=== PATIENT | female | born 1965 | race Caucasian/White ===

== ENCOUNTER 2025-04-18 19:19 | Emergency (ER) | payer MEDICARE, SELFPAY ==
[2025-04-18 19:20] VITALS: BP 136/92; PULSE 88; RESP 20; TEMP 36.1; O2SAT 96
[2025-04-18 19:22] VITALS: BMI 42.5
[2025-04-18] MEDS: Lidocaine 1% (20 ml mdv) 20 ML Vial INFILT (19:48)
[2025-04-18 19:50] VITALS: BP 112/73; PULSE 83; RESP 16; TEMP 36.6; O2SAT 96
--- NOTE | 2025-04-18 19:52 | ED.VIS.LOWEX ---
HPI History of Present Illness Chief Complaint: Laceration Informant: patient and spouse/S.O. Narrative Narrative: 59-year-old female presenting to the emergency room with right leg lacerations. Patient states that a glass object inside the house broke and she sustained lacerations to the front part of her right leg. She wonders if she may have a cut on her left foot as there is some blood there. Her tetanus is up-to-date. She does not take any blood thinners. Tetanus Immunization: <5 years PFSH PFSH Medical History Depression Allergy/AdvReac Type Severity Reaction Status Date / Time Penicillins Allergy Severe Anaphylaxis Verified 04/18/25 19:22 prednisone AdvReac Mild Nausea/Vom/ Verified 04/18/25 19:22 Diarrhea Family History no significant family his Surgical History Hx of tubal ligation Hx of hysterectomy Hx of section Social History Smoking Status: Current every day smoker tobacco type: cigarettes ROS ROS ED Constitutional Constitutional ED: Denies chills, fever(s) or weight loss Eyes Eyes: Denies change in vision or diplopia ENT ENT ED: Denies ear pain, rhinorrhea or sore throat Cardiovascular Cardiovascular: Denies chest pain, orthopnea, palpitations or racing heartbeat Respiratory/Chest Respiratory/Chest: Denies cough, dyspnea or orthopnea Gastrointestinal Gastrointestinal: Denies abdominal pain, diarrhea, nausea or vomiting Genitourinary Genitourinary ED: Denies dysuria, hematuria or urinary frequency Musculoskeletal Musculoskeletal: Denies arthralgias or myalgias Integumentary Reports other Details: See HPI ; Denies abscess or rash Neurologic Neurologic: Denies headache(s) or weakness Psychiatric Psychiatric: Denies anxiety, depression, suicidal ideation or suicidal thoughts Endocrine Endocrinology: Denies polydipsia, polyphagia or polyuria Allergic/Immunologic Allergic/Immunologic ED: Denies mouth swelling, tongue swelling or urticaria EXAM Physical Exam Const Vital Signs: 04/18/25 19:20 04/18/25 19:50 Temperature 97 F L 98 F Temperature Source Temporal Pulse Rate 88 83 Respiratory Rate 20 H 16 Blood Pressure 136/92 H 112/73 Blood Pressure Mean 106 86 Pulse Ox 96 96 Oxygen Delivery Method Room Air Positive well nourished and well developed General Appearance ED: well developed and NAD HEENT Reports normocephalic, head/scalp atraumatic and moist mucous membranes Eyes PERRL and EOMs intact bilaterally Neck no lymphadenopathy, supple and no JVD Resp normal respiratory effort and clear to auscultation bilaterally Cardio regular rate, regular rhythm and no murmurs GI normal to inspection, nondistended, normoactive bowel sounds and non-tender Palpation: soft Back/Spine no CVA tenderness and normal ROM Extremity General Extremety ED: Yes edema General Extremity: edema bilateral lower extremity Details: mild Neuro oriented x3 and CN's II-XII intact bilaterally Sensorium / Orientation: alert Motor Exam: strength 5/5 throughout Psych mental status grossly normal Mood & Affect: Negative for depressed or tearful Skin no rashes or lesions noted Skin Narrative: There are several superficial abrasions to the right leg. There are 2 lacerations that are about 3 cm long each. These have wound edges that are well-approximated. There is a larger laceration that is about 4 cm and is gaping. The proximal most aspect of the laceration has a triangular skin avulsion. There is weeping consistent with lymphedema coming from the wound. MDM MDM MDM Narrative Medical decision making narrative: Differential diagnosis includes but not limited to laceration neurovascular injury retained foreign body lymphedema The 2 superficial lacerations were washed with Shur-Clens and the edges held in place using Dermabond. The larger laceration was locally anesthetized using 1% lidocaine washed with Shur-Clens and explored. No foreign bodies were noted. I used a total of 8 simple erupted 3-0 Ethilon sutures. The skin was noted to be rather thin and so bigger bites were needed to ensure that the stitches would not tear through the skin. Good homeostasis and coverage was obtained. Again the proximalmost aspect of the wound of about 1/2 cm showed that the skin was avulsed and did not need closure and will need to heal by secondary intention. Local wound care discussed with patient. Stitches need to be removed in 10 days return if any concerns or worsening History & Record Review Discussion w/independent historian: Patient and Significant other Discharge Plan Triage Chief Complaint: Laceration ED Provider: Willis Mac Dx/Rx/DC Orders Clinical Impression: Laceration of leg, multiple sites Instructions: ED Laceration Extremity, ED Laceration, Skin Adhesive Primary Care Provider: David Doctor,Out of Referrals: [facility] Doctor,Out of [Primary Care Provider, Medical] Activity Restrictions/Additional Instructions: Local wound care: Soap and water and showers are fine. Avoid soaking or swimming. Antibiotic ointment at least 1 time per day. You may leave the wound open to the air if at home. Stitches do need to be removed in about 10 days. Print Language: Kyrgyz Disposition Disposition: Home, Self Care
--- OUTSIDE RECORDS SUMMARY | 2025-04-18 20:05 | XMS RPT_ITS | CCD ---
Author Organization [facility] Care Team Providers Care Quad Stayer Name Role Phone ERIN WATSON Primary Care Physician Yessenia JAMESON Attending Unavailable ERIN WATSON J Referring Unavailabl e NILL, Yessenia Lucio Attending Unavailable Aichholz, Teresita Prashant Referring Unavailable NILL, Yessenia Lucio Attending Unavailable NILL, Yessenia Lucio Attending Unavailable NILL, Yessenia Lucio Attending Unavailable AICHHOLZ, AREA CLEANER ERIN Primary Care Unavailable LR ., DR BAYRON Romero Attending Unavailable LR ., DR BAYRON Romero Admitting Unavailable LR ., DR BAYRON Romero Consulting Unavailable JOSE FRANCISCO ., NAVIN Admitting Unavailable JOSE FRANCISCO .NAVIN Attending Unavailable KIZZY .CHERYL Consulting Unavailable AICHHOLZ, AREA CLEANER ERIN Primary Care Unavailable DEL VALLE ., MR ARDEN Admitting Unavailable DEL VALLE ., MR ARDEN Attending Unavailable AICHHOLZ, AREA CLEANER ERIN Primary Care Unavailable AICHHOLZ, AREA CLEANER ERIN Admitting Unavailable KHAI, DR LAILA Lau Consulting Unavailable AICHHOLZ, AREA CLEANER ERIN Primary Care Unavailable AICHHOLZ, AREA CLEANER ERIN Attending Unavailable AICHHOLZ, AREA CLEANER ERIN Consulting Unavailable AICHHOLZ, AREA CLEANER ERIN Admitting Unavailable KHAI, DR LAILA Lau Consulting Unavailable AICHHOLZ, AREA CLEANER ERIN Primary Care Unavailable AICHHOLZ, AREA CLEANER ERIN Attending Unavailable AICHHOLZ, AREA CLEANER ERIN Consulting Unavailable AICHHOLZ, AREA CLEANER ERIN Primary Care Unavailable NILL ., DR CASAS Admitting Unavailable NILL ., DR CASAS Attending Unavailable NILL ., DR CASAS Consulting Unavailable NOHEMI ANDESRON Consulting Unavailable JOSE FRANCISCO ., NAVIN Admitting Unavailable JOSE FRANCISCO ., NAVIN Attending Unavailable JOSE FRANCISCO ., NAVIN Consulting Unavailable AICHHOLZ, AREA CLEANER ERIN Primary Care Unavailable LR ., DR BAYRON Romero Attending Unavailable LR ., DR BYARON Romero Consulting Unavailable LR ., DR BAYRON Romero Admitting Unavailable AICHHOLZ, AREA CLEANER ERIN Primary Care Unavailable DI WALLS Consulting Unavailable LR ., DR BAYRON Romero Attending Unavailable LR ., DR BAYRON Romero Consulting Unavailable LR ., DR BAYRON Romero Admitting Unavailable AICHHOLZ, AREA CLEANER ERIN Primary Care Unavailable LR ., DR BAYRON Romero Admitting Unavailable LR ., DR BAYRON Romero Attending Unavailable LR ., DR BAYRON Romero Consulting Unavailable AICHHOLZ, AREA CLEANER ERIN Primary Care Unavailable LR ., DR BAYRON Romero Admitting Unavailable LR ., DR BAYRON Romero Attending Unavailable AICHHOLZ, AREA CLEANER ERIN Primary Care Unavailable LILLY ., ABHILASH Consulting Unavailable LR ., DR BAYRON Romero Admitting Unavailable LR ., DR BAYRON Romero Attending Unavailable LR ., DR BAYRON Romero Consulting Unavailable AICHHOLZ, AREA CLEANER ERIN Primary Care Unavailable LR ., DR BAYRON Romero Admitting Unavailable LR ., DR BAYRON Romero Attending Unavailable LR ., DR BAYRON Romero Consulting Unavailable AICHHOLZ, AREA CLEANER ERIN Primary Care Unavailable LILLY ., ABHILASH Consulting Unavailable LR ., DR BAYRON Romero Admitting Unavailable LR ., DR BAYRON Romero Attending Unavailable AICHHOLZ, AREA CLEANER ERIN Primary Care Unavailable LR ., DR BAYRON Romero Attending Unavailable LR ., DR BAYRON Romero Consulting Unavailable LR ., DR BAYRON Romero Admitting Unavailable AICHHOLZ, AREA CLEANER ERIN Primary Care Unavailable LAKSHMIPATHY ., NARENDRANCARMELITA Consulting Laura vailable NILL ., DR CASAS Consulting Unavailable NILL ., DR CASAS Admitting Unavailable AICHHOLZ, AREA CLEANER ERIN Primary Care Unavailable NILL ., DR CASAS Attending Unavailable AICHHOLZ, AREA CLEANER ERIN Admitting Unavailable AICHHOLZ, AREA CLEANER ERIN Attending Unavailable AICHHOLZ, AREA CLEANER ERIN Consulting Unavailable AICHHOLZ, AREA CLEANER ERIN Primary Care Unavailable JOSIAH, DR CARLENE Lucio Consulting Unavailable AICHHOLZ, AREA CLEANER ERIN Admitting Unavailable AICHHOLZ, AREA CLEANER ERIN Attending Unavailable AICHHOLZ, AREA CLEANER ERIN Consulting Unavailable AICHHOLZ, AREA CLEANER ERIN Primary Care Unavailable RERE BARBOSA Consulting Unavailable LR ., DR BAYRON Romero Attending Unavailable LR ., DR BAYRON Romero Admitting Unavailable AICHHOLZ, AREA CLEANER ERIN Primary Care Unavailable AICHHOLZ, AREA CLEANER ERIN Primary Care Unavailable SAMSA ., EFREN Admitting Unavailable SAMSA ., EFREN Attending Unavailable SAMSA ., EFREN Consulting Unavailable LR ., DR BAYRON Romero Attending Unavailable LR ., DR BAYRON Romero Admitting Unavailable KEVIN ., DR BAYRON Romero Consulting Unavailable AICHHOLZ, AREA CLEANER ERIN Primary Care Unavailable AICHHOLZ, AREA CLEANER ERIN Admitting Unavailable AICHHOLZ, AREA CLEANER ERIN Attending Unavailable AICHHOLZ, AREA CLEANER ERIN Consulting Unavailable AICHHOLZ, AREA CLEANER ERIN Primary Care Unavailable Aichholz MEDIA INTERN, Erin Unavailable Benjamin LEAHY, Primary Care Provider [phone] Aichholz MEDIA INTERN, Erin Unavailable Tara LEAHY, Matty Primary Care Provider Aichholz MEDIA INTERN, Erin Unavailable Jose Roberts Attending Unavailab le Jose Roberts Admitting Unavailab le Aichholz, Erin J Primary Care Unavailable SHALONDA WHITE Attending Unavailable AICHHOLZ, ERIN Referring Unavailable AICHHOLZ, ERIN Attending Unavailable TOSHIA VILLA Attending Unavailable AICHHOLZ, ERIN Attending Unavailable AICHHOLZ, ERIN Attending Unavailable Aichholz MEDIA INTERN-C, Erin J Primary Care Provider Jose Roberts MD Attending Provider Aichholz MEDIA INTERN-C, Erin J Attending Provider Filomena LEAHY, Sd Linder Attending Unavailable Aichholz MEDIA INTERN, Erin Unavailable Benjamin LEAHY, Nova Primary Care Provider Tara LEAHY, Matty Primary Care Provider Tara LEAHY, Matty Primary Care Provider Aichholz MEDIA INTERN, Erin Unavailable Aichholz, Erin J Primary Care Unavailable Aichholz, Erin J Primary Care Unavailable Aichholz, Erin J Primary Care Unavailable Aichholz, Erin J Primary Care Unavailable Aichholz, Erin J Primary Care Unavailable Aichholz, Erin J Primary Care Unavailable Aichholz, Erin J Primary Care Unavailable Erin Watson Primary Care Unavailable Erin Watson Primary Care Unavailable Erin Watson Primary Care Unavailable Erin Watson Primary Care Unavailable Erin Watson Primary Care Unavailable Erin Watson Primary Care Unavailable Erin Watson Primary Care Unavailable Erin Watson Primary Care Unavailable Erin Watson Primary Care Unavailable Allergies Allergy Classification Reported Allergen(s) Allergy Type Date of Onset Reaction(s) Facility (20 sources) Penicillins; Translations: [penicillins] Drug allergy 4 Dyspnea (finding), Weal (disorder), Hives, Shortness of breath, Swelling [facility] [place] (20 sources) predniSONE; Translations: [prednisone] Drug Allergy 4 Dyspnea (finding) [facility] [place] (1 source) prednisoLONE Drug Allergy [facility] (20 sources) Prednisone Propensity to adverse reactions 3 Itching [facility] (9 sources) Penicillin Drug Allergy 5 [facility] Comment on above: shortness of breath (1 source) predniSONE Drug Allergy 5 [facility] Rep[facility] Medications Current Medications Medication Drug Class(es) Dates Sig (Normalized) Sig (Original) acetaminophen 325 mg / HYDROcodone bitartrate 5 mg oral tablet (13 sources) Opioid Agonist Start: 11-24-2024 End: 12-04-2024 take 1 tablet by mouth once HYDROcodone-acetam inophen (Dale) 5-325 MG tablet Indications: Acute back pain with sciatica, unspecified laterality Take 1 tablet by mouth every 12 (twelve) hours if needed for severe pain for up to 10 days 20 tablet 11/24/2024 12/04/2024 Active Start: 09-23-2024 End: 12-10-2024 take 1 tablet by mouth every six hours as needed for pain Hydrocodone-Acetaminophen 5-325 mg table t Discontinued 1 TAB PO Q6H as needed for pain 12 0 September 23, 2024 December 10, 2024 1:40pm Lumbar radiculopathy Radiculopathy, lumbar region albuterol 0.83 mg/ml inhalation solution (20 sources) beta2-Adrenergic Agonist Start: 01-23-2025 take 2.5 mg by inhalation every four to six hours as needed Albuterol Sulfate 2.5 mg /3 mL (0.083 %) solution for nebulization Active 2.5 MG INHALATION EVERY 4-6 HOURS as needed January 23, 2025 12:00am Complies with drug therapy Start: 01-23-2025 take 1 puff(s) by in halation every six hours as needed Albuterol Sulfate 90 mcg/actuation HFA aerosol inhaler Active 2 PUFF INHALATION Every 6 hours as needed January 23, 2025 12:00am Complies with drug therapy Start: 07-15-2024 End: 08-14-2024 take 2 puff(s) by inhalation every six hours for wheezing albuterol HFA 90 mcg/act inhaler Indications: COPD mixed type (HCC) Inhale 2 puffs every 6 (six) hours if needed for shortness of breath or wheezing 18 g 07/15/2024 Active Start: 03-20-2024 End: 03-08-2025 take 1.25 mg by inhalation every six hours as needed for wheezing Albuterol Sulfate 2.5 mg /3 mL (0.083 %) solution for nebulization Discontinued 1.25 MG IH Q6H as needed for shortness of breath or wheezing 90 0 March 20, 2024 12:00am March 08, 2025 7:00am albuterol 0.833 mg/ml / ipratropium bromide 0.167 mg/ml inhalation solution (20 sources) Anticholinergic, beta2-Adrenergic Agonist Start: 01-23-2025 take 1 mL by inhalation every four to six hours as needed Ipratropium-Albuterol 0.5 mg-3 mg(2.5 mg base)/3 mL solution for nebulization Active 3 ML INHALATION EVERY 4-6 HOURS as needed January 23, 2025 12:00am Complies with drug therapy Start: 03-24-2024 End: 09-23-2024 take 1 mL by inhalation every six hours Ipratropium-Albuterol 0.5 mg-3 mg(2.5 mg base)/3 mL Solution For Nebulization Discontinued 3 ML IH Q6H 90 7 0 March 24, 2024 12:00am September 23, 2024 10:28am Albuterol Sulfate 2.5 mg /3 mL (0.083 %) solution for nebulization (5 sources) Start: 03-20-2024 take 1.25 mg by inhalation every six hours as needed for wheezing Albuterol Sulfate 2.5 mg /3 mL (0.083 %) solution for nebulization Active 1.25 MG IH Q6H as needed for shortness of breath or wheezing 90 March 20, 2024 12:00am amitriptyline hydrochloride 100 mg oral tablet (20 sources) Tricyclic Antidepressant Start: 01-23-2025 Amitriptyline 100 mg tablet Active 50 MG PO Daily at bedtime January 23, 2025 12:00am Complies with drug therapy Start: 04-22-2024 End: 01-24-2025 take 0.5 tablet by mouth at bedtime amitriptyline (Elavil) 100 MG tablet Indications: Fibromyalgia Take 0.5 tablets (50 mg) by mouth at bedtime 45 tablet 1 10/26/2024 01/24/2025 Active Start: 03-21-2024 take 1 tablet by tariq th once daily in the evening Amitriptyline 100 mg tablet Active 100 MG PO every evening March 21, 2024 12:00am Complies with drug therapy Start: 07-31-2023 End: 04-20-2024 take 0.5 tablet by mouth at bedtime amitriptyline (Elavil) 100 MG tablet Indications: Fibromyalgia Take 0.5 tablets (50 mg) by mouth at bedtime 45 tablet 1 01/21/2024 Active Start: 04-19-2022 amitriptyline 100 mg oral tablet 50 mg = 0.5 tab(s), Oral, Once a day (at bedtime), Refills(s) 0 Start Date: 04/19/22 Status: Ordered End: 03-30-2024 take 1 tablet by mouth at bedtime amitriptyline (Elavil) 50 MG tablet Take 50 mg by mouth at bedtime 03/30/2024 Discontinued (Therapy completed) 120 actuat budesonide 0.16 mg/actuat / formoterol fumarate 0.0048 mg/actuat / glycopyrrolate 0.009 mg/actuat metered dose inhaler (20 sources) Corticosteroid, beta2-Adrenergic Agonist Start: 01-23-2025 Bkvqzeeoed-Zrmcivbt-Uzeidgnk ol (Breztri Aerosphere) 160-9-4.8 mcg/actuation HFA aerosol inhaler Active 2 INH INHALATION Twice daily January 23, 2025 12:00am Complies with drug therapy Start: 10-26-2024 End: 01-24-2025 take 2 puff(s) by inhalation in the morning, then take 2 puff(s) by inhalation at bedtime, then take 2 puff(s) by inhalation in the morning, then take 2 puff(s) by inhalation at bedtime Lklggvw-Pesrvwcgoiy-Mpibylguib (Breztri Aerosphere) 160-9-4.8 MCG/ACT aerosol Indications: COPD mixed type (HCC) Inhale 2 puffs in the morning and 2 puffs before bedtime. Inhale 2 puffs in the morning and 2 puffs before bedtime. 32 g 1 10/26/2024 01/24/2025 Active Start: 12-25-2022 End: 10-26-2024 take 2 puff(s) by inhalation in the morning Breztri Aerosphere 160-9-4.8 MCG/ACT aerosol Inhale 2 puffs in the morning and 2 puffs before bedtime. 12/25/2022 10/26/2024 Discontinued (Reorder) bumetanide 0.5 mg oral tablet (20 sources) Loop Diuretic Start: 01-23-2025 take 1 tablet by mouth once daily Bumetanide 0.5 mg tablet Active 0.5 MG PO Daily January 23, 2025 12:00am only MWF Complies with drug therapy Start: 09-02-2023 End: 10-26-2024 bumetanide (Bumex) 0.5 MG ta blet Indications: Bilateral lower extremity edema Take M W F only 27 tablet 1 10/26/2024 Active Start: 06-20-2023 End: 07-04-2023 take 1 tablet by mouth in the morning bumetanide (Bumex) 0.5 MG tablet Indications: Bilateral lower extremity edema Take 1 tablet (0.5 mg) by mouth in the morning for 14 days. 14 tablet 0 06/20/2023 07/04/2023 Active cariprazine 4.5 mg oral capsule (9 sources) Atypical Antipsychotic Start: 12-10-2024 take 1 capsule by mouth once daily Cariprazine (Vraylar) 4.5 mg capsule Active 4.5 MG PO Daily December 09, 2024 11:00pm Complies with drug therapy cephalexin 500 mg oral tablet (1 source) Cephalosporin Antibacterial Start: 03-20-2024 take 1 capsule by mouth four times daily Cephalexin 500 mg capsule Active 500 MG PO four times daily 40 March 20, 2024 12:00am cetirizine hydrochloride 10 mg oral tablet (18 sources) Histamine-1 Receptor Antagonist Start: 07-15-2024 End: 01-24-2025 take 1 tablet by mouth once daily Cetirizine 10 mg tablet Active 10 MG PO Daily January 23, 2025 12:00am Complies with drug therapy cholecalciferol 0.125 mg oral tablet (20 sources) Vitamin D Start: 01-23-2025 take 1 tablet by mouth once daily Cholecalciferol (Vitamin D3) 125 mcg (5,000 unit) tablet Active 125 MCG PO Daily January 23, 2025 12:00am Complies with drug therapy cyclobenzaprine hydrochloride 5 mg oral tablet (12 sources) Muscle Relaxant Start: 01-23-2025 take 1 tablet by mouth every eight hours as needed for muscle spasms Cyclobenzaprine 5 mg tablet Active 5 MG PO Every 8 hours as needed for muscle spasm January 23, 2025 12:00am Complies with drug therapy Start: 12-10-2024 take 1 tablet by tariq th three times daily as needed for muscle spasms Cyclobenzaprine 10 mg tablet Active 10 MG PO three times a day as needed for muscle spasm 90 0 December 09, 2024 11:00pm Spinal stenosis of lumbar region with neurogenic claudication Spinal stenosis, lumbar region with neurogenic claudication Complies with drug therapy take 5 mg by mouth t hree times daily as needed for muscle spasms cyclobenzaprine (Flexeril) 10 MG tablet Indications: Fibromyalgia Syndrome , Muscle Spasm Take 5 mg by mouth 3 (three) times a day as needed for muscle spasms Active Ipratropium-Albuterol 0.5 mg-3 mg(2.5 mg base)/3 mL Solution For Nebulization (3 sources) Start: 03-24-2024 take 1 mL by inhalation every six hours Ipratropium-Albuterol 0.5 mg-3 mg(2.5 mg base)/3 mL Solution For Nebulization Active 3 ML IH Q6H 90 7 March 24, 2024 12:00am lamoTRIgine 100 mg oral tablet (20 sources) Mood Stabilize r, Anti-epil eptic Agent Start: 01-23-2025 take 1 tablet by mouth once daily Lamotrigine 100 mg tablet Active 100 MG PO Daily January 23, 2025 12:00am Complies with drug therapy Start: 03-21-2024 take 1 tablet by tariq once daily in the evening Lamotrigine 200 mg tablet Active 200 MG PO every evening March 21, 2024 12:00am Complies with drug therapy Start: 03-21-2024 Lamotrigine 15 0 mg tablet Active 100 MG PO Daily March 21, 2024 12:00am Start: 07-30-2023 End: 03-30-2024 take 1 tablet by mouth once daily Lamotrigine 150 mg tablet Active 150 MG PO Daily March 21, 2024 12:00am Complies with drug therapy Start: 04-19-2022 take 1 tablet by tariq once daily in the morning, then take 2 tablets by mouth once daily in the evening Lamictal 100 mg Tab 1 po QAM and 2 po QPM, Refills(s) 0 Start Date: 04/19/22 Status: Ordered lamoTRIgine (Alexander ICtal) 100 MG tablet Take 150 mg by mouth in the morning. In the morning . 0 Active lidocaine 0.05 mg/mg medicated patch (5 sources) Antiarrhythmic, Amide Local Anesthetic apply 1 dose transdermal route every twelve hours in the morning lidocaine (Lidoderm) 5 % patch Apply 1 patch topically in the morning. Remove & discard patch within 12 hours or as directed by MD.. 0 Active Methylprednisolone (Methylpred Dp) 4 mg tablets,dose pack (3 sources) Start : 03-24 Methylprednisolone (Methylpred Dp) 4 mg tablets,dose pack Active 4 MG PO .as directed 24 10March 24, 2024 12:00am Day 1: 8mg at breakfast, 4mg after lunch, 4mg after supper, 8mg at bedtime Day 2: 4mg at breakfast, 4mg after lunch, 4mg after supper, 8mg at bedtime Day 3: 4mg at breakfast, 4mg after lunch, 4mg after supper, 4mg at bedtime Day 4: 4mg at breakfast, 4mg after lunch, 4mg at bedtime Day 5: 4mg at breakfast, 4mg at bedtime Day 6:4mg at breakfast Nicotine 21 mg/24 hr Patch 24 Hour (3 sources) Start : 03-24 apply 1 dose transdermal route every twenty-four hours Nicotine 21 mg/24 hr Patch 24 Hour Active 21 MG TD Q24H 10 March 24, 2024 12:00am omeprazole 40 mg delayed release oral capsule (20 sources) Proton Pump Inhibitor Start : 07-30 End: 01-24 take 1 capsule by mouth once daily Omeprazole 40 mg capsule,delayed release(DR/EC) Active 40 MG PO Daily March 21, 2024 12:00am Complies with drug therapy Start: 04-19-2022 take 1 capsule by mo [facility] once daily omeprazole 40 mg Cap-DR 40 mg = 1 cap(s), Oral, Daily, Refills(s) 0 Start Date: 04/19/22 Status: Ordered Omeprazole 40 mg capsule,delayed release(DR/EC) (4 sources) Start: 03-21-2024 take 1 capsule by mouth once daily Omeprazole 40 mg capsule,delayed release(DR/EC) Active 40 MG PO Daily March 21, 2024 12:00am prazosin 1 mg oral capsule (20 sources) alpha-Adrener gic Viv Start: 03-21-2024 take 1 capsule by mouth once daily in the evening Prazosin 2 mg capsule Active 2 MG PO every evening March 21, 2024 12:00am Start: 02-11-2024 Start: 04-19-2022 take 1 capsule by mo [facility] once daily in the evening Prazosin 2 mg capsule Active 2 MG PO every evening March 21, 2024 12:00am Complies with drug therapy pregabalin 75 mg oral capsule (20 sources) Start: 02-24-2025 take 1 capsule by mouth twice daily Pregabalin (Lyrica) 75 mg capsule Active 75 MG PO twice a day February 23, 2025 11:00pm Complies with drug therapy Start: 01-23-2025 take 1 capsule by mo [facility] three times daily Pregabalin 100 mg capsule Active 100 MG PO Three times daily January 23, 2025 12:00am Complies with drug therapy Start: 03-21-2024 End: 02-24-2025 take 3 capsules by mouth three times daily Pregabalin 100 mg capsule Discontinued 300 MG PO three times a day March 21, 2024 12:00am February 24, 2025 1:25pm Start: 03-21-2024 Start: 03-21-2024 End: 11-25-2024 take 1 capsule by mouth in the morning pregabalin (Lyrica) 100 MG capsule Indications: Fibromyalgia Take 1 capsule (100 mg) by mouth in the morning and 1 capsule (100 mg) before bedtime. 60 capsule 2 10/26/2024 Active Start: 09-23-2023 take 1 capsule by mo uth in the morning pregabalin (Lyrica) 100 MG capsule Indications: Fibromyalgia Take 1 capsule (100 mg) by mouth in the morning and 1 capsule (100 mg) before bedtime. 60 capsule 5 09/23/2023 Active Start: 04-03-2023 take 1 capsule by mo uth twice daily pregabalin (Lyrica) 100 MG capsule Indications: Fibromyalgia TAKE 1 CAPSULE BY MOUTH TWICE DAILY 60 capsule 5 04/03/2023 Active Start: 04-19-2022 take 1 capsule by mo uth twice daily pregabalin 100 mg Cap 100 mg = 1 cap(s), Oral, BID, Refills(s) 0 Start Date: 04/19/22 Status: Ordered propranolol hydrochloride 40 mg oral tablet (20 sources) beta-Adrenergic Viv Start: 03-21-2024 End: 01-24-2025 take 1 tablet by mouth twice daily Propranolol 40 mg tablet Active 40 MG PO twice a day March 21, 2024 12:00am Complies with drug therapy Start: 09-23-2023 take 1 tablet by tariq th in the morning propranolol (Inderal) 40 MG tablet Indications: Personal history of other diseases of the nervous system and sense organs Take 1 tablet (40 mg) by mouth in the morning and 1 tablet (40 mg) before bedtime. 60 tablet 5 09/23/2023 Active Start: 04-03-2023 take 1 tablet by tariq th twice daily propranolol (Inderal) 40 MG tablet Indications: Personal history of other diseases of the nervous system and sense organs TAKE 1 TABLET BY MOUTH TWICE DAILY 60 tablet 5 04/03/2023 Active Start: 04-19-2022 take 1 tablet by tariq th twice daily propranolol 40 mg Tab 40 mg = 1 tab(s), Oral, BID, Refills(s) 0 Start Date: 04/19/22 Status: Ordered QUEtiapine 300 mg oral tablet (20 sources) Atypical Antipsychotic Start: 01-23-2025 take 1 tablet by mouth once daily at bedtime Quetiapine 300 mg tablet Active 300 MG PO Daily at bedtime January 23, 2025 12:00am Complies with drug therapy Start: 08-06-2024 take 1 tablet by tariq th at bedtime QUEtiapine (SEROquel) 300 MG tablet Take 300 mg by mouth at bedtime 08/06/2024 Active Start: 03-21-2024 take 3 tablets by mo [facility] once daily Quetiapine 100 mg tablet Active 300 MG PO Daily March 21, 2024 12:00am Complies with drug therapy Start: 03-21-2024 End: 10-26-2024 take 1 tablet by mouth once daily in the evening Quetiapine 400 mg tablet Discontinued 400 MG PO every evening March 21, 2024 12:00am September 23, 2024 10:30am Start: 04-19-2022 End: 10-26-2024 take 1 tablet by mouth once daily Quetiapine 100 mg tablet Active 100 MG PO Daily March 21, 2024 12:00am simvastatin 40 mg oral tablet (10 sources) HMG-CoA Reductase Inhibitor Start: 12-10-2024 take 1 tablet by mouth once daily Simvastatin 40 mg tablet Active 40 MG PO Daily December 09, 2024 11:00pm Complies with drug therapy Start: 04-19-2022 take 1 tablet by tariq once daily at bedtime simvastatin 40 mg Tab 40 mg = 1 tab(s), Oral, Once a day (at bedtime), Refills(s) 0 Start Date: 04/19/22 Status: Ordered spironolactone 50 mg oral tablet (20 sources) Aldosterone Antagonist Start: 12-20-2023 End: 01-24-2025 take 1 tablet by mouth once daily in the morning Spironolactone 50 mg tablet Active 50 MG PO every morning March 21, 2024 12:00am Complies with drug therapy Start: 06-10-2023 End: 07-10-2023 take 1 tablet by mouth in the morning spironolactone (Aldactone) 50 MG tablet Indications: Localized edema Take 1 tablet (50 mg) by mouth in the morning. 30 tablet 5 06/10/2023 07/10/2023 Active Start: 04-19-2022 take 1 tablet by tariq th once daily Aldactone 50 mg Tab 50 mg = 1 tab(s), Oral, Daily, Refills(s) 0 Start Date: 04/19/22 Status: Ordered tiZANidine 4 mg oral tablet (20 sources) Central alpha-2 Adrenergic Agonist Start: 01-23-2025 take 1 tablet by mouth every twelve hours as needed Tizanidine 4 mg tablet Active 4 MG PO Every 12 hours as needed for muscle spasticity January 23, 2025 12:00am Complies with drug therapy Start: 03-30-2024 End: 01-24-2025 take 1 tablet by mouth once tiZANidine (Zanaflex) 4 MG tablet Indications: Fibromyalgia Take 1 tablet (4 mg) by mouth every 12 (twelve) hours if needed for muscle spasms 60 tablet 2 12/25/2024 01/24/2025 Active Start: 07-31-2023 End: 12-10-2024 take 1 tablet by mouth every eight hours as needed Tizanidine 4 mg tablet Discontinued 4 MG PO Q8H as needed for muscle spasticity March 21, 2024 12:00am December 10, 2024 1:41pm Start: 04-19-2022 take 1 tablet by tariq every eight hours as needed for muscle spasms tiZANidine 4 mg Tab 4 mg = 1 tab(s), Oral, q8hr, PRN Spasm, Refills(s) 0 Start Date: 04/19/22 Status: Ordered take 1 tablet by tariq th once daily tiZANidine (Zanaflex) 4 MG tablet Take 4 mg by mouth 1 (one) time each day 0 Active varenicline 1 mg oral tablet (20 sources) Partial Cholinergic Nicotinic Agonist Start: 01-23-2025 take 1 tablet by mouth twice daily Varenicline Tartrate 1 mg tablet Active 1 MG PO Twice daily January 23, 2025 12:00am Complies with drug therapy Start: 10-26-2024 End: 12-01-2024 take 1 tablet by mouth twice daily Varenicline Tartrate, Starter, 0.5 MG X 11 & 1 MG X 42 tablet therapy pack Indications: Tobacco dependence Take 1 tablet by mouth Daily 0.5mg once a day for 3 days, then 0.5mg twice a day for 4 days, then 1mg twice a day 53 each 11/01/2024 Active Start: 09-21-2024 End: 11-25-2024 take 1 tablet by mouth once daily Varenicline Tartrate, Starter, (Chantix Starting Month ) 0.5 MG X 11 & 1 MG X 42 tablet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 prone position where a timeout was completed verifying the correct patient, procedure site, position, and planned special equipment using sterile aseptic technique. Under direct fluoroscopic visualization a 25-gauge Quincke tipped spinal needle was advanced to the designated neural foramen where contrast dye was injected to show adequate spread. The needle was inserted at level left L4-5. There was no evidence of vascular or adverse uptake. Epidural spread was appreciated. The above-mentioned injectate was then placed in a 1.5 mL aliquot preceded by negative aspiration. The needle was removed. The needle was inserted and the procedure repeated at level left L5-S1. The surgery site was covered. Patient was taken to the postprocedural recovery area and monitored for an appropriate length of time before found suitable for discharge in the accompaniment of a responsible adult. Anesthesia: Local Surgeon: Sd Butt Pathology: none sent Condition: stable Disposition: no change Documented By: Sd Butt M.D. 02/15/25 1042 Signed By: 02/15/25 1042 Normal [facility] PJULIO Con 01-27-[address] [address] Consult Note Signed Patient: DAWNA VELÁSQUEZ I MR#: [id number] : 1965 Acct:[id number] Age/Sex: 59 / F ADM Date: 01/27/25 Loc: PM Date of Service: 01/27/[address]: Concepcion Lynn NP cc: Erin Watson NP; Concepcion Lynn NP Consult Note: HPI Data of Consult Patient: known to practice within the last 3 years Consult date: 12/30/24 Requesting Physician: Concepcion Lynn NP Primary Care Provider: Erin Watson NP Consult Narrative Reason for consult: low back pain and LLE pain Narrative: Dawna Velásquez a pleasant 59 year old female presents for evaluation of worsening low back and left leg pain, previous pt of Dr Lr. pain increasing over the last 5 months, noting pain today 8/10 aching. pain increased with standing, walking, sitting, lying, stairs, bending, and sleep. pt utilizing pregabalin 100mg bid, flexeril 15mg TID PRN without side effects. since last visit has had severe LLE pain and tingling. recently underwent lumbar MRI with results below cc:: CC: Concepcion Lynn NP Review of Systems ROS Musculoskeletal Reports: back pain, extremity pain and joint pain PFSH [facility] Medical History Tobacco abuse Z72.0 - Tobacco use (ICD-10) COPD (chronic obstructive pulmonary disease) J44.9 - Chronic obstructive pulmonary disease, unspecified (ICD-10) Anxiety F41.9 - Anxiety disorder, unspecified (ICD-10) Depression F32.A - Depression, unspecified (ICD-10) High cholesterol E78.00 - Pure hypercholesterolemia , unspecified (ICD-10) HTN (hypertension) I10 - Essential (primary) hypertension (ICD-10) Family History Other Family history not known due to adoption Social History Within the past year, how often did you have a drink containing alcohol: monthly or less Within the past year, how many standard drinks containing alcohol did you have on a typical day: 1 or 2 Total score: 0 Score interpretation: A score less than 3 is consistent with normal alcohol consumption. Smoking status: Current every day smoker Non-prescribed substance use: denies use Previous occupational history: retired Are you now , , , , never or living with a partner: In a typical week, how many times do you talk on the telephone with family, friends, or neighbors: 3 or more times per week How often do you get together with friends or relatives: 3 or more times per week Little interest or pleasure in doing things: not at all Feeling down, depressed, or hopeless: not at all Feel stressed/tense/nervo us/anxious/difficult y sleeping: not at all Do you think of yourself as: straight/heterosexua l Gender Identity: female Meds Home Medications and Allergies Home Medications Medication Instructions Recorded Confirmed Type albuterol sulfate 2.5 mg/3 mL 1.25 mg (1.5 mL) inhalation Q6H 09/23/24 Rx (0.083 %) solution for nebulization PRN shortness of breath or wheezing #90 mL amitriptyline 100 mg tablet 100 mg PO QPM 03/21/24 09/23/24 Hi story lamotrigine 150 mg tablet 150 mg PO DAILY 03/21/24 09/23/24 History lamotrigine 200 mg tablet 200 mg PO QPM 03/21/24 09/23/24 Hi story meloxicam 15 mg tablet 15 mg PO QAM 03/21/24 09/23/24 His tory Held on 03/24/24. Instructions: Resume on 03/31/24. hold while taking medrol dose pack omeprazole 40 mg capsule,delayed 40 mg PO DAILY 03/21/24 09/23/24 H istory release prazosin 2 mg capsule 2 mg PO QPM 03/21/24 09/23/24 Hist ory pregabalin 100 mg capsule 75 mg PO BID 03/21/24 12/10/24 His tory propranolol 40 mg tablet 40 mg PO BID 03/21/24 09/23/24 His tory quetiapine 100 mg tablet 300 mg PO DAILY 03/21/24 09/23/24 History spironolactone 50 mg tablet 50 mg PO QAM 03/21/24 09/23/24 His tory prazosin 1 mg capsule mg 09/23/24 History cariprazine 4.5 mg capsule 4.5 mg PO DAILY 12/10/24 12/10/24 History (Christine) cyclobenzaprine 10 mg tablet 10 mg PO TID PRN muscle spasm #90 12/10/24 Rx tabs simvastatin 40 mg tablet 40 mg PO DAILY 12/10/24 12/10/24 H istory Allergies Allergy/AdvReac Type Severity Reaction Status Date / Time prednisone Allergy Severe Anaphylaxis Verified 09/23/24 11:28 Penicillins AdvReac Severe Anaphylaxis Verified 09/23/24 11:28 Exam Constitutional Documenting provider has reviewed patient's vital signs: yes Common normals: no apparent distress, oriented x3, healthy appearing, alert and well nourished General appearance: cooperative HENMT Common normals: normocephalic, hearing grossly normal bilaterally and moist oral mucous membranes Head and scalp: normocephalic Eye Common normals: PERRL Pupil: (more content not included)... Normal [facility] MR lumbar spine wo conon MR lumbar [place] [address] Magnetic Resonance Report Signed Patient: DAWNA VELÁSQUEZ I MR#: [id number] : 1965 Acct:[id number] Age/Sex: 59 / F ADM Date: 01/19/25 Loc: MRI Attending Dr: Concepcion Lynn NP Ordering Physician: Concepcion Lynn NP Date of Service: 01/19/25 Procedure(s): MR lumbar spine wo con Accession Number(s): [id number] cc: Erin Watson NP; Concepcion Lynn NP [place] [id number] Patient Name: DAWNA VELÁSQUEZ MRN: [id number]:[id number] date: 1965 Sex: F Assigned Patient Location: MRI Current Patient Location: MRI Accession/Order Number: [id number] Exam Date: 01/19/2025 09:52 Report Date: 01/19/2025 15:49 At the request of: CONCEPCION LYNN NP Procedure: MR lumbar spine wo con MRI lumbar spine performed without contrast INDICATION: Spinal stenosis, lumbar region with neurogenic claudication FINDINGS: Lumbar vertebral heights, alignment unremarkable. Bone marrow signal is unremarkable with minimal endplate marrow changes L2-L3 appearing predominantly T2 hyperintense and T1 hypointense. Intermargin plate spurring notably L1-L4. Minimal anterolisthesis ascending L5-S1 and from L1 through L4. Conus medullaris service normally mid L2. Paraspinal soft tissues are unremarkable. T12-L1: Unremarkable. L1-2: Disc desiccation. No significant disc disease central canal or neural foramen narrowing identified. L2-3: Broad-based disc bulge with moderate facet arthropathy. Trace facet joint effusion. Mild left greater than right neural foramina narrowing. Canal is patent. L3-L4: Broad-based disc bulge with molk-ks-rxdgixbi facet arthropathy. Moderate left neural from narrowing [id number] right neural from narrowing. L4-5: Disc desiccation with moderate facet arthropathy. Minimal endplate spurring extending both foramina regions causing mild right moderate left neural foraminal narrowing. L5-S1: Circumferential disc bulge with superimposed subarticular extrusion measuring 9 x 6 mm. This contacts the traversing left S1 nerve root. Otherwise mild left moderate moderate right-sided neural foraminal narrowing. Moderate facet arthropathy. MR/MR lumbar spine wo con IMPRESSION: L5-S1 subarticular zone disc extrusion contacting and slightly displacing the traversing left S1 nerve root, correlate with possible left lower S1 radiculopathy. Otherwise mild multilevel degenerative changes with moderate posterior element degeneration notably L4-S1. Impression dictated by: Kieran Veloz M.D. 01/19/2025 3:49 PM Dictation Location: [place] [address] Electronically authenticated by: [id number] Y Date: 01/19/2025 15:49 Dictated By: Kieran Veloz M.D. Signed By: 01/19/25 1552 DD/ 1549 TD/TT: Assistant Attorney General: Normal [facility] Anion gap measurementOrdered By: Erin Watson on 01-05-2025 Anion gap [Moles/Vol] 12.6 mmol/L [facility] BUN/creatinine ratioOrdered By: Erin Watson on 01-05-2025 Urea nitrogen/Creatinine [Mass ratio] 18.4 mg/mg [facility] Basic Metabolic Panelon Anion gap [Moles/Vol] 12.6 mmol/L Normal [facility] Comment on above: Performed By: #### C VDTBHG #### [facility] , Calcium [Mass/Vol] 8.9 mg/dL Normal 8.5-10.1 [facility] [place] Comment on above: Performed By: #### C VDTBHG #### [facility] , Chloride [Moles/Vol] 101 mmol/L Normal 98-107 [facility] [place] Comment on above: Performed By: #### C VDTBHG #### [facility] , CO2 [Moles/Vol] 29.5 mmol/L Normal 21.0-32.0 [facility] [place] Comment on above: Performed By: #### C VDTBHG #### [facility] , Creatinine [Mass/Vol] 1.03 mg/dL High 0.55-1.02 [facility] [place] Comment on above: Performed By: #### C VDTBHG #### [facility] , Estimated GFR ( Marlee >60 Normal >=60 mL/min/1.73m 2 [facility] [place] Comment on above: Performed By: #### C VDTBHG #### [facility] , Estimated GFR (Non- Maritza 54 Low >=60 mL/min/1.73m 2 [facility] [place] Comment on above: Performed By: #### C VDTBHG #### [facility] , Glucose [Mass/Vol] 111 mg/dL High 74-106 [facility] [place] Comment on above: Performed By: #### C VDTBHG #### [facility] , Potassium [Moles/Vol] 4.1 mmol/L Normal 3.5-5.1 [facility] [place] Comment on above: Performed By: #### C VDTBHG #### [facility] , Sodium [Moles/Vol] 139 mmol/L Normal 136-145 [facility] [place] Comment on above: Performed By: #### C VDTBHG #### [facility] , Urea nitrogen [Mass/Vol] 19.0 mg/dL High 7.0-18.0 [facility] [place] Comment on above: Performed By: #### C VDTBHG #### [facility] , Urea nitrogen/Creatinine [Mass ratio] 18.4 mg/mg Normal [facility] [place] Comment on above: Performed By: #### C VDTB #### [facility] , Blood urea nitrogen (BUN) me asurementOrdered By: Erin Watson on 01-05-2025 Urea nitrogen [Mass/Vol] 19.0 mg/dL 7.0-18.0 [facility] Calcium measurementOrdered B y: Erin Watson on 01-05-2025 Calcium [Mass/Vol] 8.9 mg/dL 8.5-10.1 [facility] Carbon dioxide, total [Moles /volume] in BloodOrdered By: Erin Watson on 01-05-2025 CO2 [Moles/Vol] 29.5 mmol/L 21.0-32.0 [facility] Chloride measurementOrdered By: Erin Watson on 01-05-2025 Chloride [Moles/Vol] 101 mmol/L 98-107 [facility] Estimated glomerular filtrat ion rate (GFR) AmericanOrdered By: Erin Watson on 01-05-2025 GFR/1.73 sq M.predicted MDRD (S/P/Bld) [Vol rate/Area] mL/min/{1.73_m2} >60 [facility] Glomerular filtration rate ( GFR) estimation in non- AmericanOrdered By: Erin Watson on 01-05-2025 GFR/1.73 sq M.predicted among non-blacks MDRD (S/P/Bld) [Vol rate/Area] 54 mL/min/{1.73_m2} Low >=60 mL/min/1.73m 2 [facility] Laboratory - Chemistry and C hemistry - challengeOrdered By: Erin Watson on 01-05-2025 Creatinine [Mass/Vol] 1.03 mg/dL High 0.55-1.02 [facility] Potassium [Moles/Vol] 4.1 mmol/L 3.5-5.1 [facility] Potassium [Moles/volume] in Serum, Plasma or Bloodon 01-05-2025 Potassium (S/P/Bld) [Moles/Vol] 4.1 mmol/L 3.5-5.1 [facility] Work Phone: Serum or plasma creatinine m easurement (moles/volume)on 01-05-2025 Creatinine [Moles/Vol] 1.03 mg/dL 0.55-1.02 [facility] Work Phone: Serum, plasma, or whole bloo d glucose measurement (mass/volume)Ordered By: Erin Watson on 01-05-2025 Glucose [Mass/Vol] 111 mg/dL 74-106 [facility] Sodium [Moles/volume] in Blo odOrdered By: Erin Watson on 01-05-2025 Sodium [Moles/Vol] 139 mmol/L 136-145 [facility] 12-30-2024 [place] [address] Consult Note Signed Patient: DAWNA VELÁSQUEZ I MR#: [id number] : 1965 Acct:[id number] Age/Sex: 59 / F ADM Date: 12/30/24 Loc: PM Date of Service: 12/30/[address]: Concepcion Lynn NP cc: Erin Watson NP; Concepcion Lynn NP Consult Note: HPI Data of Consult Patient: known to practice within the last 3 years Consult date: 12/30/24 Requesting Physician: Concepcion Lynn NP Primary Care Provider: Erin Watson NP Consult Narrative Reason for consult: low back pain and LLE pain Narrative: Dawna Velásquez a pleasant 59 year old female presents for evaluation of worsening low back and left leg pain, previous pt of Dr Lr. denies recent falls or injury. pain increasing over the last 4 months, noting pain today 8/10 aching. pain increased with standing, walking, sitting, lying, stairs, bending, and sleep. pt utilizing pregabalin 100mg bid, flexeril 10mg TID PRN without side effects. since last visit has had severe LLE pain and tingling. cc:: CC: Concepcion Lynn NP Review of Systems ROS Musculoskeletal Reports: back pain, extremity pain and joint pain PFSH PFSH Medical History Tobacco abuse Z72.0 - Tobacco use (ICD-10) COPD (chronic obstructive pulmonary disease) J44.9 - Chronic obstructive pulmonary disease, unspecified (ICD-10) Anxiety F41.9 - Anxiety disorder, unspecified (ICD-10) Depression F32.A - Depression, unspecified (ICD-10) High cholesterol E78.00 - Pure hypercholesterolemia , unspecified (ICD-10) HTN (hypertension) I10 - Essential (primary) hypertension (ICD-10) Family History Other Family history not known due to adoption Social History Within the past year, how often did you have a drink containing alcohol: monthly or less Within the past year, how many standard drinks containing alcohol did you have on a typical day: 1 or 2 Total score: 0 Score interpretation: A score less than 3 is consistent with normal alcohol consumption. Smoking status: Current every day smoker Non-prescribed substance use: denies use Previous occupational history: retired Are you now , , , , never or living with a partner: In a typical week, how many times do you talk on the telephone with family, friends, or neighbors: 3 or more times per week How often do you get together with friends or relatives: 3 or more times per week Little interest or pleasure in doing things: not at all Feeling down, depressed, or hopeless: not at all Feel stressed/tense/nervo us/anxious/difficult y sleeping: not at all Do you think of yourself as: straight/heterosexua l Gender Identity: female Meds Home Medications and Allergies Home Medications Medication Instructions Recorded Confirmed Type albuterol sulfate 2.5 mg/3 mL 1.25 mg (1.5 mL) inhalation Q6H 09/23/24 Rx (0.083 %) solution for nebulization PRN shortness of breath or wheezing #90 mL amitriptyline 100 mg tablet 100 mg PO QPM 03/21/24 09/23/24 Hi story lamotrigine 150 mg tablet 150 mg PO DAILY 03/21/24 09/23/24 History lamotrigine 200 mg tablet 200 mg PO QPM 03/21/24 09/23/24 Hi story meloxicam 15 mg tablet 15 mg PO QAM 03/21/24 09/23/24 His tory Held on 03/24/24. Instructions: Resume on 03/31/24. hold while taking medrol dose pack omeprazole 40 mg capsule,delayed 40 mg PO DAILY 03/21/24 09/23/24 H istory release prazosin 2 mg capsule 2 mg PO QPM 03/21/24 09/23/24 Hist ory pregabalin 100 mg capsule 75 mg PO BID 03/21/24 12/10/24 His tory propranolol 40 mg tablet 40 mg PO BID 03/21/24 09/23/24 His tory quetiapine 100 mg tablet 300 mg PO DAILY 03/21/24 09/23/24 History spironolactone 50 mg tablet 50 mg PO QAM 03/21/24 09/23/24 His tory prazosin 1 mg capsule mg 09/23/24 History cariprazine 4.5 mg capsule 4.5 mg PO DAILY 12/10/24 12/10/24 History (Christine) cyclobenzaprine 10 mg tablet 10 mg PO TID PRN muscle spasm #90 12/10/24 Rx tabs simvastatin 40 mg tablet 40 mg PO DAILY 12/10/24 12/10/24 H istory Allergies Allergy/AdvReac Type Severity Reaction Status Date / Time prednisone Allergy Severe Anaphylaxis Verified 09/23/24 11:28 Penicillins AdvReac Severe Anaphylaxis Verified 09/23/24 11:28 Exam Constitutional Documenting provider has reviewed patient's vital signs: yes Common normals: no apparent distress, oriented x3, healthy appearing, alert and well nourished General appearance: cooperative HENMT Common normals: normocephalic, hearing grossly normal bilaterally and moist oral mucous membranes Head and scalp: normocephalic Eye Common normals: PERRL Pupil: PERRL Neck C-Sp (more content not included)... Normal [facility] [place] XR LUMBAR SPINE 6V W BENDING on 12-15-2024 The [place] [id number] XRay Report Signed Patient: DAWNA VELÁSQUEZ I MR#: [id number] : 1965 Acct:[id number] Age/Sex: 59 / F ADM Date: 12/15/24 Loc: [facility] Attending Dr: Concepcion Lynn NP Ordering Physician: Concepcion Lynn NP Date of Service: 12/15/24 Procedure(s): XR lumbar spine 6V w bending Accession Number(s): [id number] cc: Erin Watson MEDIA INTERN; Concepcion Lynn NP The [place] [address] Patient Name: DAWNA VELÁSQUEZ MRN: [facility]:[id number] date: 1965 Sex: F Assigned Patient Location: [facility] Current Patient Location: [facility] Accession/Order Number: [id number] Exam Date: 12/15/2024 14:32 Report Date: 12/15/2024 14:33 At the request of: CONCEPCION LYNN NP Procedure: XR lumbar spine 6V w bending LUMBAR SPINE - 6 views CLINICAL HISTORY: Lumbar stenosis COMPARISON: None FINDINGS: Vertebral heights appear maintained. Mild diffuse degenerative disc disease with relative sparing of L4-L5 disc level.. No pathological motion on flexion or extension views. SI joints demonstrate degenerative change. XR/XR lumbar spine 6V w bending IMPRESSION: MILD DIFFUSE DEGENERATIVE DISC DISEASE WITH RELATIVE SPARING OF THE L4-L5 DISC LEVEL. Impression dictated by: Saúl Harden Jr., D.O. 12/15/2024 2:33 PM Dictation Location: [place] [address] Electronically authenticated by: [id number] Y Date: 12/15/2024 14:33 Dictated By: Saúl Harden M.D. Signed By: 12/15/24 1436 DD/ 32 TD/TT: Assistant Attorney General: [facility] Radiology, Radiologist, MD - 12/15/2024 The [place] [id number] XRay Report Signed Patient: DAWNA VELÁSQUEZ I MR#: [id number] : 1965 Acct:[id number] Age/Sex: 59 / F ADM Date: 12/15/24 Loc: RAD Attending Dr: Concepcion Lynn NP Ordering Physician: Concepcion Lynn NP Date of Service: 12/15/24 Procedure(s): XR lumbar spine 6V w bending Accession Number(s): [id number] cc: Erin Watson MEDIA INTERN; Concepcion Lynn NP [place] [address] Patient Name: DAWNA VELÁSQUEZ MRN: [id number] date: 1965 Sex: F Assigned Patient Location: [facility] Current Patient Location: [facility] Accession/Order Number: [id number] Exam Date: 12/15/2024 14:32 Report Date: 12/15/2024 14:33 At the request of: CONCEPCION LYNN NP Procedure: XR lumbar spine 6V w bending LUMBAR SPINE - 6 views CLINICAL HISTORY: Lumbar stenosis COMPARISON: None FINDINGS: Vertebral heights appear maintained. Mild diffuse degenerative disc disease with relative sparing of L4-L5 disc level.. No pathological motion on flexion or extension views. SI joints demonstrate degenerative change. XR/XR lumbar spine 6V w bending IMPRESSION: MILD DIFFUSE DEGENERATIVE DISC DISEASE WITH RELATIVE SPARING OF THE L4-L5 DISC LEVEL. Impression dictated by: Saúl Harden Jr., D.O. 12/15/2024 2:33 PM Dictation Location: [place] [address] Electronically authenticated by: [id number] Y Date: 12/15/2024 14:33 Dictated By: Saúl Harden M.D. Signed By: 12/15/24 1436 DD/ 1433 TD/TT: Assistant Attorney General: [facility] Radiology Study observation (narrative) [facility] XR LUMBAR SPINE 6V W BENDING Ordered By: Radiologist Radiology on 12-15-2024 [facility] [employer] Work Phone: XR lumbar spine 6V w bending on 12-15-2024 XR lumbar spine 6V [place] [address] XRay Report Signed Patient: DAWNA VELÁSQUEZ I MR#: [id number] : 1965 Acct:[id number] Age/Sex: 59 / F ADM Date: 12/15/24 Loc: RAD Attending Dr: Concepcion Lynn NP Ordering Physician: Concepcion Lynn NP Date of Service: 12/15/24 Procedure(s): XR lumbar spine 6V w bending Accession Number(s): [id number] cc: Erin Watson MEDIA INTERN; Concepcion Lynn NP [place] [id number] Patient Name: DAWNA VELÁSQUEZ MRN: [id number] date: 1965 Sex: F Assigned Patient Location: [facility] Current Patient Location: [facility] Accession/Order Number: [id number] Exam Date: 12/15/2024 14:32 Report Date: 12/15/2024 14:33 At the request of: CONCEPCION LYNN NP Procedure: XR lumbar spine 6V w bending LUMBAR SPINE - 6 views CLINICAL HISTORY: Lumbar stenosis COMPARISON: None FINDINGS: Vertebral heights appear maintained. Mild diffuse degenerative disc disease with relative sparing of L4-L5 disc level.. No pathological motion on flexion or extension views. SI joints demonstrate degenerative change. XR/XR lumbar spine 6V w bending IMPRESSION: MILD DIFFUSE DEGENERATIVE DISC DISEASE WITH RELATIVE SPARING OF THE L4-L5 DISC LEVEL. Impression dictated by: Saúl Harden Jr., D.O. 12/15/2024 2:33 PM Dictation Location: [place] [address] Electronically authenticated by: [id number] Y Date: 12/15/2024 14:33 Dictated By: Saúl Harden M.D. Signed By: 12/15/24 1436 DD/ 143 TD/TT: Assistant Attorney General: [facility] KETAN Gee 12-10-2024 [place] [address] Consult Note Signed Patient: DAWNA VELÁSQUEZ I MR#: [id number] : 1965 Acct:[id number] Age/Sex: 59 / F ADM Date: 12/10/24 Loc: PM Date of Service: 12/10/[address]: Concepcion Lynn NP cc: Erin Watson NP; Concepcion Lynn NP Consult Note: HPI Data of Consult Patient: known to practice within the last 3 years Consult date: 12/10/24 Requesting Physician: Concepcion Lynn NP Primary Care Provider: Erin Watson NP Consult Narrative Reason for consult: low back pain Narrative: Dawna Velásquez a pleasant 59 year old female presents for evaluation of worsening low back and left leg pain, previous pt of Dr Lr. no recent PT, no recent xrays or MRI imaging of lumbar spine. denies recent falls or injury. pain increasing over the last 3 months and especially the last 3 weeks, noting pain today 8/10 aching. pain increased with standing, walking, sitting, lying, stairs, bending, and sleep. pt utilizing pregabalin 100mg bid and zanaflex for fibromyalgia. cc:: CC: Concepcion Lynn NP Review of Systems ROS Musculoskeletal Reports: back pain, extremity pain and joint pain [facility] Medical History Tobacco abuse Z72.0 - Tobacco use (ICD-10) COPD (chronic obstructive pulmonary disease) J44.9 - Chronic obstructive pulmonary disease, unspecified (ICD-10) Anxiety F41.9 - Anxiety disorder, unspecified (ICD-10) Depression F32.A - Depression, unspecified (ICD-10) High cholesterol E78.00 - Pure hypercholesterolemia , unspecified (ICD-10) HTN (hypertension) I10 - Essential (primary) hypertension (ICD-10) Family History Other Family history not known due to adoption Social History Within the past year, how often did you have a drink containing alcohol: monthly or less Within the past year, how many standard drinks containing alcohol did you have on a typical day: 1 or 2 Total score: 0 Score interpretation: A score less than 3 is consistent with normal alcohol consumption. Smoking status: Current every day smoker Non-prescribed substance use: denies use Previous occupational history: retired Are you now , , , , never or living with a partner: In a typical week, how many times do you talk on the telephone with family, friends, or neighbors: 3 or more times per week How often do you get together with friends or relatives: 3 or more times per week Little interest or pleasure in doing things: not at all Feeling down, depressed, or hopeless: not at all Feel stressed/tense/nervo us/anxious/difficult y sleeping: not at all Do you think of yourself as: straight/heterosexua l Gender Identity: female Meds Home Medications and Allergies Home Medications Medication Instructions Recorded Confirmed Type albuterol sulfate 2.5 mg/3 mL 1.25 mg (1.5 mL) inhalation Q6H 09/23/24 Rx (0.083 %) solution for nebulization PRN shortness of breath or wheezing #90 mL amitriptyline 100 mg tablet 100 mg PO QPM 03/21/24 09/23/24 Hi story atorvastatin 20 mg tablet 20 mg PO QPM 03/21/24 09/23/24 His tory lamotrigine 150 mg tablet 150 mg PO DAILY 03/21/24 09/23/24 History lamotrigine 200 mg tablet 200 mg PO QPM 03/21/24 09/23/24 Hi story meloxicam 15 mg tablet 15 mg PO QAM 03/21/24 09/23/24 His tory Held on 03/24/24. Instructions: Resume on 03/31/24. hold while taking medrol dose pack montelukast 10 mg tablet 10 mg PO QPM 03/21/24 09/23/24 His tory omeprazole 40 mg capsule,delayed 40 mg PO DAILY 03/21/24 09/23/24 H istory release prazosin 2 mg capsule 2 mg PO QPM 03/21/24 09/23/24 Hist ory pregabalin 100 mg capsule 100 mg PO BID 03/21/24 09/23/24 Hi story propranolol 40 mg tablet 40 mg PO BID 03/21/24 09/23/24 His tory quetiapine 100 mg tablet 300 mg PO DAILY 03/21/24 09/23/24 History spironolactone 50 mg tablet 50 mg PO QAM 03/21/24 09/23/24 His tory tizanidine 4 mg tablet 4 mg PO Q8H PRN muscle spasticity 03/21/24 09/23/24 History hydrocodone 5 mg-acetaminophen 325 1 tab PO Q6H PRN pain #12 tabs 0 09/23/24 Rx mg tablet prazosin 1 mg capsule mg 09/23/24 History Allergies Allergy/AdvReac Type Severity Reaction Status Date / Time prednisone Allergy Severe Anaphylaxis Verified 09/23/24 11:28 Penicillins AdvReac Severe Anaphylaxis Verified 09/23/24 11:28 Exam Constitutional Documenting provider has reviewed patient's vital signs: yes Common normals: no apparent distress, oriented x3, healthy appearing, alert and well nourished General appearance: cooperative HENMT Common normals: normocephalic, hearing grossly normal bilaterally and moist oral mucous membra (more content not included)... Normal The [facility]Don 09-23-2024 [place] [address] Emergency Department Note Signed Patient: DAWNA VELÁSQUEZ I MR#: [id number] : 1965 Acct:[id number] Age/Sex: 58 / F ADM Date: 09/23/24 Loc: ER Date of Service: 09/23/[address]: cc: Erin Watson NP; Dixon Cloud M.D. HPI HPI - General Adult General Chief complaint: Extremity Problem, Nontraumatic Stated complaint: BACK/LEG PAIN Time Seen by Provider: 09/23/24 11:22 Source: patient Mode of arrival: walk-in Limitations: no limitations History of Present Illness HPI narrative: This 58-year-old female states she was working in her yard 4 to 5 days ago and was on her hands and knees pulling weeds. Following that she has developed severe low back pain on the left side that goes down the back of the left leg up to the level of the knee. She is able to ambulate without assistance. She does not report weakness of the leg or loss of bladder control. Patient has a history of COPD. She has a history of back problems and has had radioablation in the past. She also has unspecified psychiatric issues for which she is on mood stabilizers. Related Data Home Medications Medication Instructions Recorded Confirmed amitriptyline 100 mg tablet 100 mg PO QPM 03/21/24 09/23/24 atorvastatin 20 mg tablet 20 mg PO QPM 03/21/24 09/23/24 lamotrigine 150 mg tablet 150 mg PO DAILY 03/21/24 09/23/24 lamotrigine 200 mg tablet 200 mg PO QPM 03/21/24 09/23/24 meloxicam 15 mg tablet 15 mg PO QAM 03/21/24 09/23/24 Held on 03/24/24. Instructions: Resume on 03/31/24. hold while taking medrol dose pack montelukast 10 mg tablet 10 mg PO QPM 03/21/24 09/23/24 omeprazole 40 mg capsule,delayed 40 mg PO DAILY 03/21/24 09/23/24 release prazosin 2 mg capsule 2 mg PO QPM 03/21/24 09/23/24 pregabalin 100 mg capsule 100 mg PO BID 03/21/24 09/23/24 propranolol 40 mg tablet 40 mg PO BID 03/21/24 09/23/24 quetiapine 100 mg tablet 300 mg PO DAILY 03/21/24 09/23/24 spironolactone 50 mg tablet 50 mg PO QAM 03/21/24 09/23/24 tizanidine 4 mg tablet 4 mg PO Q8H PRN muscle spasticity 03/21/24 09/23/24 prazosin 1 mg capsule mg 09/23/24 Previous Rx's Medication Instructions Recorded albuterol sulfate 2.5 mg/3 mL 1.25 mg (1.5 mL) inhalation Q6H (0.083 %) solution for nebulization PRN shortness of breath or wheezing #90 mL hydrocodone 5 mg-acetaminophen 325 1 tab PO Q6H PRN pain #12 tabs 0 09/23/24 mg tablet Allergies Allergy/AdvReac Type Severity Reaction Status Date / Time prednisone Allergy Severe Anaphylaxis Verified 09/23/24 11:28 Penicillins AdvReac Severe Anaphylaxis Verified 09/23/24 11:28 Opioid HPI Opioid Management Most Recent Opioid Data: Last Pain Scale 4 03/22/24, 22:00 Last ORT Total Score 1 03/21/24, 23:46 Last ORT Risk Category Low Risk 03/21/24, 23:46 Review of Systems ROS Status of ROS 10 or more systems reviewed and unremarkable excep t as noted in history and below PFSH PFS Medical History Tobacco abuse Z72.0 - Tobacco use (ICD-10) COPD (chronic obstructive pulmonary disease) J44.9 - Chronic obstructive pulmonary disease, unspecified (ICD-10) Anxiety F41.9 - Anxiety disorder, unspecified (ICD-10) Depression F32.A - Depression, unspecified (ICD-10) High cholesterol E78.00 - Pure hypercholesterolemia , unspecified (ICD-10) HTN (hypertension) I10 - Essential (primary) hypertension (ICD-10) Family History Other Family history not known due to adoption Social History Within the past year, how often did you have a drink containing alcohol: monthly or less Within the past year, how many standard drinks containing alcohol did you have on a typical day: 1 or 2 Total score: 0 Score interpretation: A score less than 3 is consistent with normal alcohol consumption. Smoking status: Current every day smoker Non-prescribed substance use: denies use Previous occupational history: retired Are you now , , , , never or living with a partner: In a typical week, how many times do you talk on the telephone with family, friends, or neighbors: 3 or more times per week How often do you get together with friends or relatives: 3 or more times per week Little interest or pleasure in doing things: not at all Feeling down, depressed, or hopeless: not at all Feel stressed/tense/nervo us/anxious/difficult y sleeping: not at all Do you think of yourself as: straight/heterosexua l Gender Identity: female Exam Narrative Exam Narrative: Patient is morbidly obese, afebrile and in no acute distress. Vital signs are stable and are as docume (more content not included)... Normal The [facility] [place] Laboratory - Chemistry and C hemistry - challengeon 04-23-2024 Bilirubin Ql (U) Negative NEGATIVE [facility] Work Phone: Specific gravity (U) [Rel density] >=1.030 1.005-1.025 [facility] Work Phone: [phone] Laboratory - Urinalysison Mucus Ql (Urine sed) None seen NONE SEEN [facility] Work Phone: Nitrite Ql (U) Negative NEGATIVE [facility] Work Phone: Microalbumin Creatinine Rati oon 04-23-2024 MICROALBUMIN URINE RANDOM <1.3 Normal <=30.0 [facility] Comment on above: Performed By: #### I NFLUAB #### [facility] , Creatinine Urine Random 235.95 mg/dL Normal 20.00-300. 00 [facility] [place] Comment on above: Performed By: #### I NFLUAB #### [facility] , Microscopic analysis of urin e for red blood cells (RBC)on 04-23-2024 Urine RBC None seen #/HPF 0-2 [facility] Work Phone: No Panel Informationon 04-23 Urine Bacteria Large #/HPF NONE SEEN [facility] Work Phone: [phone] Urine Random Creatinine 235.95 mg/dL 20.00-300. 00 [facility] Work Phone: Urine Random Microalbumin <1.3 mg/dL <30.0 [facility] Work Phone: Urine WBC 5-10 #/HPF NONE SEEN [facility] Work Phone: [phone] Occult blood ur QLon 04-23- 024 Hemoglobin Ql (U) Occult blood ur QL NEGATIVE [facility] Work Phone: [facility] MICROALB CREAT RATIO RAN DOMon 04-23-2024 CREATININE URINE RANDOM 235.95 mg/dL 20.0 0 - 300.00 mg/dL [facility] Urinalysis Micro if Indicate don 04-23-2024 Urine Microscopic Indicated YES Normal [facility] [place] Comment on above: Performed By: #### I NFLUAB #### [facility] , Bilirubin Urine Negative Normal NEGATIVE The [facility] [place] Comment on above: Performed By: #### I NFLUAB #### [facility] , Blood Urine Negative Normal NEGATIVE [facility] [place] Comment on above: Performed By: #### I NFLUAB #### [facility] , Clarity (U) CLEAR Normal CLEAR [facility] [place] Comment on above: Performed By: #### I NFLUAB #### [facility] , Color (U) YELLOW Normal YELLOW [facility] [place] Comment on above: Performed By: #### I NFLUAB #### [facility] , Glucose Urine UA Negative Normal NEGATIVE The [facility] [place] Comment on above: Performed By: #### I NFLUAB #### [facility] , Nitrite Urine Negative Normal NEGATIVE The [facility] [place] Comment on above: Performed By: #### I NFLUAB #### [facility] , pH (U) 6.0 [pH] Normal 5.0-9.0 [facility] [place] Comment on above: Performed By: #### I NFLUAB #### [facility] , Protein Urine TRACE Normal NEG/TRACE The [facility] [place] Comment on above: Performed By: #### I NFLUAB #### [facility] , Specific [place] Urine >=1.030 Abnormal 1.005-1.025 T [facility] [place] Comment on above: Performed By: #### I NFLUAB #### [facility] , Urobilinogen Urine 1.0 EU/dL Normal 0.2-1.0 The [facility] [place] Comment on above: Performed By: #### I NFLUAB #### [facility] , Urine Microscopicon 04-23-20 24 Bacteria Urine LARGE Abnormal NONE SEEN The [facility] [place] Comment on above: Performed By: #### I NFLUAB #### [facility] , Mucus Urine NONE SEEN Normal NONE SEEN [facility] [place] Comment on above: Performed By: #### I NFLUAB #### [facility] , RBC Urine NONE SEEN Normal 0-2 [facility] [place] Comment on above: Performed By: #### I NFLUAB #### [facility] , Squamous Epithelial Cell Urine MODERATE Abnormal NONE/RARE [facility] [place] Comment on above: Performed By: #### I NFLUAB #### [facility] , WBC Urine 5-10 Abnormal NONE SEEN [facility] [place] Comment on above: Performed By: #### I NFLUAB #### [facility] , Urine clarity determinationo n 04-23-2024 Clarity (U) Urine clarity CLEAR [facility] Work Phone: Urine color determinationon 04-23-2024 Color (U) Urine color YELLOW [facility] Work Phone: Urine glucose measurementon 04-23-2024 Basophil percentage Basophil percentage NEGATIV E [facility] Work Phone: Urine ketones measurementon 04-23-2024 Ketones Ql (U) Negative Normal NEGATIVE [facility] Work Phone: Comment on above: Performed By: #### I NFLUAB #### [facility] , Urine leukocyte esterase det ectionon 04-23-2024 Leukocyte esterase Test strip Ql (U) Trace Abnormal NEGATIVE [facility] Work Phone: Comment on above: Performed By: #### I NFLUAB #### [facility] , Urine pH measurementon 04-23 pH (U) Urine pH 5.0-9.0 [facility] Work Phone: Urine protein measurementon 04-23-2024 Protein Ql (U) Trace mg/dL NEG/TRACE [facility] Work Phone: Urine squamous epithelial ce ll detectionon 04-23-2024 Urine Squamous Epithelial Cells Moderate #/LPF NONE/RARE [facility] Work Phone: Urine urobilinogen measureme nton 04-23-2024 Urobilinogen Ql (U) Urine urobilinogen measurement 0.2-1.0 [facility] Work Phone: Vitamin B12on 04-21-2024 Cobalamin (Vitamin B12) [Mass/Vol] 349 pg/mL Normal 232-1245 [facility] [place] Comment on above: Result Comment: Perf ormed at: - [facility] [address] [id number] [place] Pumper: Yanick Thayer PhD, Phone: [phone] Performed By: #### I NFLUAB #### [facility] , ALL BASIC METABOLIC PANELon 04-20-2024 Anion gap [Moles/Vol] 11.6 mmol/L [facility] Calcium [Mass/Vol] 8.9 mg/dL 8.5 - 10. 1 mg/dL [facility] Chloride [Moles/Vol] 103 mmol/L 98 - 10 7 mmol/L [facility] CO2 [Moles/Vol] 31.6 mmol/L 21.0 - 32.0 mmol/L [facility] Creatinine [Mass/Vol] 1.17 mg/dL High 0.55 - 1.02 mg/dL [facility] GFR/1.73 sq M.predicted CKD-EPI (S/P/Bld) [Vol rate/Area] 57 Low >=60 mL/min/1.73m 2 [facility] Glucose [Mass/Vol] 118 mg/dL High 74 - 106 mg/dL [facility] Potassium [Moles/Vol] 4.2 mmol/L 3.5 - 5.1 mmol/L [facility] Sodium [Moles/Vol] 142 mmol/L 136 - 145 mmol/L [facility] EGFR-NON AF PRYDEINIG 47 Low >=6 0 mL/min/1.73m 2 [facility] Urea nitrogen [Mass/Vol] 12 mg/dL 7.0 - 18.0 mg/dL [facility] Urea nitrogen/Creatinine [Mass ratio] 10.3 mg/mg [facility] ALL LIPID PROFILE (FASTING)o n 04-20-2024 CHOL HDL RATIO 2.9 [facility] Comment on above: 3.3 - 4.4 LOW RISK 4.4 - 7.1 AVERAGE RISK 7.1 - 11.0 MODERATE RISK >11.0 HIGH RISK Cholesterol [Mass/Vol] 152 mg/dL NINF - 200 mg/dL [facility] Cholesterol in HDL [Mass/Vol] 52 mg/dL 40 - 60 mg/dL [facility] Comment on above: > or =60 mg/dl - LOW CARDIOVASCULAR RISK <40 mg/dl - HIGH CARDIOVASCULAR RISK Magnesium [Mass/Vol] 70 mg/dL [facility] Comment on above: <100 mg/dl OPTIMAL 100-129 mg/dl NEAR OR ABOVE OPTIMAL 130-159 mg/dl BORDERLINE HIGH 160-189 mg/dl HIGH >190 mg/dl VERY HIGH Magnesium [Mass/Vol] 30.8 mg/dL [facility] Triglyceride [Mass/Vol] 154 mg/dL High NINF - 150 mg/dL [facility] Anion gap measurementon 04-05 Anion gap [Moles/Vol] 11.6 mmol/L [facility] Work Phone: BUN/creatinine ratioon 04-20 Urea nitrogen/Creatinine [Mass ratio] 10.3 mg/mg [facility] Work Phone: Basic Metabolic Panelon 04-05 Anion gap [Moles/Vol] 11.6 mmol/L Normal [facility] [place] Comment on above: Performed By: #### I NFLUAB #### [facility] , Calcium [Mass/Vol] 8.9 mg/dL Normal 8.5-10.1 The [facility] [place] Comment on above: Performed By: #### I NFLUAB #### [facility] , Chloride [Moles/Vol] 103 mmol/L Normal 98-107 [facility] [place] Comment on above: Performed By: #### I NFLUAB #### [facility] , CO2 [Moles/Vol] 31.6 mmol/L Normal 21.0-32.0 The [facility] [place] Comment on above: Performed By: #### I NFLUAB #### [facility] , Creatinine [Mass/Vol] 1.17 mg/dL High 0.55-1.02 [facility] [place] Comment on above: Performed By: #### I NFLUAB #### [facility] , Estimated GFR ( Marlee 57 Low >=60 mL/min/1.73m 2 [facility] [place] Comment on above: Performed By: #### I NFLUAB #### [facility] , Estimated GFR (Non- [place] 47 Low >=60 mL/min/1.73m 2 [facility] [place] Comment on above: Performed By: #### I NFLUAB #### [facility] , Glucose [Mass/Vol] 118 mg/dL High 74-106 The [facility] [place] Comment on above: Performed By: #### I NFLUAB #### [facility] , Potassium [Moles/Vol] 4.2 mmol/L Normal 3.5-5.1 [facility] [place] Comment on above: Performed By: #### I NFLUAB #### [facility] , Sodium [Moles/Vol] 142 mmol/L Normal 136-145 The [facility] [place] Comment on above: Performed By: #### I NFLUAB #### [facility] , Urea nitrogen [Mass/Vol] 12.0 mg/dL Normal 7.0-18.0 [facility] [place] Comment on above: Performed By: #### I NFLUAB #### [facility] , Urea nitrogen/Creatinine [Mass ratio] 10.3 mg/mg Normal [facility] [place] Comment on above: Performed By: #### I NFLUAB #### [facility] , Blood urea nitrogen (BUN) me asurementon 04-20-2024 Urea nitrogen [Mass/Vol] 12.0 mg/dL 7.0-18.0 [facility] Work Phone: CO2 (Bld) [Moles/Vol]on 04-05 CO2 [Moles/Vol] Carbon dioxide, total [Moles/volume] in Blood 21.0-32.0 [facility] Work Phone: Calcium measurementon 2023 Calcium [Mass/Vol] 8.9 mg/dL 8.5-10.1 [facility] Work Phone: Calculated low density lipop rotein (LDL) cholesterol measurementon 04-20-2024 LDL Cholesterol, Calculated 70.0 mg/dL [facility] Work Phone: Comment on above: <100 mg/dl [id number] 0-129 mg/dl NEAR OR ABOVE [id number] mg/dl BORDERLINE [id number] mg/dl HIGH>190 mg/dl VERY HIGH Chloride measurementon 04-20 Basophil percentage Basophil percentage <200 [facility] Work Phone: Cholesterol/HDL ratioon 04-05 Cholesterol.total/Choles terol in HDL [Mass ratio] 2.9 {ratio} [facility] Work Phone: Comment on above: 3.3 - 4.4 LOW RISK4. 4 - 7.1 AVERAGE RISK7.1 - 11.0 MODERATE RISK>11.0 HIGH RISK Estimated glomerular filtrat ion rate (GFR) Americanon 04-20-2024 Estimated GFR (Non- 47 >60 [facility] Work Phone: GFR/1.73 sq M.predicted MDRD (S/P/Bld) [Vol rate/Area] 57 mL/min/{1.73_m2} >60 [facility] Work Phone: Glucose (Bld) [Mass/Vol]on 1 06-21-2023 Glucose [Mass/Vol] Glucose [Mass/volume] in Blood 74-106 [facility] Work Phone: Laboratory - Chemistry and C hemistry - challengeon 04-20-2024 Cholesterol in HDL [Mass/Vol] 52 mg/dL 40-60 [facility] Work Phone: Comment on above: > or =60 mg/dl - LOW CARDIOVASCULAR RISK<40 mg/dl - HIGH CARDIOVASCULAR RISK Lipid Panelon 04-20-2024 LDL Cholesterol Calculated 70.0 mg/dL Normal [facility] [place] Comment on above: Result Comment: <100 mg/dl OPTIMAL 100-129 mg/dl NEAR OR ABOVE OPTIMAL 130-159 mg/dl BORDERLINE HIGH 160-189 mg/dl HIGH >190 mg/dl VERY HIGH Performed By: #### I NFLUAB #### [facility] , Chol HDL Ratio 2.9 Normal The [facility] [place] Comment on above: Result Comment: 3.3 - 4.4 LOW RISK 4.4 - 7.1 AVERAGE RISK 7.1 - 11.0 MODERATE RISK >11.0 HIGH RISK Performed By: #### I NFLUAB #### [facility] , Cholesterol [Mass/Vol] 152 mg/dL Normal <=200 Th e [facility] [place] Comment on above: Performed By: #### I NFLUAB #### [facility] , Cholesterol in HDL [Mass/Vol] 52 mg/dL Normal 40-60 [facility] [place] Comment on above: Result Comment: > or =60 mg/dl - LOW CARDIOVASCULAR RISK <40 mg/dl - HIGH CARDIOVASCULAR RISK Performed By: #### I NFLUAB #### [facility] , Triglyceride [Mass/Vol] 154 mg/dL High <=150 T he [facility] [place] Comment on above: Performed By: #### I NFLUAB #### [facility] , VLDL CHOLESTEROL 30.8 mg/dL Normal The [facility] [place] Comment on above: Performed By: #### I NFLUAB #### [facility] , No Panel Informationon 04-20 Interpretation and review of laboratory results Abnormal [facility] Vitamin D Level 45.3 ng/mL [facility] Work Phone: Comment on above: <20 ng/mL Vit D defi cient20-<30 ng/mL Vit D [id number] ng/mL Vit D sufficient>100 ng/mL Potential Toxicity Potassium [Moles/volume] in Serum, Plasma or Bloodon 04-20-2024 Potassium (S/P/Bld) [Moles/Vol] Potassium [Moles/volume] in Serum, Plasma or Blood 3.5-5.1 [facility] Work Phone: Serum or plasma creatinine m easurement (moles/volume)on 04-20-2024 Creatinine [Moles/Vol] Serum or plasma creatinine measurement (moles/volume) 0.55-1.02 [facility] Work Phone: Sodium (Bld) [Moles/Vol]on 1 06-21-2023 Sodium [Moles/Vol] Sodium [Moles/volume] in Blood 136-145 [facility] Work Phone: Very low density lipoprotein (VLDL) cholesterol measurementon 04-20-2024 VLDL Cholesterol 30.8 mg/dL [facility] Work Phone: Vitamin B12 ser/plason 04-20 Cobalamin (Vitamin B12) [Mass/Vol] Vitamin B12 ser/plas [id number] [facility] Work Phone: Comment on above: Performed at: [address] [id number] Director: Yanick Thayer PhD, Phone: [phone] Vitamin Don 04-20-2024 Vitamin D 45.3 ng/mL Normal [facility] [place] Comment on above: Result Comment: <20 ng/mL Vit D deficient 20-<30 ng/mL Vit D insufficient 30-100 ng/mL Vit D sufficient >100 ng/mL Potential Toxicity Performed By: #### I NFLUAB #### [facility] , Blood Culture 1on 03-27-2024 Blood Culture 1 Blood Culture 1 NG5D NO GROWTH AT 5 DAYS.NO GROWTH AT 5 DAYS. Normal [facility] [place] Comment on above: Performed By: #### B LDCU1, BLDCU2 ####[facility], Blood Culture 2on 03-27-2024 Blood Culture 2 Blood Culture 2 NG5D NO GROWTH AT 5 DAYS.NO GROWTH AT 5 DAYS. Normal [facility] [place] Comment on above: Performed By: #### I NFLUAB #### [facility] , Blood Culture 1on 03-26-2024 Blood Culture 1 Blood Culture 1 NG5D NO GROWTH AT 5 DAYS.NO GROWTH AT 5 DAYS. Normal [facility] [place] Comment on above: Performed By: #### B LDCU1, BLDCU2 ####[facility], Blood Culture 2on 03-26-2024 Blood Culture 2 Blood Culture 2 NG5D NO GROWTH AT 5 DAYS.NO GROWTH AT 5 DAYS. Normal [facility] [place] Comment on above: Performed By: #### B LDCU1, BLDCU2 ####[facility], Alanine aminotransferase (AL T) measurementon 03-24-2024 ALT [Catalytic activity/Vol] 35 U/L 14-59 [facility] Work Phone: AST [Catalytic activity/Vol] 20 U/L 15-37 [facility] Work Phone: Albumin to globulin ratioon 03-24-2024 Albumin/Globulin [Mass ratio] 0.9 {ratio} [facility] Work Phone: Anion gap measurementon 03-06 Anion gap [Moles/Vol] 12.1 mmol/L [facility] Work Phone: Automated absolute lymphocyt e counton 03-24-2024 Lymphocytes (Bld) [#/Vol] 0.9 10*3/uL 1.2-3.8 [facility] Work Phone: Automated absolute neutrophi l counton 03-24-2024 Neutrophils (Bld) [#/Vol] 5.7 10*3/uL 1.4-6.5 [facility] Work Phone: BUN/creatinine ratioon 03-24 Urea nitrogen/Creatinine [Mass ratio] 14.2 mg/mg [facility] Work Phone: Basophils Auto (Bld) [#/Vol] on 03-24-2024 Basophils (Bld) [#/Vol] Automated basoph il count 0.0-0.1 [facility] Work Phone: Basophils/100 WBC Auto (Bld) on 03-24-2024 Basophils/100 WBC (Bld) Automated basophil % 0. 2-2.0 [facility] Work Phone: Blood urea nitrogen (BUN) me asurementon 03-24-2024 Urea nitrogen [Mass/Vol] 15.0 mg/dL 7.0-18.0 [facility] Work Phone: CO2 (Bld) [Moles/Vol]on 03-06 CO2 [Moles/Vol] Carbon dioxide, total [Moles/volume] in Blood 21.0-32.0 [facility] Work Phone: Calcium measurementon 2023 Calcium [Mass/Vol] 9.1 mg/dL 8.5-10.1 [facility] Work Phone: Complete Blood Count Auto Di ffon 03-24-2024 Basophils Absolute Auto 0.0 10 3/uL Normal 0.0-0.1 [facility] [place] Comment on above: Performed By: #### I NFLUAB #### [facility] , Basophils/100 WBC (Bld) 0.1 % Low 0.2-2.0 [facility] [place] Comment on above: Performed By: #### I NFLUAB #### [facility] , Eosinophils Absolute Auto 0.0 10 3/uL Normal 0.0-0.7 [facility] [place] Comment on above: Performed By: #### I NFLUAB #### [facility] , Eosinophils/100 WBC (Bld) 0.1 % Low 0.9-7.0 [facility] [place] Comment on above: Performed By: #### I NFLUAB #### [facility] , Hematocrit (Bld) [Volume fraction] 46.2 % Normal 36.0-48.0 [facility] [place] Comment on above: Performed By: #### I NFLUAB #### [facility] , Hemoglobin (Bld) [Mass/Vol] 15.4 g/dL Normal 12.0-16.0 [facility] [place] Comment on above: Performed By: #### I NFLUAB #### [facility] , Immature Granulocytes Abs Auto 0.05 10 3/uL High 0.00-0.03 [facility] [place] Comment on above: Performed By: #### I NFLUAB #### [facility] , Lymphocytes Absolute Auto 0.9 10 3/uL Low 1.2-3.8 [facility] [place] Comment on above: Performed By: #### I NFLUAB #### [facility] , MCV (RBC) [Entitic vol] 109.0 fL High 81.0-99.0 [facility] [place] Comment on above: Performed By: #### I NFLUAB #### [facility] , Mean Corpuscular HGB Conc 33.3 g/dL Normal 29.9-35.2 [facility] [place] Comment on above: Performed By: #### I NFLUAB #### [facility] , Monocytes Absolute Auto 0.3 10 3/uL Normal 0.3-0.8 [facility] [place] Comment on above: Performed By: #### I NFLUAB #### [facility] , Monocytes/100 WBC (Bld) 4.1 % Normal 1.7-12.0 [facility] [place] Comment on above: Performed By: #### I NFLUAB #### [facility] , Neutrophils Absolute Auto 5.7 10 3/uL Normal 1.4-6.5 [facility] [place] Comment on above: Performed By: #### I NFLUAB #### [facility] , Neutrophils/100 WBC (Bld) 81.6 % High 43.0-75.0 [facility] [place] Comment on above: Performed By: #### I NFLUAB #### [facility] , Platelet Count 187 10 3/uL Normal 150-450 [facility] [place] Comment on above: Performed By: #### I NFLUAB #### [facility] , Red Blood Count 4.24 10 6/uL Normal 4.20-5.40 [facility] [place] Comment on above: Performed By: #### I NFLUAB #### [facility] , White Blood Count 7.0 10 3/uL Normal 4.0-11.0 [facility] [place] Comment on above: Performed By: #### I NFLUAB #### [facility] , Immature granulocytes/100 WBC (Bld) 0.7 % High 0.0-0.5 [facility] Work Phone: Comment on above: Performed By: #### I NFLUAB #### [facility] , Comprehensive Metabolic Pane ethel 03-24-2024 Albumin [Mass/Vol] 3.4 g/dL Normal 3.4-5.0 [facility] [place] Comment on above: Performed By: #### I NFLUAB #### [facility] , Albumin Globulin Ratio 0.9 Normal [facility] [place] Comment on above: Performed By: #### I NFLUAB #### [facility] , ALP [Catalytic activity/Vol] 90 U/L Normal 46-116 [facility] [place] Comment on above: Performed By: #### I NFLUAB #### [facility] , ALT [Catalytic activity/Vol] 35 U/L Normal 14-59 [facility] [place] Comment on above: Performed By: #### I NFLUAB #### [facility] , Anion gap [Moles/Vol] 12.1 mmol/L Normal [facility] [place] Comment on above: Performed By: #### I NFLUAB #### [facility] , AST [Catalytic activity/Vol] 20 U/L Normal 15-37 [facility] [place] Comment on above: Performed By: #### I NFLUAB #### [facility] , Bilirubin [Mass/Vol] 0.8 mg/dL Normal 0.2-1.0 [facility] [place] Comment on above: Performed By: #### I NFLUAB #### [facility] , Calcium [Mass/Vol] 9.1 mg/dL Normal 8.5-10.1 [facility] [place] Comment on above: Performed By: #### I NFLUAB #### [facility] , Chloride [Moles/Vol] 101 mmol/L Normal 98-107 [facility] [place] Comment on above: Performed By: #### I NFLUAB #### [facility] , CO2 [Moles/Vol] 32.8 mmol/L High 21.0-32.0 [facility] [place] Comment on above: Performed By: #### I NFLUAB #### [facility] , Creatinine [Mass/Vol] 1.06 mg/dL High 0.55-1.02 [facility] [place] Comment on above: Performed By: #### I NFLUAB #### [facility] , Estimated GFR ( Marlee >60 Normal >=60 mL/min/1.73m 2 [facility] [place] Comment on above: Performed By: #### I NFLUAB #### [facility] , Estimated GFR (Non- Maritza 53 Low >=60 mL/min/1.73m 2 [facility] [place] Comment on above: Performed By: #### I NFLUAB #### [facility] , Globulin (S) [Mass/Vol] 3.7 g/dL Normal T [facility] [place] Comment on above: Performed By: #### I NFLUAB #### [facility] , Glucose [Mass/Vol] 126 mg/dL High 74-106 [facility] [place] Comment on above: Performed By: #### I NFLUAB #### [facility] , Potassium [Moles/Vol] 3.9 mmol/L Normal 3.5-5.1 [facility] [place] Comment on above: Performed By: #### I NFLUAB #### [facility] , Protein [Mass/Vol] 7.1 g/dL Normal 6.4-8.2 [facility] [place] Comment on above: Performed By: #### I NFLUAB #### [facility] , Sodium [Moles/Vol] 142 mmol/L Normal 136-145 [facility] [place] Comment on above: Performed By: #### I NFLUAB #### [facility] , Urea nitrogen [Mass/Vol] 15.0 mg/dL Normal 7.0-18.0 [facility] [place] Comment on above: Performed By: #### I NFLUAB #### [facility] , Urea nitrogen/Creatinine [Mass ratio] 14.2 mg/mg Normal [facility] [place] Comment on above: Performed By: #### I NFLUAB #### [facility] , Eosinophils Auto (Bld) [#/Vo l]on 03-24-2024 Eosinophils (Bld) [#/Vol] Automated eosinophil count 0.0-0.7 [facility] Work Phone: Eosinophils/100 WBC Auto (Bl d)on 03-24-2024 Eosinophils/100 WBC (Bld) Automated eosinophil % 0.9-7.0 [facility] Work Phone: Estimated glomerular filtrat ion rate (GFR) Americanon 03-24-2024 Estimated GFR (Non- 53 >60 [facility] Work Phone: GFR/1.73 sq M.predicted MDRD (S/P/Bld) [Vol rate/Area] mL/min/{1.73_m2} >60 [facility] Work Phone: Glucose (Bld) [Mass/Vol]on 05-24-2023 Glucose [Mass/Vol] Glucose [Mass/volume] in Blood 74-106 [facility] Work Phone: Hematocrit [Volume Fraction] of Bloodon 03-24-2024 Hematocrit (Bld) [Volume fraction] Hematocrit [Volume Fraction] of Blood 36.0-48.0 [facility] Work Phone: Hemoglobin measurementon Basophil percentage Basophil percentage 6.4-8.2 [facility] Work Phone: Laboratory - Chemistry and C hemistry - challengeon 03-24-2024 Albumin [Mass/Vol] 3.4 g/dL 3.4-5.0 [facility] Work Phone: ALP [Catalytic activity/Vol] 90 U/L 46-116 [facility] Work Phone: Laboratory - Hematology and Cell countson 03-24-2024 Immature granulocytes (Bld) [#/Vol] 0.05 10*3/uL 0.00-0.03 [facility] Work Phone: Leukocytes [#/volume] in Blo odon 03-24-2024 WBC (Bld) [#/Vol] Leukocytes [#/volume] in Blood 4.0-11.0 [facility] Work Phone: Lymphocyte percentage, autom atedon 03-24-2024 Lymphocytes/100 WBC (Bld) 13.4 % Low 20.5-60.0 [facility] Work Phone: Comment on above: Performed By: #### I NFLUAB #### [facility] , MCV (mean corpuscular volume ) determinationon 03-24-2024 MCV (RBC) [Entitic vol] MCV (mean corpuscular volume) determination 81.0-99.0 [facility] Work Phone: Mean corpuscular hemoglobin (MCH) determinationon 03-24-2024 MCH (RBC) [Entitic mass] 36.3 pg High 26.7-34.0 [facility] Work Phone: Comment on above: Performed By: #### I NFLUAB #### [facility] , Mean corpuscular hemoglobin concentration (MCHC) determinationon 03-24-2024 MCHC (RBC) [Mass/Vol] 33.3 g/dL 29.9-35.2 [facility] Work Phone: Monocytes Auto (Bld) [#/Vol] on 03-24-2024 Monocytes (Bld) [#/Vol] Automated blood monocyte count 0.3-0.8 [facility] Work Phone: Monocytes/100 WBC Auto (Bld) on 03-24-2024 Monocytes/100 WBC (Bld) Automated monocyte % 1. 7-12.0 [facility] Work Phone: Mpvon 03-24-2024 Platelet mean volume (Bld) [Entitic vol] 10.7 fL Normal 9.5-13.5 [facility] Work Phone: Comment on above: Performed By: #### I NFLUAB #### [facility] , Neutrophils/100 WBC Auto (Bl d)on 03-24-2024 Neutrophils/100 WBC (Bld) Automated neutrophil % 43.0-75.0 [facility] Work Phone: P.DSon 03-24-2024 P.DS [facility] [address] [address] Discharge Summary Signed Patient: DAWNA VELÁSQUEZ MR#: [id number] : 1965 Acct:[id number] Age/Sex: 58 / F ADM Date: 03/21/24 Loc: 218-1 Date of Service: 03/24/[address]: Winter Alfonso D.O. cc: Erin Watson NP; Winter Alfonso D.O. DS: Providers Provider Date of admission: 03/21/24 23:38 Primary care physician: Erin Watson NP Admitting clinician: Winter Alfonso Discharging clinician: Winter Alfonso DS: Diagnosis Discharge Diagnosis (1) Acute infective exacerbation of chronic obstructive airway disease: (2) Acute respiratory failure with hypoxia: (3) Community acquired pneumonia: Qualifiers: Laterality: unspecified laterality Qualified Code(s): J18.9 - Pneumonia, unspecified organism (4) Tobacco abuse: (5) Anxiety: (6) Depression: Qualifiers: Depression Type: unspecified Qualified Code(s): F32.A - Depression, unspecified (7) High cholesterol: (8) HTN (hypertension): Qualifiers: Hypertension type: primary hypertension Qualified Code(s): I10 - Essential (primary) hypertension DS: Summary Hospital Course Hospital Course: Patient is a 58 y.o white female with past medical history of smoking, seasonal allergies, COPD, GERD, Depression, anxiety, HTN, HLD, who presented to the ER on 03/20 and again 03/21 with increased cough and shortness of breath. Patient was treated for Community Acquired Pneumonia with rocephin and z-higinio and returned yesterday with worsening symptoms and new finding of hypoxia with oxygen saturations 85% on room air. Patient is currently 92% on 3 L NC. She does not use oxygen at home. Covid and influenza testing were negative. Patient was given IV solu-medrol and Zithromax and Rocephin and was admitted for further plan of care. ER findings: Chest X-ray did not show any infiltrates initially but repeat showed bilateral infiltrates with R>L, WBC's 5.0, Mag 1.8, Trop 5.3, hb 14.4. Patient follows with Dr. Hicks for pulmonary. She had recent normal stress test and diagnosis of COPD. She uses Breztri daily and albuterol inhaler as needed which also was not helping. Patient was continued respiratory toilet. OPEP, nebs and added Pulmicort as she did not have her Breztri. Continue zithromax and rocephin along with solumedrol 40mg q6 hours IV. Patient has been asking daily to go home. She gets very tearful when suggest she stay another day. Patient is willing to do her DuoNeb treatments every 6 hours while awake. This was sent to the pharmacy. She will also complete the last 4 days of her Z-higinio starting 03/25/24. I have placed her on a Medrol Dosepak for 6 days. She still has wheezing but improved air movement today and she is not short of air with conversing. Patient oxygen saturations drop 86% on room air with exertion and therefore will require 3L of NC continuous while at home as her sats improve to 92%. Will work on getting home oxygen company set up prior to discharge. She is aware she cannot smoke while using her oxygen. I have also provided Nicoderm patches for her. She can use the mucinex as needed for cough. She is to follow up closely with her PCP and with her stock room manager to assess the need for further oxygen therapy after her hospital follow up appointment. She may return to the ER with any worsening signs or symptoms. Status at Discharge Functional status at discharge: independent ambulation Overall status at discharge: patient is progressing back to baseline Time Spent with Patient Time attestation: Total time spent providing and/or coordinating discharge services: Time spent: greater than 30 minutes Exam Narrative Exam Narrative: General: Patient is alert, and oriented to person, place and time Skin: no visible rashes, or ulcers Head: atraumatic, acephalic Eyes: PERRLA, no nystagmus present, conjunctiva clear, no scleral icterus Ears: normal gross auditory acuity Nose: symmetric, no discharge, no maxillary or frontal sinus tenderness Heart: Normal rate and rhythm, no murmurs/rubs/gallops Lungs: audible wheezes, no crackles and diminished breath sounds all lung ramos but improved air flow today Abdomen: Normal audible bowel sounds, no distension, No palpable masses, no organomegaly, no rebound/guarding/ or rigidity Musculoskeletal: no swelling bilateral lower extremities Neuro: CN II-X grossly intact Constitutional Vital Signs, click to edit/add: Last Vital Signs Temp 97.7 F 03/24/24 08:26 Pulse 73 03/24/24 08:26 Resp 18 03/24/24 08:26 BP 158/96 H 03/24/24 08:26 Pulse Ox 93 L 03/24/24 08:26 O2 Del Method Nasal Cannula 03/24/24 08:26 O2 Flow Rate 3 03/24/24 08:26 DS: Data Data Completed and Pending Labs on day of discharge: Labs from last 24 hours 03/24/24 05:23 WBC 7.0 RBC 4.24 Hgb 15.4 Hct 46.2 MCV 109.0 H MCH 36.3 H MCHC 33.3 (more content not included)... Normal [facility] [place] Platelets [#/volume] in Bloo don 03-24-2024 Platelets (Bld) [#/Vol] Platelets [#/vol ume] in Blood 150-450 [facility] Work Phone: Potassium [Moles/volume] in Serum, Plasma or Bloodon 03-24-2024 Potassium (S/P/Bld) [Moles/Vol] Potassium [Moles/volume] in Serum, Plasma or Blood 3.5-5.1 [facility] Work Phone: RBC counton 03-24-2024 RBC (Bld) [#/Vol] 4.24 10*6/uL 4.20-5.40 [facility] Work Phone: RDWon 03-24-2024 Erythrocyte distribution width (RBC) [Ratio] 13.7 % Normal 11.0-15.0 [facility] Work Phone: Comment on above: Performed By: #### I NFLUAB #### [facility] , Serum globulin measurementon 03-24-2024 Globulin (S) [Mass/Vol] 3.7 g/dL B [facility] Work Phone: Serum or plasma creatinine m easurement (moles/volume)on 03-24-2024 Creatinine [Moles/Vol] Serum or plasma creatinine measurement (moles/volume) 0.55-1.02 [facility] Work Phone: Sodium (Bld) [Moles/Vol]on 05-24-2023 Sodium [Moles/Vol] Sodium [Moles/volume] in Blood 136-145 [facility] Work Phone: Complete Blood Count Auto Di ffon 03-23-2024 Basophils Absolute Auto 0.0 10 3/uL Normal 0.0-0.1 [facility] [place] Comment on above: Performed By: #### C BC ####[facility], Basophils/100 WBC (Bld) 0.1 % Low 0.2-2.0 T [facility] [place] Comment on above: Performed By: #### C BC ####[facility], Eosinophils Absolute Auto 0.0 10 3/uL Normal 0.0-0.7 [facility] [place] Comment on above: Performed By: #### C BC ####[facility], Eosinophils/100 WBC (Bld) 0.0 % Low 0.9-7.0 [facility] [place] Comment on above: Performed By: #### C BC ####[facility], Erythrocyte distribution width (RBC) [Ratio] 13.8 % Normal 11.0-15.0 [facility] [place] Comment on above: Performed By: #### C BC ####[facility], Hematocrit (Bld) [Volume fraction] 44.9 % Normal 36.0-48.0 [facility] [place] Comment on above: Performed By: #### C BC ####[facility], Hemoglobin (Bld) [Mass/Vol] 14.9 g/dL Normal 12.0-16.0 [facility] [place] Comment on above: Performed By: #### C BC ####[facility], Immature Granulocytes Abs Auto 0.05 10 3/uL High 0.00-0.03 [facility] [place] Comment on above: Performed By: #### C BC ####[facility], Immature granulocytes/100 WBC (Bld) 0.7 % High 0.0-0.5 [facility] [place] Comment on above: Performed By: #### C BC ####[facility], Lymphocytes Absolute Auto 1.1 10 3/uL Low 1.2-3.8 [facility] [place] Comment on above: Performed By: #### C BC ####[facility], Lymphocytes/100 WBC (Bld) 14.2 % Low 20.5-60.0 [facility] [place] Comment on above: Performed By: #### C BC ####[facility], MCH (RBC) [Entitic mass] 36.2 pg High 26.7-34.0 [facility] [place] Comment on above: Performed By: #### C BC ####[facility], MCV (RBC) [Entitic vol] 109.0 fL High 81.0-99.0 [facility] [place] Comment on above: Performed By: #### C BC ####[facility], Mean Corpuscular HGB Conc 33.2 g/dL Normal 29.9-35.2 [facility] [place] Comment on above: Performed By: #### C BC ####[facility], Monocytes Absolute Auto 0.3 10 3/uL Normal 0.3-0.8 [facility] [place] Comment on above: Performed By: #### C BC ####[facility], Monocytes/100 WBC (Bld) 3.9 % Normal 1.7-12.0 [facility] [place] Comment on above: Performed By: #### C BC ####[facility], Neutrophils Absolute Auto 6.0 10 3/uL Normal 1.4-6.5 [facility] [place] Comment on above: Performed By: #### C BC ####[facility], Neutrophils/100 WBC (Bld) 81.1 % High 43.0-75.0 [facility] [place] Comment on above: Performed By: #### C BC ####[facility], Platelet Count 167 10 3/uL Normal 150-450 [facility] [place] Comment on above: Performed By: #### C BC ####[facility], Platelet mean volume (Bld) [Entitic vol] 10.5 fL Normal 9.5-13.5 [facility] [place] Comment on above: Performed By: #### C BC ####[facility], Red Blood Count 4.12 10 6/uL Low 4.20-5.40 [facility] [place] Comment on above: Performed By: #### C BC ####[facility], White Blood Count 7.4 10 3/uL Normal 4.0-11.0 [facility] [place] Comment on above: Performed By: #### C BC ####[facility], Comprehensive Metabolic Pane ethel 03-23-2024 Albumin [Mass/Vol] 3.6 g/dL Normal 3.4-5.0 [facility] [place] Comment on above: Performed By: #### C MP ####[facility], Albumin Globulin Ratio 1.0 Normal [facility] [place] Comment on above: Performed By: #### C MP ####[facility], ALP [Catalytic activity/Vol] 99 U/L Normal 46-116 [facility] [place] Comment on above: Performed By: #### C MP ####[facility], ALT [Catalytic activity/Vol] 37 U/L Normal 14-59 [facility] [place] Comment on above: Performed By: #### C MP ####[facility], Anion gap [Moles/Vol] 10.8 mmol/L Normal [facility] [place] Comment on above: Performed By: #### C MP ####[facility], AST [Catalytic activity/Vol] 22 U/L Normal 15-37 [facility] [place] Comment on above: Performed By: #### C MP ####[facility], Bilirubin [Mass/Vol] 0.9 mg/dL Normal 0.2-1.0 [facility] [place] Comment on above: Performed By: #### C MP ####[facility], Calcium [Mass/Vol] 9.5 mg/dL Normal 8.5-10.1 [facility] [place] Comment on above: Performed By: #### C MP ####[facility], Chloride [Moles/Vol] 101 mmol/L Normal 98-107 [facility] [place] Comment on above: Performed By: #### C MP ####[facility], CO2 [Moles/Vol] 32.6 mmol/L High 21.0-32.0 [facility] [place] Comment on above: Performed By: #### C MP ####[facility], Creatinine [Mass/Vol] 1.06 mg/dL High 0.55-1.02 [facility] [place] Comment on above: Performed By: #### C MP ####[facility], Estimated GFR ( Marlee >60 Normal >=60 mL/min/1.73m 2 [facility] [place] Comment on above: Performed By: #### C MP ####[facility], Estimated GFR (Non- Maritza 53 Low >=60 mL/min/1.73m 2 [facility] [place] Comment on above: Performed By: #### C MP ####[facility], Globulin (S) [Mass/Vol] 3.7 g/dL Normal T [facility] [place] Comment on above: Performed By: #### C MP ####[facility], Glucose [Mass/Vol] 134 mg/dL High 74-106 [facility] [place] Comment on above: Performed By: #### C MP ####[facility], Potassium [Moles/Vol] 4.4 mmol/L Normal 3.5-5.1 [facility] [place] Comment on above: Performed By: #### C MP ####[facility], Protein [Mass/Vol] 7.3 g/dL Normal 6.4-8.2 [facility] [place] Comment on above: Performed By: #### C MP ####[facility], Sodium [Moles/Vol] 140 mmol/L Normal 136-145 [facility] [place] Comment on above: Performed By: #### C MP ####[facility], Urea nitrogen [Mass/Vol] 13.0 mg/dL Normal 7.0-18.0 [facility] [place] Comment on above: Performed By: #### C MP ####[facility], Urea nitrogen/Creatinine [Mass ratio] 12.3 mg/mg Normal [facility] [place] Comment on above: Performed By: #### C MP ####[facility], P.PNon 03-23-2024 P.PN [facility] [address] [place] [address] Progress Note Signed Patient: DAWNA VELÁSQUEZ MR#: [id number] : 1965 Acct:[id number] Age/Sex: 58 / F ADM Date: 03/21/24 Loc: [place] 218-1 Date of Service: 03/23/[address]: Winter Alfonso D.O. cc: Erin Watson NP; Winter Alfonso D.O. Progress Note: Subjective Subjective Interval history: Patient sitting up in bed, Still requiring 3L NC oxygen to maintain sats above 90%. Patient reports cough, no fevers or chills. Still with shortness of breath but feels improved since yesterday. She daily asks to go home with oxygen. Repeat chest X-ray today does note R >L base infiltrates. Exam Narrative Exam Narrative: General: Patient is alert, and oriented to person, place and time very short of breath with conversing, obese Skin: no visible rashes, or ulcers Head: atraumatic, acephalic Eyes: PERRLA, no nystagmus present, conjunctiva clear, no scleral icterus Ears: normal gross auditory acuity Nose: symmetric, no discharge, no maxillary or frontal sinus tenderness Heart: Normal rate and rhythm, no murmurs/rubs/gallops Lungs: audible wheezes, no crackles and diminished breath sounds all lung ramos Abdomen: Normal audible bowel sounds, no distension, No palpable masses, no organomegaly, no rebound/guarding/ or rigidity Musculoskeletal: no swelling bilateral lower extremities Neuro: CN II-X grossly intact Constitutional Vital Signs, click to edit/add: Last Vital Signs Temp 97.7 F 03/23/24 07:27 Pulse 90 03/23/24 07:27 Resp 16 03/23/24 07:27 BP 146/85 H 03/23/24 07:27 Pulse Ox 90 L 03/23/24 07:27 O2 Del Method Nasal Cannula 03/23/24 07:27 O2 Flow Rate 3 03/23/24 07:27 Progress Note: Objective Labs Labs: Short CBC 03/23/24 Range/Units 05:24 WBC 7.4 (4.0-11.0) 10 3/uL Hgb 14.9 (12.0-16.0) g/dL Hct 44.9 (36.0-48.0) % Plt Count 167 (150-450) 10 3/uL BMP 03/23/24 05:24 Sodium 140 Potassium 4.4 Chloride 101 Carbon Dioxide 32.6 H BUN 13.0 Creatinine 1.06 H Glucose 134 H Calcium 9.5 Liver Function 03/23/24 Range/Units 05:24 Total Bilirubin 0.9 (0.2-1.0) mg/dL AST 22 (15-37) U/L ALT 37 (14-59) U/L Alkaline Phosphatase 99 (46-116) U/L Albumin 3.6 (3.4-5.0) g/dL Progress Note: A P Assessment and Plan (1) Acute infective exacerbation of chronic obstructive airway disease: Assessment and Plan: continue respiratory toilet. OPEP, nebs and added pulmicort today. Continue zithromax and rocephin along with solumedrol 40mg q6 hours IV. continue to monitor respiratory status. PRN nebs as well. (2) Acute respiratory failure with hypoxia: Assessment and Plan: patient down to 85% on room air, requiring 3 L NC oxygen to maintain oxygen sats >90% (3) Community acquired pneumonia: Assessment and Plan: on chest X-ray R>L infiltrates, continue IV antibiotics. Viral testing negative. Qualifiers: Laterality: unspecified laterality Qualified Code(s): J18.9 - Pneumonia, unspecified organism (4) Tobacco abuse: Assessment and Plan: Nicoderm patch, would benefit from cessation (5) Anxiety: Assessment and Plan: continue home meds (6) Depression: Assessment and Plan: continue home meds Qualifiers: Depression Type: unspecified Qualified Code(s): F32.A - Depression, unspecified (7) High cholesterol: Assessment and Plan: continue atorvastatin (8) HTN (hypertension): Assessment and Plan: continue prazosin, propranolol, spironolactone Qualifiers: Hypertension type: primary hypertension Qualified Code(s): I10 - Essential (primary) hypertension Plan Patient is a full code continue lovenox for DVT prophylaxis patient expected to require 1-2 more days of hospital necessary care. Documented By: Winter Alfonso D.O. 03/23/24 0812 Signed By: 03/23/24 0950 Normal [facility] XR chest 1Von 03-23-2024 XR chest 1V [address] [address] XRay Report Signed Patient: DAWNA VELÁSQUEZ MR#: [id number] : 1965 Acct:[id number] Age/Sex: 58 / F ADM Date: 03/21/24 Loc: [place] 218-[address]: Winter Alfonso D.O. Ordering Physician: Winter Alfonso D.O. Date of Service: 03/23/24 Procedure(s): XR chest 1V Accession Number(s): [id number] cc: Erin Watson MEDIA INTERN; Winter Alfonso D.O. [address] [address] Patient Name: DAWNA VELÁSQUEZ MRN: [id number] date: 1965 Sex: F Assigned Patient Location: ID Current Patient Location: ID Accession/Order Number: [id number] Exam Date: 03/23/2024 08:15 Report Date: 03/23/2024 09:18 At the request of: WINTER ALFONSO Procedure: XR chest 1V EXAMINATION: XR chest 1V HISTORY: shortness of breath, cough COMPARISON: XR chest 03/21/2024 FINDINGS: LUNGS: Underexpanded lungs with mild opacities within lung bases partially obscuring the bronchovascular markings, right greater than left. VASCULATURE: No increased pulmonary vasculature. PLEURA: Small pleural effusions cannot be excluded. CARDIAC: No cardiomegaly or cardiac silhouette abnormality. MEDIASTINUM: No visible mass or adenopathy. BONES: No fracture or visible bone lesion. OTHER: Negative. XR/XR chest 1V IMPRESSION: 1. Moderate right, mild left basilar infiltrates versus atelectasis; increased on right, decreased on left compared to prior study. 2. Possible small bilateral pleural effusions. Electronically authenticated by: CARLENE RAHMAN Date: 03/23/2024 09:18 Dictated By: Carlene Rahman M.D. Signed By: 03/23/24920 DD/ 7 TD/TT: Assistant Attorney General: Normal [facility] [place] Basic Metabolic Panelon 03-06 Anion gap [Moles/Vol] 14.4 mmol/L Normal [facility] [place] Comment on above: Performed By: #### B MP ####[facility], Calcium [Mass/Vol] 8.7 mg/dL Normal 8.5-10.1 [facility] [place] Comment on above: Performed By: #### B MP ####[facility], Chloride [Moles/Vol] 104 mmol/L Normal 98-107 [facility] [place] Comment on above: Performed By: #### B MP ####[facility], CO2 [Moles/Vol] 30.4 mmol/L Normal 21.0-32.0 [facility] [place] Comment on above: Performed By: #### B MP ####[facility], Creatinine [Mass/Vol] 1.15 mg/dL High 0.55-1.02 [facility] [place] Comment on above: Performed By: #### B MP ####[facility], Estimated GFR ( Marlee 58 Low >=60 mL/min/1.73m 2 [facility] [place] Comment on above: Performed By: #### B MP ####[facility], Estimated GFR (Non- Maritza 48 Low >=60 mL/min/1.73m 2 [facility] [place] Comment on above: Performed By: #### B MP ####[facility], Glucose [Mass/Vol] 131 mg/dL High 74-106 [facility] [place] Comment on above: Performed By: #### B MP ####[facility], Potassium [Moles/Vol] 4.8 mmol/L Normal 3.5-5.1 [facility] [place] Comment on above: Performed By: #### B MP ####[facility], Sodium [Moles/Vol] 144 mmol/L Normal 136-145 [facility] [place] Comment on above: Performed By: #### B MP ####[facility], Urea nitrogen [Mass/Vol] 14.0 mg/dL Normal 7.0-18.0 [facility] [place] Comment on above: Performed By: #### B MP ####[facility], Urea nitrogen/Creatinine [Mass ratio] 12.2 mg/mg Normal [facility] [place] Comment on above: Performed By: #### B MP ####[facility], CBC no Diff (Hemogram)on Erythrocyte distribution width (RBC) [Ratio] 13.9 % Normal 11.0-15.0 [facility] [place] Comment on above: Performed By: #### C BCND ####[facility], Hematocrit (Bld) [Volume fraction] 42.8 % Normal 36.0-48.0 [facility] [place] Comment on above: Performed By: #### C BCND ####[facility], Hemoglobin (Bld) [Mass/Vol] 14.4 g/dL Normal 12.0-16.0 [facility] [place] Comment on above: Performed By: #### C BCND ####[facility], MCH (RBC) [Entitic mass] 36.8 pg High 26.7-34.0 [facility] [place] Comment on above: Performed By: #### C BCND ####[facility], MCV (RBC) [Entitic vol] 109.5 fL High 81.0-99.0 T [facility] [place] Comment on above: Performed By: #### C BCND ####[facility], Mean Corpuscular HGB Conc 33.6 g/dL Normal 29.9-35.2 [facility] [place] Comment on above: Performed By: #### C BCND ####[facility], Platelet Count 157 10 3/uL Normal 150-450 [facility] [place] Comment on above: Performed By: #### C BCND ####[facility], Platelet mean volume (Bld) [Entitic vol] 10.7 fL Normal 9.5-13.5 [facility] [place] Comment on above: Performed By: #### C BCND ####[facility], Red Blood Count 3.91 10 6/uL Low 4.20-5.40 [facility] [place] Comment on above: Performed By: #### C BCND ####[facility], White Blood Count 5.0 10 3/uL Normal 4.0-11.0 [facility] [place] Comment on above: Performed By: #### C BCND ####[facility], Magnesiumon 03-22-2024 Magnesium [Mass/Vol] 1.8 mg/dL Normal 1.8-2.4 [facility] [place] Comment on above: Performed By: #### M G ####[facility], Magnesium measurementon 03-06 Magnesium [Mass/Vol] 1.8 mg/dL 1.8-2.4 [facility] Work Phone: P.HPon 03-22-[address] [address] History Physical Report Signed Patient: DAWNA VELÁSQUEZ MR#: [id number] : 1965 Acct:[id number] Age/Sex: 58 / F ADM Date: 03/21/24 Loc: MS 218-1 Date of Service: 03/22/[address]: Winter Alfonso D.O. cc: Erin Watson MEDIA INTERN; Winter Alfonso D.O. HPI H P: HPI History of Present Illness Chief complaint: pneumonia Narrative: Patient is a 58 y.o white female with past medical history of smoking, seasonal allergies (asthma?), GERD, Depression, anxiety, HTN, HLD, who presented to the ER on 03/20 and again 03/21 with increased cough and shortness of breath. Patient was treated for Community Acquired Pneumonia with rocephin and z-higinio and returned yesterday with worsening symptoms and new finding of hypoxia with oxygen saturations 85% on room air. Patient is currently 92% on 3 L NC. She does not use oxygen at home. Covid and influenza testing were negative. Patient was given IV solu-medrol and Zithromax and Rocephin and was admitted for further plan of care. ER findings: Chest X-ray did not show any infiltrates, WBC's 5.0, Mag 1.8, Trop 5.3, hb 14.4 Patient says she just could not catch her breath. She follows with Dr. Hicks for pulmonary. She had recent normal stress test and diagnosis of COPD. She uses Breztri daily and albuterol inhaler as needed which also was not helping. She does not use oxygen at home. She denies sick contacts, fever or chills but nasal drainage, dry cough, headache and shortness of breath. No chest pain. Opioid HPI Opioid Management Most Recent Pain and Opioid Data: Last Pain Scale 10 04/05/23 17:35 04/05/23 Last Pain Assessment 03/22/24 12:22 Last ORT Total Score 1 03/21/24 23:46 03/21/24 Last ORT Risk Category Low Risk 03/21/24 23:46 03/21/24 Review of Systems ROS Narrative ROS: a complete review of systems were reviewed with patient and are positive as below or listed in History of Chief Complaint. General: no fever, chills, night sweats Head: no headache, trauma, visual changes, nausea or vomiting Skin: no reported rashes, itching or sores Eyes: no blurriness of vision Ears: no reported hearing loss, vertigo, earache, or tinnitus Throat: slight sore throat, but no hoarseness, swelling of neck, or tongue pain Heart: no chest pain Lungs: shortness of breath and cough GI: no diarrhea or vomiting/nausea Urinary: no urinary urgency, frequency or pain Neuro: no numbness or tingling HEM: no bleeding issues or bruising ENDO: no thyroid problems Psych: no anxiety or depression PFSH PFSH Medical History (Updated 03/22/24 @ 09:32 by Winter Alfonso DO) COPD (chronic obstructive pulmonary disease) ?J44.9 - Chronic obstructive pulmonary disease, unspecified (ICD-10) Anxiety ?F41.9 - Anxiety disorder, unspecified (ICD-10) Depression ?F32.A - Depression, unspecified (ICD-10) High cholesterol ?E78.00 - Pure hypercholesterolemia , unspecified (ICD-10) HTN (hypertension) ?I10 - Essential (primary) hypertension (ICD-10) Family History Other Family history not known due to adoption Social History Within the past year, how often did you have a drink containing alcohol: monthly or less Within the past year, how many standard drinks containing alcohol did you have on a typical day: 1 or 2 Total score: 0 Score interpretation: A score less than 3 is consistent with normal alcohol consumption. Smoking status: Current every day smoker Non-prescribed substance use: denies use Previous occupational history: retired Are you now , , , , never or living with a partner: In a typical week, how many times do you talk on the telephone with family, friends, or neighbors: 3 or more times per week How often do you get together with friends or relatives: 3 or more times per week Little interest or pleasure in doing things: not at all Feeling down, depressed, or hopeless: not at all Feel stressed/tense/nervo us/anxious/difficult y sleeping: not at all Do you think of yourself as: straight/heterosexua l Gender Identity: female Meds Home Medications and Allergies Home Medications ?Medication ?Instructions ?Recorded ?Confirmed ?Type albuterol sulfate 2.5 mg/3 mL 1.25 mg (1.5 mL) inhalation Q6H 03/20/24 03/21/24 Rx (0.083 %) solution for nebulization PRN shortness of breath or wheezing #90 mL azithromycin 250 mg tablet See Rx Instructions PO .COMPLEX #6 03/20/24 03/21/24 Rx (Zithromax Z-Higinio) tabs amitriptyline 100 mg tablet 100 mg PO QPM 03/21/24 03/21/24 History atorvastatin 20 mg tablet 20 mg PO QPM 03/21/24 03/21/24 History lamotrigine 150 mg tablet 150 mg PO DAILY 03/21/24 03/22/24 History lamotrigine 200 mg tablet 200 mg PO QPM 03/21/24 03/21/24 (more content not included)... Normal [facility] [place] Venous Blood Gason PCO2 VBG 53.8 mmHg High 40.0-52.0 [facility] [place] Comment on above: Performed By: #### V BG ####[facility], pH VBG 7.388 Normal 7.330-7.430 [facility] [place] Comment on above: Performed By: #### V BG ####[facility], Venous blood pH measuremento n 03-22-2024 pH (BldV) Venous blood pH measurement 7.330-7.430 [facility] Work Phone: Venous blood partial pressur e of carbon dioxide measurementon 03-22-2024 CO2 (BldV) [Partial pressure] Venous blood partial pressure of carbon dioxide measurement 40.0-52.0 [facility] Work Phone: Anion gap measurementon 03-06 Anion gap [Moles/Vol] 12.1 mmol/L [facility] Work Phone: Automated absolute lymphocyt e counton 03-21-2024 Lymphocytes (Bld) [#/Vol] 2.0 10*3/uL 1.2-3.8 [facility] Work Phone: Automated absolute neutrophi l counton 03-21-2024 Neutrophils (Bld) [#/Vol] 3.0 10*3/uL 1.4-6.5 [facility] Work Phone: BUN/creatinine ratioon 03-21 Urea nitrogen/Creatinine [Mass ratio] 11.4 mg/mg [facility] Work Phone: Basic Metabolic Panelon 03-06 Anion gap [Moles/Vol] 12.1 mmol/L Normal [facility] [place] Comment on above: Performed By: #### B MP ####[facility], Calcium [Mass/Vol] 9.3 mg/dL Normal 8.5-10.1 [facility] [place] Comment on above: Performed By: #### B MP ####[facility], Chloride [Moles/Vol] 103 mmol/L Normal 98-107 [facility] [place] Comment on above: Performed By: #### B MP ####[facility], CO2 [Moles/Vol] 31.2 mmol/L Normal 21.0-32.0 [facility] [place] Comment on above: Performed By: #### B MP ####[facility], Creatinine [Mass/Vol] 1.14 mg/dL High 0.55-1.02 [facility] [place] Comment on above: Performed By: #### B MP ####[facility], Estimated GFR ( Marlee 59 Low >=60 mL/min/1.73m 2 [facility] [place] Comment on above: Performed By: #### B MP ####[facility], Estimated GFR (Non- Maritza 49 Low >=60 mL/min/1.73m 2 [facility] [place] Comment on above: Performed By: #### B MP ####[facility], Glucose [Mass/Vol] 109 mg/dL High 74-106 [facility] [place] Comment on above: Performed By: #### B MP ####[facility], Potassium [Moles/Vol] 3.3 mmol/L Low 3.5-5.1 [facility] [place] Comment on above: Performed By: #### B MP ####[facility], Sodium [Moles/Vol] 143 mmol/L Normal 136-145 [facility] [place] Comment on above: Performed By: #### B MP ####[facility], Urea nitrogen [Mass/Vol] 13.0 mg/dL Normal 7.0-18.0 [facility] [place] Comment on above: Performed By: #### B MP ####[facility], Urea nitrogen/Creatinine [Mass ratio] 11.4 mg/mg Normal [facility] [place] Comment on above: Performed By: #### B MP ####[facility], Basophils Auto (Bld) [#/Vol] on 03-21-2024 Basophils (Bld) [#/Vol] Automated basoph il count 0.0-0.1 [facility] Work Phone: Basophils/100 WBC Auto (Bld) on 03-21-2024 Basophils/100 WBC (Bld) Automated basophil % 0. 2-2.0 [facility] Work Phone: Blood urea nitrogen (BUN) me asurementon 03-21-2024 Urea nitrogen [Mass/Vol] 13.0 mg/dL 7.0-18.0 [facility] Work Phone: CO2 (Bld) [Moles/Vol]on 03-06 CO2 [Moles/Vol] Carbon dioxide, total [Moles/volume] in Blood 21.0-32.0 [facility] Work Phone: Calcium measurementon 2023 Calcium [Mass/Vol] 9.3 mg/dL 8.5-10.1 [facility] Work Phone: Complete Blood Count Auto Di ffon 03-21-2024 Red Blood Count 3.88 10 6/uL Low 4.20-5.40 [facility] [place] Comment on above: Result Comment: MACR OCYTOSIS 3+ Performed By: #### C BC ####[facility], Basophils Absolute Auto 0.0 10 3/uL Normal 0.0-0.1 [facility] [place] Comment on above: Performed By: #### C BC ####[facility], Basophils/100 WBC (Bld) 0.4 % Normal 0.2-2.0 T [facility] [place] Comment on above: Performed By: #### C BC ####[facility], Eosinophils Absolute Auto 0.0 10 3/uL Normal 0.0-0.7 [facility] [place] Comment on above: Performed By: #### C BC ####[facility], Eosinophils/100 WBC (Bld) 0.2 % Low 0.9-7.0 [facility] [place] Comment on above: Performed By: #### C BC ####[facility], Erythrocyte distribution width (RBC) [Ratio] 14.2 % Normal 11.0-15.0 [facility] [place] Comment on above: Performed By: #### C BC ####[facility], Hematocrit (Bld) [Volume fraction] 42.7 % Normal 36.0-48.0 [facility] [place] Comment on above: Performed By: #### C BC ####[facility], Hemoglobin (Bld) [Mass/Vol] 14.5 g/dL Normal 12.0-16.0 [facility] [place] Comment on above: Performed By: #### C BC ####[facility], Immature Granulocytes Abs Auto 0.04 10 3/uL High 0.00-0.03 [facility] [place] Comment on above: Performed By: #### C BC ####[facility], Immature granulocytes/100 WBC (Bld) 0.7 % High 0.0-0.5 [facility] [place] Comment on above: Performed By: #### C BC ####[facility], Lymphocytes Absolute Auto 2.0 10 3/uL Normal 1.2-3.8 [facility] [place] Comment on above: Performed By: #### C BC ####[facility], Lymphocytes/100 WBC (Bld) 37.3 % Normal 20.5-60.0 [facility] [place] Comment on above: Performed By: #### C BC ####[facility], MCH (RBC) [Entitic mass] 37.4 pg High 26.7-34.0 [facility] [place] Comment on above: Performed By: #### C BC ####[facility], MCV (RBC) [Entitic vol] 110.1 fL High 81.0-99.0 [facility] [place] Comment on above: Performed By: #### C BC ####[facility], Mean Corpuscular HGB Conc 34.0 g/dL Normal 29.9-35.2 [facility] [place] Comment on above: Performed By: #### C BC ####[facility], Monocytes Absolute Auto 0.3 10 3/uL Normal 0.3-0.8 [facility] [place] Comment on above: Performed By: #### C BC ####[facility], Monocytes/100 WBC (Bld) 6.3 % Normal 1.7-12.0 [facility] [place] Comment on above: Performed By: #### C BC ####[facility], Neutrophils Absolute Auto 3.0 10 3/uL Normal 1.4-6.5 [facility] [place] Comment on above: Performed By: #### C BC ####[facility], Neutrophils/100 WBC (Bld) 55.1 % Normal 43.0-75.0 [facility] [place] Comment on above: Performed By: #### C BC ####[facility], Platelet Count 158 10 3/uL Normal 150-450 [facility] [place] Comment on above: Performed By: #### C BC ####[facility], Platelet mean volume (Bld) [Entitic vol] 10.5 fL Normal 9.5-13.5 [facility] [place] Comment on above: Performed By: #### C BC ####[facility], White Blood Count 5.4 10 3/uL Normal 4.0-11.0 [facility] [place] Comment on above: Performed By: #### C BC ####[facility], ECG 12 lead 03-21-2024 ECG [address] [address] Electrocardiograph Report Signed Patient: DAWNA VELÁSQUEZ MR#: [id number] : 1965 Acct:[id number] Age/Sex: 58 / F ADM Date: 03/21/24 Loc: MS 218-[address]: Winter Alfonso D.O. Ordering Physician: Ashly Enciso M.D. 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 Signed By: 03/22/24 0747 DD/ 58 TD/TT: Assistant Attorney General: Real [facility] 03-21-2024 [place] [address] Emergency Department Note Signed Patient: DAWNA VELÁSQUEZ MR#: [id number] : 1965 Acct:[id number] Age/Sex: 58 / F ADM Date: 03/21/24 Loc: ER Date of Service: 03/21/[address]: cc: Ashly Enciso M.D. HPI - SOB/Dyspnea General Chief Complaint: Shortness of Breath/Dyspnea Stated Complaint: SOB Time Seen by Provider: 03/21/24 20:48 Source: patient Mode of arrival: Wheelchair History of Present Illness HPI Narrative: 58-year-old female presents for shortness of breath. She was seen here yesterday and diagnosed with pneumonia. At that time she did not want to be admitted to the hospital and she received IV Rocephin and was discharged home on Zithromax. She feels a little bit worse now. She still continues to cough. No history of hemoptysis and no fever. She has been sick for several days Related Data Home Medications ?Medication ?Instructions ?Recorded ?Confirmed amitriptyline 100 mg tablet 100 mg PO QPM 03/21/24 03/21/24 atorvastatin 20 mg tablet 20 mg PO QPM 03/21/24 03/21/24 lamotrigine 150 mg tablet 100 mg PO DAILY 03/21/24 03/21/24 lamotrigine 200 mg tablet 200 mg PO QPM 03/21/24 03/21/24 meloxicam 15 mg tablet 15 mg PO QAM 03/21/24 03/21/24 montelukast 10 mg tablet 10 mg PO QPM 03/21/24 03/21/24 omeprazole 40 mg capsule,delayed 40 mg PO DAILY 03/21/24 03/21/24 release prazosin 2 mg capsule 2 mg PO QPM 03/21/24 03/21/24 pregabalin 100 mg capsule 100 mg PO BID 03/21/24 03/21/24 propranolol 40 mg tablet 40 mg PO BID 03/21/24 03/21/24 quetiapine 100 mg tablet 100 mg PO DAILY 03/21/24 03/21/24 quetiapine 400 mg tablet 400 mg PO QPM 03/21/24 03/21/24 spironolactone 50 mg tablet 50 mg PO QAM 03/21/24 03/21/24 tizanidine 4 mg tablet 4 mg PO Q8H PRN muscle spasticity 03/21/24 03/21/24 Previous Rx's ?Medication ?Instructions ?Recorded albuterol sulfate 2.5 mg/3 mL 1.25 mg (1.5 mL) inhalation Q6H 03/20/24 (0.083 %) solution for nebulization PRN shortness of breath or wheezing #90 mL azithromycin 250 mg tablet See Rx Instructions PO .COMPLEX #6 03/20/24 (Zithromax Z-Higinio) tabs Allergies Allergy/AdvReac Type Severity Reaction Status Date / Time prednisone Allergy Severe Anaphylaxis Verified 03/20/24 11:41 Penicillins AdvReac Severe Anaphylaxis Verified 03/20/24 11:41 Review of Systems ROS Narrative A ten point review of systems is negative except as noted above. [facility] Medical History (Updated 03/21/24 @ 22:32 by Ashly Enciso MD) COPD (chronic obstructive pulmonary disease) ?J44.9 - Chronic obstructive pulmonary disease, unspecified (ICD-10) Anxiety ?F41.9 - Anxiety disorder, unspecified (ICD-10) Depression ?F32.A - Depression, unspecified (ICD-10) High cholesterol ?E78.00 - Pure hypercholesterolemia , unspecified (ICD-10) HTN (hypertension) ?I10 - Essential (primary) hypertension (ICD-10) Social History Smoking status: Current every day smoker Little interest or pleasure in doing things: not at all Feeling down, depressed, or hopeless: not at all Exam Narrative Exam Narrative: Nurses note and vital signs reviewed and patient is not hypoxic. General: The patient appears in no apparent distress. She appears mildly dyspneic. Skin: Warm, dry, no pallor noted. There is no rash noted. Head: Normocephalic, atraumatic Eye: Normal conjunctiva, no drainage Ears, Nose, Mouth, and Throat: oral mucosa is moist. Nares patent. Cardiovascular: Regular Rate and Rhythm Respiratory: Bilateral rhonchi throughout Back: non-tender GI: Soft and nontender Musculoskeletal: The patient has no evidence of calf tenderness, no pitting edema, symmetrical pulses noted bilaterally Neurological: A O, normal speech Psychiatric: Cooperative Constitutional Vital Signs, click to edit/add: Last Vital Signs Temp 98.1 F 03/21/24 20:52 Pulse 74 03/21/24 21:47 Resp 19 03/21/24 21:47 BP 156/92 H 03/21/24 21:47 Pulse Ox 92 L 03/21/24 21:47 O2 Del Method Nasal Cannula 03/21/24 21:29 O2 Flow Rate 3 03/21/24 21:29 Course Vital Signs Vital signs: Vital Signs Temperature 98.1 F 03/21/24 20:52 Pulse Rate 79 03/21/24 20:52 Respiratory Rate 26 H 03/21/24 20:52 Blood Pressure 178/91 H 03/21/24 20:52 Pulse Oximetry 86 L 03/21/24 20:52 Oxygen Delivery Method Room Air 03/21/24 20:52 Temperature 98.1 F 03/21/24 20:52 Pulse Rate 74 03/21/24 21:47 Respiratory Rate 19 03/21/24 21:47 Blood Pressure 156/92 H 03/21/24 21:47 Pulse Oximetry 92 L 03/21/24 21:47 Oxygen Delivery Method Nasal Cannula 03/21/24 21:29 Oxygen Delivery Flow Rate 3 03/21/24 21:29 MDM - SOB/Dyspnea MDM Narrative Medical decision making narrative: The patient had questionable pneumonia on her chest (more content not included)... Normal [facility] [place] Eosinophils Auto (Bld) [#/Vo l]on 03-21-2024 Eosinophils (Bld) [#/Vol] Automated eosinophil count 0.0-0.7 [facility] Work Phone: Eosinophils/100 WBC Auto (Bl d)on 03-21-2024 Eosinophils/100 WBC (Bld) Automated eosinophil % 0.9-7.0 [facility] Work Phone: Estimated glomerular filtrat ion rate (GFR) Americanon 03-21-2024 Estimated GFR (Non- 49 >60 [facility] Work Phone: GFR/1.73 sq M.predicted MDRD (S/P/Bld) [Vol rate/Area] 59 mL/min/{1.73_m2} >60 [facility] Work Phone: Glucose (Bld) [Mass/Vol]on 05-21-2023 Glucose [Mass/Vol] Glucose [Mass/volume] in Blood 74-106 [facility] Work Phone: Hematocrit [Volume Fraction] of Bloodon 03-21-2024 Hematocrit (Bld) [Volume fraction] Hematocrit [Volume Fraction] of Blood 36.0-48.0 [facility] Work Phone: Laboratory - Hematology and Cell countson 03-21-2024 Immature granulocytes (Bld) [#/Vol] 0.04 10*3/uL 0.00-0.03 [facility] Work Phone: Immature granulocytes/100 WBC (Bld) 0.7 % 0.0-0.5 [facility] Work Phone: Lactate (lactic acid) levelo n 03-21-2024 Basophil percentage Basophil percentage 0.4-2.0 [facility] Work Phone: Lactate/Lactic Acidon 2023 Lactate/Lactic Acid 1.2 mmol/L Normal 0.4-2.0 [facility] Comment on above: Performed By: #### L ACT ####[facility], Leukocytes [#/volume] in Blo odon 03-21-2024 WBC (Bld) [#/Vol] Leukocytes [#/volume] in Blood 4.0-11.0 [facility] Work Phone: Lymphocyte percentage, autom atedon 03-21-2024 Lymphocytes/100 WBC (Bld) 37.3 % 20.5-60.0 [facility] Work Phone: MCV (mean corpuscular volume ) determinationon 03-21-2024 MCV (RBC) [Entitic vol] MCV (mean corpuscular volume) determination 81.0-99.0 [facility] Work Phone: Mean corpuscular hemoglobin (MCH) determinationon 03-21-2024 MCH (RBC) [Entitic mass] 37.4 pg 26.7-34.0 [facility] Work Phone: Mean corpuscular hemoglobin concentration (MCHC) determinationon 03-21-2024 MCHC (RBC) [Mass/Vol] 34.0 g/dL 29.9-35.2 [facility] Work Phone: Monocytes Auto (Bld) [#/Vol] on 03-21-2024 Monocytes (Bld) [#/Vol] Automated blood monocyte count 0.3-0.8 [facility] Work Phone: Monocytes/100 WBC Auto (Bld) on 03-21-2024 Monocytes/100 WBC (Bld) Automated monocyte % 1. 7-12.0 [facility] Work Phone: Mpvon 03-21-2024 Platelet mean volume (Bld) [Entitic vol] 10.5 fL 9.5-13.5 [facility] Work Phone: Neutrophils/100 WBC Auto (Bl d)on 03-21-2024 Neutrophils/100 WBC (Bld) Automated neutrophil % 43.0-75.0 [facility] Work Phone: No Panel Informationon 03-21 Blood Culture Result 2 NO GROWTH AT 5 DAYS. [facility] Work Phone: Blood Culture Result 1 NO GROWTH AT 5 DAYS. [facility] Work Phone: Platelets [#/volume] in Bloo don 03-21-2024 Platelets (Bld) [#/Vol] Platelets [#/vol ume] in Blood 150-450 [facility] Work Phone: Potassium [Moles/volume] in Serum, Plasma or Bloodon 03-21-2024 Potassium (S/P/Bld) [Moles/Vol] Potassium [Moles/volume] in Serum, Plasma or Blood 3.5-5.1 [facility] Work Phone: RBC counton 03-21-2024 RBC (Bld) [#/Vol] 3.88 10*6/uL 4.20-5.40 [facility] Work Phone: Comment on above: MACROCYTOSIS 3+ RDWon 03-21-2024 Erythrocyte distribution width (RBC) [Ratio] 14.2 % 11.0-15.0 [facility] Work Phone: Serum or plasma creatinine m easurement (moles/volume)on 03-21-2024 Creatinine [Moles/Vol] Serum or plasma creatinine measurement (moles/volume) 0.55-1.02 [facility] Work Phone: Sodium (Bld) [Moles/Vol]on 1 05-21-2023 Sodium [Moles/Vol] Sodium [Moles/volume] in Blood 136-145 [facility] Work Phone: XR chest 1Von 03-21-2024 XR chest 1V [facility] [address] [place] [address] XRay Report Signed Patient: DAWNA VELÁSQUEZ MR#: [id number] : 1965 Acct:[id number] Age/Sex: 58 / F ADM Date: 03/21/24 Loc: ER Attending Dr: Ordering Physician: Ashly Enciso M.D. Date of Service: 03/21/24 Procedure(s): XR chest 1V Accession Number(s): [id number] cc: Erin Watson NP; Ashly Enciso M.D. [facility] [place] [id number] Patient Name: DAWNA VELÁSQUEZ MRN: [id number] date: 1965 Sex: F Assigned Patient Location: ER Current Patient Location: ED.MAIN Accession/Order Number: [id number] Exam Date: 03/21/2024 21:10 Report Date: 03/21/2024 23:35 At the request of: ASHLY ENCISO Procedure: XR chest 1V CHEST X-RAY, 1 VIEW HISTORY: Shortness of breath. COMPARISON: 03/20/2024. FINDINGS: The heart, milton, and mediastinum are unremarkable. There are stable parenchymal disease in the lower lobes. There are no pleural effusions. There is no pneumothorax. XR/XR chest 1V IMPRESSION: Stable chest x-ray. Electronically authenticated by: MINGO MCMAHON Date: 03/21/2024 23:35 Dictated By: Mingo Mcmahon M.D. Signed By: 03/21/242337 DD/ 34 TD/TT: Assistant Attorney General: Normal [facility] [place] Alanine aminotransferase (AL T) measurementon 03-20-2024 ALT [Catalytic activity/Vol] 35 U/L 14-59 [facility] Work Phone: AST [Catalytic activity/Vol] 27 U/L 15-37 [facility] Work Phone: Albumin to globulin ratioon 03-20-2024 Albumin/Globulin [Mass ratio] 1.0 {ratio} [facility] Work Phone: Anion gap measurementon 03-06 Anion gap [Moles/Vol] 10.9 mmol/L [facility] Work Phone: Automated absolute lymphocyt e counton 03-20-2024 Lymphocytes (Bld) [#/Vol] 1.3 10*3/uL 1.2-3.8 [facility] Work Phone: Automated absolute neutrophi l counton 03-20-2024 Neutrophils (Bld) [#/Vol] 2.1 10*3/uL 1.4-6.5 [facility] Work Phone: BUN/creatinine ratioon 03-20 Urea nitrogen/Creatinine [Mass ratio] 8.3 mg/mg [facility] Work Phone: Basophils Auto (Bld) [#/Vol] on 03-20-2024 Basophils (Bld) [#/Vol] Automated basoph il count 0.0-0.1 [facility] Work Phone: Basophils/100 WBC Auto (Bld) on 03-20-2024 Basophils/100 WBC (Bld) Automated basophil % 0. 2-2.0 [facility] Work Phone: Blood urea nitrogen (BUN) me asurementon 03-20-2024 Urea nitrogen [Mass/Vol] 10.0 mg/dL 7.0-18.0 [facility] Work Phone: CO2 (Bld) [Moles/Vol]on 03-06 CO2 [Moles/Vol] Carbon dioxide, total [Moles/volume] in Blood 21.0-32.0 [facility] Work Phone: Calcium measurementon 2023 Calcium [Mass/Vol] 8.5 mg/dL 8.5-10.1 [facility] Work Phone: Complete Blood Count Auto Di ffon 03-20-2024 Red Blood Count 3.86 10 6/uL Low 4.20-5.40 [facility] [place] Comment on above: Result Comment: MACR OCYTOSIS 2+ Performed By: #### C BC #### [facility] , Basophils Absolute Auto 0.0 10 3/uL Normal 0.0-0.1 [facility] [place] Comment on above: Performed By: #### C BC #### [facility] , Basophils/100 WBC (Bld) 0.5 % Normal 0.2-2.0 T [facility] [place] Comment on above: Performed By: #### C BC #### [facility] , Eosinophils Absolute Auto 0.0 10 3/uL Normal 0.0-0.7 [facility] [place] Comment on above: Performed By: #### C BC #### [facility] , Eosinophils/100 WBC (Bld) 1.0 % Normal 0.9-7.0 [facility] [place] Comment on above: Performed By: #### C BC #### [facility] , Erythrocyte distribution width (RBC) [Ratio] 14.3 % Normal 11.0-15.0 [facility] [place] Comment on above: Performed By: #### C BC #### [facility] , Hematocrit (Bld) [Volume fraction] 42.7 % Normal 36.0-48.0 [facility] [place] Comment on above: Performed By: #### C BC #### [facility] , Hemoglobin (Bld) [Mass/Vol] 14.2 g/dL Normal 12.0-16.0 [facility] [place] Comment on above: Performed By: #### C BC #### [facility] , Immature Granulocytes Abs Auto 0.03 10 3/uL Normal 0.00-0.03 [facility] [place] Comment on above: Performed By: #### C BC #### [facility] , Immature granulocytes/100 WBC (Bld) 0.8 % High 0.0-0.5 [facility] [place] Comment on above: Performed By: #### C BC #### [facility] , Lymphocytes Absolute Auto 1.3 10 3/uL Normal 1.2-3.8 [facility] [place] Comment on above: Performed By: #### C BC #### [facility] , Lymphocytes/100 WBC (Bld) 33.2 % Normal 20.5-60.0 [facility] [place] Comment on above: Performed By: #### C BC #### [facility] , MCH (RBC) [Entitic mass] 36.8 pg High 26.7-34.0 [facility] [place] Comment on above: Performed By: #### C BC #### [facility] , MCV (RBC) [Entitic vol] 110.6 fL High 81.0-99.0 [facility] [place] Comment on above: Performed By: #### C BC #### [facility] , Mean Corpuscular HGB Conc 33.3 g/dL Normal 29.9-35.2 [facility] [place] Comment on above: Performed By: #### C BC #### [facility] , Monocytes Absolute Auto 0.4 10 3/uL Normal 0.3-0.8 [facility] [place] Comment on above: Performed By: #### C BC #### [facility] , Monocytes/100 WBC (Bld) 9.4 % Normal 1.7-12.0 [facility] [place] Comment on above: Performed By: #### C BC #### [facility] , Neutrophils Absolute Auto 2.1 10 3/uL Normal 1.4-6.5 [facility] [place] Comment on above: Performed By: #### C BC #### [facility] , Neutrophils/100 WBC (Bld) 55.1 % Normal 43.0-75.0 [facility] [place] Comment on above: Performed By: #### C BC #### [facility] , Platelet Count 141 10 3/uL Low 150-450 [facility] [place] Comment on above: Performed By: #### C BC #### [facility] , Platelet mean volume (Bld) [Entitic vol] 10.7 fL Normal 9.5-13.5 [facility] [place] Comment on above: Performed By: #### C BC #### [facility] , White Blood Count 3.8 10 3/uL Low 4.0-11.0 [facility] [place] Comment on above: Performed By: #### C BC #### [facility] , Comprehensive Metabolic Pane ethel 03-20-2024 Albumin [Mass/Vol] 3.3 g/dL Low 3.4-5.0 [facility] [place] Comment on above: Performed By: #### C MP, HSTROP, BNP #### [facility] , Albumin Globulin Ratio 1.0 Normal [facility] [place] Comment on above: Performed By: #### C MP, HSTROP, BNP #### [facility] , ALP [Catalytic activity/Vol] 114 U/L Normal 46-116 [facility] [place] Comment on above: Performed By: #### C MP, HSTROP, BNP #### [facility] , ALT [Catalytic activity/Vol] 35 U/L Normal 14-59 [facility] [place] Comment on above: Performed By: #### C MP, HSTROP, BNP #### [facility] , Anion gap [Moles/Vol] 10.9 mmol/L Normal [facility] [place] Comment on above: Performed By: #### C MP, HSTROP, BNP #### [facility] , AST [Catalytic activity/Vol] 27 U/L Normal 15-37 [facility] [place] Comment on above: Performed By: #### C MP, HSTROP, BNP #### [facility] , Bilirubin [Mass/Vol] 0.8 mg/dL Normal 0.2-1.0 [facility] [place] Comment on above: Performed By: #### C MP, HSTROP, BNP #### [facility] , Calcium [Mass/Vol] 8.5 mg/dL Normal 8.5-10.1 [facility] [place] Comment on above: Performed By: #### C MP, HSTROP, BNP #### [facility] , Chloride [Moles/Vol] 106 mmol/L Normal 98-107 [facility] [place] Comment on above: Performed By: #### C MP, HSTROP, BNP #### [facility] , CO2 [Moles/Vol] 32.1 mmol/L High 21.0-32.0 [facility] [place] Comment on above: Performed By: #### C MP, HSTROP, BNP #### [facility] , Creatinine [Mass/Vol] 1.21 mg/dL High 0.55-1.02 [facility] [place] Comment on above: Performed By: #### C MP, HSTROP, BNP #### [facility] , Estimated GFR ( Marlee 55 Low >=60 mL/min/1.73m 2 [facility] [place] Comment on above: Performed By: #### C MP, HSTROP, BNP #### [facility] , Estimated GFR (Non- [place] 45 Low >=60 mL/min/1.73m 2 [facility] [place] Comment on above: Performed By: #### C MP, HSTROP, BNP #### [facility] , Globulin (S) [Mass/Vol] 3.3 g/dL Normal T [facility] [place] Comment on above: Performed By: #### C MP, HSTROP, BNP #### [facility] , Glucose [Mass/Vol] 102 mg/dL Normal 74-106 [facility] [place] Comment on above: Performed By: #### C MP, HSTROP, BNP #### [facility] , Potassium [Moles/Vol] 4.0 mmol/L Normal 3.5-5.1 [facility] [place] Comment on above: Performed By: #### C MP, HSTROP, BNP #### [facility] , Protein [Mass/Vol] 6.6 g/dL Normal 6.4-8.2 [facility] [place] Comment on above: Performed By: #### C MP, HSTROP, BNP #### [facility] , Sodium [Moles/Vol] 145 mmol/L Normal 136-145 [facility] [place] Comment on above: Performed By: #### C MP, HSTROP, BNP #### [facility] , Urea nitrogen [Mass/Vol] 10.0 mg/dL Normal 7.0-18.0 [facility] [place] Comment on above: Performed By: #### C MP, HSTROP, BNP #### [facility] , Urea nitrogen/Creatinine [Mass ratio] 8.3 mg/mg Normal [facility] [place] Comment on above: Performed By: #### C MP, HSTROP, BNP #### [facility] , ECG 12 leadon 03-20-2024 ECG 12 [place] [address] Electrocardiograph Report Signed Patient: DAWNA VELÁSQUEZ MR#: [id number] : 1965 Acct:[id number] Age/Sex: 58 / F ADM Date: 03/20/24 Loc: ER Attending Dr: Ordering Physician: Aguilar Robertson Date of Service: 03/20/24 Procedure(s): ECG 12 lead Accession Number(s): [id number] cc: [facility] Test Date: 2024-03-20 Pat Name: DAWNA VELÁSQUEZ Department: Room: - 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 Signed By: 03/23/24 0726 DD/ 1152 TD/TT: Assistant Attorney General: Real [facility] [place] EDon 03-20-2024 [place] [address] Emergency Department Note Signed Patient: DAWNA VELÁSQUEZ MR#: [id number] : 1965 Acct:[id number] Age/Sex: 58 / F ADM Date: 03/20/24 Loc: ER Date of Service: 03/20/[address]: cc: Erin Watson NP; Cheryl Camarena; Aguilar Robertson Documented by User: Cherly Camarena 03/20/24 14:39 HPI HPI - General Adult General Chief complaint: Shortness of Breath/Dyspnea Stated complaint: SHORTNESS OF BREATH Time Seen by Provider: 03/20/24 12:13 Source: patient Mode of arrival: walk-in Limitations: no limitations History of Present Illness HPI narrative: 58-year-old female with a history of here with chief complaint of shortness of breath. She states she has had increased shortness of breath over the last 2 to 3 days with left lower rib pain. She is a smoker. She used a inhaler this morning with little relief. Upon arrival she had audible in- store expiratory wheezing. She was able to speak sentences but did have to stop. Denies chest pain. Denies a history of recent hospitalization. On any antibiotics or steroids. She has not hypoxic Related Data Previous Rx's ?Medication ?Instructions ?Recorded ibuprofen 800 mg tablet 800 mg PO Q8H PRN pain #20 tabs 04/05/23 methocarbamol 500 mg tablet 500 mg PO Q8H PRN muscle spasm #10 04/05/23 tabs doxycycline hyclate 100 mg capsule 100 mg PO BID 7 days #14 caps 11/24/23 albuterol sulfate 2.5 mg/3 mL 1.25 mg (1.5 mL) inhalation Q6H 03/20/24 (0.083 %) solution for nebulization PRN shortness of breath or wheezing #90 mL azithromycin 250 mg tablet See Rx Instructions PO .COMPLEX #6 03/20/24 (Zithromax Z-Higinio) tabs Allergies Allergy/AdvReac Type Severity Reaction Status Date / Time prednisone Allergy Severe Anaphylaxis Verified 03/20/24 11:41 Penicillins AdvReac Severe Anaphylaxis Verified 03/20/24 11:41 Opioid HPI Opioid Management Most Recent Opioid Data: Last Pain Scale 10 04/05/23 17:35 04/05/23 Review of Systems ROS Narrative All Systems are negative except as noted/marked.All systems reviewed and otherwise negative PFSH PFSH Social History Smoking status: Current every day smoker Little interest or pleasure in doing things: not at all Feeling down, depressed, or hopeless: not at all Exam Narrative Exam Narrative: All Systems are negative except as noted/marked.All systems reviewed and otherwise negative Nurses note and vital signs reviewed and patient is not hypoxic. General: The patient appears well and in no apparent distress. Patient is resting comfortably on cart. Skin: Warm, dry, no pallor noted. There is no rash noted. Head: Normocephalic, atraumatic Eye: Normal conjunctiva, no drainage, EOMI. PERRL Ears, Nose, Mouth, and Throat: oral mucosa is moist. Nares patent. Mouth without vesicles. Ear canals patent. Tm's without Erythema Cardiovascular: Regular Rate and Rhythm Respiratory: Expiratory wheezing, no rales or rhonchi, dry nonproductive cough, no accessory muscle usage Back: non-tender, no CVA tenderness bilaterally to percussion. GI: Normal bowel sounds, no tenderness to palpation, no masses appreciated. No rebound, guarding, or rigidity noted. Musculoskeletal: The patient has no evidence of calf tenderness, no pitting edema, symmetrical pulses noted bilaterally Neurological: A O x4, normal speech Psychiatric: Cooperative Constitutional Vital Signs, click to edit/add: Last Vital Signs Temp 98 F 03/20/24 11:41 Pulse 72 03/20/24 14:29 Resp 20 03/20/24 14:29 BP 156/96 H 03/20/24 14:29 Pulse Ox 92 L 03/20/24 14:29 O2 Del Method Room Air 03/20/24 14:29 O2 Flow Rate 2 03/20/24 13:19 Course Vital Signs Vital signs: Vital Signs Temperature 98 F 03/20/24 11:41 Pulse Rate 77 03/20/24 11:41 Respiratory Rate 24 H 03/20/24 11:41 Blood Pressure 156/97 H 03/20/24 11:41 Pulse Oximetry 85 L 03/20/24 11:41 Oxygen Delivery Method Room Air 03/20/24 11:41 Temperature 98 F 03/20/24 11:41 Pulse Rate 72 03/20/24 14:29 Respiratory Rate 20 03/20/24 14:29 Blood Pressure 156/96 H 03/20/24 14:29 Pulse Oximetry 92 L 03/20/24 14:29 Oxygen Delivery Method Room Air 03/20/24 14:29 Oxygen Delivery Flow Rate 2 03/20/24 13:19 Medical Decision Making MDM Narrative Medical decision making narrative: 58-year-old female with a history of here with chief complaint of shortness of breath. She states she has had increased shortness of breath over the last 2 to 3 days with left lower rib pain. She is a smoker. She used a inhaler this morning with little relief. Upon arrival she had audible in- store expiratory wheezing. She was able to speak sentences but did have to stop. Denies chest pain. Denies a history of recent hospitalization. On any antibiotics or arlin (more content not included)... Normal [facility] ED The [address] [address] Emergency Department Note Cancelled Patient: DAWNA VELÁSQUEZ MR#: [id number] : 1965 Acct:[id number] Age/Sex: 58 / F ADM Date: 03/20/24 Loc: ER Date of Service: 03/20/[address]: cc: HPI HPI - General Adult General Chief complaint: Shortness of Breath/Dyspnea Stated complaint: SHORTNESS OF BREATH Time Seen by Provider: 03/20/24 12:13 Source: patient Mode of arrival: walk-in Limitations: no limitations Related Data Previous Rx's ?Medication ?Instructions ?Recorded ibuprofen 800 mg tablet 800 mg PO Q8H PRN pain #20 tabs 04/05/23 methocarbamol 500 mg tablet 500 mg PO Q8H PRN muscle spasm #10 04/05/23 tabs doxycycline hyclate 100 mg capsule 100 mg PO BID 7 days #14 caps 11/24/23 Allergies Allergy/AdvReac Type Severity Reaction Status Date / Time prednisone Allergy Severe Anaphylaxis Verified 03/20/24 11:41 Penicillins AdvReac Severe Anaphylaxis Verified 03/20/24 11:41 Opioid HPI Opioid Management Most Recent Opioid Data: Last Pain Scale 10 04/05/23 17:35 04/05/23 PFSH PFSH Social History Smoking status: Current every day smoker Little interest or pleasure in doing things: not at all Feeling down, depressed, or hopeless: not at all Exam Constitutional Vital Signs, click to edit/add: Last Vital Signs Temp 98 F 03/20/24 11:41 Pulse 76 03/20/24 12:01 Resp 24 H 03/20/24 12:01 BP 156/97 H 03/20/24 11:49 Pulse Ox 94 L 03/20/24 12:14 O2 Del Method Nasal Cannula 03/20/24 12:14 O2 Flow Rate 2 03/20/24 12:14 Course Vital Signs Vital signs: Vital Signs Temperature 98 F 03/20/24 11:41 Pulse Rate 77 03/20/24 11:41 Respiratory Rate 24 H 03/20/24 11:41 Blood Pressure 156/97 H 03/20/24 11:41 Pulse Oximetry 85 L 03/20/24 11:41 Oxygen Delivery Method Room Air 03/20/24 11:41 Temperature 98 F 03/20/24 11:41 Pulse Rate 76 03/20/24 12:01 Respiratory Rate 24 H 03/20/24 12:01 Blood Pressure 156/97 H 03/20/24 11:49 Pulse Oximetry 94 L 03/20/24 12:14 Oxygen Delivery Method Nasal Cannula 03/20/24 12:14 Oxygen Delivery Flow Rate 2 03/20/24 12:14 Medical Decision Making ECG Data Attestation: I personally reviewed and interpreted this ECG as follows: (EKG interpretation. Normal sinus rhythm at 78 beats minute. Normal axis deviation. No acute ST elevation, no acute ectopy. QTc of 423. Artifact noted.) Discharge Plan Discharge Chief Complaint: Shortness of Breath/Dyspnea Prescriptions / Home Meds: No Action doxycycline hyclate 100 mg capsule 100 mg PO BID 7 Days Qty: 14 0RF ibuprofen 800 mg tablet 800 mg PO Q8H PRN (Reason: pain) Qty: 20 0RF methocarbamol 500 mg tablet 500 mg PO Q8H PRN (Reason: muscle spasm) Qty: 10 0RF Print Language: Spanish Referrals: Erin Watson MEDIA INTERN [Primary Care Provider] - 1 week Documented By: Aguilar Robertson 03/20/24 1211 Signed By: Real [facility] [place] Eosinophils Auto (Bld) [#/Vo l]on 03-20-2024 Eosinophils (Bld) [#/Vol] Automated eosinophil count 0.0-0.7 [facility] Work Phone: Eosinophils/100 WBC Auto (Bl d)on 03-20-2024 Eosinophils/100 WBC (Bld) Automated eosinophil % 0.9-7.0 [facility] Work Phone: Estimated glomerular filtrat ion rate (GFR) Americanon 03-20-2024 Estimated GFR (Non- 45 >60 [facility] Work Phone: GFR/1.73 sq M.predicted MDRD (S/P/Bld) [Vol rate/Area] 55 mL/min/{1.73_m2} >60 [facility] Work Phone: Glucose (Bld) [Mass/Vol]on 1 05-20-2023 Glucose [Mass/Vol] Glucose [Mass/volume] in Blood 74-106 [facility] Work Phone: Hematocrit [Volume Fraction] of Bloodon 03-20-2024 Hematocrit (Bld) [Volume fraction] Hematocrit [Volume Fraction] of Blood 36.0-48.0 [facility] Work Phone: Hemoglobin measurementon Basophil percentage Basophil percentage 6.4-8.2 [facility] Work Phone: Influenza A and B Antigenon 03-20-2024 Influenza Virus A Antigen Negative Normal [facility] [place] Comment on above: Result Comment: Nega tive for Flu A protein antigen. Infection due to Flu A cannot be ruled out. Flu A antigen in the sample may be below the detection limit of the test. Performed By: #### I NFLUAB #### [facility] , Influenza Virus B Antigen Negative Normal [facility] [place] Comment on above: Result Comment: Nega tive for Flu B protein antigen. Infection due to Flu B cannot be ruled out. Flu B antigen in the sample may be below the detection limit of the test. Performed By: #### I NFLUAB #### [facility] , Laboratory - Chemistry and C hemistry - challengeon 03-20-2024 Albumin [Mass/Vol] 3.3 g/dL 3.4-5.0 [facility] Work Phone: ALP [Catalytic activity/Vol] 114 U/L 46-116 [facility] Work Phone: Laboratory - Hematology and Cell countson 03-20-2024 Immature granulocytes (Bld) [#/Vol] 0.03 10*3/uL 0.00-0.03 [facility] Work Phone: Immature granulocytes/100 WBC (Bld) 0.8 % 0.0-0.5 [facility] Work Phone: Laboratory - Microbiology an d Antimicrobial susceptibilityon 03-20-2024 SARS-CoV-2 (COVID-19) RNA KHUSHBU+probe Ql (Unsp spec) Negative NEGATIVE [facility] Work Phone: Comment on above: This test has not be en FDA cleared or approved, but has been authorized by the FDA under an Emergency Use Authorization (EUA) for use by authorized laboratories certified under CLIA that meet the requirements to perform moderate or high complexity testing. This test has been authorized only for the detection of proteins from SARS-CoV-2, not for any other viruses or pathogens. The emergency use of this test is authorized for the duration of the declaration that circumstances exist justifying the authorization of emergency use of in vitro diagnostic tests for detection and/or diagnosis of Covid-19 under section 564(b)(1) of the Act, 21 U.S.C. 360bbb-3(b)(1), unless the declaration is terminated or authorization is revoked sooner. Leukocytes [#/volume] in Blo odon 03-20-2024 WBC (Bld) [#/Vol] Leukocytes [#/volume] in Blood 4.0-11.0 [facility] Work Phone: Lymphocyte percentage, autom atedon 03-20-2024 Lymphocytes/100 WBC (Bld) 33.2 % 20.5-60.0 [facility] Work Phone: MCV (mean corpuscular volume ) determinationon 03-20-2024 MCV (RBC) [Entitic vol] MCV (mean corpuscular volume) determination 81.0-99.0 [facility] Work Phone: Magnesiumon 03-20-2024 Magnesium [Mass/Vol] 1.8 mg/dL Normal 1.8-2.4 [facility] Comment on above: Performed By: #### M G ####[facility], Magnesium measurementon 03-06 Magnesium [Mass/Vol] 1.8 mg/dL 1.8-2.4 [facility] Work Phone: Mean corpuscular hemoglobin (MCH) determinationon 03-20-2024 MCH (RBC) [Entitic mass] 36.8 pg 26.7-34.0 [facility] Work Phone: Mean corpuscular hemoglobin concentration (MCHC) determinationon 03-20-2024 MCHC (RBC) [Mass/Vol] 33.3 g/dL 29.9-35.2 [facility] Work Phone: Monocytes Auto (Bld) [#/Vol] on 03-20-2024 Monocytes (Bld) [#/Vol] Automated blood monocyte count 0.3-0.8 [facility] Work Phone: Monocytes/100 WBC Auto (Bld) on 03-20-2024 Monocytes/100 WBC (Bld) Automated monocyte % 1. 7-12.0 [facility] Work Phone: Mpvon 03-20-2024 Platelet mean volume (Bld) [Entitic vol] 10.7 fL 9.5-13.5 [facility] Work Phone: NT Pro B Type Natriuretic Pe pton 03-20-2024 NT Pro B Type Natriuretic Pept 570.0 pg/mL Normal <=900.0 [facility] Comment on above: Performed By: #### C MP, HSTROP, BNP #### [facility] , NT-proBNPon 03-20-2024 Natriuretic peptide B (Bld) [Mass/Vol] 570.0 pg/mL <900.0 [facility] Work Phone: Neutrophils/100 WBC Auto (Bl d)on 03-20-2024 Neutrophils/100 WBC (Bld) Automated neutrophil % 43.0-75.0 [facility] Work Phone: No Panel Informationon 03-20 Influenza Type A Antigen Negative [facility] Work Phone: Comment on above: Negative for Flu A p rotein antigen. Infection due to Flu A cannot be ruled out. Flu A antigen in the sample may be below the detection limit of the test. Influenza Type B Antigen Negative [facility] Work Phone: Comment on above: Negative for Flu B p rotein antigen. Infection due to Flu B cannot be ruled out. Flu B antigen in the sample may be below the detection limit of the test. Troponin I High Sensitivity 5.3 pg/mL 4.0-51.3 [facility] Work Phone: Comment on above: CUT-OFF POINTS HAVE BEEN ESTABLISHED BASED ON THE FOURTH UNIVERSAL DEFINITION OF MYOCARDIAL INFARCTION. THE UPPER REFERENCE LIMIT (URL) OF TROPONIN, DEFINED THE 99TH PERCENTILE OF cTnI DISTRIBUTION IN A REFERENCE POPULATION, HAS BEEN CONFIRMED THE DECISION THRESHOLD FOR ND DIAGNOSIS.99TH PERCENTILE = 51.4 PG/MLNOTE: HIGH-SENSITIVITY TROPONIN ASSAY IS NOT INTENDED TO BE USED IN ISOLATION BUT SHOULD BE INTERPRETED IN CONJUNCTION WITH OTHER DIAGNOSTIC AND CLINICAL INFORMATION. Platelets [#/volume] in Bloo don 03-20-2024 Platelets (Bld) [#/Vol] Platelets [#/vol ume] in Blood 150-450 [facility] Work Phone: Potassium [Moles/volume] in Serum, Plasma or Bloodon 03-20-2024 Potassium (S/P/Bld) [Moles/Vol] Potassium [Moles/volume] in Serum, Plasma or Blood 3.5-5.1 [facility] Work Phone: RBC counton 03-20-2024 RBC (Bld) [#/Vol] 3.86 10*6/uL 4.20-5.40 [facility] Work Phone: Comment on above: MACROCYTOSIS 2+ RDWon 03-20-2024 Erythrocyte distribution width (RBC) [Ratio] 14.3 % 11.0-15.0 [facility] Work Phone: SARS-CoV-2 Ag*on 03-20-2024 SARS-CoV-2 (COVID-19) RNA KHUSHBU+probe Ql (Unsp spec) Negative Normal NEGATIVE [facility] [place] Comment on above: Result Comment: This test has not been FDA cleared or approved, but has been authorized by the FDA under an Emergency Use Authorization (EUA) for use by authorized laboratories certified under CLIA that meet the requirements to perform moderate or high complexity testing. This test has been authorized only for the detection of proteins from SARS-CoV-2, not for any other viruses or pathogens. The emergency use of this test is authorized for the duration of the declaration that circumstances exist justifying the authorization of emergency use of in vitro diagnostic tests for detection and/or diagnosis of Covid-19 under section 564(b)(1) of the Act, 21 U.S.C. 360bbb-3(b)(1), unless the declaration is terminated or authorization is revoked sooner. Performed By: #### C VDTBHG #### [facility] , Serum globulin measurementon 03-20-2024 Globulin (S) [Mass/Vol] 3.3 g/dL [facility] Work Phone: Serum or plasma creatinine m easurement (moles/volume)on 03-20-2024 Creatinine [Moles/Vol] Serum or plasma creatinine measurement (moles/volume) 0.55-1.02 [facility] Work Phone: Sodium (Bld) [Moles/Vol]on 1 05-20-2023 Sodium [Moles/Vol] Sodium [Moles/volume] in Blood 136-145 [facility] Work Phone: Troponin I High Sensitivityo n 03-20-2024 Troponin I High Sensitivity 5.3 pg/mL Normal 4.0-51.3 [facility] [place] Comment on above: Result Comment: CUT- OFF POINTS HAVE BEEN ESTABLISHED BASED ON THE FOURTH UNIVERSAL DEFINITION OF MYOCARDIAL INFARCTION. THE UPPER REFERENCE LIMIT (URL) OF TROPONIN, DEFINED THE 99TH PERCENTILE OF cTnI DISTRIBUTION IN A REFERENCE POPULATION, HAS BEEN CONFIRMED THE DECISION THRESHOLD FOR ND DIAGNOSIS. 99TH PERCENTILE = 51.4 PG/ML NOTE: HIGH-SENSITIVITY TROPONIN ASSAY IS NOT INTENDED TO BE USED IN ISOLATION BUT SHOULD BE INTERPRETED IN CONJUNCTION WITH OTHER DIAGNOSTIC AND CLINICAL INFORMATION. Performed By: #### C MP, HSTROP, BNP #### [facility] , XR chest 1Von 03-20-2024 XR chest 1V The [address] [address] XRay Report Signed Patient: DAWNA VELÁSQUEZ MR#: [id number] : 1965 Acct:[id number] Age/Sex: 58 / F ADM Date: 03/20/24 Loc: ER Attending Dr: Ordering Physician: Aguilar Robertson Date of Service: 03/20/24 Procedure(s): XR chest 1V Accession Number(s): [id number] cc: Erin Watson MEDIA INTERN; Aguilar Robertson [address] [address] Patient Name: DAWNA VELÁSQUEZ MRN: [id number] date: 1965 Sex: F Assigned Patient Location: ER Current Patient Location: ER Accession/Order Number: [id number] Exam Date: 03/20/2024 12:45 Report Date: 03/20/2024 13:05 At the request of: AGUILAR ROBERTSON Procedure: XR chest 1V EXAMINATION: XR chest 1V HISTORY: sob COMPARISON: XR chest 06/20/2023 FINDINGS: LUNGS: Underexpanded lungs with moderate opacity within right lung base; mild within left lung base. VASCULATURE: No increased pulmonary vasculature. PLEURA: No pneumothorax, effusion, or pleural thickening. CARDIAC: No cardiomegaly or cardiac silhouette abnormality. MEDIASTINUM: No visible mass or adenopathy. BONES: No fracture or visible bone lesion. OTHER: Negative. XR/XR chest 1V IMPRESSION: 1. Low lung volume examination. 2. Moderate right, mild left basilar infiltrates versus atelectasis. Electronically authenticated by: CARLENE RAHMAN Date: 03/20/2024 13:05 Dictated By: Carlene Rahman M.D. Signed By: 03/20/24 130 DD/ 1305 TD/TT: Assistant Attorney General: Real [facility] ALL BASIC METABOLIC PANELon 08-26-2023 Anion gap [Moles/Vol] 12.5 mmol/L [facility] Calcium [Mass/Vol] 10.1 mg/dL 8.5 - 10. 1 mg/dL [facility] Chloride [Moles/Vol] 99 mmol/L 98 - 10 7 mmol/L [facility] CO2 [Moles/Vol] 32.9 mmol/L High 21.0 - 32.0 mmol/L [facility] Creatinine [Mass/Vol] 1.38 mg/dL High 0.55 - 1.02 mg/dL [facility] GFR/1.73 sq M.predicted CKD-EPI (S/P/Bld) [Vol rate/Area] 47 Low 60 - PINF [facility] Glucose [Mass/Vol] 102 mg/dL 74 - 106 mg/dL [facility] Interpretation and review of laboratory results Abnormal [facility] Potassium [Moles/Vol] 4.4 mmol/L 3.5 - 5.1 mmol/L [facility] Sodium [Moles/Vol] 140 mmol/L 136 - 145 mmol/L [facility] EGFR-NON AF PRYDEINIG 39 Low 60 - PINF [facility] Urea nitrogen [Mass/Vol] 13.0 mg/dL 7.0 - 18.0 mg/dL [facility] Urea nitrogen/Creatinine [Mass ratio] 9.4 mg/mg [facility] CT LUNG SCREENING LOW DOSEon 08-26-[address] [address] [address] Scan Report Signed Patient: DAWNA VELÁSQUEZ MR#: [id number] : 1965 Acct:[id number] Age/Sex: 57 / F ADM Date: 08/26/23 Loc: CT Attending Dr: Erin Watson NP Ordering Physician: Erin Watson NP Date of Service: 08/26/23 Procedure(s): CT lung screening low-dose Accession Number(s): [id number] cc: Erin Watson NP [address] [address] Patient Name: DAWNA VELÁSQUEZ MRN: [id number] date: 1965 Sex: F Assigned Patient Location: CT Current Patient Location: CT Accession/Order Number: [id number] Exam Date: 08/26/2023 13:47 Report Date: 08/26/2023 14:46 At the request of: ERIN WATSON Procedure: CT lung screening low-dose EXAM TYPE: CT lung screening low-dose INDICATION: Current tobacco use, smoking. COMPARISON: LD CT scan of the chest 08/24/2022 TECHNIQUE: Noncontrast, Low dose, helical axial images of the chest were obtained, and thin section, axial MIP, and coronal and sagittal reformats were also submitted from the acquisition scanner under radiologist supervision. Each series was submitted in a lung algorithm. Dose reduction techniques were achieved by using automated exposure control and/or adjustment of mA and/or kV according to patient size and/or use of iterative reconstruction technique. FINDINGS: Please note that this examination was tailored for evaluation of pulmonary nodules, and therefore soft tissue detail is suboptimal. *Images degraded by motion artifact. Heart size within normal limits. Mild coronary artery calcification. No pericardial effusion. No aortic aneurysm. No mediastinal, hilar or axillary lymphadenopathy. Layering debris within the distal trachea and proximal bronchi bilaterally (series 6, image 79) No central endobronchial nodule. Mild diffuse emphysematous change with chronic bronchial wall thickening. Scattered areas of subsegmental atelectasis bilaterally. No pleural effusion or pneumothorax. No gross findings of suspicious pulmonary nodule. Small sliding hiatal hernia with 2 small nonenlarged paraesophageal lymph nodes. Evaluation of the upper abdomen Limited secondary to low dose technique and lack of IV contrast. No acute fracture. IMPRESSION : Lung RADS category 1: Negative. RECOMMENDATIONS: Continued annual LD screening CT scan of the chest. Electronically authenticated by: YO VILLAGOMEZ Date: 08/26/2023 14:46 Dictated By: Yo Villagomez M.D. Signed By: 08/26/23 1448 DD/ 1446 TD/TT: Assistant Attorney General: [facility] Radiology, Radiologist, MD - 08/26/2023 [place] [address] CT Scan Report Signed Patient: DAWNA VELÁSQUEZ MR#: [id number] : 1965 Acct:[id number] Age/Sex: 57 / F ADM Date: 08/26/23 Loc: CT Attending Dr: Erin Watson NP Ordering Physician: Erin Watson NP Date of Service: 08/26/23 Procedure(s): CT lung screening low-dose Accession Number(s): [id number] cc: Erin Watson NP [address] [address] Patient Name: DAWNA VELÁSQUEZ MRN: [id number] date: 1965 Sex: F Assigned Patient Location: CT Current Patient Location: CT Accession/Order Number: [id number] Exam Date: 08/26/2023 13:47 Report Date: 08/26/2023 14:46 At the request of: ERIN WATSON Procedure: CT lung screening low-dose EXAM TYPE: CT lung screening low-dose INDICATION: Current tobacco use, smoking. COMPARISON: LD CT scan of the chest 08/24/2022 TECHNIQUE: Noncontrast, Low dose, helical axial images of the chest were obtained, and thin section, axial MIP, and coronal and sagittal reformats were also submitted from the acquisition scanner under radiologist supervision. Each series was submitted in a lung algorithm. Dose reduction techniques were achieved by using automated exposure control and/or adjustment of mA and/or kV according to patient size and/or use of iterative reconstruction technique. FINDINGS: Please note that this examination was tailored for evaluation of pulmonary nodules, and therefore soft tissue detail is suboptimal. *Images degraded by motion artifact. Heart size within normal limits. Mild coronary artery calcification. No pericardial effusion. No aortic aneurysm. No mediastinal, hilar or axillary lymphadenopathy. Layering debris within the distal trachea and proximal bronchi bilaterally (series 6, image 79) No central endobronchial nodule. Mild diffuse emphysematous change with chronic bronchial wall thickening. Scattered areas of subsegmental atelectasis bilaterally. No pleural effusion or pneumothorax. No gross findings of suspicious pulmonary nodule. Small sliding hiatal hernia with 2 small nonenlarged paraesophageal lymph nodes. Evaluation of the upper abdomen Limited secondary to low dose technique and lack of IV contrast. No acute fracture. IMPRESSION : Lung RADS category 1: Negative. RECOMMENDATIONS: Continued annual LD screening CT scan of the chest. Electronically authenticated by: YO VILLAGOMEZ Date: 08/26/2023 14:46 Dictated By: Yo Villagomez M.D. Signed By: 08/26/23 1448 DD/ 1446 TD/TT: Assistant Attorney General: [facility] Radiology Study observation (narrative) [employer] CT LUNG SCREENING LOW DOSEOr dered By: Radiologist Radiology on 08-26-2023 [employer] Work Phone: CA ECHO DOPPLER COMPLETEon 0 07-31-2023 [place] [address] Cardiology Report Signed Patient: DAWNA VELÁSQUEZ MR#: [id number] : 1965 Acct:[id number] Age/Sex: 57 / F ADM Date: 07/31/23 Loc: CARD Attending Dr: Erin Watson NP Ordering Physician: Erin Watson NP Date of Service: 07/31/23 Procedure(s): CA echo doppler complete Accession Number(s): [id number] cc: Erni Watson NP Patient Name: DAWNA VELÁSQUEZ MR#: [id number] : 1965 Exam Date: 07/31/2023 Ordering Doctor: ANSHU Watson CNP ECHOCARDIOGRAM REPORT PROCEDURE: CA ECHO DOPPLER COMPLETE INDICATIONS: Bilateral lower extremity edema, COPD, primary hypertension COMPARISON: None. DESCRIPTION: COMPLETE ECHOCARDIOGRAM Real-time transthoracic echocardiography with 2D, M-mode, spectral and color flow Doppler performed. QUALITY: Technical quality was adequate. LEFT VENTRICLE: Normal chamber size. Mild concentric left ventricular hypertrophy. Global left ventricular systolic function is normal. LV EF: Estimated left ventricular ejection fraction is 65%. DIASTOLIC: Diastolic function is indeterminate. ATRIAL SEPTUM: LEFT ATRIUM: Normal chamber size. RIGHT ATRIUM: Mild dilatation. RIGHT VENTRICLE: Normal chamber size. Normal right ventricular systolic function. TRICUSPID VALVE: Normal mobility and thickness. No stenosis with trivial regurgitation. Mild pulmonary hypertension. RVSP 36 mmHg. MITRAL VALVE: Normal mobility and thickness. No evidence of mitral valve stenosis. There is no mitral annular calcification. Trivial mitral regurgitation. AORTIC VALVE: Normal trileaflet appearance. No visible sclerosis. Normal leaflet mobility. No evidence of aortic valve stenosis. No aortic regurgitation. AORTIC ROOT: Normal diameter and appearance. PULMONIC VALVE: Normal thickness and mobility. No stenosis. Trivial regurgitation. PERICARDIUM: Trivial pericardial effusion. IVC: Collapses with inspirations. Normal size. PLEURA: CONCLUSION: 1. Mild concentric left ventricular hypertrophy with normal systolic function. Estimated LVEF is 65%. 2. Normal right ventricular size and systolic function. 3. No significant valvular dysfunction. 4. Mildly elevated right-sided pressures. Adult Echocardiography Procedure Report Left Ventricle LVEDD (3.7 - 5.6 cm): 4.62 cm LVESD (2.2 - 4.0 cm): 3.22 cm LVIVS thickness (0.6 - 1.2 cm): 1.18 cm LVPW thickness (0.5 - 1.0 cm): 1.08 cm e': 0.08 m/s E - e': 11.45 LVOT Max Gradient: 3.58 mm[Hg] LVOT Area (cm2): 0.95 m/s Peak Velocity (LVOT): 0.95 m/s Mean Velocity (LVOT): 0.63 m/s LVOT Diameter 2.24 cm Left Ventricular Ejection Fraction: 65 % Left Atrium LA Volume Index (2D A2C): 28.01 ml/m2 Left Atrium Systolic Dimension: 3.58 cm Mitral Valve MV E to A Ratio: 1.05 Mitral Valve A-Wave Peak Velocity: 0.93 m/s Mitral Valve E-Wave Peak Velocity: 0.97 m/s Right Ventricle RV Internal Diastolic Dimension: 3.48 cm Aorta AO Root Diam: 3.25 cm Ascending Ao Diam: 2.65 cm Aortic Valve AoV Area (Peak Ramiro): 3.95 cm2, 3.95 cm2 AoV Area (VTI): 3.55 cm2, 3.55 cm2 Peak Velocity(Antegrade Flow): 0.95 m/s Peak Gradient(Antegrade Flow): 3.58 mm[Hg] Mean Velocity(Antegrade Flow): 0.65 m/s Mean Gradient(Antegrade Flow): 1.91 mm[Hg] Velocity Time Integral: 21.75 cm Tricuspid Valve Peak Velocity (Regurgitant Flow): 2.29 m/s, 2.89 m/s Pulmonic Valve Mean Gradient: 2.69 mm[Hg] Mean Velocity: 0.78 m/s Peak Velocity: 1.06 m/s, 0.92 m/s Peak Gradient: 3.36 mm[Hg], 4.50 mm[Hg] Right Atrium Right Atrium Systolic Pressure: 35.70 ml, 35.70 ml Dictated by: Zhou Fregoso M.D. on 07/31/2023 at 16:40 Approved by: Zhou Fregoso M.D. on 07/31/2023 at 16:42 Dictated By: ZHOU FREGOSO (more content not included)... [facility] Radiology, Radiologist, MD - 07/31/2023 [place] [address] Cardiology Report Signed Patient: DAWNA VELÁSQUEZ MR#: [id number] : 1965 Acct:[id number] Age/Sex: 57 / F ADM Date: 07/31/23 Loc: CARD Attending Dr: Erin Watson NP Ordering Physician: Erin Watson NP Date of Service: 07/31/23 Procedure(s): CA echo doppler complete Accession Number(s): [id number] cc: Erin aWtson NP Patient Name: DAWNA VELÁSQUEZ MR#: [id number] : 1965 Exam Date: 07/31/2023 Ordering Doctor: ANSHU Watson CNP ECHOCARDIOGRAM REPORT PROCEDURE: CA ECHO DOPPLER COMPLETE INDICATIONS: Bilateral lower extremity edema, COPD, primary hypertension COMPARISON: None. DESCRIPTION: COMPLETE ECHOCARDIOGRAM Real-time transthoracic echocardiography with 2D, M-mode, spectral and color flow Doppler performed. QUALITY: Technical quality was adequate. LEFT VENTRICLE: Normal chamber size. Mild concentric left ventricular hypertrophy. Global left ventricular systolic function is normal. LV EF: Estimated left ventricular ejection fraction is 65%. DIASTOLIC: Diastolic function is indeterminate. ATRIAL SEPTUM: LEFT ATRIUM: Normal chamber size. RIGHT ATRIUM: Mild dilatation. RIGHT VENTRICLE: Normal chamber size. Normal right ventricular systolic function. TRICUSPID VALVE: Normal mobility and thickness. No stenosis with trivial regurgitation. Mild pulmonary hypertension. RVSP 36 mmHg. MITRAL VALVE: Normal mobility and thickness. No evidence of mitral valve stenosis. There is no mitral annular calcification. Trivial mitral regurgitation. AORTIC VALVE: Normal trileaflet appearance. No visible sclerosis. Normal leaflet mobility. No evidence of aortic valve stenosis. No aortic regurgitation. AORTIC ROOT: Normal diameter and appearance. PULMONIC VALVE: Normal thickness and mobility. No stenosis. Trivial regurgitation. PERICARDIUM: Trivial pericardial effusion. IVC: Collapses with inspirations. Normal size. PLEURA: CONCLUSION: 1. Mild concentric left ventricular hypertrophy with normal systolic function. Estimated LVEF is 65%. 2. Normal right ventricular size and systolic function. 3. No significant valvular dysfunction. 4. Mildly elevated right-sided pressures. Adult Echocardiography Procedure Report Left Ventricle LVEDD (3.7 - 5.6 cm): 4.62 cm LVESD (2.2 - 4.0 cm): 3.22 cm LVIVS thickness (0.6 - 1.2 cm): 1.18 cm LVPW thickness (0.5 - 1.0 cm): 1.08 cm e': 0.08 m/s E - e': 11.45 LVOT Max Gradient: 3.58 mm[Hg] LVOT Area (cm2): 0.95 m/s Peak Velocity (LVOT): 0.95 m/s Mean Velocity (LVOT): 0.63 m/s LVOT Diameter 2.24 cm Left Ventricular Ejection Fraction: 65 % Left Atrium LA Volume Index (2D A2C): 28.01 ml/m2 Left Atrium Systolic Dimension: 3.58 cm Mitral Valve MV E to A Ratio: 1.05 Mitral Valve A-Wave Peak Velocity: 0.93 m/s Mitral Valve E-Wave Peak Velocity: 0.97 m/s Right Ventricle RV Internal Diastolic Dimension: 3.48 cm Aorta AO Root Diam: 3.25 cm Ascending Ao Diam: 2.65 cm Aortic Valve AoV Area (Peak Ramiro): 3.95 cm2, 3.95 cm2 AoV Area (VTI): 3.55 cm2, 3.55 cm2 Peak Velocity(Antegrade Flow): 0.95 m/s Peak Gradient(Antegrade Flow): 3.58 mm[Hg] Mean Velocity(Antegrade Flow): 0.65 m/s Mean Gradient(Antegrade Flow): 1.91 mm[Hg] Velocity Time Integral: 21.75 cm Tricuspid Valve Peak Velocity (Regurgitant Flow): 2.29 m/s, 2.89 m/s Pulmonic Valve Mean Gradient: 2.69 mm[Hg] Mean Velocity: 0.78 m/s Peak Velocity: 1.06 m/s, 0.92 m/s Peak Gradient: 3.36 mm[Hg], 4.50 mm[Hg] Right Atrium Right Atrium Systolic Pressure: 35.70 ml, 35.70 ml Dictated by: Zhou Fregoso M.D. on 07/31/2023 at 16:40 Approved by: Zhou Fregoso M.D. on 07/31/2023 at 16:42 Dictated By: ZHOU FREGOSO Signed By: 07/31/231642 DD/ 41 TD/TT: Assistant Attorney General: [facility] Radiology Study observation (narrative) [facility] CA ECHO DOPPLER COMPLETEOrde red By: Radiologist Radiology on 07-31-2023 [facility] Work Phone: CT [place] [address] CT Scan Report Signed Patient: DAWNA VELÁSQUEZ MR#: [id number] : 1965 Acct:[id number] Age/Sex: 57 / F ADM Date: 07/26/23 Loc: CT Attending Dr: Erin Watson MEDIA INTERN Ordering Physician: Erin Watson NP Date of Service: 07/26/23 Procedure(s): CT abdomen pelvis w con Accession Number(s): [id number] cc: Erin Watson NP [place] [address] Patient Name: DAWNA VELÁSQUEZ MRN: [id number] date: 1965 Sex: F Assigned Patient Location: CT Current Patient Location: Accession/Order Number: [id number] Exam Date: 07/26/2023 12:55 Report Date: 07/29/2023 08:56 At the request of: ERIN WATSON Procedure: CT abdomen pelvis w con EXAMINATION: CT abdomen pelvis w con HISTORY: Bilateral Lower Extremity Edema R60.0 COMPARISON: 06/21/2023 CT chest, 10/20/2019 CT abdomen pelvis TECHNIQUE: CT images were created with IV contrast. Axial, Coronal, and Sagittal images. Dose reduction techniques were achieved by using automated exposure control and/or adjustment of mA and/or kV according to patient size and/or use of iterative reconstruction technique. FINDINGS: LUNG BASES: No visible pulmonary or pleural disease. LIVER: No enlargement, atrophy, abnormal density, or significant focal lesion. BILIARY: No visible dilatation or calcification. PANCREAS: No lesion, fluid collection, ductal dilatation, or atrophy. SPLEEN: No enlargement or focal lesion. ADRENALS: No mass or enlargement. KIDNEYS: No mass, obstruction, or calcification. BOWEL/MESENTERY: No visible mass, obstruction, or bowel wall thickening. AORTA/VASCULAR: No aneurysm or dissection. RETROPERITONEUM: No mass or adenopathy. LYMPH NODES: Increased number of normal-sized lymph nodes URINARY BLADDER: No visible focal wall thickening, lesion, or calculus. PELVIC ORGANS: Hysterectomy ABDOMINAL WALL: No mass or hernia. BONES: No bony lesion or fracture. OTHER: Negative. CT/CT abdomen pelvis w con IMPRESSION: No acute intraperitoneal abnormality No central venous obstruction observed Electronically authenticated by: LAILA GARZA Date: 07/29/2023 08:56 Dictated By: Laila Garza M.D. Signed By: 07/29/23 0858 DD/ TD/TT: Assistant Attorney General: [facility] Radiology, Radiologist, MD - 07/29/2023 [place] [address] CT Scan Report Signed Patient: DAWNA VELÁSQUEZ MR#: [id number] : 1965 Acct:[id number] Age/Sex: 57 / F ADM Date: 07/26/23 Loc: CT Attending Dr: Erin Watson NP Ordering Physician: Erin Watson NP Date of Service: 07/26/23 Procedure(s): CT abdomen pelvis w con Accession Number(s): [id number] cc: Erin Watson NP The [address] [address] Patient Name: DAWNA VELÁSQUEZ MRN: [facility]:[id number] date: 1965 Sex: F Assigned Patient Location: CT Current Patient Location: Accession/Order Number: [id number] Exam Date: 07/26/2023 12:55 Report Date: 07/29/2023 08:56 At the request of: ERIN WATSON Procedure: CT abdomen pelvis w con EXAMINATION: CT abdomen pelvis w con HISTORY: Bilateral Lower Extremity Edema R60.0 COMPARISON: 06/21/2023 CT chest, 10/20/2019 CT abdomen pelvis TECHNIQUE: CT images were created with IV contrast. Axial, Coronal, and Sagittal images. Dose reduction techniques were achieved by using automated exposure control and/or adjustment of mA and/or kV according to patient size and/or use of iterative reconstruction technique. FINDINGS: LUNG BASES: No visible pulmonary or pleural disease. LIVER: No enlargement, atrophy, abnormal density, or significant focal lesion. BILIARY: No visible dilatation or calcification. PANCREAS: No lesion, fluid collection, ductal dilatation, or atrophy. SPLEEN: No enlargement or focal lesion. ADRENALS: No mass or enlargement. KIDNEYS: No mass, obstruction, or calcification. BOWEL/MESENTERY: No visible mass, obstruction, or bowel wall thickening. AORTA/VASCULAR: No aneurysm or dissection. RETROPERITONEUM: No mass or adenopathy. LYMPH NODES: Increased number of normal-sized lymph nodes URINARY BLADDER: No visible focal wall thickening, lesion, or calculus. PELVIC ORGANS: Hysterectomy ABDOMINAL WALL: No mass or hernia. BONES: No bony lesion or fracture. OTHER: Negative. CT/CT abdomen pelvis w con IMPRESSION: No acute intraperitoneal abnormality No central venous obstruction observed Electronically authenticated by: LAILA GARZA Date: 07/29/2023 08:56 Dictated By: Laila Garza M.D. Signed By: 07/29/23 0858 DD/ 0856 TD/TT: Assistant Attorney General: [facility] Radiology Study observation (narrative) [facility] CT ABDOMEN PELVIS W CONOrder ed By: Radiologist Radiology on 07-29-2023 [facility] Work Phone: VC EXT VENOUS REFLUX CORDELL LMT Don 07-18-2023 [place] [address] Vein Report Signed Patient: DAWNA VELÁSQUEZ MR#: [id number] : 1965 Acct:[id number] Age/Sex: 57 / F ADM Date: 07/18/23 Loc: VC Attending Dr: Laila Garza M.D. Ordering Physician: Laila Garza M.D. Date of Service: 07/18/23 Procedure(s): VC EXT Venous Reflux CORDELL LMTD Accession Number(s): [id number] cc: Erin Watson NP; Laila Garza M.D. Patient Name: DAWNA VELÁSQUEZ MR#: [id number] : 1965 Exam Date: 07/18/2023 Ordering Doctor: DR LAILA GARZA M.D. RADIOLOGY REPORT PROCEDURE: VC EXT VENOUS REFLUX CORDELL LMTD COMPARISON: None. INDICATIONS: R60.0 Bilateral Lower Edema TECHNIQUE: Duplex imaging of the lower extremity to assess the deep and superficial venous system for the presence of deep or superficial venous incompetence and to document the location and severity of disease. The study includes evaluation of the great saphenous vein (GSV), anterior accessory saphenous vein (AASV) and small saphenous vein (SSV). Patient scanned in reverse Trendelenburg and standing. FINDINGS: RIGHT LOWER EXTREMITY: Saphenofemoral Junction Reflux: Yes 8.8mm 0.9 sec GSV: Diam (mm) Reflux/ Time (sec) Proximal Thigh 3.3 Yes 0.7 Mid Thigh 3.7 No Distal Thigh 3.7 No Prox Calf 3.2 No Mid Calf 4.0 No Saphenopopliteal Junction Reflux: 3.0mm No SSV: Proximal Calf 2.6 No Mid Calf 1.7 No AASV: Proximal Thigh 6.2 Yes 1.7 Mid Thigh 4.5 Yes 0.8 Distal Thigh Thrombi: No acute or chronic thrombus visualized Compressibility: Normal Flow: Normal Preforator: Dist/med calf 3.1mm with 0s reflux. Tech Note: Incompetent AASV. Patent varicose vein mid/med calf 4.7mm with 0.9s reflux. Patent varicose vein prox/med calf 3.7mm with 0.8s reflux. Patent varicose vein mid/med thigh 5.0mm with 1.5s reflux. LEFT LOWER EXTREMITY: Saphenofemoral Junction Reflux: Yes 7.5 mm 1.2 sec GSV: Diam (mm) Reflux/Time (sec) Proximal Thigh 2.9 Yes 0.5 Mid Thigh 2.6 Yes 0.9 Distal Thigh 4.6 Yes 0.9 Prox Calf 3.2 No Mid Calf 3.5 No Saphenopopliteal Junction Relux: 3.0 mm No SSV: Proximal Calf 2.3 Yes 0.7 Mid Calf 2.8 No AASV: Proximal Thigh 6.0 Yes 1.0 Mid Thigh 5.2 Yes 1.1 Distal Thigh Thrombi: No acute or chronis thrombus visualized Compressibility: Normal Flow: Normal Printer Assistant: Dist/med calf 3.9mm with 1.0s reflux. Tech Note: Incompetent AASV. Patent varicose vein mid/med calf 3.6mm with 1.5s reflux. Patent varicose vein dist/med thigh 4.1mm with 0.8s reflux. CONCLUSION: 1. Incompetent abnormally dilated anterior accessory saphenous veins bilaterally giving rise to dilated branch saphenous varicosities. Dictated by: Carlene Rahman M.D. on 07/18/2023 at 14:21 Approved by: Carlene Rahman M.D. on 07/18/2023 at 14:40 Dictated By: Carlene Rahman M.D. Signed By: 07/18/23 1441 DD/ 1440 TD/TT: Assistant Attorney General: [facility] Radiology, Radiologist, MD - 07/18/2023 [place] [address] Vein Report Signed Patient: DAWNA VELÁSQUEZ MR#: [id number] : 1965 Acct:[id number] Age/Sex: 57 / F ADM Date: 07/18/23 Loc: VC Attending Dr: Laila Garza M.D. Ordering Physician: Laila Garza M.D. Date of Service: 07/18/23 Procedure(s): VC EXT Venous Reflux CORDELL LMTD Accession Number(s): [id number] cc: Erin Watson MEDIA INTERN; Laila Garza M.D. Patient Name: DAWNA VELÁSQUEZ MR#: [id number] : 1965 Exam Date: 07/18/2023 Ordering Doctor: DR LAILA GARZA M.D. RADIOLOGY REPORT PROCEDURE: VC EXT VENOUS REFLUX CORDELL LMTD COMPARISON: None. INDICATIONS: R60.0 Bilateral Lower Edema TECHNIQUE: Duplex imaging of the lower extremity to assess the deep and superficial venous system for the presence of deep or superficial venous incompetence and to document the location and severity of disease. The study includes evaluation of the great saphenous vein (GSV), anterior accessory saphenous vein (AASV) and small saphenous vein (SSV). Patient scanned in reverse Trendelenburg and standing. FINDINGS: RIGHT LOWER EXTREMITY: Saphenofemoral Junction Reflux: Yes 8.8mm 0.9 sec GSV: Diam (mm) Reflux/ Time (sec) Proximal Thigh 3.3 Yes 0.7 Mid Thigh 3.7 No Distal Thigh 3.7 No Prox Calf 3.2 No Mid Calf 4.0 No Saphenopopliteal Junction Reflux: 3.0mm No SSV: Proximal Calf 2.6 No Mid Calf 1.7 No AASV: Proximal Thigh 6.2 Yes 1.7 Mid Thigh 4.5 Yes 0.8 Distal Thigh Thrombi: No acute or chronic thrombus visualized Compressibility: Normal Flow: Normal Preforator: Dist/med calf 3.1mm with 0s reflux. Tech Note: Incompetent AASV. Patent varicose vein mid/med calf 4.7mm with 0.9s reflux. Patent varicose vein prox/med calf 3.7mm with 0.8s reflux. Patent varicose vein mid/med thigh 5.0mm with 1.5s reflux. LEFT LOWER EXTREMITY: Saphenofemoral Junction Reflux: Yes 7.5 mm 1.2 sec GSV: Diam (mm) Reflux/Time (sec) Proximal Thigh 2.9 Yes 0.5 Mid Thigh 2.6 Yes 0.9 Distal Thigh 4.6 Yes 0.9 Prox Calf 3.2 No Mid Calf 3.5 No Saphenopopliteal Junction Relux: 3.0 mm No SSV: Proximal Calf 2.3 Yes 0.7 Mid Calf 2.8 No AASV: Proximal Thigh 6.0 Yes 1.0 Mid Thigh 5.2 Yes 1.1 Distal Thigh Thrombi: No acute or chronis thrombus visualized Compressibility: Normal Flow: Normal Printer Assistant: Dist/med calf 3.9mm with 1.0s reflux. Tech Note: Incompetent AASV. Patent varicose vein mid/med calf 3.6mm with 1.5s reflux. Patent varicose vein dist/med thigh 4.1mm with 0.8s reflux. CONCLUSION: 1. Incompetent abnormally dilated anterior accessory saphenous veins bilaterally giving rise to dilated branch saphenous varicosities. Dictated by: Carlene Rahman M.D. on 07/18/2023 at 14:21 Approved by: Carlene Rahman M.D. on 07/18/2023 at 14:40 Dictated By: Carlene Rahman M.D. Signed By: 07/18/23 1441 DD/ 1440 TD/TT: Assistant Attorney General: [facility] Radiology Study observation (narrative) [facility] EXT VENOUS REFLUX CORDELL LMT DOrdered By: Radiologist Radiology on 07-18-2023 [facility] Work Phone: [facility] EST COMPREHENSIV Paul 07-18-2023 [place] [address] Vein Report Signed Patient: DAWNA VELÁSQUEZ MR#: [id number] : 1965 Acct:[id number] Age/Sex: 57 / F ADM Date: 07/18/23 Loc: Attending Dr: Laila Garza M.D. Ordering Physician: Laila Garza M.D. Date of Service: 07/18/23 Procedure(s): [facility] EST Comprehensive Accession Number(s): [id number] cc: Erin Watson MEDIA INTERN; Laila Garza M.D. Patient Name: DAWNA VELÁSQUEZ MR#: [id number] : 1965 Exam Date: 07/18/2023 Ordering Doctor: DR LAILA GARZA M.D. RADIOLOGY REPORT PROCEDURE: [facility] COMPREHENSIVE VEIN [facility] - OFFICE VISIT INITIAL COMPARISON: None. PROGRESS NOTES: [age] year old female who presents with a 4 month history of moderate-marked bilateral lower extremity edema, dilated discolored veins, lower extremity pain and throbbing. The patient's leg symptoms are symmetric bilaterally. There has been a progression of symptoms over time. This increases with prolonged leg dependency. The patient describes an improvement with rest, elevation, compression stockings. The patient denies any signs and symptoms to suggest arterial ischemia. The patient describes a family history : Unknown (patient is adopted). The patient has drinking and smoking history of : Occasional alcohol consumption. One pack per day cigarette smoker. Patient has a past medical history significant for multiple various noncontributory findings. The patient denies a history of deep venous thrombus or pulmonary embolus. See separate history and physical for medication list. No prior treatment for varicose or spider veins. Current use of compression stockings. After review of nurse notes, history and physical exam I discussed at length the pathophysiology of venous hypertension and possible treatments, therapies and strategies available. We discussed at length the importance of elevating the lower extremities above the level of the heart, increased physical activity and compression stocking use. Ultrasound venous reflux study performed today was discussed at length with the patient. The report demonstrates abnormally dilated and incompetent anterior accessory saphenous veins bilaterally with associated dilated branch saphenous varicosities. PHYSICAL EXAM: The right leg demonstrates a few varicosities, a few scattered spider veins, no ulceration, moderate-marked edema, mild skin discoloration. The left leg demonstrates a few varicosities, a few scattered spider veins, no ulceration, moderate-marked edema, mild skin discoloration. Both thighs, legs and feet were symmetrically warm to the touch. Good posterior tibial and dorsalis pedis pulses were present bilaterally. VEIN/VC Facility EST Comprehensive IMPRESSION: 1. Bilateral lower extremity venous insufficiency 2. Bilateral lower extremity varicose veins 3. Moderate-marked bilateral lower extremity subcutaneous edema 4. No flow significant arterial disease 5. CEAP: C3, AP, , [place] PLAN: 1. Continued use of compression stockings 2. Elevated legs and increased physical activity symptomatic relief 3. Endovenous laser ablation of bilateral anterior accessory saphenous veins. 4. Microfoam chemical ablation of incompetent branch saphenous varicosities. 5. Referral to lymphedema clinic for evaluation. Nurse notes, history and physical were reviewed and confirmed, see attached forms. The nurse was present throughout the physical exam and consultation Dictated by: Carlene Rahman M.D. on 07/18/2023 at 14:40 Approved by: Carlene Rahman M.D. on 07/18/2023 at 14:48 Dictated By: Carlene Rahman M.D. Signed By: 07/18/23 1449 DD/ 1448 (more content not included)... [facility] Radiology, Radiologist, - 07/18/[address] [address] Vein Report Signed Patient: DAWNA VELÁSQUEZ MR#: [id number] : 1965 Acct:[id number] Age/Sex: 57 / F ADM Date: 07/18/23 Loc: Attending Dr: Laila Garza M.D. Ordering Physician: Laila Garza M.D. Date of Service: 07/18/23 Procedure(s): [facility] EST Comprehensive Accession Number(s): [id number] cc: Erin Watson MEDIA INTERN; Laila Garza M.D. Patient Name: DAWNA VELÁSQUEZ MR#: [id number] : 1965 Exam Date: 07/18/2023 Ordering Doctor: DR LAILA GARZA M.D. RADIOLOGY REPORT PROCEDURE: [facility] COMPREHENSIVE VEIN CENTER - OFFICE VISIT INITIAL COMPARISON: None. PROGRESS NOTES: [age] year old female who presents with a 4 month history of moderate-marked bilateral lower extremity edema, dilated discolored veins, lower extremity pain and throbbing. The patient's leg symptoms are symmetric bilaterally. There has been a progression of symptoms over time. This increases with prolonged leg dependency. The patient describes an improvement with rest, elevation, compression stockings. The patient denies any signs and symptoms to suggest arterial ischemia. The patient describes a family history : Unknown (patient is adopted). The patient has drinking and smoking history of : Occasional alcohol consumption. One pack per day cigarette smoker. Patient has a past medical history significant for multiple various noncontributory findings. The patient denies a history of deep venous thrombus or pulmonary embolus. See separate history and physical for medication list. No prior treatment for varicose or spider veins. Current use of compression stockings. After review of nurse notes, history and physical exam I discussed at length the pathophysiology of venous hypertension and possible treatments, therapies and strategies available. We discussed at length the importance of elevating the lower extremities above the level of the heart, increased physical activity and compression stocking use. Ultrasound venous reflux study performed today was discussed at length with the patient. The report demonstrates abnormally dilated and incompetent anterior accessory saphenous veins bilaterally with associated dilated branch saphenous varicosities. PHYSICAL EXAM: The right leg demonstrates a few varicosities, a few scattered spider veins, no ulceration, moderate-marked edema, mild skin discoloration. The left leg demonstrates a few varicosities, a few scattered spider veins, no ulceration, moderate-marked edema, mild skin discoloration. Both thighs, legs and feet were symmetrically warm to the touch. Good posterior tibial and dorsalis pedis pulses were present bilaterally. VEIN/VC Facility EST Comprehensive IMPRESSION: 1. Bilateral lower extremity venous insufficiency 2. Bilateral lower extremity varicose veins 3. Moderate-marked bilateral lower extremity subcutaneous edema 4. No flow significant arterial disease 5. CEAP: C3, AP, , [place] PLAN: 1. Continued use of compression stockings 2. Elevated legs and increased physical activity symptomatic relief 3. Endovenous laser ablation of bilateral anterior accessory saphenous veins. 4. Microfoam chemical ablation of incompetent branch saphenous varicosities. 5. Referral to lymphedema clinic for evaluation. Nurse notes, history and physical were reviewed and confirmed, see attached forms. The nurse was present throughout the physical exam and consultation Dictated by: Carlene Rahman M.D. on 07/18/2023 at 14:40 Approved by: Carlene Rahman M.D. on 07/18/2023 at 14:48 Dictated By: Carlene Rahman M.D. Signed By: 07/18/23 1449 DD/ 1448 TD/TT: Assistant Attorney General: [facility] Radiology Study observation (narrative) [facility] EST COMPREHENSIV EOrdered By: Radiologist Radiology on 07-18-2023 [facility] Work Phone: Basophil percentageon 2023 Chloride [Moles/Vol] 105 mmol/L 98-107 [facility] Work Phone: Creatinine [Mass/Vol] 1.15 mg/dL 0.55-1.02 [facility] Work Phone: Potassium [Moles/Vol] 3.8 mmol/L 3.5-5.1 [facility] Work Phone: Sodium [Moles/Vol] 144 mmol/L 136-145 [facility] Work Phone: Laboratory - Chemistry and C hemistry - challengeon 07-15-2023 Anion gap [Moles/Vol] 12.1 mmol/L [facility] Work Phone: Calcium [Mass/Vol] 8.5 mg/dL 8.5-10.1 [facility] Work Phone: CO2 [Moles/Vol] 30.7 mmol/L 21.0-32.0 [facility] Work Phone: GFR/1.73 sq M.predicted MDRD (S/P/Bld) [Vol rate/Area] 58 mL/min/{1.73_m2} >60 [facility] Work Phone: Glucose [Mass/Vol] 108 mg/dL 74-106 [facility] Work Phone: Urea nitrogen [Mass/Vol] 9.0 mg/dL 7.0-18.0 [facility] Work Phone: Urea nitrogen/Creatinine [Mass ratio] 7.8 mg/mg [facility] Work Phone: No Panel Informationon 07-14 Estimated GFR (Non- 48 >60 [facility] Work Phone: Basophil percentageon 2023 Chloride [Moles/Vol] 105 mmol/L 98-107 [facility] Work Phone: Creatinine [Mass/Vol] 1.23 mg/dL 0.55-1.02 [facility] Work Phone: Hemoglobin (Bld) [Mass/Vol] 13.5 g/dL 12.0-16.0 [facility] Work Phone: Potassium [Moles/Vol] 4.0 mmol/L 3.5-5.1 [facility] Work Phone: Sodium [Moles/Vol] 144 mmol/L 136-145 [facility] Work Phone: WBC (Bld) [#/Vol] 5.1 10*3/uL 4.0-11.0 [facility] Work Phone: Basophils Auto (Bld) [#/Vol] on 06-21-2023 Basophils (Bld) [#/Vol] 0.0 10*3/uL 0.0-0.1 [facility] Work Phone: Basophils/100 WBC Auto (Bld) on 06-21-2023 Basophils/100 WBC (Bld) 0.6 % 0.2-2.[address] [facility] Work Phone: CT biopsyon 06-21-2023 Hematocrit (Bld) [Volume fraction] 42.5 % 36.0-48.0 [facility] Work Phone: Eosinophils Auto (Bld) [#/Vo l]on 06-21-2023 Eosinophils (Bld) [#/Vol] 0.1 10*3/uL 0.0-0.7 [facility] Work Phone: Eosinophils/100 WBC Auto (Bl d)on 06-21-2023 Eosinophils/100 WBC (Bld) 1.8 % 0.9-7.0 [facility] Work Phone: Laboratory - Chemistry and C hemistry - challengeon 06-21-2023 Anion gap [Moles/Vol] 11.4 mmol/L [facility] Work Phone: Calcium [Mass/Vol] 8.9 mg/dL 8.5-10.1 [facility] Work Phone: CO2 [Moles/Vol] 31.6 mmol/L 21.0-32.0 [facility] Work Phone: GFR/1.73 sq M.predicted MDRD (S/P/Bld) [Vol rate/Area] 54 mL/min/{1.73_m2} >60 [facility] Work Phone: Glucose [Mass/Vol] 106 mg/dL 74-106 [facility] Work Phone: Natriuretic peptide B (Bld) [Mass/Vol] 178.0 pg/mL <900.0 [facility] Work Phone: Urea nitrogen [Mass/Vol] 13.0 mg/dL 7.0-18.0 [facility] Work Phone: Urea nitrogen/Creatinine [Mass ratio] 10.6 mg/mg [facility] Work Phone: Laboratory - Hematology and Cell countson 06-21-2023 Erythrocyte distribution width (RBC) [Ratio] 14.0 % 11.0-15.0 [facility] Work Phone: Immature granulocytes (Bld) [#/Vol] 0.02 10*3/uL 0.00-0.03 [facility] Work Phone: [phone] Immature granulocytes/100 WBC (Bld) 0.4 % 0.0-0.5 [facility] Work Phone: [phone] Lymphocytes (Bld) [#/Vol] 1.6 10*3/uL 1.2-3.8 [facility] Work Phone: Lymphocytes/100 WBC (Bld) 31.1 % 20.5-60.0 [facility] Work Phone: MCH (RBC) [Entitic mass] 33.4 pg 26.7-34.0 [facility] Work Phone: MCHC (RBC) [Mass/Vol] 31.8 g/dL 29.9-35.2 [facility] Work Phone: [phone] Neutrophils (Bld) [#/Vol] 2.9 10*3/uL 1.4-6.5 [facility] Work Phone: [phone] Platelet mean volume (Bld) [Entitic vol] 11.3 fL 9.5-13.5 [facility] Work Phone: Platelets (Bld) [#/Vol] 150 10*3/uL 150-450 [facility] Work Phone: RBC (Bld) [#/Vol] 4.04 10*6/uL 4.20-5.40 [facility] Work Phone: MCV (mean corpuscular volume ) determinationon 06-21-2023 MCV (RBC) [Entitic vol] 105.2 fL 81.0-99.[address] [facility] Work Phone: Monocytes Auto (Bld) [#/Vol] on 06-21-2023 Monocytes (Bld) [#/Vol] 0.4 10*3/uL 0.3-0.8 [facility] Work Phone: Monocytes/100 WBC Auto (Bld) on 06-21-2023 Monocytes/100 WBC (Bld) 7.9 % 1.7-12.[address] [facility] Work Phone: Neutrophils/100 WBC Auto (Bl d)on 06-21-2023 Neutrophils/100 WBC (Bld) 58.2 % 43.0-75.0 [facility] Work Phone: No Panel Informationon 06-21 Estimated GFR (Non- 45 >60 [facility] Work Phone: Troponin I High Sensitivity 6.7 pg/mL 4.0-51.3 [facility] Work Phone: Comment on above: CUT-OFF POINTS HAVE BEEN ESTABLISHED BASED ON THE FOURTH UNIVERSAL DEFINITION OF MYOCARDIAL INFARCTION. THE UPPER REFERENCE LIMIT (URL) OF TROPONIN, DEFINED THE 99TH PERCENTILE OF cTnI DISTRIBUTION IN A REFERENCE POPULATION, HAS BEEN CONFIRMED THE DECISION THRESHOLD FOR ND DIAGNOSIS.99TH PERCENTILE = 51.4 PG/MLNOTE: HIGH-SENSITIVITY TROPONIN ASSAY IS NOT INTENDED TO BE USED IN ISOLATION BUT SHOULD BE INTERPRETED IN CONJUNCTION WITH OTHER DIAGNOSTIC AND CLINICAL INFORMATION. Venous blood pH measuremento n 06-21-2023 pH (BldV) 7.380 [pH] 7.330-7.430 [facility] Work Phone: Venous blood partial pressur e of carbon dioxide measurementon 06-21-2023 CO2 (BldV) [Partial pressure] 55.3 mm[Hg] 40.0-52.0 [facility] Work Phone: ALL CBC WITH AUTO DIFFon BASOPHILS ABSOLUTE AUTO 0.0 N [facility] Basophils/100 WBC (Bld) 0.5 % 0.2 - 2.0 % [facility] Eosinophils/100 WBC (Bld) 1.5 % 0.9 - 7.0 % [facility] Erythrocyte distribution width (RBC) [Ratio] 14.0 % 11.0 - 15.0 % [facility] Hematocrit (Bld) [Volume fraction] 42.3 % 36.0 - 48.0 % [facility] Hemoglobin (Bld) [Mass/Vol] 13.4 g/dL 12.0 - 16.0 g/dL [facility] IMMATURE GRANULOCYTES ABS AUTO 0.02 [facility] Immature granulocytes/100 WBC (Bld) 0.3 % 0.0 - 0.5 % [facility] Interpretation and review of laboratory results Abnormal [facility] LYMPHOCYTES ABSOLUTE AUTO 1.9 [facility] Lymphocytes/100 WBC (Bld) 30.2 % 20.5 - 60.0 % [facility] MCH (RBC) [Entitic mass] 33.6 pg 26. 7 - 34.0 pg [facility] MCHC (RBC) [Mass/Vol] 31.7 g/dL 29.9 - 35.2 g/dL [facility] MCV (RBC) [Entitic vol] 106.0 fL High 81.0 - 99.0 fL [facility] MONOCYTES ABSOLUTE AUTO 0.6 N [facility] Monocytes/100 WBC (Bld) 9.3 % 1.7 - 12.0 % [facility] NEUTROPHILS ABSOLUTE AUTO 3.6 [facility] Neutrophils/100 WBC (Bld) 58.2 % 43.0 - 75.0 % [facility] Platelet mean volume (Bld) [Entitic vol] 10.7 fL 9.5 - 13.5 fL [facility] EO # 0.1 [facility] TB PLT 154 [facility] RBC 3.99 Low [facility] TB WBC 6.2 [facility] Basophil percentageon 2023 Bilirubin [Mass/Vol] 0.7 mg/dL 0.2-1.0 [facility] Work Phone: Chloride [Moles/Vol] 103 mmol/L 98-107 [facility] Work Phone: Creatinine [Mass/Vol] 1.37 mg/dL 0.55-1.02 [facility] Work Phone: Hemoglobin (Bld) [Mass/Vol] 13.4 g/dL 12.0-16.0 [facility] Work Phone: Potassium [Moles/Vol] 3.9 mmol/L 3.5-5.1 [facility] Work Phone: Protein [Mass/Vol] 6.4 g/dL 6.4-8.2 [facility] Work Phone: Sodium [Moles/Vol] 142 mmol/L 136-145 [facility] Work Phone: WBC (Bld) [#/Vol] 6.2 10*3/uL 4.0-11.0 [facility] Work Phone: Basophils Auto (Bld) [#/Vol] on 06-20-2023 Basophils (Bld) [#/Vol] 0.0 10*3/uL 0.0-0.1 [facility] Work Phone: Basophils/100 WBC Auto (Bld) on 06-20-2023 Basophils/100 WBC (Bld) 0.5 % 0.2-2.[address] [facility] Work Phone: CCF CMP (CMP) (FOR REMOTE FH C USE)on 06-20-2023 Albumin [Mass/Vol] 3.2 g/dL Low 3.4 - 5.0 g/dL [facility] ALBUMIN GLOBULIN RATIO 1.0 NO [facility] ALP [Catalytic activity/Vol] 92 U/L 46 - 116 U/L [facility] Healthcare ALT [Catalytic activity/Vol] 36 U/L 14 - 59 U/L [facility] Healthcare Anion gap [Moles/Vol] 13.2 mmol/L NO [facility] AST [Catalytic activity/Vol] 23 U/L 15 - 37 U/L [facility] Bilirubin [Mass/Vol] 0.7 mg/dL 0.2 - 1 .0 mg/dL [facility] Calcium [Mass/Vol] 8.5 mg/dL 8.5 - 10. 1 mg/dL [facility] Healthcare Chloride [Moles/Vol] 103 mmol/L 98 - 10 7 mmol/L [facility] CO2 [Moles/Vol] 29.7 mmol/L 21.0 - 32.0 mmol/L [facility] Creatinine [Mass/Vol] 1.37 mg/dL High 0.55 - 1.02 mg/dL [facility] GFR/1.73 sq M.predicted CKD-EPI (S/P/Bld) [Vol rate/Area] 48 Low 60 - PINF [facility] Globulin (S) [Mass/Vol] 3.2 g/dL [facility] Glucose [Mass/Vol] 77 mg/dL 74 - 106 mg/dL [facility] Interpretation and review of laboratory results Abnormal [facility] Potassium [Moles/Vol] 3.9 mmol/L 3.5 - 5.1 mmol/L [facility] Protein [Mass/Vol] 6.4 g/dL 6.4 - 8.2 g/dL [facility] Sodium [Moles/Vol] 142 mmol/L 136 - 145 mmol/L [facility] TBH EGFR-NON AF PRYDEINIG 39 Low 60 - PINF [facility] Urea nitrogen [Mass/Vol] 9.0 mg/dL 7.0 - 18.0 mg/dL [facility] Urea nitrogen/Creatinine [Mass ratio] 6.6 mg/mg [facility] CT biopsyon 06-20-2023 Albumin [Mass/Vol] 3.2 g/dL 3.4-5.0 [facility] Work Phone: Hematocrit (Bld) [Volume fraction] 42.3 % 36.0-48.0 [facility] Work Phone: Eosinophils Auto (Bld) [#/Vo l]on 06-20-2023 Eosinophils (Bld) [#/Vol] 0.1 10*3/uL 0.0-0.7 [facility] Work Phone: Eosinophils/100 WBC Auto (Bl d)on 06-20-2023 Eosinophils/100 WBC (Bld) 1.5 % 0.9-7.0 [facility] Work Phone: Laboratory - Chemistry and C hemistry - challengeon 06-20-2023 Albumin/Globulin [Mass ratio] 1.0 {ratio} [facility] Work Phone: ALP [Catalytic activity/Vol] 92 U/L 46-116 [facility] Work Phone: ALT [Catalytic activity/Vol] 36 U/L 14-59 [facility] Work Phone: Anion gap [Moles/Vol] 13.2 mmol/L [facility] Work Phone: AST [Catalytic activity/Vol] 23 U/L 15-37 [facility] Work Phone: Calcium [Mass/Vol] 8.5 mg/dL 8.5-10.1 [facility] Work Phone: CO2 [Moles/Vol] 29.7 mmol/L 21.0-32.0 [facility] Work Phone: GFR/1.73 sq M.predicted MDRD (S/P/Bld) [Vol rate/Area] 48 mL/min/{1.73_m2} >60 [facility] Work Phone: Globulin (S) [Mass/Vol] 3.2 g/dL B [facility] Work Phone: Glucose [Mass/Vol] 77 mg/dL 74-106 [facility] Work Phone: Urea nitrogen [Mass/Vol] 9.0 mg/dL 7.0-18.0 [facility] Work Phone: Urea nitrogen/Creatinine [Mass ratio] 6.6 mg/mg [facility] Work Phone: Laboratory - Hematology and Cell countson 06-20-2023 Erythrocyte distribution width (RBC) [Ratio] 14.0 % 11.0-15.0 [facility] Work Phone: Immature granulocytes (Bld) [#/Vol] 0.02 10*3/uL 0.00-0.03 [facility] Work Phone: Immature granulocytes/100 WBC (Bld) 0.3 % 0.0-0.5 [facility] Work Phone: Lymphocytes (Bld) [#/Vol] 1.9 10*3/uL 1.2-3.8 [facility] Work Phone: [phone] Lymphocytes/100 WBC (Bld) 30.2 % 20.5-60.0 [facility] Work Phone: MCH (RBC) [Entitic mass] 33.6 pg 26.7-34.0 [facility] Work Phone: [phone] MCHC (RBC) [Mass/Vol] 31.7 g/dL 29.9-35.2 [facility] Work Phone: Neutrophils (Bld) [#/Vol] 3.6 10*3/uL 1.4-6.5 [facility] Work Phone: Platelet mean volume (Bld) [Entitic vol] 10.7 fL 9.5-13.5 [facility] Work Phone: [phone] Platelets (Bld) [#/Vol] 154 10*3/uL 150-450 [facility] Work Phone: [phone] RBC (Bld) [#/Vol] 3.99 10*6/uL 4.20-5.40 [facility] Work Phone: MCV (mean corpuscular volume ) determinationon 06-20-2023 MCV (RBC) [Entitic vol] 106.0 fL 81.0-99.0 [facility] Work Phone: Monocytes Auto (Bld) [#/Vol] on 06-20-2023 Monocytes (Bld) [#/Vol] 0.6 10*3/uL 0.3-0.8 [facility] Work Phone: [phone] Monocytes/100 WBC Auto (Bld) on 06-20-2023 Monocytes/100 WBC (Bld) 9.3 % 1.7-12.0 [facility] Work Phone: [phone] Neutrophils/100 WBC Auto (Bl d)on 06-20-2023 Neutrophils/100 WBC (Bld) 58.2 % 43.0-75.0 [facility] Work Phone: No Panel Informationon 06-20 D-Dimer 0.82 mg/L FEU <0.59 [facility] Work Phone: Comment on above: RESULTS CALLED TO ARIAS WATSON CNPIncreases in D-Dimer concentration observed with thromboembolic events can be variable due to localization, size, and age of the thrombus. Therefore, a thromboembolic event cannot be diagnosed with certainty on the basis of the reference range. D-Dimers may also be elevated for a variety of disorders including advanced age, , coronary disease, cancer, liver disease, infection, inflammation, hematoma, DIC, trauma, post-surgery, diabetes, thrombolytic or anticoagulant therapy, stress, and generalized hospitalization. Estimated GFR (Non- 39 >60 [facility] Work Phone: TBH D-DIMERon 06-20-2023 D DIMER 0.82 Critically high [facility] Comment on above: RESULTS CALLED TO ARIAS WATSON CNP Increases in D-Dimer concentration observed with thromboembolic events can be variable due to localization, size, and age of the thrombus. Therefore, a thromboembolic event cannot be diagnosed with certainty on the basis of the reference range. D-Dimers may also be elevated for a variety of disorders including advanced age, , coronary disease, cancer, liver disease, infection, inflammation, hematoma, DIC, trauma, post-surgery, diabetes, thrombolytic or anticoagulant therapy, stress, and generalized hospitalization. Interpretation and review of laboratory results Abnormal [facility] US.doppler Lower extremity v ein - righton 06-20-[address] [address] Ultrasound Report Signed Patient: DAWNA VELÁSQUEZ I MR#: [id number] : 1965 Acct:[id number] Age/Sex: 57 / F ADM Date: 06/20/23 Loc: LAB Attending Dr: Erin Watson NP Ordering Physician: Erin Watson NP Date of Service: 06/20/23 Procedure(s): US venous doppler LE RT Accession Number(s): [id number] cc: Erin Watson NP [address] [place] [id number] Patient Name: DAWNA VELÁSQUEZ MRN: [facility]:[id number] date: 1965 Sex: F Assigned Patient Location: LAB Current Patient Location: LAB Accession/Order Number: [id number] Exam Date: 06/20/2023 14:30 Report Date: 06/20/2023 15:24 At the request of: ERIN WATSON Procedure: US venous doppler LE RT EXAMINATION: US venous doppler LE RT HISTORY: Right Lower Extremity Edema R60.0 COMPARISON: No relevant comparison available. FINDINGS: REGION: Right lower extremity THROMBI: None. COMPRESSIBILITY: Normal compressibility. FLOW: Normal waveform and antegrade flow between 5 and 20 cm/s. OTHER: Subcutaneous edema. US/US venous doppler LE RT IMPRESSION: 1. No deep vein thrombus within the right lower extremity. Electronically authenticated by: CARLENE RAHMAN Date: 06/20/2023 15:24 Dictated By: Carlene Rahman M.D. Signed By: 06/20/23 1527 DD/ 1524 TD/TT: Assistant Attorney General: [facility] Radiology, Radiologist, MD - 06/20/2023 [place] [address] Ultrasound Report Signed Patient: DAWNA VELÁSQUEZ I MR#: [id number] : 1965 Acct:[id number] Age/Sex: 57 / F ADM Date: 06/20/23 Loc: LAB Attending Dr: Erin Watson NP Ordering Physician: Erin Watson NP Date of Service: 06/20/23 Procedure(s): US venous doppler LE RT Accession Number(s): [id number] cc: Erin Watson NP [facility] [place] [address] Patient Name: DAWNA VELÁSQUEZ MRN: [id number] date: 1965 Sex: F Assigned Patient Location: LAB Current Patient Location: LAB Accession/Order Number: [id number] Exam Date: 06/20/2023 14:30 Report Date: 06/20/2023 15:24 At the request of: ERIN WATSON Procedure: US venous doppler LE RT EXAMINATION: US venous doppler LE RT HISTORY: Right Lower Extremity Edema R60.0 COMPARISON: No relevant comparison available. FINDINGS: REGION: Right lower extremity THROMBI: None. COMPRESSIBILITY: Normal compressibility. FLOW: Normal waveform and antegrade flow between 5 and 20 cm/s. OTHER: Subcutaneous edema. US/US venous doppler LE RT IMPRESSION: 1. No deep vein thrombus within the right lower extremity. Electronically authenticated by: CARLENE RAHMAN Date: 06/20/2023 15:24 Dictated By: Carlene Rahman M.D. Signed By: 06/20/231526 DD/ 23 TD/TT: Assistant Attorney General: [facility] Radiology Study observation (narrative) [facility] US.doppler Lower extremity v ein - rightOrdered By: Radiologist Radiology on 06-20-2023 [facility] Work Phone: XR CHEST 2Von 06-20-2023 [place] [address] XRay Report Signed Patient: DAWNA VELÁSQUEZ I MR#: [id number] : 1965 Acct:[id number] Age/Sex: 57 / F ADM Date: 06/20/23 Loc: LAB Attending Dr: Erin Watson MEDIA INTERN Ordering Physician: Erin Watson NP Date of Service: 06/20/23 Procedure(s): XR chest 2V Accession Number(s): [id number] cc: Erin Watson NP [address] [address] Patient Name: DAWNA VELÁSQUEZ MRN: [id number] date: 1965 Sex: F Assigned Patient Location: LAB Current Patient Location: LAB Accession/Order Number: [id number] Exam Date: 06/20/2023 14:25 Report Date: 06/20/2023 14:38 At the request of: ERIN WATSON Procedure: XR chest 2V EXAMINATION: XR chest 2V HISTORY: Edema Of Right Lower Extremity R60.0 wheezing, shortness of breath COMPARISON: XR chest 04/05/2023 FINDINGS: LUNGS: Mild haziness within the lung bases partially obscuring the bronchovascular markings. Lungs are well expanded. VASCULATURE: No increased pulmonary vasculature. PLEURA: No pneumothorax, effusion, or pleural thickening. CARDIAC: Stable cardiomegaly. MEDIASTINUM: No visible mass or adenopathy. BONES: No fracture or visible bone lesion. OTHER: Negative. XR/XR chest 2V IMPRESSION: 1. Trace amount of bibasilar atelectasis versus infiltrates; new since prior study. Electronically authenticated by: CARLENE RAHMAN Date: 06/20/2023 14:38 Dictated By: Carlene Rahman M.D. Signed By: 06/20/23 1440 DD/ 1438 TD/TT: Assistant Attorney General: [facility] Radiology, Radiologist, MD - 06/20/2023 [place] [address] XRay Report Signed Patient: DAWNA VELÁSQUEZ I MR#: [id number] : 1965 Acct:[id number] Age/Sex: 57 / F ADM Date: 06/20/23 Loc: LAB Attending Dr: Erin Watson NP Ordering Physician: Erin Watson NP Date of Service: 06/20/23 Procedure(s): XR chest 2V Accession Number(s): [id number] cc: Erin Watson NP [facility] [place] [address] Patient Name: DAWNA VELÁSQUEZ MRN: [facility]:[id number] date: 1965 Sex: F Assigned Patient Location: LAB Current Patient Location: LAB Accession/Order Number: [id number] Exam Date: 06/20/2023 14:25 Report Date: 06/20/2023 14:38 At the request of: ERIN WATSON Procedure: XR chest 2V EXAMINATION: XR chest 2V HISTORY: Edema Of Right Lower Extremity R60.0 wheezing, shortness of breath COMPARISON: XR chest 04/05/2023 FINDINGS: LUNGS: Mild haziness within the lung bases partially obscuring the bronchovascular markings. Lungs are well expanded. VASCULATURE: No increased pulmonary vasculature. PLEURA: No pneumothorax, effusion, or pleural thickening. CARDIAC: Stable cardiomegaly. MEDIASTINUM: No visible mass or adenopathy. BONES: No fracture or visible bone lesion. OTHER: Negative. XR/XR chest 2V IMPRESSION: 1. Trace amount of bibasilar atelectasis versus infiltrates; new since prior study. Electronically authenticated by: CARLENE RAHMAN Date: 06/20/2023 14:38 Dictated By: Carlene Rahman M.D. Signed By: 06/20/23 1440 DD/ 1438 TD/TT: Assistant Attorney General: [facility] [employer] Radiology Study observation (narrative) [facility] [employer] XR CHEST 2VOrdered By: Radio logist Radiology on 06-20-2023 [facility] Work Phone: SEGMENTAL BLOOD PRESSUREon 0 06-19-2023 [place] [address] Cardiology Report Signed Patient: DAWNA VELÁSQUEZ I MR#: [id number] : 1965 Acct:[id number] Age/Sex: 57 / F ADM Date: 06/19/23 Loc: CARD Attending Dr: Urmila Orellana Ordering Physician: Urmila Orlelana Date of Service: 06/19/23 Procedure(s): CA segmental UE or LE CORDELL Accession Number(s): [id number] cc: Erin Watson MEDIA INTERN; Urmila Orellana [facility] Test Date: 2023-06-19 Pat Name: DAWNA VELÁSQUEZ Department: Room: - 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 - normal arterial evaluation of the lower extremities without hemodynamic impairment of the B/L lower extremities at rest (right JUAN 1.11, left JUAN 1.12) Electronically Signed On 06-19-2023 22:33:33 EST by GARY RODRIGUES Dictated By: Gary Rodrigues D.O. Signed By: 06/19/23223206/19/232232 DD/ 1306 TD/TT: Assistant Attorney General: [facility] Radiology, Radiologist, MD - 06/19/2023 [place] [address] Cardiology Report Signed Patient: DAWNA VELÁSQUEZ I MR#: [id number] : 1965 Acct:[id number] Age/Sex: 57 / F ADM Date: 06/19/23 Loc: CARD Attending Dr: Urmila Orellana Ordering Physician: Urmila Orellana Date of Service: 06/19/23 Procedure(s): CA segmental UE or LE CORDELL Accession Number(s): [id number] cc: Erin Watson NP; Urmila Orellana [facility] Test Date: 2023-06-19 Pat Name: DAWNA VELÁSQUEZ Department: Room: - 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 - normal arterial evaluation of the lower extremities without hemodynamic impairment of the B/L lower extremities at rest (right JUAN 1.11, left JUAN 1.12) Electronically Signed On 06-19-2023 22:33:33 EST by GARY RODRIGUES Dictated By: Gary Rodrigues D.O. Signed By: 06/19/23223206/19/232232 DD/ 1306 TD/TT: Assistant Attorney General: [facility] Radiology Study observation (narrative) [facility] SEGMENTAL BLOOD PRESSUREOrde red By: Radiologist Radiology on 06-19-2023 [facility] Work Phone: Basophil percentageon 2023 Bilirubin [Mass/Vol] 0.8 mg/dL 0.2-1.0 [facility] Work Phone: Chloride [Moles/Vol] 101 mmol/L 98-107 [facility] Work Phone: Cholesterol [Mass/Vol] 170 mg/dL <200 [facility] Work Phone: Creatinine [Mass/Vol] 1.09 mg/dL 0.55-1.02 [facility] Work Phone: Hemoglobin (Bld) [Mass/Vol] 15.0 g/dL 12.0-16.0 [facility] Work Phone: Potassium [Moles/Vol] 4.2 mmol/L 3.5-5.1 [facility] Work Phone: Protein [Mass/Vol] 6.9 g/dL 6.4-8.2 [facility] Work Phone: Sodium [Moles/Vol] 140 mmol/L 136-145 [facility] Work Phone: Triglyceride [Mass/Vol] 249 mg/dL <[address] [facility] Work Phone: WBC (Bld) [#/Vol] 7.4 10*3/uL 4.0-11.0 [facility] Work Phone: Basophils Auto (Bld) [#/Vol] on 05-23-2023 Basophils (Bld) [#/Vol] 0.0 10*3/uL 0.0-0.1 [facility] Work Phone: Basophils/100 WBC Auto (Bld) on 05-23-2023 Basophils/100 WBC (Bld) 0.5 % 0.2-2.[address] [facility] Work Phone: CT biopsyon 05-23-2023 Albumin [Mass/Vol] 3.4 g/dL 3.4-5.0 [facility] Work Phone: Hematocrit (Bld) [Volume fraction] 44.3 % 36.0-48.0 [facility] Work Phone: Eosinophils Auto (Bld) [#/Vo l]on 05-23-2023 Eosinophils (Bld) [#/Vol] 0.1 10*3/uL 0.0-0.7 [facility] Work Phone: Eosinophils/100 WBC Auto (Bl d)on 05-23-2023 Eosinophils/100 WBC (Bld) 1.3 % 0.9-7.0 [facility] Work Phone: Laboratory - Chemistry and C hemistry - challengeon 05-23-2023 Albumin/Globulin [Mass ratio] 1.0 {ratio} [facility] Work Phone: ALP [Catalytic activity/Vol] 87 U/L 46-116 [facility] Work Phone: ALT [Catalytic activity/Vol] 34 U/L 14-59 [facility] Work Phone: Anion gap [Moles/Vol] 12.6 mmol/L [facility] Work Phone: AST [Catalytic activity/Vol] 18 U/L 15-37 [facility] Work Phone: Calcium [Mass/Vol] 9.0 mg/dL 8.5-10.1 [facility] Work Phone: Cholesterol in HDL [Mass/Vol] 53 mg/dL 40-60 [facility] Work Phone: Comment on above: > or =60 mg/dl - LOW CARDIOVASCULAR RISK<40 mg/dl - HIGH CARDIOVASCULAR RISK Cholesterol.total/Choles terol in HDL [Mass ratio] 3.2 {ratio} [facility] Work Phone: Comment on above: 3.3 - 4.4 LOW RISK4. 4 - 7.1 AVERAGE RISK7.1 - 11.0 MODERATE RISK>11.0 HIGH RISK CO2 [Moles/Vol] 30.6 mmol/L 21.0-32.0 [facility] Work Phone: GFR/1.73 sq M.predicted MDRD (S/P/Bld) [Vol rate/Area] mL/min/{1.73_m2} >60 [facility] Work Phone: Globulin (S) [Mass/Vol] 3.5 g/dL B [facility] Work Phone: Glucose [Mass/Vol] 94 mg/dL 74-106 [facility] Work Phone: Urea nitrogen [Mass/Vol] 9.0 mg/dL 7.0-18.0 [facility] Work Phone: Urea nitrogen/Creatinine [Mass ratio] 8.3 mg/mg [facility] Work Phone: Laboratory - Hematology and Cell countson 05-23-2023 Erythrocyte distribution width (RBC) [Ratio] 13.1 % 11.0-15.0 [facility] Work Phone: Immature granulocytes (Bld) [#/Vol] 0.04 10*3/uL 0.00-0.03 [facility] Work Phone: Immature granulocytes/100 WBC (Bld) 0.5 % 0.0-0.5 [facility] Work Phone: Lymphocytes (Bld) [#/Vol] 1.8 10*3/uL 1.2-3.8 [facility] Work Phone: Lymphocytes/100 WBC (Bld) 24.0 % 20.5-60.0 [facility] Work Phone: MCH (RBC) [Entitic mass] 34.1 pg 26.7-34.0 [facility] Work Phone: MCHC (RBC) [Mass/Vol] 33.9 g/dL 29.9-35.2 [facility] Work Phone: Neutrophils (Bld) [#/Vol] 4.9 10*3/uL 1.4-6.5 [facility] Work Phone: Platelet mean volume (Bld) [Entitic vol] 11.1 fL 9.5-13.5 [facility] Work Phone: [phone] Platelets (Bld) [#/Vol] 170 10*3/uL 150-450 [facility] Work Phone: [phone] RBC (Bld) [#/Vol] 4.40 10*6/uL 4.20-5.40 [facility] Work Phone: MCV (mean corpuscular volume ) determinationon 05-23-2023 MCV (RBC) [Entitic vol] 100.7 fL 81.0-99.0 [facility] Work Phone: Monocytes Auto (Bld) [#/Vol] on 05-23-2023 Monocytes (Bld) [#/Vol] 0.6 10*3/uL 0.3-0.8 [facility] Work Phone: Monocytes/100 WBC Auto (Bld) on 05-23-2023 Monocytes/100 WBC (Bld) 7.8 % 1.7-12.[address] [facility] Work Phone: Neutrophils/100 WBC Auto (Bl d)on 05-23-2023 Neutrophils/100 WBC (Bld) 65.9 % 43.0-75.0 [facility] Work Phone: No Panel Informationon 05-23 Estimated GFR (Non- 51 >60 [facility] Work Phone: LDL Cholesterol, Calculated 68.0 mg/dL [facility] Work Phone: Comment on above: <100 mg/dl [id number] 0-129 mg/dl NEAR OR ABOVE [id number] mg/dl BORDERLINE EOWY567-107 mg/dl HIGH>190 mg/dl VERY HIGH VLDL Cholesterol 49.8 mg/dL [facility] Work Phone: BLOOD GASES BTYon 10-03-2022 02 MODE ROOM AIR Normal [facility] Comment on above: Performed By: #### A BG ####[facility] [address] [place] [address]Dr. Tevin Still ALLENS TEST Positive Normal [facility] Comment on above: Performed By: #### A BG ####[facility] [address] [place] [address]Dr. Tevin Still Base excess Calc (Bld) [Moles/Vol] 1.4 mmol/L Normal -2.0-2.0 [facility] Comment on above: Performed By: #### A BG ####[facility] [address] [place] [address]Dr. Tevin Still BIPAP PRESSURE Normal The [facility] Comment on above: Performed By: #### A BG ####[facility] [address] [place] [address]Dr. Tevin Still CPAP Normal [facility] Comment on above: Performed By: #### A BG ####[facility] [address] [place] [address]Dr. Tevin Still FIO2 Normal [facility] Comment on above: Performed By: #### A BG ####[facility] [address] [place] [address]Dr. Tevin Still HCO3 (Bld) [Moles/Vol] 26.2 mmol/L Critically high 22.0-26 .0 [facility] Comment on above: Performed By: #### A BG ####[facility] [address] [place] [address]Dr. Tevin Still LPM Normal [facility] Comment on above: Performed By: #### A BG ####[facility] [address] [place] [address]Dr. Tevin Still MINUTE VOLUME Normal The [facility] Comment on above: Performed By: #### A BG ####[facility] [address] [place] [address]Dr. Tevin Still Oxygen (Bld) [Partial pressure] 56.1 mm[Hg] Critically low 80.0-100.0 [facility] Comment on above: Performed By: #### A BG ####[facility] [address] [place], [place] [address]Dr. Tevin Still Oxygen saturation in Blood 92.0 % Critically low 95.0-100.0 [facility] Comment on above: Performed By: #### A BG ####[facility] [address] [place], [place] [address]Dr. Tevin Still PCO2 42.6 mmHg Normal 35.0-45.0 [facility] Comment on above: Performed By: #### A BG ####[facility] [address] [place], [place] [address]Dr. Tevin Still PEEP [facility] Comment on above: Performed By: #### A BG ####[facility] Ml[address] [place], [place] [address]Dr. Tevin Still pH (Bld) 7.398 [pH] Normal 7.350-7.450 [facility] Comment on above: Performed By: #### A BG ####[facility] [address] [place], [place] [address]Dr. Tevin Still PIP [facility] Comment on above: Performed By: #### A BG ####[facility] [address] [place], [place] [address]Dr. Tevin Still PS [facility] Comment on above: Performed By: #### A BG ####[facility] R[address] [place], [place] [address]Dr. Tevin Still PUNCTURE SITE RR Normal [facility] Comment on above: Performed By: #### A BG ####[facility] [address] [place], [place] [address]Dr. Tevin Still RATE [facility] Comment on above: Performed By: #### A BG ####[facility] [address] [place], [place] [address]Dr. Tevin Still VENT MODE [facility] Comment on above: Performed By: #### A BG ####[facility] [address] [place], [place] [address]Oc. Tevin Still [place] Normal [facility] Comment on above: Performed By: #### A BG ####[facility] [address] [place], [place] [address]Qw. Tevin Still ECHOCARDIO M/2D COMPLETEon 0 10-03-2022 ECHOCARDIO M/2D COMPLETE Patient: DAWNA CASAS I. Exam Date: 10/03/2022 : 1965 Gender:F Ordering : DR. EFREN HICKS . Admission #: [id number] Family : ANSHU WATSON [employer] CLE[employer]ER Order #: [id number] CLICK HERE TO VIEW EXAM ECHOCARDIOGRAM REPORT PROCEDURE: CARDIO PULMONARY ECHOCARDIO M/2D COMP INDICATIONS: Chest pain, abnormal diffusion capacity COMPARISON: None. DESCRIPTION: COMPLETE ECHOCARDIOGRAM Real-time transthoracic echocardiography with 2D, M-mode, spectral and color flow Doppler performed. QUALITY: Technical quality was good. LEFT VENTRICLE: Normal chamber size. Borderline left ventricular hypertrophy. Global left ventricular systolic function is normal. LV EF: Visual estimation of left ventricular ejection fraction is 65-70%. DIASTOLIC: Normal diastolic function. ATRIAL SEPTUM: LEFT ATRIUM: Normal chamber size. RIGHT ATRIUM: Mild dilatation. RIGHT VENTRICLE: Normal chamber size. Normal right ventricular systolic function. TRICUSPID VALVE: Normal mobility and thickness. No stenosis with trivial regurgitation. No evidence of pulmonary hypertension. RVSP 24 mmHg MITRAL VALVE: Normal mobility and thickness. No evidence of mitral valve stenosis. There is no mitral annular calcification. Trivial mitral regurgitation. AORTIC VALVE: Normal trileaflet appearance. No visible sclerosis. Normal leaflet mobility. No evidence of aortic valve stenosis. No aortic regurgitation. AORTIC ROOT: Normal diameter and appearance. PULMONIC VALVE: Normal thickness and mobility. No stenosis. No regurgitation. PERICARDIUM: Small circumferential pericardial effusion. The pericardium appears echogenic. IVC: Collapses with inspirations. Normal size. PLEURA: CONCLUSION: 1. Normal ventricular systolic function. LVEF is 65 to 70%. 2. No significant valvular dysfunction. 3. Normal right-sided pressures. 4. Small circumferential pericardial effusion. Adult Echocardiography Procedure Report Left Ventricle Left Atrium LA Volume Index (2D A2C): 40.20 ml, 40.20 ml Mitral Valve Right Ventricle Aorta Aortic Valve AoV Area (Peak Ramiro): 4.92 cm2, 4.92 cm2 AoV Area (VTI): 4.33 cm2, 4.33 cm2 Tricuspid Valve Pulmonic Valve Peak Velocity: 1.09 m/s, 1.02 m/s Peak Gradient: 4.43 mm[Hg] Right Atrium Dictated by: Zhou Fregoso M.D. on 10/03/2022 at 18:06 Approved by: Zhou Fregoso M.D. on 10/03/2022 at 18:14 Normal [facility] CT LUNG CANCER SCREENINGon 0 08-24-2022 CT LUNG CANCER SCREENING EXAMINATION: CT LUNG CANCER SCREENING HISTORY: Tobacco user , chronic shortness of breath COMPARISON: No relevant comparison available. TECHNIQUE: Axial, Coronal, and Sagittal images were created without the administration of IV contrast material. Dose reduction techniques were achieved by using automated exposure control and/or adjustment of mA and/or kV according to patient size and/or use of iterative reconstruction technique. FINDINGS: LUNGS: Scattered areas of curvilinear stranding favoring discoid atelectasis or scarring. No suspicious nodules or infiltrates. PLEURA: No mass, effusion, or pneumothorax. VASCULATURE: No abnormality. MILTON: No mass or pathologic adenopathy. MEDIASTINUM: No mass or pathologic adenopathy. CARDIAC: No enlargement, pericardial thickening, or significant calcification. AORTA: No aneurysm or dissection. CHEST WALL: No mass or axillary adenopathy BONES: No bone lesion or fracture. LIMITED ABDOMEN: No suspicious findings. Limited images of the upper abdomen. OTHER: Negative. IMPRESSION: 1. Lung-RADS 2- Benign Appearance or Behavior. Nodules with a very low likelihood of becoming a clinically active cancer due to size or lack of growth. Follow-up CT Chest in 1 year. Electronically authenticated by: CARLENE RAHMAN Date: 2022-08-24 09:36 Normal [facility] CBC AUTO DIFFon 07-31-2022 BASO # 0.1 103/ul Normal 0.0-0.1 [facility] Comment on above: Performed By: #### C BC #### [facility] [address] [address] [address] Tevin Still Basophils/100 WBC (Bld) 0.8 % Normal 0.2-2.0 [facility] Comment on above: Performed By: #### C BC #### [facility] [address] [place] [address] Dr. Tevin Still EO # 0.1 103/ul Normal 0.0-0.7 [facility] Comment on above: Performed By: #### C BC #### [facility] [address] [place] [address] Dr. Tevin Still Eosinophils/100 WBC (Bld) 2.0 % Normal 0.9-7.0 [facility] Comment on above: Performed By: #### C BC #### [facility] [address] [place] [address] Dr. Tevin Still Erythrocyte distribution width (RBC) [Ratio] 14.0 % Normal 11.0-15.0 [facility] Comment on above: Performed By: #### C BC #### [facility] [address] [place] [address] Dr. Tevin Still Hematocrit (Bld) [Volume fraction] 48.7 % Critically high 36.0-48.0 [facility] Comment on above: Performed By: #### C BC #### [facility] [address] [place] [address] Dr. Tevin Still Hemoglobin (Bld) [Mass/Vol] 15.9 g/dL Normal 12.0-16.0 [facility] Comment on above: Performed By: #### C BC #### [facility] [address] [place] [address] Dr. Tevin Still IG # 0.05 10e3/ul Critically high 0.00-0.03 [facility] Comment on above: Performed By: #### C BC #### [facility] [address] [place] [address] Dr. Tevin Still IG % 0.8 % Critically high 0.0-0.5 [facility] Comment on above: Performed By: #### C BC #### [facility] [address] [place] [address] Dr. Tevin Still LYMPH # 1.9 103/ul Normal 1.2-3.8 [facility] Comment on above: Performed By: #### C BC #### [facility] [address] [place] [address] Dr. Tevin Still Lymphocytes/100 WBC (Bld) 30.1 % Normal 20.5-60.0 [facility] Comment on above: Performed By: #### C BC #### [facility] [address] [place] [address] Dr. Tevin Still MANUAL DIFF REQ NO Normal [facility] Comment on above: Performed By: #### C BC #### [facility] [address] [place] [address] Dr. Tevin Still MCH (RBC) [Entitic mass] 32.9 pg Normal 26.7-34.0 [facility] Comment on above: Performed By: #### C BC #### [facility] [address] [place] [address] Dr. Tevin Still MCHC (RBC) [Mass/Vol] 32.6 g/dL Normal 29.9-35.2 [facility] Comment on above: Performed By: #### C BC #### [facility] [address] [place] [address] Dr. Tevin Still MCV (RBC) [Entitic vol] 100.8 fL Critically high 81.0-99 .0 [facility] Comment on above: Performed By: #### C BC #### [facility] [address] [place] [address] Dr. Tevin Still MONO # 0.5 103/ul Normal 0.3-0.8 [facility] Comment on above: Performed By: #### C BC #### [facility] [address] [place] [address] Dr. Tevin Still Monocytes/100 WBC (Bld) 7.2 % Normal 1.7-12.0 [facility] Comment on above: Performed By: #### C BC #### [facility] [address] [place] [address] Dr. Tevin Still NEUT # 3.8 103/ul Normal 1.4-6.5 [facility] Comment on above: Performed By: #### C BC #### [facility] [address] [address] [address] Tevin Still Neutrophils/100 WBC (Bld) 59.1 % Normal 43.0-75.0 [facility] Comment on above: Performed By: #### C BC #### [facility] [address] [address] [address] Tevin Still Platelet mean volume (Bld) [Entitic vol] 11.0 fL Normal 9.5-13.5 [facility] Comment on above: Performed By: #### C BC #### [facility] [address] [address] [address] Tevin Still PLT 167 103/ul Normal 150-450 [facility] Comment on above: Performed By: #### C BC #### [facility] [address] [address] [address] Tevin Still RBC 4.83 106/ul Normal 4.20-5.40 [facility] Comment on above: Performed By: #### C BC #### [facility] [address] [address] [address] Tevin Still WBC 6.4 103/ul Normal 4.0-11.0 [facility] Comment on above: Performed By: #### C BC #### [facility] [address] [address] [address] Tevin Still GLYCOHEMOGLOBIN A1Con 2022 ADA RECOMMENDATION SEE BELOW Normal [facility] Comment on above: Result Comment: ADA RECOMMENDED LIMIT 4.0 - 6.0 ADA THERAPEUTIC TARGET < 7.0 ACTION SUGGESTED > 7.0 Performed By: #### A 1C ####[facility] [address] [address]Dr. Tevin Still Glucose [Mass/Vol] 114 mg/dL Normal [facility] Comment on above: Performed By: #### A 1C ####[facility] [address] [place] [id number]. Tevin Still HbA1c (Bld) [Mass fraction] 5.6 % Normal 4.5-6.2 [facility] Comment on above: Performed By: #### A 1C ####[facility] [address] [place], [place] [address]QvDr. Tevin Still LIPID PROFILEon 07-31-2022 CHOL-HDL RATIO NORM SEE BELOW Normal [facility] Comment on above: Result Comment: 3.3 - 4.4 LOW RISK 4.4 - 7.1 AVERAGE RISK 7.1 - 11.0 MODERATE RISK >11.0 HIGH RISK Performed By: #### C MP, LIPID #### [facility] [address] [place], [place] [address] Dr. Tevin Still Cholesterol [Mass/Vol] 178 mg/dL Normal <=200 [facility] Comment on above: Performed By: #### C MP, LIPID #### [facility] [address] [address] [address] Tevin Still Cholesterol in HDL [Mass/Vol] 54 mg/dL Normal 40-60 [facility] Comment on above: Performed By: #### C MP, LIPID #### [facility] [address] [address] [address] Tevin Still Cholesterol in LDL [Mass/Vol] 86.6 mg/dL Normal [facility] Comment on above: Performed By: #### C MP, LIPID #### [facility] [address] [place], [place] [address] Dr. Tevin Still Cholesterol.total/Choles terol in HDL [Mass ratio] 3.3 {ratio} Normal [facility] Comment on above: Performed By: #### C MP, LIPID #### [facility] [id number] Tevin Still HDL NORMAL > or = 60 mg/dl - LOW CARDIOVASCULAR RISK <40 mg/dl - HIGH CARDIOVASCULAR RISK Normal [facility] Comment on above: Performed By: #### C MP, LIPID #### [facility] [id number] Tevin Still LDL CALC NORMAL SEE BELOW Normal [facility] Comment on above: Result Comment: <100 mg/dl OPTIMAL 100 - 129 mg/dl NEAR OR ABOVE OPTIMAL 130 - 159 mg/dl BORDERLINE HIGH 160 - 189 mg/dl HIGH >190 mg/dl VERY HIGH Performed By: #### C MP, LIPID #### [facility] [address] [address] [address] Tevin Still Triglyceride [Mass/Vol] 187 mg/dL Critically high <=150 [facility] Comment on above: Performed By: #### C MP, LIPID #### [facility] [address] [address] [address] Tevin Still VLDL CALC 37.4 mg/dL Normal [facility] Comment on above: Performed By: #### C MP, LIPID #### [facility] [address] [address] [address] Tevin Still PROF 14(COMP METB)on 023 Albumin [Mass/Vol] 3.6 g/dL Normal 3.4-5.0 [facility] Comment on above: Performed By: #### C MP, LIPID ####[facility] [address] [id number] Still Albumin/Globulin [Mass ratio] 1.1 {ratio} Normal [facility] Comment on above: Performed By: #### C MP, LIPID ####[facility] [address] [place] [id number]. Tevin Still ALP [Catalytic activity/Vol] 91 U/L Normal 46-116 [facility] Comment on above: Performed By: #### C MP, LIPID ####[facility] [address] [place] [id number]. Tevin Still ALT [Catalytic activity/Vol] 34 U/L Normal 14-59 [facility] Comment on above: Performed By: #### C MP, LIPID ####[facility] [address] [id number]. Tevin Still Anion gap [Moles/Vol] 11.6 mmol/L Normal [facility] Comment on above: Performed By: #### C MP, LIPID ####[facility] [address] [id number]. Tevin Still AST [Catalytic activity/Vol] 18 U/L Normal 15-37 [facility] Comment on above: Performed By: #### C MP, LIPID ####[facility] [address] [address]Dr. Tevin Still Bilirubin [Mass/Vol] 0.6 mg/dL Normal 0.2-1.0 [facility] Comment on above: Performed By: #### C MP, LIPID ####[facility] [address] [address]Dr. Tevin Still Calcium [Mass/Vol] 9.2 mg/dL Normal 8.5-10.1 [facility] Comment on above: Performed By: #### C MP, LIPID ####[facility] [address] [address]Dr. Tevin Still Chloride [Moles/Vol] 106 mmol/L Normal 98-107 [facility] Comment on above: Performed By: #### C MP, LIPID ####[facility] [address] [place], [place] [address]Dr. Tevin Still CO2 [Moles/Vol] 32.3 mmol/L Critically high 21.0-32.0 [facility] Comment on above: Performed By: #### C MP, LIPID ####[facility] [address] [place], [place] [address]Dr. Tevin Still Creatinine [Mass/Vol] 1.04 mg/dL Critically high 0.55-1.02 [facility] Comment on above: Performed By: #### C MP, LIPID ####[facility] [address] [address]Dr. Tevin Still EGFR-AF PRYDEINIG >60 Normal >=60 [facility] Comment on above: Performed By: #### C MP, LIPID ####[facility] [address] [address]Dr. Tevin Still EGFR-NON AF PRYDEINIG 54 mL/min/1.73m2 Critically low >=60 [facility] Comment on above: Performed By: #### C MP, LIPID ####[facility] [address] [place], [place] [address]Dr. Tevin Still Globulin (S) [Mass/Vol] 3.4 g/dL Normal [facility] Comment on above: Performed By: #### C MP, LIPID ####[facility] [address] [place], [place] [address]Dr. Tevin Still Glucose [Mass/Vol] 124 mg/dL Critically high 74-106 [facility] Comment on above: Performed By: #### C MP, LIPID ####[facility] [address] [place], [place] [address]Dr. Tevin Still Potassium [Moles/Vol] 3.9 mmol/L Normal 3.5-5.1 [facility] Comment on above: Performed By: #### C MP, LIPID ####[facility] [address] [place], [place] [address]Dr. Tevin Still Protein [Mass/Vol] 7.0 g/dL Normal 6.4-8.2 [facility] Comment on above: Performed By: #### C MP, LIPID ####[facility] [address] [place], [place] [address]Dr. Tevin Still Sodium [Moles/Vol] 146 mmol/L Critically high 136-145 [facility] Comment on above: Performed By: #### C MP, LIPID ####[facility] [address] [place], [place] [address]Dr. Tevin Still Urea nitrogen [Mass/Vol] 14.0 mg/dL Normal 7.0-18.0 [facility] Comment on above: Performed By: #### C MP, LIPID ####[facility] [address] [place], [place] [address]Dr. Tevin Still Urea nitrogen/Creatinine [Mass ratio] 13.5 mg/mg Normal [facility] Comment on above: Performed By: #### C MP, LIPID ####[facility] [address] [place], [place] [address]Dr. Tevin Still VITAMIN B12on 07-31-2022 Cobalamin (Vitamin B12) [Mass/Vol] 321.0 pg/mL Normal 193.0-986.0 [facility] Comment on above: Performed By: #### V ITAD, VITB12 #### [facility] [address] [address] [address] Tevin Still VITAMIN D 25 OHon 07-31-2022 VIT D 25-OH 58.7 ng/mL Normal [facility] Comment on above: Performed By: #### V ITAD, VITB12 #### [facility] [id number] Tevin Still VIT D RANGES SEE BELOW Normal [facility] Comment on above: Result Comment: <20 ng/mL Vit D deficient 20 - <30 ng/mL Vit D insufficient 30 - 100 ng/mL Vit D sufficient >100 ng/mL Potential Toxicity Performed By: #### V ITAD, VITB12 #### [facility] [address] [address] [address] Tevin Still XR CHEST 2 Von 07-31-2022 XR CHEST 2 V EXAM: XR CHEST 2 V HISTORY: Bronchitis COMPARISON: None. TECHNIQUE: PA and lateral views of the chest. FINDINGS: The cardiomediastinal silhouette is normal. No focal consolidation. There is no pneumothorax. No pleural effusion is noted. The osseous structures are intact. IMPRESSION: No focal consolidation. Electronically authenticated by: RERE BARBOSA Date: 2022-07-31 10:05 Normal [facility] Ambulatory Visit Summaryon 0 06-19-2022 Ambulatory Visit Summary DAWNA VELÁSQUEZ I :1965 Visit Date:06/19/2022 Ambulatory Visit Instructions Your Diagnosis Hyperplastic polyp of sigmoid colon Your Care Team Attending Physician - TRINO LEAHY, Yessenia Lucio Primary Care Physician - ERIN WATSON CNP This Is Your Medications List Contact prescribing physician if questions or concerns amitriptyline (amitriptyline 100 mg oral tablet) cholecalciferol (Vitamin D3 5000 intl units (125 mcg) oral tab) lamotrigine (Lamictal 100 mg Tab) meloxicam (meloxicam 15 mg Tab) omeprazole (omeprazole 40 mg Cap-DR) prazosin (prazosin 2 mg oral capsule) pregabalin (pregabalin 100 mg Cap) propranolol (propranolol 40 mg Tab) quetiapine (SEROquel 100 mg Tab) simvastatin (simvastatin 40 mg Tab) spironolactone (Aldactone 50 mg Tab) tizanidine (tiZANidine 4 mg Tab) Procedures Performed Colonoscopy (05/23/2022), section, section, Meniscal repair, CELINA BSO - Total abdominal hysterectomy and bilateral salpingo-oophorectom y, Tubal ligation. Medications What How Much When Instructions Unchanged amitriptyline (amitriptyline 100 mg oral tablet) 0.5 Tablets By Mouth Once a day (at bedtime) Contact prescribing physician if questions or concerns Unchanged cholecalciferol (Vitamin D3 5000 intl units (125 mcg) oral tab) 1 Tablets By Mouth Every day Contact prescribing physician if questions or concerns Unchanged lamotrigine (Lamictal 100 mg Tab) 1 po QAM and 2 po QPM Contact prescribing physician if questions or concerns Unchanged meloxicam (meloxicam 15 mg Tab) 1 Tablets By Mouth Every day Contact prescribing physician if questions or concerns Unchanged omeprazole (omeprazole 40 mg Cap-DR) 1 Capsules By Mouth Every day Contact prescribing physician if questions or concerns Unchanged prazosin (prazosin 2 mg oral capsule) 1 Capsules By Mouth At bedtime Contact prescribing physician if questions or concerns Unchanged pregabalin (pregabalin 100 mg Cap) 1 Capsules By Mouth 2 times a day Contact prescribing physician if questions or concerns Unchanged propranolol (propranolol 40 mg Tab) 1 Tablets By Mouth 2 times a day Contact prescribing physician if questions or concerns Unchanged quetiapine (SEROquel 100 mg Tab) 1 tabs QAM and 4 tabs qpm Contact prescribing physician if questions or concerns Unchanged simvastatin (simvastatin 40 mg Tab) 1 Tablets By Mouth Once a day (at bedtime) Contact prescribing physician if questions or concerns Unchanged spironolactone (Aldactone 50 mg Tab) 1 Tablets By Mouth Every day Contact prescribing physician if questions or concerns Unchanged tizanidine (tiZANidine 4 mg Tab) 1 Tablets By Mouth Every 8 hours as needed for Spasm Contact prescribing physician if questions or concerns Allergies penicillins (SOB - Shortness of breath, Hives) predniSONE (SOB - Shortness of breath) Problems Ongoing - Any problem that you are currently receiving treatment for. Acute megaloblastic anemia Anxiety and depression BMI 40.0-44.9, adult Chronic lumbar pain Essential hypertension Fibromyalgia Gastroesophageal reflux disease Hearing loss Hyperlipidemia Hyperplastic polyp of sigmoid colon Lower extremity edema Migraines Obesity Osteopenia Positive colorectal cancer screening using Cologuard test Tobacco user Vitamin B12 deficiency Vitamin D deficiency Normal [facility] General Surgery Office/Clini c Noteon 06-19-2022 General Surgery Office/Clinic Note Chief Complaint colonoscopy follow up HPI Staff 27 day post operative follow up post colonoscopy with sigmoid polypectomy. History of Present Illness s/p colonoscopy due to positive Cologuard; found 4 small sigmoid polyps; pathology consistent with hyperplastic polyps; Review of Systems ROS - Provider Constitutional: no fever, no sweats, no weight loss. Eyes: no glasses, no blurred vision, no visual loss. ENMT: no dentures, no hoarseness, no swallowing difficulties, no hearing loss, no ear infection(s), no nose bleeds. Cardiovascular: normal blood pressure, no chest pain, regular heartbeat, no heart murmur. Respiratory: no shortness of breath, no cough, no asthma, no wheezing. Gastrointestinal: no nausea, no vomiting, no diarrhea, no constipation, no blood in stool, no change in bowel habits, no abdominal pain, no hepatitis. Genitourinary: no kidney stones, no urine infection, no dysuria. Musculoskeletal: no pain, no weakness. Skin: no changing moles, no rash, no skin lumps. Neurologic: no seizures, no epilepsy, no headache. Psychiatric: no emotional or psychiatric problem. Heme/Lymph: no bleeding problems, no anemia, no blood clots, no transfusions. Allergy/Immunologic: no swollen lymph nodes/glands, no IV drug abuse. Other: Additional ROS info: Except as noted in the above Review of Systems and in the History of Present Illness, all other systems have been reviewed and are negative or noncontributory. Assessment/Plan 1. Hyperplastic polyp of sigmoid colon (K63.5: Polyp of colon) plan screening colonoscopy in 10 years, call sooner if problems/questions. Follow-up No qualifying data available Problem List/Past Medical History Ongoing Acute megaloblastic anemia Anxiety and depression BMI 40.0-44.9, adult Chronic lumbar pain Essential hypertension Fibromyalgia Gastroesophageal reflux disease Hearing loss Hyperlipidemia Hyperplastic polyp of sigmoid colon Lower extremity edema Migraines Obesity Osteopenia Positive colorectal cancer screening using Cologuard test Tobacco user Vitamin B12 deficiency Vitamin D deficiency Historical No qualifying data Procedure/Surgical History Colonoscopy (05/23/2022), section, section, Meniscal repair, CELINA BSO - Total abdominal hysterectomy and bilateral salpingo-oophorectom y, Tubal ligation. Medications Aldactone 50 mg Tab, 50 mg= 1 tab(s), Oral, Daily amitriptyline 100 mg oral tablet, 50 mg= 0.5 tab(s), Oral, Once a day (at bedtime) Lamictal 100 mg Tab meloxicam 15 mg Tab, 15 mg= 1 tab(s), Oral, Daily omeprazole 40 mg Cap-DR, 40 mg= 1 cap(s), Oral, Daily prazosin 2 mg oral capsule, 2 mg= 1 cap(s), Oral, Bedtime pregabalin 100 mg Cap, 100 mg= 1 cap(s), Oral, BID propranolol 40 mg Tab, 40 mg= 1 tab(s), Oral, BID SEROquel 100 mg Tab simvastatin 40 mg Tab, 40 mg= 1 tab(s), Oral, Once a day (at bedtime) tiZANidine 4 mg Tab, 4 mg= 1 tab(s), Oral, q8hr, PRN Vitamin D3 5000 intl units (125 mcg) oral tab, 125 mcg= 1 tab(s), Oral, Daily Allergies penicillins (SOB - Shortness of breath, Hives) predniSONE (SOB - Shortness of breath) Social History Alcohol - Denies Alcohol Use, 05/01/2022 Substance Abuse - Denies Substance Abuse, 05/01/2022 Tobacco 10 or more cigarettes (1/2 pack or more)/day in last 30 days Tobacco Use:. Never Smokeless Tobacco Use:. Cigarettes, Started age 16.0 Years. Yes, 05/01/2022 Family History Patient was adopted Immunizations Vaccine Date Status Comments influenza virus vaccine, inactivated - Not Given Patient Refuses Normal [facility] Comment on above: Result Comment: Elec tronically Signed By: TRINO LEAHY, Yessenia [place]\Date and Time Signed: 06/19/22 13:12 EST Reminderson 06-19-2022 Reminders - From: Cat Galeano LPN To: N - Clinical; Sent: 06/19/2022 13:05:34 EST Show up: 04/22/2032 07:00:00 EST Subject: colonoscopy recall Due Date/Time: 05/23/2032 07:00:00 EST Reminder/Recall Patient is due for screening colonoscopy 05/23/2032. Normal [facility] Covid-19 PCR (CVDTB)on 05-08 SARS-CoV-2 (COVID-19) RNA KHUSHBU+probe Ql (Unsp spec) Detected Abnormal NOT DETECTED [facility] Comment on above: Result Comment: This test is not yet approved or cleared by the [place] FDA. When there are no FDA-approved or cleared tests available, and other criteria are met, FDA can make tests available under an emergency access mechanism called an Emergency Use Authorization (EUA). The EUA for this test is supported by the Brand Executive of Health and Human Service's (HHS's) declaration that circumstances exist to justify the emergency use of in vitro diagnostics for the detection and/or diagnosis of the virus that causes COVID-19. This EUA will remain in effect (meaning this test can be used) for the duration of the COVID-19 declaration justifying emergency of IVDs, unless it is terminated or revoked by FDA (after which the test may no longer be used). Performed By: #### C VDTBH #### [facility] [address] [address] [address] Tevin Still INFLUENZA A AND B AGon 06-05 INFLUANE SEE BELOW Normal [facility] Comment on above: Result Comment: Nega tive for Flu A protein angiten. Infection due to Flu A cannot be ruled out. Flu A angiten in the sample may be below the detection limit of the test. Performed By: #### I NFLUAB ####[facility] [address] [place], [place] [address]BnEssie Still INFLUBNEGH SEE BELOW Normal [facility] Comment on above: Result Comment: Nega tive for Flu B protein antigen. Infection due to Flu B cannot be ruled out. Flu B antigen in the sample may be below the detection limit of the test. Performed By: #### I NFLUAB ####[facility] [address] [id number]. Tevin Still INFLUENZA A AG Negative Normal NEGATIVE SEE COMMENT [facility] Comment on above: Performed By: #### I NFLUAB ####[facility] [address] [place], [place] [address]Nb. Tevin Still INFLUENZA B AG Negative Normal NEGATIVE SEE COMMENT [facility] Comment on above: Performed By: #### I NFLUAB ####[facility] [address] [place], [place] [address]El. Tevin Still Covid-19 PCR (CVDTB)on 05-07 SARS-CoV-2 (COVID-19) RNA KHUSHBU+probe Ql (Unsp spec) Detected Abnormal NOT DETECTED [facility] Comment on above: Result Comment: This test is not yet approved or cleared by the [place] FDA. When there are no FDA-approved or cleared tests available, and other criteria are met, FDA can make tests available under an emergency access mechanism called an Emergency Use Authorization (EUA). The EUA for this test is supported by the [place] of Health and Human Service's declaration that circumstances exist to justify the emergency use of in vitro diagnostics for the detection and/or diagnosis of the virus that causes COVID-19. This EUA will remain in effect for the duration of the COVID-19 declaration justifying emergency of IVDs, unless it is terminated or revoked by the FDA (after which the test may no longer be used). Performed By: #### C VDTBH #### [facility] [address] [place], [place] [address] Dr. Tevin Still Pathology Noteon 05-25-2022 Pathology Note [id number] #1.00CD:127 Normal [facility] Outside Colonoscopyon 2022 Outside Colonoscopy [id number] #1.00CD:127 Normal [facility] Reminderson 05-24-2022 Reminders - From: Cat Galeano LPN To: Cat Galeano LPN; Sent: 05/24/2022 11:14:25 EST Show up: 08/13/2022 07:00:00 EDT Subject: Ambulatory Reminder Due Date/Time: 08/22/2022 07:00:00 EDT Reminder/Recall log in to extra [facility] [employer] in [place] to keep account active Normal [facility] Lab Reportson 05-21-2022 Lab Reports [id number] #1.00CD:127 Normal [facility]on 05-06 SARS-CoV-2 (COVID-19) RNA KHUSHBU+probe Ql (Unsp spec) Not detected Normal NOT DETECTED [facility] Comment on above: Result Comment: This test is not yet approved or cleared by the [place] FDA. When there are no FDA-approved or cleared tests available, and other criteria are met, FDA can make tests available under an emergency access mechanism called an Emergency Use Authorization (EUA). The EUA for this test is supported by the Brand Executive of Health and Human Service's (HHS's) declaration that circumstances exist to justify the emergency use of in vitro diagnostics for the detection and/or diagnosis of the virus that causes COVID-19. This EUA will remain in effect (meaning this test can be used) for the duration of the COVID-19 declaration justifying emergency of IVDs, unless it is terminated or revoked by FDA (after which the test may no longer be used). When diagnostic testing is negative, the possibility of a false negative should be considered in the context of a patient's recent exposures and the presence of clinical signs and symptoms consistent with SARS-CoV-2. Performed By: #### [facility] ####[facility] [address] [place], [place] [address]Ox. Tevin Cheko Pre-Certification Formon Pre-Certification Form [id number] [facility] [id number]#1.00CD:127 Normal [facility] Consent for Procedure/Surger yon 05-03-2022 Consent for Procedure/Surgery [id number] #1.00CD:127 Normal [facility] Formson 05-03-2022 Forms [id number] #1.00CD:127 Normal [facility] Physician Referralon 022 Physician Referral [id number] #1.00CD:127 Normal [facility] MRI Knee w/o Lefton 03-22-20 MRI Knee w/o Left HISTORY: Continued left-sided knee pain. History of prior arthroscopy. No recent injury. TECHNIQUE: Routine non-contrast MRI of the knee LEFT COMPARISON: Radiographs 02/26/2022. RESULT: MENISCI: Medial Meniscus: Intact Lateral Meniscus: Intact LIGAMENTS: ACL, PCL, MCL, LCL complex: Intact. CARTILAGE: Small areas of full-thickness chondral loss involving the patella. Small to moderate area of full-thickness chondral loss involving the lateral tibial plateau. Small to moderate area of high-grade partial thickness to full-thickness chondral loss within the medial compartment. TENDONS: Distal quadriceps, patellar tendon, and popliteus tendon intact. BONES AND MARROW: No evidence of fracture or bone marrow replacing process. MUSCLES: Muscle bulk and signal intensity are normal. JOINT FLUID AND SYNOVIUM: No joint effusion. No synovitis. Small Pierre's cyst containing debris and/or joint bodies. OTHER: Subcutaneous edema, especially anteriorly. IMPRESSION: Intact menisci and ligaments. Osteoarthritis as discussed. Report reported and signed by Willis Newell on 03/22/2022 1505 Normal [facility] MRI [facility] WO CONon 03-01-20 [facility] EXAMINATION: [facility] HISTORY: Low back pain COMPARISON: No relevant comparison available. TECHNIQUE: A variety of imaging planes and parameters were utilized for visualization of suspected pathology. FINDINGS: For the purposes of numbering, sagittal T2 image # 9 extends from the level vertebral body superiorly to the S3 level inferiorly. PARASPINAL AREA: Normal with no visible mass. BONES: Normal alignment of the lumbar vertebral bodies with no acute fracture or spondylolisthesis. Mild to moderate diffuse degenerative spondylosis CORD/CAUDA EQUINA: Normal caliber, contour, and signal intensity. DISC LEVELS: 12-L1: No significant disc/facet abnormality, spinal stenosis, or foraminal stenosis. L1-L2: No significant disc/facet abnormality, spinal stenosis, or foraminal stenosis. L2-L3: Early degenerative disc disease is present without focal protrusion or neural impingement. L3-L4: Early degenerative disc disease is present without focal protrusion or neural impingement. L4-L5: No significant disc/facet abnormality, spinal stenosis, or foraminal stenosis. L5-S1: Early degenerative disc disease is present without focal protrusion or neural impingement. IMPRESSION: Mild discogenic changes. No significant central or foraminal stenosis Electronically authenticated by: LAILA GARZA Date: 2022-03-01 17:54 Normal [facility] XR LSPINE 2_3 VIEWSon 2021 XR LSPINE 2_3 VIEWS EXAMINATION: XR LSPINE 2_3 VIEWS HISTORY: Low back pain COMPARISON: 08/21/2016 FINDINGS: BONES: Normal alignment with no acute fracture or spondylolisthesis. Mild degenerative spondylosis and facet osteoarthropathy DISC SPACES: Mild multilevel disc space narrowing most significant at L5-S1 PARASPINOUS: Negative. No paraspinous abnormality is seen. OTHER: Negative. IMPRESSION: Mild degenerative changes Electronically authenticated by: LAILA GARZA Date: 2021-12-26 07:20 Normal [facility] MRI Knee w/o Lefton 10-25-19 22 MRI Knee w/o Left HISTORY: Knee pain and instability. COMPARISON: Radius the knee 09/18/2021 TECHNIQUE: Multiplanar multisequence MRI of the left knee was performed without contrast. FINDINGS: Quadriceps and patellar tendons are intact. Small knee joint effusion. The anterior ligament and posterior cruciate ligament are intact. The medial collateral ligament, lateral collateral ligament, and popliteus myotendinous unit are intact. The medial meniscus and lateral meniscus are intact. Fully describe this fissure of the median patellar ridge with tiny focus of subcortical bone marrow edema. 3 mm fully his cartilage defect of the lateral tibial plateau without subcortical bone marrow edema. Partial-thickness cartilage loss of the weightbearing medial femoral condyle without well-defined cartilage defect. Popliteal fossa structures are intact. Thin Pierre's cyst measuring approximately 5.5 cm in craniocaudal length contains a loose body measuring approximately 12 mm. IMPRESSION: Mild osteoarthritis. Ligaments and menisci are intact. Report reported and signed by Juan Littlejohn on 10/25/2021 1316 Normal [facility] Section Hand Vital Signs Date Time Vital Sign Value Performing Clinician Faci lity 03-08-2025 08:03-0500 Diastolic blood pressure 65 mm[Hg] [facility] Work Phone: 03-08-2025 08:03-0500 Heart rate 70 /min [facility] Work Phone: 03-08-2025 08:03-0500 Respiratory rate 18 /min [facility] Work Phone: 03-08-2025 08:03-0500 SaO2% (BldA) [Mass fraction] 90 % [facility] Work Phone: 03-08-2025 08:03-0500 Systolic blood pressure 130 mm[Hg] [facility] Work Phone: 03-08-2025 06:59-0500 Body temperature 97.5 [degF] [facility] Work Phone: 02-15-2025 10:37-0400 Diastolic blood pressure 65 mm[Hg] [facility] Work Phone: 02-15-2025 10:37-0400 Heart rate 50 /min [facility] Work Phone: 02-15-2025 10:37-0400 SaO2% (BldA) [Mass fraction] 94 % [facility] Work Phone: 02-15-2025 10:37-0400 Systolic blood pressure 135 mm[Hg] [facility] Work Phone: 02-15-2025 10:36-0400 Respiratory rate 18 /min [facility] Work Phone: 02-15-2025 10:02-0400 Body temperature 97.3 [degF] [facility] Work Phone: 01-26-2025 11:25-0400 Body height 165.1 cm Erin Watson MEDIA INTERN-C Work Phone: [facility] 01-26-2025 11:25-0400 Body mass index (BMI) [Ratio] 41.8 kg/m2 Erin Aichholz MEDIA INTERN-C Work Phone: [facility] 01-26-2025 11:25-0400 Body temperature 97.5 [degF] Erin Lebronholz MEDIA INTERN-C Work Phone: [facility] 01-26-2025 11:25-0400 Body weight 114.07 kg Erin Jakihholz MEDIA INTERN-C Work Phone: [facility] 01-26-2025 11:25-0400 Diastolic blood pressure 78 mm[Hg] Erin Jakihholz MEDIA INTERN-C Work Phone: [facility] 01-26-2025 11:25-0400 Heart rate 87 /min Erin Jakihholz MEDIA INTERN-C Work Phone: [facility] 01-26-2025 11:25-0400 Respiratory rate 22 /min Erin Jakihholz MEDIA INTERN-C Work Phone: [facility] 01-26-2025 11:25-0400 SaO2% (BldA) [Mass fraction] 92 % Erin Jakihholz MEDIA INTERN-C Work Phone: [facility] 01-26-2025 11:25-0400 Systolic blood pressure 110 mm[Hg] Erin Lebronholz MEDIA INTERN-C Work Phone: [facility] 11-26-2024 13:00-0400 Body mass index (BMI) [Ratio] 40.77 kg/m2 Toshia Daisy DO Work Phone: [facility] 11-26-2024 13:00-0400 Body weight 111.13 kg Toshia Daisy DO Work Phone: [facility] 11-26-2024 13:00-0400 Diastolic blood pressure 64 mm[Hg] Toshia Daisy DO Work Phone: [facility] 11-26-2024 13:00-0400 Heart rate 86 /min Toshia Daisy DO Work Phone: [facility] 11-26-2024 13:00-0400 SaO2% (BldA) [Mass fraction] 94 % Toshia Daisy DO Work Phone: [facility] 11-26-2024 13:00-0400 Systolic blood pressure 110 mm[Hg] Toshia Daisy DO Work Phone: [facility] 10-26-2024 10:09-0400 Body mass index (BMI) [Ratio] 40.9 kg/m2 Erin Robertoz MEDIA INTERN Work Phone: [facility] 10-26-2024 10:09-0400 Body temperature 98.1 [degF] Erin Robertoz MEDIA INTERN Work Phone: [facility] 10-26-2024 10:09-0400 Body weight 111.49 kg Erin Robertoz MEDIA INTERN Work Phone: [facility] 10-26-2024 10:09-0400 Diastolic blood pressure 70 mm[Hg] Erin Robertoz MEDIA INTERN Work Phone: [facility] 10-26-2024 10:09-0400 Heart rate 80 /min Erin Jakiqueenieholz MEDIA INTERN Work Phone: [facility] 10-26-2024 10:09-0400 Respiratory rate 24 /min Erin Lebronholz MEDIA INTERN Work Phone: [facility] 10-26-2024 10:09-0400 SaO2% (BldA) [Mass fraction] 92 % Erin Robertoz MEDIA INTERN Work Phone: [facility] 10-26-2024 10:09-0400 Systolic blood pressure 104 mm[Hg] Erin Lebronholz MEDIA INTERN Work Phone: [facility] 09-23-2024 11:31-0400 Body height 165.1 cm [facility] Work Phone: 09-23-2024 11:31-0400 Body mass index (BMI) [Ratio] 34.9 kg/m2 [facility] Work Phone: 09-23-2024 11:31-0400 Body temperature 98.3 [degF] [facility] Work Phone: 09-23-2024 11:31-0400 [facility]: 09-23-2024 11:31-0400 Diastolic blood pressure 73 mm[Hg] [facility] Work Phone: 09-23-2024 11:31-0400 Heart rate 75 /min [facility] Work Phone: 09-23-2024 11:31-0400 Respiratory rate 16 /min [facility] Work Phone: 09-23-2024 11:31-0400 SaO2% (BldA) [Mass fraction] 98 % [facility] Work Phone: 09-23-2024 11:31-0400 Systolic blood pressure 127 mm[Hg] [facility] Work Phone: 06-09-2024 14:53-0500 Body mass index (BMI) [Ratio] 40.7 kg/m2 Christopher Cindy DO Work Phone: [facility] 06-09-2024 14:53-0500 Body weight 110.95 kg Christopher Cindy DO Work Phone: [facility] 06-09-2024 14:53-0500 Diastolic blood pressure 82 mm[Hg] Christopher Cindy DO Work Phone: [facility] 06-09-2024 14:53-0500 Heart rate 76 /min Christopher Cindy DO Work Phone: [facility] 06-09-2024 14:53-0500 SaO2% (BldA) [Mass fraction] 94 % Christopher Cindy DO Work Phone: [facility] 06-09-2024 14:53-0500 Systolic blood pressure 128 mm[Hg] Christopher Cindy DO Work Phone: [facility] 05-07-2024 13:31-0500 Body height 165.1 cm Erni Jakihholz MEDIA INTERN Work Phone: [facility] 05-07-2024 13:31-0500 Body mass index (BMI) [Ratio] 40.94 kg/m2 Erin Aichholz MEDIA INTERN Work Phone: [facility] 05-07-2024 13:31-0500 Body temperature 98.1 [degF] Erin Aichholz MEDIA INTERN Work Phone: [facility] 05-07-2024 13:31-0500 Body weight 111.58 kg Erin Aichholz MEDIA INTERN Work Phone: [facility] 05-07-2024 13:31-0500 Diastolic blood pressure 80 mm[Hg] Erin Aichholz MEDIA INTERN Work Phone: [facility] 05-07-2024 13:31-0500 Heart rate 87 /min Erin Aichholz MEDIA INTERN Work Phone: [facility] 05-07-2024 13:31-0500 Respiratory rate 18 /min Erin Aichholz MEDIA INTERN Work Phone: [facility] 05-07-2024 13:31-0500 SaO2% (BldA) [Mass fraction] 94 % Erin Aichholz MEDIA INTERN Work Phone: [facility] 05-07-2024 13:31-0500 Systolic blood pressure 110 mm[Hg] Erin Aichholz MEDIA INTERN Work Phone: [facility] 03-30-2024 10:30-0500 Body height 165.1 cm Erin Aichholz MEDIA INTERN Work Phone: [facility] 03-30-2024 10:30-0500 Body mass index (BMI) [Ratio] 40.6 kg/m2 Erin Aichholz MEDIA INTERN Work Phone: [facility] 03-30-2024 10:30-0500 Body temperature 98.1 [degF] Erin Aichholz MEDIA INTERN Work Phone: [facility] 03-30-2024 10:30-0500 Body weight 110.68 kg Erin Watson MEDIA INTERN Work Phone: [facility] 03-30-2024 10:30-0500 Diastolic blood pressure 86 mm[Hg] Erin Watson MEDIA INTERN Work Phone: [facility] 03-30-2024 10:30-0500 Heart rate 89 /min Erin Watson MEDIA INTERN Work Phone: [facility] 03-30-2024 10:30-0500 Respiratory rate 19 /min Erin Watson MEDIA INTERN Work Phone: [facility] 03-30-2024 10:30-0500 SaO2% (BldA) [Mass fraction] 91 % Erin Watson MEDIA INTERN Work Phone: [facility] 03-30-2024 10:30-0500 Systolic blood pressure 106 mm[Hg] Erin Watson MEDIA INTERN Work Phone: [facility] 03-24-2024 11:07-0500 Heart rate 74 /min [facility] Work Phone: 03-24-2024 11:07-0500 Inhaled oxygen flow rate 3 L/min [facility] Work Phone: 03-24-2024 11:07-0500 SaO2% (BldA) [Mass fraction] 95 % [facility] Work Phone: 03-24-2024 08:26-0500 Body temperature 97.7 [degF] [facility] Work Phone: 03-24-2024 08:26-0500 Diastolic blood pressure 96 mm[Hg] [facility] Work Phone: 03-24-2024 08:26-0500 Respiratory rate 18 /min [facility] Work Phone: 03-24-2024 08:26-0500 Systolic blood pressure 158 mm[Hg] [facility] Work Phone: 03-21-2024 23:46-0500 Body height 167.64 cm [facility] Work Phone: 03-21-2024 23:46-0500 Body mass index (BMI) [Ratio] 40.1 kg/m2 [facility] Work Phone: 03-21-2024 23:46-0500 Body temperature 98 [degF] [facility] Work Phone: 03-21-2024 23:46-0500 Body weight 112.8 kg [facility] Work Phone: 03-21-2024 23:46-0500 Diastolic blood pressure 108 mm[Hg] [facility] Work Phone: 03-21-2024 23:46-0500 Heart rate 76 /min [facility] Work Phone: 03-21-2024 23:46-0500 Inhaled oxygen flow rate 3 L/min [facility] Work Phone: 03-21-2024 23:46-0500 Respiratory rate 20 /min [facility] Work Phone: 03-21-2024 23:46-0500 SaO2% (BldA) [Mass fraction] 92 % [facility] Work Phone: 03-21-2024 23:46-0500 Systolic blood pressure 164 mm[Hg] [facility] Work Phone: 03-20-2024 14:29-0500 Diastolic blood pressure 96 mm[Hg] [facility] Work Phone: 03-20-2024 14:29-0500 Heart rate 72 /min [facility] Work Phone: 03-20-2024 14:29-0500 Respiratory rate 20 /min [facility] Work Phone: 03-20-2024 14:29-0500 SaO2% (BldA) [Mass fraction] 92 % [facility] Work Phone: 03-20-2024 14:29-0500 Systolic blood pressure 156 mm[Hg] [facility] Work Phone: 03-20-2024 13:19-0500 Inhaled oxygen flow rate 2 L/min [facility] Work Phone: 03-20-2024 11:41-0500 Body height 167.64 cm [facility] Work Phone: 03-20-2024 11:41-0500 Body mass index (BMI) [Ratio] 32.3 kg/m2 [facility] Work Phone: 03-20-2024 11:41-0500 Body temperature 98 [degF] [facility] Work Phone: 03-20-2024 11:41-0500 Body weight 90.71 kg [facility] Work Phone: 06-21-2023 10:08-0500 Heart rate 72 /min [facility] Work Phone: 06-21-2023 10:08-0500 Inhaled oxygen flow rate 2 L/min [facility] Work Phone: 06-21-2023 10:08-0500 SaO2% (BldA) [Mass fraction] 94 % [facility] Work Phone: 06-21-2023 09:48-0500 Body height 165.1 cm [facility] Work Phone: 06-21-2023 09:48-0500 Body mass index (BMI) [Ratio] 33.3 kg/m2 [facility] Work Phone: 06-21-2023 09:48-0500 Body temperature 98.5 [degF] [facility] Work Phone: 06-21-2023 09:48-0500 Body weight 90.71 kg [facility] Work Phone: 06-21-2023 09:48-0500 Diastolic blood pressure 74 mm[Hg] [facility] Work Phone: 06-21-2023 09:48-0500 Respiratory rate 18 /min [facility] Work Phone: 06-21-2023 09:48-0500 Systolic blood pressure 130 mm[Hg] [facility] Work Phone: 06-20-2023 13:13-0500 Body height 165.1 cm Erin Robertoz MEDIA INTERN Work Phone: [facility] 06-20-2023 13:13-0500 Body mass index (BMI) [Ratio] 42.9 kg/m2 Erin Robertoz MEDIA INTERN Work Phone: [facility] 06-20-2023 13:13-0500 Body temperature 97.5 [degF] Erin Robertoz MEDIA INTERN Work Phone: [facility] 06-20-2023 13:13-0500 Body weight 116.94 kg Erin Lebronholz MEDIA INTERN Work Phone: [facility] 06-20-2023 13:13-0500 Diastolic blood pressure 68 mm[Hg] Erin Lebronholz MEDIA INTERN Work Phone: [facility] 06-20-2023 13:13-0500 Heart rate 71 /min Erin Lebronholz MEDIA INTERN Work Phone: [facility] 06-20-2023 13:13-0500 Respiratory rate 20 /min Erin Lebronholz MEDIA INTERN Work Phone: [facility] 06-20-2023 13:13-0500 SaO2% (BldA) [Mass fraction] 95 % Erin Lebronholz MEDIA INTERN Work Phone: [facility] 06-20-2023 13:13-0500 Systolic blood pressure 108 mm[Hg] Erin Lebronholz MEDIA INTERN Work Phone: [facility] 06-11-2023 13:35-0500 Body height 165.1 cm Erin Lebronholz MEDIA INTERN Work Phone: [facility] 06-11-2023 13:35-0500 Body mass index (BMI) [Ratio] 41.6 kg/m2 Erin Watson MEDIA INTERN Work Phone: [facility] 06-11-2023 13:35-0500 Body temperature 98.4 [degF] Erin Watson MEDIA INTERN Work Phone: [facility] 06-11-2023 13:35-0500 Body weight 113.4 kg Erin Watson MEDIA INTERN Work Phone: [facility] 06-11-2023 13:35-0500 Diastolic blood pressure 72 mm[Hg] Erin Watson MEDIA INTERN Work Phone: [facility] 06-11-2023 13:35-0500 Heart rate 77 /min Erin Watson MEDIA INTERN Work Phone: [facility] 06-11-2023 13:35-0500 Respiratory rate 18 /min Erin Watson MEDIA INTERN Work Phone: [facility] 06-11-2023 13:35-0500 SaO2% (BldA) [Mass fraction] 95 % Erin Watson MEDIA INTERN Work Phone: [facility] 06-11-2023 13:35-0500 Systolic blood pressure 112 mm[Hg] Erin Watson MEDIA INTERN Work Phone: [facility] 04-05-2023 16:13-0500 Body height [facility] Work Phone: 04-05-2023 16:13-0500 Body mass index (BMI) [Ratio] 33.3 kg/m2 [facility] Work Phone: 04-05-2023 16:13-0500 Body temperature 98 [degF] [facility] Work Phone: 04-05-2023 16:13-0500 Body weight 90.71 kg [facility] Work Phone: 04-05-2023 16:13-0500 Diastolic blood pressure 84 mm[Hg] [facility] Work Phone: 04-05-2023 16:13-0500 Heart rate 87 /min [facility] Work Phone: 04-05-2023 16:13-0500 Respiratory rate 20 /min [facility] Work Phone: 04-05-2023 16:13-0500 SaO2% (BldA) [Mass fraction] 94 % [facility] Work Phone: 04-05-2023 16:13-0500 Systolic blood pressure 144 mm[Hg] [facility] Work Phone: 10-08-2022 08:46-0400 Body height 167.64 cm [facility] Work Phone: 10-08-2022 08:46-0400 Body weight 90.71 kg [facility] Work Phone: 05-01-2022 13:27-0500 Blood Pressure Location Yessenia TRINO [facility] [place] 05-01-2022 13:27-0500 Diastolic blood pressure 80 mm[Hg] Yessenia AUGUSTL [facility] [place] 05-01-2022 13:27-0500 Heart rate 72 /min Yessenia AUGUSTL [facility] [place] 05-01-2022 13:27-0500 Respiratory rate 16 /min Yessenia NILL [facility] [place] 05-01-2022 13:27-0500 Systolic blood pressure 126 mm[Hg] Yessenia JAMESON [facility] [place] Encounters Encounter Date Encounter Type Care Provider Facility Start: 03-08-2025 End: 03-08-2025 Admission to same day surgery [place] Sd Butt -Surgical Outpatient Work Phone: Start: 03-08-2025 End: 03-08-2025 ambulatory Erin [facility] Work Phone: Start: 02-24-2025 End: 02-24-2025 Patient encounter procedure Concepcion Lynn MEDIA INTERN -Pain Management Work Phone: Start: 02-24-2025 End: 02-24-2025 ambulatory [facility] Work Phone: Start: 02-15-2025 End: 02-15-2025 Admission to same day surgery center Sd Butt -Surgical Outpatient Work Phone: Start: 02-15-2025 End: 02-15-2025 ambulatory Erin [facility] Work Phone: Start: 02-15-2025 End: 02-15-2025 ambulatory Sd Butt MD Facility:[facility] Start: 01-27-2025 End: 01-27-2025 Patient encounter procedure Concepcion Lynn MEDIA INTERN -Pain Management Work Phone: Start: 01-27-2025 End: 01-27-2025 ambulatory Erin [facility] Work Phone: Start: 01-26-2025 End: 01-26-2025 ambulatory Erin Watson MEDIA INTERN-C Work Phone: [facility] Work Phone: Start: 01-26-2025 End: 01-26-2025 Patient encounter procedure Erin Mauro Watson MEDIA INTERN-C -[facility] Work Phone: Start: 01-23-2025 Patient encounter procedure Erin Watson MEDIA INTERN-C Work Phone: [facility] Start: 01-19-2025 End: 01-19-2025 Patient encounter procedure Concepcion Lynn MEDIA INTERN -MRI/MRA Start: 01-19-2025 End: 01-19-2025 ambulatory Erin [facility] Work Phone: Start: 01-05-2025 Non-patient / Non-visit Erin Malagon lupillo MEDIA INTERN-C -[facility] Work Phone: Start: 01-05-2025 End: 01-05-2025 Patient encounter procedure Erin Jakiqueeniemar MEDIA INTERN -Laboratory Start: 01-05-2025 End: 01-05-2025 ambulatory Erin [facility] Work Phone: Start: 12-30-2024 End: 12-30-2024 Patient encounter procedure Concepcion Lynn MEDIA INTERN -Pain Management Work Phone: Start: 12-30-2024 End: 12-30-2024 ambulatory Erin [facility] Work Phone: Start: 12-25-2024 End: 12-25-2024 Refill Erin Watson MEDIA INTERN Work Phone: [facility] Comment on above: Gastro-esophageal re flux disease without esophagitis; Mixed hyperlipidemia ; Fibromyalgia; Localized edema Start: 12-22-2024 Evaluation and management of inpatient Erin Watson Facility:[facility] Start: 12-15-2024 End: 12-15-2024 Patient encounter procedure Concepcion Lynn MEDIA INTERN -Radiology Start: 12-15-2024 End: 12-15-2024 ambulatory Erin [facility] Work Phone: Start: 12-15-2024 End: 12-15-2024 Clinisync Result Encounter Generic External Data Provider [facility] External Department Unsolicited Start: 12-15-2024 End: 12-15-2024 Clinisync Result Encounter Generic External Data Provider [facility] External Department Unsolicited Start: 12-10-2024 End: 12-10-2024 Patient encounter procedure Concepcion Lnyn MEDIA INTERN -Pain Management Work Phone: Start: 12-10-2024 End: 12-10-2024 ambulatory Erin [facility] Work Phone: Start: 11-26-2024 End: 11-26-2024 Bamboo flowsheet Toshia Villa DO Work Phone: [facility] Start: 11-26-2024 End: 11-26-2024 Bamboo flowsheet Toshia Villa DO Work Phone: [facility] Start: 11-26-2024 End: 11-26-2024 ambulatory TOSHIA VILLA Not Available Start: 11-26-2024 End: 11-26-2024 Office outpatient new 45 minutes Toshia Villa DO Work Phone: [facility] Comment on above: SHIMA (obstructive sle ep apnea) (Primary Dx); Cigarette smoker Start: 11-24-2024 Registered Recurring Ashtyn AmezcuaBH Credible Start: 11-24-2024 End: 11-24-2024 ambulatory Jose Roberts Facility:[facility] Comment on above: Acute back pain with sciatica, unspecified laterality (Primary Dx) Start: 11-23-2024 End: 11-23-2024 Orders Only Erin Watson NP Work Phone: [facility] Comment on above: Acute back pain with sciatica, unspecified laterality (Primary Dx) Start: 10-31-2024 End: 11-01-2024 Refill Erin Watson NP Work Phone: [facility] Comment on above: Tobacco dependence Start: 10-26-2024 End: 10-26-2024 Patient encounter procedure Erin Watson NP Work Phone: [facility] Comment on above: Encounter for subseq uent annual wellness visit (AWV) in Medicare patient (Primary Dx); Chronic kidney disease, stage 3a (CMS-HCC); SHIMA (obstructive sleep apnea); COPD mixed type ([facility]); Gastroesophageal reflux disease, unspecified whether esophagitis present; Bilateral lower extremity edema; Anxiety and depression ; Tobacco dependence; Mixed hyperlipidemia ; Fibromyalgia; Environmental and seasonal allergies; Gastro-esophageal reflux disease without esophagitis; Personal history of other diseases of the nervous system and sense organs; Screening for lung cancer Start: 10-26-2024 End: 10-26-2024 ambulatory ERIN AICHHOLZ Not Available Start: 09-30-2024 End: 09-30-2024 Refill Erin Aichholz MEDIA INTERN Work Phone: [facility] Comment on above: Fibromyalgia Start: 09-23-2024 End: 09-23-2024 Emergency department patient visit -Emergency Department Work Phone: Start: 09-21-2024 End: 09-21-2024 Refill Erin Aichholz MEDIA INTERN Work Phone: [facility] Comment on above: Tobacco dependence ( Primary Dx) Start: 09-09-2024 End: 09-09-2024 Refill Erin Aichholz MEDIA INTERN Work Phone: [facility] Comment on above: Mixed hyperlipidemia (CMS/HCC) Start: 08-04-2024 End: 08-04-2024 Refill Erin Aichholz MEDIA INTERN Work Phone: [facility] Comment on above: Fibromyalgia Start: 07-15-2024 End: 07-15-2024 Refill Erin Aichholz MEDIA INTERN Work Phone: [facility] Comment on above: Environmental and se asonal allergies (Primary Dx); COPD mixed type (CMS/HCC) Start: 07-04-2024 End: 07-06-2024 Refill Erin Aichholz MEDIA INTERN Work Phone: [facility] Comment on above: Fibromyalgia; Localized edema; Mixed hyperlipidemia (CMS/HCC) Start: 06-09-2024 End: 06-09-2024 Office outpatient new 30 minutes Shalonda White DO Work Phone: [facility] Comment on above: 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); Tremor Start: 06-09-2024 End: 06-09-2024 ambulatory SHALONDA WHITE Not Available Start: 06-09-2024 End: 06-09-2024 Bamboo flowsheet Shalonda White DO Work Phone: [facility] Start: 06-09-2024 End: 06-09-2024 Bamboo flowsheet Shalonda White DO Work Phone: [facility] Start: 05-07-2024 End: 05-07-2024 Bamboo flowsheet Erin Watson MEDIA INTERN Work Phone: [facility] Start: 05-07-2024 End: 05-07-2024 Bamboo flowsheet Erin Watson MEDIA INTERN Work Phone: [facility] Start: 05-07-2024 End: 05-07-2024 ambulatory ERIN WATSON Not Available Start: 05-07-2024 End: 05-07-2024 Office outpatient visit 25 minutes Erin Watson MEDIA INTERN Work Phone: [facility] Comment on above: COPD with acute exac erbation (CMS/HCC) (Primary Dx); Morbid (severe) obesity due to excess calories (CMS/[facility]); Body mass index (BMI) 40.0-44.9, adult (CMS/[facility]); SHIMA (obstructive sleep apnea); COPD mixed type (CMS/HCC); Gastroesophageal reflux disease, unspecified whether esophagitis present; Tobacco dependence; Gastro-esophageal reflux disease without esophagitis; Tremor Start: 04-30-2024 End: 05-03-2024 Refill Erin Watson MEDIA INTERN Work Phone: [facility] Comment on above: Fibromyalgia Start: 04-23-2024 End: 04-23-2024 Clinisync Result Encounter Erin Watson MEDIA INTERN Work Phone: [facility] Unsolicited Start: 04-23-2024 End: 04-23-2024 Clinisync Result Encounter Erin Watson MEDIA INTERN Work Phone: [facility] Unsolicited Start: 04-23-2024 End: 04-23-2024 Departed Referred [facility] Start: 04-23-2024 End: 04-23-2024 ambulatory [facility] Work Phone: Start: 04-20-2024 End: 04-20-2024 Clinisync Result Encounter Erin Watson MEDIA INTERN Work Phone: [facility] Unsolicited Start: 04-20-2024 End: 04-20-2024 Clinisync Result Encounter Erin Walter MEDIA INTERN Work Phone: [facility] Department Unsolicited Start: 04-20-2024 End: 04-20-2024 Patient encounter procedure [facility] Start: 04-20-2024 End: 04-20-2024 ambulatory [facility] Work Phone: Start: 03-30-2024 End: 03-30-2024 Bamboo flowsheet Erin Watson MEDIA INTERN Work Phone: [facility] Start: 03-30-2024 End: 03-30-2024 Bamboo flowsheet Erin Watson MEDIA INTERN Work Phone: [facility] Start: 03-30-2024 End: 03-30-2024 Office outpatient visit 25 minutes Erin Watson MEDIA INTERN Work Phone: [facility] Comment on above: SHIMA (obstructive sle ep apnea) (Primary Dx); COPD mixed type ([facility]); Primary hypertension ([facility]); Fibromyalgia; BMI 40.0-44.9, adult ([facility]); Tobacco dependence; Mixed hyperlipidemia ([facility]); Vitamin D deficiency; Vitamin B12 deficiency; COPD with acute exacerbation ([facility]) Start: 03-30-2024 End: 03-30-2024 ambulatory ERIN JAKIHHOLZ Not Available Start: 03-27-2024 End: 03-27-2024 Refill Erin Lebronholz MEDIA INTERN Work Phone: [facility] Start: 03-26-2024 End: 03-27-2024 Refill Erin Aichholz MEDIA INTERN Work Phone: [facility] Comment on above: Fibromyalgia Start: 03-21-2024 End: 03-24-2024 Evaluation and management of inpatient [facility] Work Phone: Start: 03-21-2024 End: 03-23-2024 Clinisync Result Encounter Generic External Data Provider [facility] External Department Unsolicited Start: 03-21-2024 End: 03-23-2024 Clinisync Result Encounter Generic External Data Provider [facility] External Department Unsolicited Start: 03-20-2024 End: 03-23-2024 Clinisync Result Encounter Generic External Data Provider [facility] External Department Unsolicited Start: 03-20-2024 End: 03-23-2024 Clinisync Result Encounter Generic External Data Provider [facility] External Department Unsolicited Start: 03-20-2024 End: 03-20-2024 Emergency department patient visit [facility]gency [facility] Work Phone: Start: 02-19-2024 End: 02-19-2024 Refill Erin Watson MEDIA INTERN Work Phone: [facility] Comment on above: Mixed hyperlipidemia (CMS/HCC) Start: 01-21-2024 End: 01-21-2024 Refill Erin Watson MEDIA INTERN Work Phone: [facility] Comment on above: Fibromyalgia; Gastro-esophageal reflux disease without esophagitis Start: 08-29-2023 Patient encounter procedure Erin Watson MEDIA INTERN Work Phone: [facility] Start: 08-26-2023 End: 03-04-2025 Clinisync Result Encounter Erin Watson MEDIA INTERN Work Phone: [facility] External Department Unsolicited Start: 08-26-2023 End: 03-04-2025 Clinisync Result Encounter Erin Watson MEDIA INTERN Work Phone: [facility] Department Unsolicited Start: 07-31-2023 End: 03-04-2025 Clinisync Result Encounter Erin Watson MEDIA INTERN Work Phone: [facility] Department Unsolicited Start: 07-31-2023 End: 03-04-2025 Clinisync Result Encounter Erin Dianamar MEDIA INTERN Work Phone: [facility] Department Unsolicited Start: 07-29-2023 End: 03-04-2025 Clinisync Result Encounter Erin Dianamar MEDIA INTERN Work Phone: [facility] Department Unsolicited Start: 07-29-2023 End: 03-04-2025 Clinisync Result Encounter Erin Dianamar MEDIA INTERN Work Phone: [facility] Department Unsolicited Start: 07-18-2023 End: 03-04-2025 Clinisync Result Encounter Generic External Data Provider [facility] External Department Unsolicited Start: 07-18-2023 End: 03-04-2025 Clinisync Result Encounter Generic External Data Provider [facility] External Department Unsolicited Start: 07-18-2023 End: 07-18-2023 ambulatory [facility] Work Phone: Start: 07-18-2023 End: 07-18-2023 Patient encounter procedure [facility] Start: 07-15-2023 End: 07-15-2023 [place] Work Phone: Start: 07-15-2023 End: 07-15-2023 Patient encounter procedure [facility] Start: 07-04-2023 End: 07-04-2023 ambulatory [facility] Work Phone: Start: 07-04-2023 End: 07-04-2023 Patient encounter procedure [facility] Start: 06-21-2023 End: 06-21-2023 [facility] Start: 06-20-2023 End: 06-20-2023 ambulatory [facility] Work Phone: Start: 06-20-2023 End: 06-20-2023 [facility] Start: 06-20-2023 Bamboo flowsheet Erin Watson MEDIA INTERN Work Phone: [facility] Start: 06-20-2023 End: 03-04-2025 Bamboo flowsheet Erin Watson MEDIA INTERN Work Phone: [facility] Start: 06-20-2023 End: 03-04-2025 Clinisync Result Encounter Erin Watson MEDIA INTERN Work Phone: [facility] External Department Unsolicited Start: 06-20-2023 End: 06-20-2023 Office outpatient visit 25 minutes Erin Watson MEDIA INTERN Work Phone: [facility] Comment on above: Edema of right lower extremity (Primary Dx); BMI 40.0-44.9, adult (CMS/HCC); Shortness of breath; COPD mixed type (CMS/HCC); Primary hypertension (CMS/HCC); Bilateral lower extremity edema Start: 06-19-2023 End: 03-04-2025 Clinisync Result Encounter Generic External Data Provider [facility] External Department Unsolicited Start: 06-19-2023 End: 03-04-2025 Clinisync Result Encounter Generic External Data Provider [facility] External Department Unsolicited Start: 06-19-2023 End: 06-19-2023 [place] Work Phone: Start: 06-19-2023 End: 06-19-2023 Patient encounter procedure [facility]Cardio Pulmonary Start: 06-11-2023 End: 06-11-2023 Office outpatient visit 25 minutes Erin Watson MEDIA INTERN Work Phone: [facility] Comment on above: COPD mixed type (CMS /HCC) (Primary Dx); Tobacco dependence; BMI 40.0-44.9, adult (CMS/HCC); Body mass index [BMI] 40.0-44.9, adult (Z68.41); Primary hypertension (CMS/HCC); Bilateral lower extremity edema Start: 05-23-2023 End: 05-23-2023 [place] Work Phone: Start: 05-23-2023 End: 05-23-2023 Patient encounter procedure [facility] Start: 04-05-2023 End: 04-05-2023 Emergency department patient visit [facility]Emergency [facility] Work Phone: Start: 10-08-2022 End: 10-08-2022 Patient encounter procedure [facility]Nuclear Medicine Start: 10-03-2022 ambulatory ANSHU ERIN WALTER Facil ity:H1 Start: 08-24-2022 End: 08-25-2022 ambulatory ANSHU ONEAL JAKIQueenieMAGNOLIALizette Facility:H1 Start: 08-24-2022 End: 08-24-2022 Patient encounter procedure [facility]- Start: 07-31-2022 End: 08-01-2022 ambulatory ANSHU ONEAL JAKIQueenieMAR Facility:H1 Start: 07-31-2022 End: 07-31-2022 Patient encounter procedure [facility]- Start: 07-26-2022 End: 07-27-[address]AYRON LR . Facility:[facility]1 Start: 07-26-2022 End: 07-26-2022 Patient encounter procedure [facility]- Start: 06-26-2022 End: 06-26-[address] BAYRON LR . Facility:[facility]1 Start: 06-26-2022 End: 06-26-2022 Admission to same day surgery center [facility]- Start: 06-22-[address] BAYRON LR . Faci lity:H1 Start: 06-22-2022 End: 06-22-2022 Patient encounter procedure [facility]- Start: 06-19-2022 End: 06-20-2022 ambulatory Yessenia JAMESON Facility:[facility] Start: 06-12-2022 ambulatory Yessenia JAMESON Facility : [facility] Start: 06-05-2022 End: 06-05-2022 ambulatory ANSHU HOLLANDA JAKIQueenieMAR Facility:H1 Start: 06-05-2022 End: 06-05-2022 Departed Referred [facility]- Start: 05-28-2022 Encounter for preprocedural laboratory examination DR BAYRON LR . [facility] Start: 05-26-2022 End: 05-27-2022 Encounter for preprocedural laboratory examination ANSHU WATSON Facility:[facility]1 Start: 05-26-2022 End: 05-27-2022 ambulatory ANSHU WATSON Facility:[facility] Start: 05-26-2022 End: 05-26-2022 Patient encounter procedure [facility]- Start: 05-23-2022 End: 05-24-2022 ambulatory Yessenia JAMESON Facility:[id number] Start: 05-23-2022 End: 05-23-2022 Admission to same day surgery center [facility]- Start: 05-19-2022 End: 05-20-[address] YESSENIA JAMESON . Facility:[facility]1 Start: 05-19-2022 End: 05-19-2022 Patient encounter procedure [facility]- Start: 05-04-2022 End: 05-05-2022 ambulatory ABHILASH LILLY . Facility:[facility]1 Start: 05-04-2022 End: 05-04-2022 Patient encounter procedure [facility]- Start: 05-01-2022 End: 05-02-2022 ambulatory Teresita Cerda Aicmagnolializette Facility:[facility] Start: 05-01-2022 End: 05-01-2022 Patient encounter procedure Yessenia JAMESON General Surgery [facility] [place] Start: 04-10-2022 End: 04-10-[address] BAYRON LR . Facility:[facility]1 Start: 04-10-2022 End: 04-10-2022 Admission to same day surgery center [facility]- Start: 04-05-2022 End: 04-06-[address] BAYRON LR . Facility:[facility]1 Start: 04-05-2022 End: 04-05-2022 Patient encounter procedure [facility]- Start: 04-03-2022 ambulatory Yessenia JAMESON Facility :[facility] Start: 03-20-2022 End: 03-20-[address] BAYRON LR . Facility:H1 Start: 03-20-2022 End: 03-20-2022 Admission to same day surgery center [facility]- Start: 03-06-2022 End: 03-07-[address] BAYRON LR . Facility:H1 Start: 03-06-2022 End: 03-06-2022 Patient encounter procedure [facility]- Start: 03-01-2022 End: 03-02-2022 ambulatory ANSHU DIANAMAGNOLIALizette Facility:H1 Start: 03-01-2022 End: 03-01-2022 Patient encounter procedure [facility]- Start: 02-28-2022 End: 02-28-2022 ambulatory NAVIN FELTON . Facility:[facility]1 Start: 02-28-2022 End: 02-28-2022 Emergency department patient visit [facility]- Start: 01-05-2022 End: 01-25-2022 ambulatory MR ARDEN DEL VALLE . Facility:[facility]1 Start: 01-05-2022 End: 01-25-2022 [facility] Start: 12-25-2021 End: 12-26-2021 ambulatory ANSHU ONEAL JAKIQueenieMAR Facility:H1 Start: 12-25-2021 End: 12-25-2021 Patient encounter procedure [facility]- Start: 12-16-2021 End: 12-16-2021 ambulatory NAVIN FELTON . Facility:[facility]1 Start: 12-16-2021 End: 12-16-2021 Emergency department patient visit [facility]- Start: 10-03-2021 End: 10-26-2021 [facility] Start: 09-22-2021 End: 09-22-2021 [facility] Start: 06-28-2020 End: 06-28-2020 Patient encounter procedure [facility]- Start: 01-29-2020 End: 01-29-2020 Patient encounter procedure [facility]- Start: 12-10-2019 End: 12-10-2019 Patient encounter procedure [facility]- Start: 10-20-2019 End: 10-20-2019 Patient encounter procedure [facility]- Start: 10-13-2019 End: 10-13-2019 Patient encounter procedure [facility]- Start: 09-29-2019 End: 09-29-2019 Patient encounter procedure [facility]- Start: 07-30-2019 End: 07-30-2019 Patient encounter procedure [facility]- Start: 07-23-2019 End: 07-23-2019 Patient encounter procedure [facility]- Start: 07-14-2019 End: 07-14-2019 Patient encounter procedure [facility]- Start: 03-04-2019 End: 03-04-2019 Patient encounter procedure [facility]- Start: 03-03-2019 End: 03-03-2019 Patient encounter procedure [facility]- Start: 02-15-2019 End: 02-15-2019 Emergency department patient visit [facility]- Start: 11-27-2017 End: 11-27-2017 Patient encounter procedure [facility]- Start: 11-21-2017 End: 11-21-2017 Patient encounter procedure [facility]- Start: 10-30-2017 End: 10-30-2017 Patient encounter procedure [facility]- Start: 10-23-2017 End: 10-23-2017 Patient encounter procedure [facility]- Start: 09-10-2017 End: 09-10-2017 Patient encounter procedure [facility]- Start: 08-21-2017 End: 08-21-2017 Patient encounter procedure [facility]- Start: 11-30-2016 End: 11-30-2016 Emergency department patient visit [facility]- Start: 10-29-2016 End: 10-29-2016 Patient encounter procedure [facility]- Start: 10-25-2016 End: 10-25-2016 Patient encounter procedure [facility]- Start: 09-25-2016 End: 12-30-2016 [facility] Start: 08-22-2016 End: 08-22-2016 Departed Referred [facility]- Start: 08-21-2016 End: 08-21-2016 Emergency department patient visit [facility]- Start: 06-01-2016 End: 06-01-2016 Patient encounter procedure [facility]- Start: 04-12-2016 End: 04-12-2016 Departed Referred [facility]- Start: 02-07-2016 End: 02-07-2016 Emergency department patient visit [facility]- Start: 01-16-2016 End: 01-16-2016 Patient encounter procedure [facility]- Start: 01-10-2016 End: 01-10-2016 Patient encounter procedure [facility]- Start: 01-05-2016 End: 01-05-2016 Departed Referred [facility]- Start: 08-31-2015 End: 08-31-2015 Patient encounter procedure [facility]- Start: 01-28-2015 End: 01-28-2015 Patient encounter procedure [facility]- Start: 11-29-2014 End: 11-30-2014 Admission to same day surgery center [facility]- Start: 11-25-2014 End: 11-25-2014 Patient encounter procedure [facility]- Start: 10-26-2014 End: 10-26-2014 Patient encounter procedure [facility] [facility] Start[facility] 09-28-2014 End: 09-28-2014 Patient encounter procedure [facility]- Start: 09-15-2014 End: 10-31-2014 Discharged Recurring [facility]- Start: 08-11-2014 End: 08-11-2014 Departed Referred [facility]- Start: 08-03-2014 End: 08-03-2014 Patient encounter procedure [facility]- Start: 02-04-2014 End: 02-04-2014 Patient encounter procedure [facility]- Start: 01-06-2014 End: 01-06-2014 Emergency department patient visit [facility]- Start: 12-14-2013 End: 12-14-2013 Patient encounter procedure [facility]- Start: 11-04-2013 End: 11-04-2013 Patient encounter procedure [facility]- Start: 11-03-2013 End: 12-07-2013 Discharged Recurring [facility]- Start: 10-20-2013 End: 10-21-2013 Emergency department patient visit [facility]- Start: 10-06-2013 End: 11-02-2013 Discharged Recurring [facility]- Start: 09-10-2013 End: 09-10-2013 Patient encounter procedure [facility]- Start: 07-08-2013 End: 07-08-2013 Patient encounter procedure [facility]- Start: 07-03-2013 End: 07-03-2013 Patient encounter procedure [facility]- Start: 06-21-2013 End: 06-21-2013 Emergency department patient visit [facility]- Start: 05-29-2013 End: 05-29-2013 Patient encounter procedure [facility]- Start: 05-27-2013 End: 05-27-2013 Patient encounter procedure [facility]- Start: 02-13-2013 End: 02-13-2013 Patient encounter procedure [facility]- Start: 01-22-2013 End: 01-22-2013 Patient encounter procedure [facility]- Start: 01-21-2013 End: 01-21-2013 Patient encounter procedure [facility]- Start: 07-16-2012 End: 07-16-2012 Emergency department patient visit [facility]- Start: 06-30-2012 End: 06-30-2012 Patient encounter procedure [facility]- Start: 06-26-2012 End: 06-26-2012 Patient encounter procedure [facility]- Start: 02-18-2012 End: 02-18-2012 Emergency department patient visit [facility]- Start: 07-18-2011 End: 07-18-2011 Patient encounter procedure [facility]- Start: 06-27-2011 End: 06-27-2011 Patient encounter procedure [facility]- Start: 05-29-2011 End: 05-29-2011 Patient encounter procedure [facility]- Start: 05-10-2011 End: 05-10-2011 Patient encounter procedure [facility]- Start: 12-15-2010 End: 12-15-2010 Emergency department patient visit [facility]- Start: 10-28-2010 End: 10-28-2010 Emergency department patient visit [facility]- Start: 08-24-2010 End: 08-24-2010 Patient encounter procedure [facility]- Start: 12-15-2009 End: 12-15-2009 Patient encounter procedure [facility]- Start: 11-15-2009 End: 11-15-2009 Emergency department patient visit [facility]- Start: 10-06-2009 End: 10-06-2009 Patient encounter procedure [facility]- Start: 06-07-2009 End: 06-07-2009 Emergency department patient visit [facility]- Start: 05-31-2009 End: 05-31-2009 Patient encounter procedure [facility]- Start: 05-24-2009 End: 05-24-2009 Patient encounter procedure [facility]- Start: 05-02-2009 End: 05-02-2009 Patient encounter procedure [facility]- Start: 04-26-2009 End: 04-26-2009 Patient encounter procedure [facility]- Start: 04-06-2009 End: 04-06-2009 Patient encounter procedure [facility]- Start: 02-22-2009 End: 02-22-2009 Patient encounter procedure [facility]- Start: 02-21-2009 End: 02-21-2009 Emergency department patient visit [facility]- Start: 02-18-2009 End: 02-18-2009 Emergency department patient visit [facility]- Start: 01-06-2009 End: 01-06-2009 Patient encounter procedure [facility]- Start: 12-16-2008 End: 12-16-2008 Patient encounter procedure [facility]- Start: 09-16-2008 End: 09-16-2008 Patient encounter procedure [facility]- Start: 08-04-2008 End: 08-04-2008 Patient encounter procedure [facility]- Start: 06-24-2008 End: 06-24-2008 Patient encounter procedure [facility]- Start: 05-27-2008 End: 05-27-2008 Patient encounter procedure [facility]- Start: 02-26-2008 End: 02-26-2008 Patient encounter procedure [facility]- Start: 11-27-2007 End: 11-27-2007 Patient encounter procedure [facility]- Start: 10-29-2007 End: 10-29-2007 Patient encounter procedure [facility]- Procedures Date Procedure Procedure Detail Performing Clinician Start: 03-08-2025 Pain Sacroiliac Join t Injection (Local) (Left) Start: 02-15-2025 Pain L4 and Below TF NIMO Local (Left) Start: 01-19-2025 MRI of lumbar spine without contrast Start: 01-05-2025 Measurement of renal function Start: 12-15-2024 XR LUMBAR SPINE 6V W BENDING Generic External Data Provider Start: 12-15-2024 X-ray of lumbar spin e, six views including bending views Start: 05-07-2024 Mammography Erin Aichh olz MEDIA INTERN Work Phone: Start: 04-23-2024 [facility] MICROALB CREAT R ATIO RANDOM Erin Watson MEDIA INTERN Work Phone: Start: 04-20-2024 ALL BASIC METABOLIC PANEL Erin Watson MEDIA INTERN Work Phone: Start: 04-20-2024 ALL LIPID PROFILE (FASTING) Erin Dianamar MEDIA INTERN Work Phone: Start: 03-23-2024 Plain chest X-ray Start: 03-21-2024 BLOOD CULTURE 2 Generic External Data Provider Start: 03-21-2024 BLOOD CULTURE 1 Generic External Data Provider Start: 03-21-2024 12 lead ECG Start: 03-21-2024 Plain chest X-ray Start: 03-21-2024 Blood Culture Result 1 Start: 03-21-2024 Blood Culture Result 2 Start: 03-20-2024 BLOOD CULTURE 2 Generic External Data Provider Start: 03-20-2024 BLOOD CULTURE 1 Generic External Data Provider Start: 03-20-2024 12 lead ECG Start: 03-20-2024 Plain chest X-ray Start: 08-26-2023 CT LUNG SCREENING LOW DOSE Erin Walter MEDIA INTERN Work Phone: Start: 08-26-2023 ALL BASIC METABOLIC PANEL Erin Watson MEDIA INTERN Work Phone: Start: 07-31-2023 CA ECHO DOPPLER COMPLETE Erin Walter MEDIA INTERN Work Phone: Start: 07-29-2023 CT ABDOMEN PELVIS W CON Erin Dianamar MEDIA INTERN Work Phone: Start: 07-18-2023 VC FACILITY EST COMPREHENSIVE Generic External Data Provider Start: 07-18-2023 VC EXT VENOUS REFLUX CORDELL LMTD Generic External Data Provider Start: 06-21-2023 12 lead ECG Start: 06-21-2023 CT of chest Start: 06-20-2023 Dup-scan xtr veins unilateral/limited study Erin Walter MEDIA INTERN Work Phone: Start: 06-20-2023 ALL CBC WITH AUTO DIFF Erin Walter MEDIA INTERN Work Phone: Start: 06-20-2023 [facility] CMP (CMP) (FOR R [facility] PENDING S[facility] TO [facility]) Erin Walter MEDIA INTERN Work Phone: Start: 06-20-2023 [facility] D-DIMER Erin Manas wesley MEDIA INTERN Work Phone: Start: 06-20-2023 XR CHEST 2V Erin Manas wesley MEDIA INTERN Work Phone: Start: 06-20-2023 Doppler ultrasonogra phy of vein of right lower limb Start: 06-20-2023 Plain chest X-ray Start: 06-20-2023 Mammography Erin Manas wesley MEDIA INTERN Work Phone: Start: 06-19-2023 SEGMENTAL BLOOD PRESSURE Generic External Data Provider Start: 06-19-2023 CA segmental UE or LE CORDELL Start: 04-05-2023 Plain chest X-ray Start: 04-05-2023 Plain X-ray of bilat eral clavicles Start: 10-08-2022 Radionuclide myocard ial perfusion stress study Start: 05-23-2022 Colonoscopy Erin Manas wesley MEDIA INTERN Work Phone: section Yessenia Cerda Ligation of fallopian tube Karen mile JAMESON Repair of meniscus Yessenia ZAMORANO Total abdominal hyst erectomy with bilateral salpingo-oophorectomy Yessenia JAMESON Plan of Treatment Date Care Activity Detail Author Start: 05-23-2032 Screening for malign ant neoplasm of colon [facility] Start: 10-28-2025 End: 10-28-2025 Patient encounter procedure 10/28/2025 10:30 AM EDT Office Visit [facility] [address] [place] [phone] Erin Watson NP [address] [place] [id number] [facility] Start: 10-26-2025 Medicare Annual Well ness (AWV) Medicare Annual Wellness (AWV) [facility] Start: 05-07-2025 Screening for malign ant neoplasm of breast Mammogram [facility] Start: 03-23-2025 Screening for malign ant neoplasm of colon FIT-DNA [facility] Start: 03-17-2025 Evaluation and management of inpatient Inpatient Encounter Facility:[facility] Start: 03-08-2025 Patient discharge [facility] Work Phone: Start: 03-04-2025 End: 03-04-2025 Patient encounter procedure [facility] Start: 02-15-2025 Patient discharge [facility] Work Phone: Start: 01-04-2025 COVID-19 Vaccine ( season) COVID-19 Vaccine () [facility] Start: 01-04-2025 Influenza vaccination [facility] Start: 12-23-2024 End: 12-23-2024 Patient encounter procedure 12/23/2024 8:40 AM EDT Office Visit [facility] [address] [place] [address] Erin Watson NP [address] [place] [address] [facility] Start: 11-26-2024 End: 11-26-2024 Patient encounter procedure 11/26/2024 1:00 PM EDT Consult [facility] [address] [place] [phone] Toshia Villa DO [address] [place] [address] [facility] Start: 10-26-2024 End: 10-26-2025 CT Chest for screening WO contrast CT lung screening low dose Imaging Routine Tobacco dependence Expected: 10/26/2024, Expires: 10/26/2025 [facility] Work Phone: Comment on above: Expected: 10/26/2024 , Expires: 10/26/2025 Start: 10-26-2024 End: 10-26-2024 Patient encounter procedure 10/26/2024 10:30 AM EDT Office Visit [facility] [address] [place] [phone] Erin Watson, BETITO [address] [place] [phone] [facility] Start: 09-09-2024 Influenza vaccination Influenza Vacc ine (#1) [facility] Comment on above: Postponed from 01/04 (Patient Refused) Start: 08-31-2024 End: 08-31-2024 Patient encounter procedure 08/31/2024 3:40 PM EDT Office Visit [facility] [address] [place] [phone] Niya Le NP [address] [place] [address] [facility] Start: 08-28-2024 Medicare Annual Well ness (AWV) Medicare Annual Wellness (AWV) [facility] Start: 08-05-2024 End: 08-05-2024 Patient encounter procedure 08/05/2024 2:00 PM EDT Office Visit [facility] [address] [place] [phone] Erin Watson, BETITO [address] [place] [phone] [facility] Start: 07-02-2024 Influenza vaccination Influenza Vacc ine (#1) [facility] Comment on above: Postponed from 01/04 (Patient Refused) Start: 06-20-2024 Screening for malign ant neoplasm of breast Mammogram [facility] Start: 06-09-2024 End: 06-09-2024 Patient encounter procedure 06/09/2024 3:00 PM EST Office Visit [facility] [address] [place] [address] Shalonda White DO [address] [place] [address] [facility] Comment on above: Tremor Start: 04-22-2024 End: 04-22-2024 Patient encounter procedure 04/22/2024 10:30 AM EST Office Visit [facility] [address] [place] [phone] Erin Watson NP [address] [place] [address] [facility] Start: 04-20-2024 [facility] Work Phone: Start: 03-30-2024 End: 03-30-2025 25-hydroxyvitamin D3 [Mass/volume] in Serum or Plasma Vitamin D 25 hydroxy Lab Routine Vitamin D deficiency Expected: 03/30/2024 (Approximate), Expires: 03/30/2025 [facility] Comment on above: Expected: 03/30/2024 (Approximate), Expires: 03/30/2025 Start: 03-30-2024 End: 03-30-2025 Basic metabolic 1998 panel - Serum or Plasma Basic metabolic panel Lab Routine Primary hypertension (CMS/HCC) Expected: 03/30/2024 (Approximate), Expires: 03/30/2025 [facility] Comment on above: Expected: 03/30/2024 (Approximate), Expires: 03/30/2025 Start: 03-30-2024 End: 03-30-2025 Cobalamin (Vitamin B12) [Mass/volume] in Serum or Plasma Vitamin B12 Lab Routine Vitamin B12 deficiency Expected: 03/30/2024 (Approximate), Expires: 03/30/2025 [facility] Comment on above: Expected: 03/30/2024 (Approximate), Expires: 03/30/2025 Start: 03-30-2024 End: 03-30-2025 Lipid 1996 panel - Serum or Plasma Lipid panel Lab Routine Mixed hyperlipidemia (CMS/HCC) Expected: 03/30/2024 (Approximate), Expires: 03/30/2025 [facility] Comment on above: Expected: 03/30/2024 (Approximate), Expires: 03/30/2025 Start: 03-30-2024 End: 03-30-2025 Microalbumin/Creatinine panel in random Urine Microalbumin / creatinine, urine ratio Lab Routine Primary hypertension (CMS/HCC) Tobacco dependence Expected: 03/30/2024 (Approximate), Expires: 03/30/2025 [facility] Work Phone: Comment on above: Expected: 03/30/2024 (Approximate), Expires: 03/30/2025 Start: 03-30-2024 End: 03-30-2025 Urinalysis complete panel - Urine Urinalysis with reflex microscopic (clean catch) Lab Routine Primary hypertension (CMS/HCC) Tobacco dependence Expected: 03/30/2024 (Approximate), Expires: 03/30/2025 [facility] Comment on above: Expected: 03/30/2024 (Approximate), Expires: 03/30/2025 Start: 03-30-2024 End: 03-30-2024 Patient encounter procedure [facility] Comment on above: SHIMA (obstructive sle ep apnea) (Primary Dx); COPD mixed type ([facility]); Primary hypertension ([facility]); Fibromyalgia; BMI 40.0-44.9, adult ([facility]); Tobacco dependence; Mixed hyperlipidemia ([facility]); Vitamin D deficiency; Vitamin B12 deficiency Start: 03-24-2024 Patient discharge [facility] Work Phone: Start: 03-22-2024 Complete blood count [facility] Work Phone: Start: 03-21-[address] [facility] Work Phone: Start: 03-21-2024 Hospital admission, emergency, from emergency room, medical nature [facility] Work Phone: Start: 03-21-2024 End: 03-21-2024 [facility] Work Phone: Start: 03-21-2024 12 lead ECG ECG 12 lead [facility] Work Phone: Start: 03-21-2024 Blood Culture Result 1 Blood Culture Result 1 [facility] Work Phone: Start: 03-21-2024 Blood Culture Result 2 Blood Culture Result 2 [facility] Work Phone: Start: 03-20-2024 Blood Culture Result 1 Blood Culture Result 1 [facility] Work Phone: Start: 03-20-2024 Blood Culture Result 2 Blood Culture Result 2 [facility] Work Phone: Start: 03-20-2024 End: 03-20-2024 [facility] Work Phone: Start: 03-20-2024 12 lead ECG ECG 12 lead [facility] Work Phone: Start: 01-05-2024 Influenza vaccination Influenza Vacc ine (#1) [facility] Start: 12-22-2023 DTaP/Tdap/Td Vaccine s (2 - Td or Tdap) DTaP/Tdap/Td Vaccines (2 - Td or Tdap) [facility] Start: 11-03-2023 Influenza vaccination Influenza Vacc ine (#1) [facility] Comment on above: Postponed from 01/04 (Patient Refused) Start: 07-02-2023 End: 07-02-2023 Patient encounter procedure 07/02/2023 1:40 PM EST Office Visit [facility] [address] [place] [phone] Erin Watson NP [address] [place] [phone] [facility] Start: 06-21-2023 12 lead ECG ECG 12 lead [facility] Work Phone: Start: 06-20-2023 End: 06-20-2024 CBC W Auto Differential panel - Blood CBC and differential Lab Routine Edema of right lower extremity Expected: 06/20/2023 (Approximate), Expires: 06/20/2024 [facility] Comment on above: Expected: 06/20/2023 (Approximate), Expires: 06/20/2024 Start: 06-20-2023 End: 06-20-2024 Comprehensive metabolic 2000 panel - Serum or Plasma Comprehensive metabolic panel Lab Routine Edema of right lower extremity Expected: 06/20/2023 (Approximate), Expires: 06/20/2024 [facility] Comment on above: Expected: 06/20/2023 (Approximate), Expires: 06/20/2024 Start: 06-20-2023 End: 06-20-2024 Fibrin D-dimer FEU [Mass/volume] in Platelet poor plasma D-dimer, quantitative Lab Routine Edema of right lower extremity Expected: 06/20/2023 (Approximate), Expires: 06/20/2024 [facility] Comment on above: Expected: 06/20/2023 (Approximate), Expires: 06/20/2024 Start: 06-20-2023 End: 06-20-2024 US.doppler Lower extremity vein - right Vascular US lower extremity venous duplex right Imaging STAT Edema of right lower extremity Expected: 06/20/2023, Expires: 06/20/2024 [facility] Work Phone: Comment on above: Expected: 06/20/2023 , Expires: 06/20/2024 Start: 06-20-2023 End: 06-20-2024 XR Chest 2 Views XR chest 2 views Imaging Routine Edema of right lower extremity Shortness of breath Expected: 06/20/2023, Expires: 06/20/2024 [facility] Comment on above: Expected: 06/20/2023 , Expires: 06/20/2024 Start: 10-08-2022 Cardiovascular stres s [facility] Work Phone: Start: 11-11-1993 Screening for malign ant neoplasm of cervix HPV/Cotest [facility] Start: 11-11-1984 Screening for malign ant neoplasm of cervix Pap Smear [facility] Start: 11-11-1964 MMR Vaccines (1 of 1 - Standard series) MMR Vaccines (1 of 1 - Standard series) [facility] Start: 1965 Medicare Annual Well ness (AWV) Medicare Annual Wellness (AWV) [facility] Start: 1963 Screening for malign ant neoplasm of colon [facility] Start: 1963 Screening for malign ant neoplasm of lung Lung Cancer Screening Shared Decision Making [facility] Anion gap measurement [facility] Work Phone: BLOOD CULTURE 1 BLOOD CULTURE 1 Lab Routine 03/20/2024 1:45 PM EST [facility] BLOOD CULTURE 1 BLOOD CULTURE 1 Lab Routine 03/21/2024 9:09 PM EST [facility] BLOOD CULTURE 2 BLOOD CULTURE 2 Lab Routine 03/20/2024 1:51 PM EST [facility] BLOOD CULTURE 2 BLOOD CULTURE 2 Lab Routine 03/21/2024 9:20 PM EST [facility] Blood urea nitrogen measurement [facility] Work Phone: BUN/Creatinine ratio [facility] Work Phone: Calcium measurement [facility] Work Phone: Carbon dioxide [Part ial pressure] in Venous blood [facility] Work Phone: Carbon dioxide, tota l [Moles/volume] in Serum or Plasma [facility] Work Phone: Chloride measurement [facility] Work Phone: Cobalamin (Vitamin B 12) [Mass/volume] in Serum or Plasma [facility] Work Phone: Creatinine [Moles/volume] in Serum or Plasma [facility] Work Phone: Erythrocyte mean corpuscular volume determination [facility] Work Phone: Glucose [Mass/volume ] in Serum or Plasma [facility] Work Phone: Hematocrit [Volume Fraction] of Blood [facility] Work Phone: Leukocytes [#/volume ] in Blood [facility] Work Phone: Mean corpuscular hemoglobin concentration determination [facility] Work Phone: Mean corpuscular hemoglobin determination [facility] Work Phone: Measurement of renal function [facility] Work Phone: Measurement of total hemoglobin concentration [facility] Work Phone: Patient Education [facility] Work Phone: Patient referral [facility] Work Phone: pH of Venous blood [facility] Work Phone: Platelet mean volume determination [facility] Work Phone: Platelets [#/volume] in Blood [facility] Work Phone: Potassium [Moles/vol ume] in Serum, Plasma or Blood [facility] Work Phone: Red blood cell count [facility] Work Phone: Red cell distributio n width determination [facility] Work Phone: Sodium [Moles/volume ] in Serum or Plasma [facility] Work Phone: Immunizations Immunization Date Immunization Notes Care Provider Fa [facility] 11-24-2023 tetanus toxoid, reduced diphtheria toxoid, and acellular pertussis vaccine, adsorbed [facility] Work Phone: 09-09-2020 Gely SARS-CoV-2 Erin rajput MEDIA INTERN Work Phone: [facility] NEGATED: Highlighted row has not occurred!05-01-2022 influenza virus vaccine, unspecified formulation Yessenia JAMESON [facility] Payers Date Payer Category Payer Private Health Insurance 2022 Self-pay 2021 Medicaid [employer] MED[employer] A DVANTAGE [id number] 2015 Medicare [id number] 1963 Unknown [id number] 2.16840.1.596271.3.579.2. 727 1963 Unknown [id number] 2.16840.1.426349.3.579.2. 727 1963 Unknown [id number] 2.16840.1.453620.3.579.2. 72 1963 Unknown [id number] 2.840.1.823615.3.579.2. 727 1963 Unknown [id number] 2.840.1.823612.3.579.2. 72 1963 Unknown [id number] 2.16840.1.096259.3.579.2. 593 1963 Unknown [id number] 2.840.1.766807.3.579.2. 59 1963 Unknown [id number] 2.840.1.759782.3.579.2. 593 1963 Unknown [id number] 2.840.1.896520.3.579.2. 59 1963 Unknown [id number] 2.16840.1.717849.3.579.2. 593 1963 Unknown [id number] 2.16840.1.848258.3.579.2. 593 1963 Unknown [id number] 2.16840.1.685910.3.579.2. 593 1963 Unknown [id number] 2.16840.1.947260.3.579.2. 59 1963 Unknown [id number] 2.16.840.1.682073.3.579.2. 593 1963 Unknown [id number] 2.16.840.1.906074.3.579.2. 59 1963 Unknown [id number] 2.16.840.1.721673.3.579.2. 593 1963 Unknown [id number] 2.16.840.1.782826.3.579.2. 59 1963 Unknown [id number] 2.16.840.1.495796.3.579.2. 593 1963 Unknown [id number] 2.16840.1.073624.3.579.2 59 1963 Unknown [id number] 2.16840.1.138132.3.579.2. 59 1963 Unknown [id number] 2.840.1.638471.3.579.2. 59 1963 Unknown [id number] 2.840.1.451464.3.579.2. 59 1963 Unknown [id number] .840.1.579546.3.579.2. 59 1963 Unknown [id number] 2.16.840.1.123991.3.579.2. 59 1963 Unknown [id number] .16840.1.306643.3.579.2. 59 1963 Unknown [id number] 2.16.840.1.682608.3.579.2. 593 1963 Unknown [id number] .16840.1.594765.3.579.2. 59 1963 Unknown [id number] 2.16.840.1.891427.3.579.2. 1259 1963 Unknown [id number] 2.16.840.1.576897.3.579.2. 1259 1963 Unknown [id number] 2.16.840.1.080797.3.579.2. 9 1963 Unknown [id number] 2.16.840.1.110337.3.579.2. 1258 1963 Unknown [id number] 2.16.840.1.319241.3.579.2. 1258 1963 Unknown [id number] 2.16840.1.406214.3.579.2. 196 [address] [facility] [id number] Medicaid [id number] Unknown [id number] Unknown [id number] 2.16.840.1.928917.3.579.2. 531 Unknown [id number] 2.16840.1.838476.3.579.2. 1271 Unknown [id number] 2.16840.1.702018.3.579.2. 1271 Unknown [id number] 2.16.840.1.263460.3.579.2. 1271 Unknown [id number] 2.16.840.1.867585.3.579.2. 1271 Unknown [id number] 2.16.840.1.329067.3.579.2. 1271 Unknown [id number] 2.16.840.1.821718.3.579.2. 1271 Unknown [id number] 2.16.840.1.877203.3.579.2. 1271 Unknown [id number] 2.16.840.1.113461.3.579.2. 1271 Unknown [id number] 2.16.840.1.246209.3.579.2. 1271 Unknown [id number] 2.16.840.1.624571.3.579.2. 1271 Unknown [id number] 2.16.840.1.439422.3.579.2. 1271 Unknown [id number] 2.16.840.1.993880.3.579.2. 1271 Unknown [id number] 2.16.840.1.354364.3.579.2. 1271 Unknown [id number] 2.16.840.1.274556.3.579.2. 1271 Unknown [id number] 2.16.840.1.767528.3.579.2. 1271 Unknown [id number] 2.16.840.1.611438.3.579.2. 1271 Social History Date Type Detail Facility Start: 05-01-2022 Tobacco smoking status Heavy t obacco smoker (finding) [facility] Start: 07-18-2022 Tobacco smoking status Never [facility] Start: 06-11-2023 End: 08-08-2023 Sex Assigned At Female [facility] Start: 04-05-2023 End: 03-21-2024 Tobacco smoking status ARIS Unknown if ever smoked [facility] Work Phone: Start: 1965 Sex Assigned At Female [facility] Start: 04-23-2023 End: 11-27-2024 Tobacco smoking status ARIS Smokes tobacco daily [facility] History of tobacco use Cigarette Smoker [facility] Start: 04-23-2023 End: 08-08-2023 Cigarettes smoked current (pack per day) - Reported 1 [facility] Start: 04-23-2023 End: 11-27-2024 Tobacco use and exposure Smokeless tobacco non-user [facility] Start: 06-11-2023 End: 06-20-2023 Alcohol intake Ex-drinker (finding) [facility] Start: 04-23-2023 Tobacco Comment 11-20 cigarettes/day [facility] Start: 04-23-2023 Alcohol Comment socially [facility] Start: 1965 Sex Assigned At Not on file [facility] Within the last year , have you been afraid of your partner or ex-partner? No [facility] Are you now , , , , never or living with a partner? [facility] How often to you hav e a drink containing alcohol? Monthly or less [facility] How many standard drinks containing alcohol do you have on a typical day? 1 or 2 [facility] How often do you hav e 6 or more drinks on 1 occasion? Never [facility] How hard is it for y ou to pay for the very basics like food, housing, medical care, and heating Somewhat hard [facility] Do you feel stress - tense, restless, nervous, or anxious, or unable to sleep at night because your mind is troubled all the time - these days [OSQ] Only a little [facility] (I/We) worried wheryan er (my/our) food would run out before (I/we) got money to buy more. Sometimes true [facility] The food that (I/we) bought just didn't last, and (I/we) didn't have money to get more. Often true [facility] In the past 12 month s, was there a time when you were not able to pay the mortgage or rent on time? Yes [facility] Start: 03-20-2024 End: 04-24-2024 Sex Female (finding) [facility] Goals Date Patient Goal Desired Activity /State Functional Status Date Assessment Result Facility 10-26-2024 Patient Health Questionnaire 2 item (PHQ-2) [Reported] [facility] 10-26-2024 PHQ-9 quick depressi on assessment panel [Reported.PHQ] [facility] 03-24-2024 Functional status Good [facility] Work Phone: 03-21-2024 DVT Caprini Risk Score DVT Caprini Risk S [facility] Work Phone: 03-21-2024 Functional status Independent [facility] Work Phone: 08-29-2023 Total score [AUDIT-C] 1 08/29/19 24 3:03 PM Jessica Puentes MA [facility] 08-29-2023 Patient Health Questionnaire 2 item (PHQ-2) [Reported] [facility] 08-29-2023 PHQ-9 quick depressi on assessment panel [Reported.PHQ] [facility] 08-08-2023 Patient Health Questionnaire 2 item (PHQ-2) [Reported] [facility] 08-08-2023 PHQ-9 quick depressi on assessment panel [Reported.PHQ] [facility] 07-22-2023 Patient Health Questionnaire 2 item (PHQ-2) [Reported] [facility] 07-22-2023 PHQ-9 quick depressi on assessment panel [Reported.PHQ] [facility] 05-01-2022 Functional Status N/A [facility] Date Assessment Result Facility 03-21-2024 [facility] Work Phone: 03-21-2024 [facility] Work Phone: Clinical Notes 03-06-2022 to 02-24-2025 Note Date & Type Note Facility 02-24-2025 Evaluation note Diagnosis Onset Date Resolution Degenerative disc disease (DDD) of lumbar region with axial back pain and acute February 24 1:48pm Lumbar radiculopathy acute Octo aggie 2024 1:48pm Lumbar stenosis with neurogenic claudication acute February 24, 2025 1:48pm Myalgia, other site acute Octob er 2024 1:48pm Sacroiliitis acute February 1:48pm [facility] Work Phone: 1(535) 292-186209-24-2025 Evaluation note* Diagnosis Onset Date Resolution Status Admit Date Degenerative disc disease (DDD) of lumbar region with axial back pain and acute January 272024 9:23am Lumbar radiculopathy acute Jan emb2024 9:23am Lumbar stenosis with neurogenic claudication acute Janembe r 2024 9:23am Myalgia, other site acute Septe mb2024 9:23am Sacroiliitis acute January 272024 9:23am [facility] Work Phone: 1(118) 731-493809-24-2025 Evaluation note* Diagnosis Onset Date Resolution Status Admit Date Degenerative disc disease (DDD) of lumbar region with axial back pain and acute January 272024 9:23am Lumbar radiculopathy acute Sept emb2024 9:23am Lumbar stenosis with neurogenic claudication acute Septembe r 2024 9:23am Myalgia, other site acute Septe mber 2024 9:23am Sacroiliitis acute January 272024 9:23am Degenerative disc disease (DDD) of lumbar region with axial back pain and acute February 1:48pm Lumbar radiculopathy acute Octo aggie 2024 1:48pm Lumbar stenosis with neurogenic claudication acute February 24, 2025 1:48pm Myalgia, other site acute Octob er 2024 1:48pm Sacroiliitis acute February 1:48pm [facility] Work Phone: 1(941) 533-652009-02-2025 Chief complaint+Reason for visit Narrative * Chief Complaint Admit Date New referral on previous pt from 2022 [facility] 2024 1:49pm LUMBAR STENOSIS M48.062 December 15 2:02pm 1 month December 30, 2024 10 :48am N18.31 January 05, 2025 9:59am Reason for Visit Admit Date Lumbar stenosis with neurogenic claudica tion December 10, 2024 1:49pm Myalgia, other site December 10, 2024 1:4 9pm Sacroiliitis December 10, 2024 1:4 9pm Degenerative disc disease (D DD) of lumbar region with axial back pain and December 30, 2024 10:48am Lumbar stenosis with neurogenic claudica tion December 30, 2024 10:48am Myalgia, other site December 30, 2024 10 :48am Sacroiliitis December 30, 2024 10 :48am [facility] Work Phone: 1(672) 492-399808-27-2025 Chief complaint+Reason for visit Narrative * Chief Complaint Admit Date New referral on previous pt from 2022 [facility] 2024 1:49pm LUMBAR STENOSIS M48.062 December 15 2:02pm 1 month December 30, 2024 10 :48am Reason for Visit Admit Date Lumbar stenosis with neurogenic claudica tion December 10, 2024 1:49pm Myalgia, other site December 10, 2024 1:4 9pm Sacroiliitis December 10, 2024 1:4 9pm Degenerative disc disease (D DD) of lumbar region with axial back pain and December 30, 2024 10:48am Lumbar stenosis with neurogenic claudica tion December 30, 2024 10:48am Myalgia, other site December 30, 2024 10 :48am Sacroiliitis December 30, 2024 10 :48am [facility] Work Phone: 1(754) 727-731708-27-2025 Evaluation note* Diagnosis Onset Date Resolution Status Admit Date Degenerative disc disease (D DD) of lumbar region with axial back pain and acute December 30 10:48am Lumbar stenosis with neuroge kelby claudication acute December 30 10:48am Myalgia, other site acute Augus 2024 10:48am Sacroiliitis acute December 30, 2024 10:48am [facility] Work Phone: 1(442) 985-279508-27-2025 Evaluation note* Diagnosis Onset Date Resolution Status Admit Date Degenerative disc disease (DDD) of lumbar region with axial back pain and acute December 30, 2024 10:48am Lumbar stenosis with neurogenic claudication acute December 052024 10:48am Myalgia, other site acute Aug2024 10:48am Sacroiliitis acute December 30, 2024 10:48am Degenerative disc disease (DDD) of lumbar region with axial back pain and acute January 272024 9:23am Lumbar radiculopathy acute Jan 9:23am Lumbar stenosis with neurogenic claudication acute 2024 9:23am Myalgia, other site acute 2024 9:23am Sacroiliitis acute January 272024 9:23am [facility] Work Phone: 1(179) 401-336908-12-2025 Chief complaint+Reason for visit Narrative * Chief Complaint Admit Date New referral on previous pt from 2022 [facility] 2024 1:49pm LUMBAR STENOSIS M48.062 December 15 2:02pm Reason for Visit Admit Date Lumbar stenosis with neurogenic claudica tion December 10, 2024 1:49pm Myalgia, other site December 10, 2024 1:4 9pm Sacroiliitis December 10, 2024 1:4 9pm [facility] Work Phone: 1([phone]) 224-745208-07-2025 Chief complaint+Reason for visit Narrative * Chief Complaint Admit Date New referral on previous pt from 2022 [facility] 2024 1:49pm Reason for Visit Admit Date Lumbar stenosis with neurogenic claudica tion December 10, 2024 1:49pm Myalgia, other site December 10, 2024 1:4 9pm Sacroiliitis December 10, 2024 1:4 9pm [facility] Work Phone: 1([phone]) 788-482008-07-2025 Evaluation note* Diagnosis Onset Date Resolution Status Admit Date Lumbar stenosis with neuroge kelby claudication acute December 10, 2024 1:49pm Myalgia, other site acute Augus t 2024 1:49pm Sacroiliitis acute December 10, 2024 1:49pm [facility] Work Phone: 1([phone]) 719-289508-07-2025 Evaluation note* Diagnosis Onset Date Resolution Status Admit Date Lumbar stenosis with neuroge kelby claudication acute December 10, 2024 1:49pm Myalgia, other site acute Aug2024 1:49pm Sacroiliitis acute December 10, 2024 1:49pm Degenerative disc disease (D DD) of lumbar region with axial back pain and acute December 30 10:48am Lumbar stenosis with neuroge kelby claudication acute December 30 10:48am Myalgia, other site acute Augus t 2024 10:48am Sacroiliitis acute December 30, 2024 10:48am [facility] Work Phone: 1([phone]) 940-708007-24-2025 History of Present illness Narrative* Toshia Villa, - 11/26/2024 1:00 PM EDT Images from the original note were not included. Dawna Velásquez presents today for evaluation in regards to COPD. She is accompanied by her at today's office visit. She was referred by her primary care provider. She states that she has been told she has had COPD for a few years. Few years ago she was also diagnosed with a pneumonia. She did have PFTs in 2022. Her last x-ray was in March 2024. She is currently using albuterol on as needed basis. She does have a prescription for Breztri, but does not use this very often. She states she only uses this when she notes that she has some wheezing. Her states that she does wheeze some at night when they are watching TV. The patient denies any current complaints of shortness breath at rest or with exertion. She had initially stated she was unsure why she was referred here for evaluation. She does give a prior history of sleep apnea. She has not use her CPAP machine for afew years. She does not always feel well rested upon wakening in the morning. She does have excessive daytime sleepiness. Her also does state that she does have snoring, but no witnessed apnea s. She denies any current complaints of chest pain, palpitations, fevers, chills, sweats, or recentunintentional weight changes. Allergies Allergen Reactions Penicillins Hives, Shortness of breath and Swelling Shortness of breath Prednisone Itching Itchy eyes and shortness of breath Current Outpatient Medications Medication Sig Dispense Refill Varenicline Tartrate, Starter, 0.5 MG X 11 & 1 MG X 42 tablet therapy pack Take 1 tablet by mouth Daily 0.5mg once a day for 3 days, then 0.5mg twice a day for 4 days, then 1mg twice a day 53 each 0 albuterol (2.5 MG/3ML) 0.083% nebulizer solution Take 2.5 mg by nebulization every 6 (six) hours ifneeded for shortness of breath or wheezing albuterol HFA 90 mcg/act inhaler Inhale 2 puffs every 6 (six) hours if needed for shortness of breath or wheezing 18 g 0 amitriptyline (Elavil) 100 MG tablet Take 0.5 tablets (50 mg) by mouth at bedtime 45 tablet 1 atorvastatin (Lipitor) 20 MG tablet Take 1 tablet (20 mg) by mouth at bedtime 90 tablet 1 Jhyjdqu-Ezbeldyojum-Ncywuuelor (Breztri Aerosphere) 160-9-4.8 MCG/ACT aerosol Inhale 2 puffs in themorning and 2 puffs before bedtime. Inhale 2 puffs in the morning and 2 puffs before bedtime. 32 g 1 bumetanide (Bumex) 0.5 MG tablet Take M W only 27 tablet 1 cetirizine (ZyrTEC) 10 MG tablet Take 1 tablet (10 mg) by mouth Daily 90 tablet 1 cholecalciferol (Vitamin D-3) 125 MCG (5000 UT) tablet as directed Orally HYDROcodone-acetaminophen (Dale) 5-325 MG tablet Take 1 tablet by mouth every 12 (twelve) hours ifneeded for severe pain for up to 10 days 20 tablet 0 ibuprofen 800 MG tablet Take 800 mg by mouth every 8 (eight) hours if needed ipratropium-albuterol (Duo-Neb) 0.5-2.5 mg/3 mL nebulizer solution Take 3 mL by nebulization every 6 (six) hours if needed for wheezing or shortness of breath lamoTRIgine (LaMICtal) 100 MG tablet Take 100 mg by mouth Daily lamoTRIgine (LaMICtal) 200 MG tablet Take 200 mg by mouth at bedtime meloxicam (Mobic) 15 MG tablet Take 15 mg by mouth Daily montelukast (Singulair) 10 MG tablet Take 1 tablet (10 mg) by mouth at bedtime 90 tablet 1 omeprazole (PriLOSEC) [address] capsule Take 1 capsule (40 mg) by mouth Daily 90 capsule 1 prazosin (Minipress) 1 MG capsule Take 1 mg by mouth at bedtime prazosin (Minipress) 2 MG capsule Take 2 mg by mouth at bedtime pregabalin (Lyrica) 100 MG capsule Take 1 capsule (100 mg) by mouth in the morning and 1 capsule (100 mg) before bedtime. 60 capsule 2 propranolol (Inderal) 40 MG tablet Take 1 tablet (40 mg) by mouth in the morning and 1 tablet (40 mg) before bedtime. 180 tablet 1 QUEtiapine (SEROquel) 300 MG tablet Take 300 mg by mouth at bedtime spironolactone (Aldactone) 50 MG tablet Take 1 tablet (50 mg) by mouth in the morning. 30 tablet 5 tiZANidine (Zanaflex) 4 MG tablet Take 1 tablet (4 mg) by mouth every 12 (twelve) hours if needed for muscle spasms 60 tablet 2 varenicline (Chantix) 1 MG tablet Take 1 tablet (1 mg) by mouth in the morning and 1 tablet (1 mg) before bedtime. Take with full glass of water. 60 tablet 0 No current facility-administered medications for this visit. Past Medical History: Diagnosis Date Anxiety Bilateral lower extremity edema 04/23/2023 stable Class 3 severe obesity due to excess calories without serious comorbidity with body mass index (BMI) of 40.0 to 44.9 in adult ([facility]) 04/23/2023 COPD mixed type ([facility]) 04/23/2023 DENIES HX OF BLOOD BORNE DISEASES Depression Fibromyalgia Open wound of left foot 04/23/2023 Open wound of second toe 04/23/2023 Other acute sinusitis 04/23/2023 Primary hypertension 04/23/2023 Tobacco dependence 04/23/2023 Past Surgical History: Procedure Laterality Date SECTION, LOW TRANSVERSE x2 HYSTERECTOMY 11/2014 Total Laparoscopic KNEE SURGERY Left 11/28/2021 SCOPE - DR LI TUBAL LIGATION Laparoscopic Family History Adopted: Yes Social History Tobacco Use Smoking status: Every Day Current packs/day: 1.00 Average packs/day: 1 pack/day for 42.0 years (42.0 ttl pk-yrs) Types: Cigarettes Smokeless tobacco: Never Tobacco comments: 11-20 cigarettes/day Substance Use Topics Alcohol use: Not Currently Comment: socially BP 110/64 Pulse 86 Wt 245 lb SpO2 94% BMI 40.77 kg/m Exam: Heart: regular rate Lungs: clear to auscultation bilaterally, no wheezes/rales/rhonchi, no resp distress Extremities: no edema noted, no visible rashes Neuro: alert, oriented x3 Imaging Reviewed: Report of chest x-ray from March 2024 reviewed -- no images available to review, stable chest x-ray, no effusion, pneumothorax PFT's from August 2023 reviewed - - FVC 2.33 L ( 66 %), FEV1 1.92 L ( 71 %), ratio 83 %, no significant bronchodilator response, no hyperinflation present, no air trapping present, diminished DLCO that does correct when adjusted for alveolar ventilation Assessment/Plan: COPD -- the patient states that she was diagnosed with COPD a few years ago. Her PFTs that were done in 2022 do not demonstrate evidence of large airway obstruction consistent with COPD. She currently is not using any inhaled medications on a routine basis. She does have both Breztri as well as albuterol at home. However she states she only uses these on an as needed basis. She does notice increased symptoms when she is sick. I do suspect that she has a reactive airway component. However we discussed that if she does wheeze that she should begin using Breztri more regularly. Her states that she does occasionally wheeze at home When they are watching TV at night. However she does nothave any significant symptoms then I would not advocate a routine inhaled regimen. SHIMA -- she does give a prior history of sleep apnea. She had previously been on CPAP. However she has not use this for quite some time. We discussed the ramifications of untreated sleep apnea. She isagreeable to restarting her CPAP machine but does understands she will need a repeat sleep study. Ahome sleep study ordered for her after today's office visit. CPAP will be arranged for her prior toher next appointment. She will follow here in a few months time to reassess her symptoms and address the treatment of her sleep apnea. Tobacco use -- she does continue to smoke on a daily basis. We did have a 4 minute discussion regarding the importance of smoking cessation at today's office visit. Follow up in about 3 months (around 02/26/2025) for SHIMA. Toshia Villa DO documented in [facility] encounterMiss[facility] [id number] History of Present illness Narrative* Erin Watson NP - 10/26/2024 11:24 AM EDTAssociated Problem(s): Screening for lung cancer Patient meets requirements for low dose CT scan for lung cancer screening: age 55-80, patient is a current smoker or has quit in the last 15 years. Smoking history is > or equal to 30 pack-year. If needed the patient is able or willing to receive treatment. The patient is not currently exhibiting any s/s of lung cancer. We have discussed the benefits as well as harms of screening, follow up testing if needed, false positive rates. We have also discussed that this type of CT scan has less radiation exposure than a traditional lung CT scan. We have also discussed that it is important to follow with annual screening for this. The patient has also been counseled on the importance of smoking cessation. * Erin Watson NP - 10/26/2024 11:22 AM EDTAssociated Problem(s): Morbid (severe) obesity due to excess calories ([facility]) Discussed with patient their BMI (actual, verses recommended). We have also discussed lifestyle modifications: attempts to perform physical activity as chronic conditions allow, also to monitor dietary intake: increasing protein/fruits/veggies and lowering carb intake (unless contraindicated). Limit sodas, juices, and sugary drinks. Chronic pain related issues does limit ability to exercise on regular basis * Erin Watson NP - 10/26/2024 11:22 AM EDTAssociated Problem(s): Fibromyalgia Continue with Isabel ALISSON reviewed * Erin Watson NP - 10/26/2024 11:21 AM EDTAssociated Problem(s): Chronic kidney disease, stage 3a ([facility]) Check Chem 8 * JESSICA SANTIAGO - 10/26/2024 10:30 AM EDT 02 range is 89-92% Vrylar 3.5mg once daily Prazosin 3mg nightly- drug induced parkinson's * Erin Watson NP - 10/26/2024 10:30 AM EDT Images from the original note were not included. Dawna Velásquez is a 58 y.o. female presents with chief complaint of Medicare Annual Wellness Visit Initial HPI: Diet:variety, could eat more veggies Activity: fibro limits activity Mental Health Concerns: depression/anxiety, under care of psych Falls in the last year: yes Still driving: no Do you pay your bills: yes Any hearing problems:no Any Vision problems: no, last exam >2 years ago Any Hospitalizations in the last year: yes pneumonia Specialist: Yaneth for psych, going to see daisy for pulm HCPOA/Living Will: no Concerns: no Lamictal: same Seqo: no morning dose, vraylar in place of, 300mg at HS, prazosin 3mg SUBJECTIVE: MEDICATIONS: Current Outpatient Medications Medication Instructions albuterol HFA 90 mcg/act inhaler 2 puffs, Inhalation, Every 6 hours PRN albuterol 2.5 mg, Every 6 hours PRN amitriptyline (ELAVIL) 50 mg, Oral, Nightly atorvastatin (LIPITOR) 20 mg, Oral, Nightly Wykdpqq-Vzzhhlmrdjz-Upoyymyayz (Breztri Aerosphere) 160-9-4.8 MCG/ACT aerosol 2 puffs, Inhalation, 2 times daily, Inhale 2 puffs in the morning and 2 puffs before bedtime. bumetanide (Bumex) 0.5 MG tablet Take only cetirizine (ZYRTEC) 10 mg, Oral, Daily cholecalciferol (Vitamin D-3) 125 MCG (5000 UT) tablet as directed Orally ibuprofen 800 mg, Every 8 hours PRN ipratropium-albuterol (Duo-Neb) 0.5-2.5 mg/3 mL nebulizer solution 3 mL, Every 6 hours PRN lamoTRIgine (LAMICTAL) 200 mg, Nightly lamoTRIgine (LAMICTAL) 100 mg, Daily meloxicam (MOBIC) 15 mg, Daily montelukast (SINGULAIR) 10 mg, Oral, Nightly omeprazole (PRILOSEC) 40 mg, Oral, Daily prazosin (MINIPRESS) 2 mg, Nightly prazosin (MINIPRESS) 1 mg, Oral, Nightly pregabalin (LYRICA) 100 mg, Oral, 2 times daily propranolol (INDERAL) 40 mg, Oral, 2 times daily QUEtiapine (SEROQUEL) 300 mg, Nightly spironolactone (ALDACTONE) 50 mg, Oral, Every morning tiZANidine (ZANAFLEX) 4 mg, Oral, Every 12 hours PRN varenicline (CHANTIX) 1 mg, Oral, 2 times daily, Take with full glass of water. Varenicline Tartrate, Starter, (Chantix Starting Month ) 0.5 MG X 11 & 1 MG X 42 tablet therapy pack 1 tablet, Oral, Daily, Take as directed ALLERGIES: Allergies Allergen Reactions Penicillins Hives, Shortness of breath and Swelling Shortness of breath Prednisone Itching Itchy eyes and shortness of breath REVIEW OF SYMPTOMS: Review of Systems Constitutional: Negative for appetite change, chills and fever. HENT: Negative for congestion, ear pain and sore throat. Eyes: Negative for pain, discharge, redness and visual disturbance. Respiratory: Positive for shortness of breath and wheezing. Negative for cough. Cardiovascular: Positive for leg swelling. Negative for chest pain and palpitations. Gastrointestinal: Negative for abdominal pain, blood in stool, constipation, diarrhea, nausea and vomiting. Genitourinary: Negative for difficulty urinating, dysuria and frequency. Musculoskeletal: Positive for arthralgias and myalgias. Negative for back pain and joint swelling. Skin: Negative for rash and wound. Neurological: Negative for dizziness, tremors, seizures, syncope and headaches. Psychiatric/Behavioral: Negative for behavioral problems, self-injury and suicidal ideas. The patient is nervous/anxious. Depression Hematological: Does not bruise/bleed easily. Endocrine: Negative for polydipsia, polyphagia and polyuria. Allergic/Immunologic: Negative for environmental allergies and food allergies. PAST MEDICAL HISTORY Past Medical History: Diagnosis Date Anxiety Bilateral lower extremity edema 04/23/2023 stable Class 3 severe obesity due to excess calories without serious comorbidity with body mass index (BMI) of 40.0 to 44.9 in adult ([facility]) 04/23/2023 COPD mixed type ([facility]) 04/23/2023 DENIES HX OF BLOOD BORNE DISEASES Depression Fibromyalgia Open wound of left foot 04/23/2023 Open wound of second toe 04/23/2023 Other acute sinusitis 04/23/2023 Primary hypertension 04/23/2023 Tobacco dependence 04/23/2023 Past Surgical History: Procedure Laterality Date SECTION, LOW TRANSVERSE x2 HYSTERECTOMY 11/2014 Total Laparoscopic KNEE SURGERY Left 11/28/2021 SCOPE - DR LI TUBAL LIGATION Laparoscopic family history is not on file. She was adopted. OBJECTIVE: Visit Vitals BP 104/70 (BP Location: Left arm, Patient Position: Sitting, BP Cuff Size: Large adult) Pulse 80 Temp 98.1 F (Temporal) Resp 24 Wt 245 lb 12.8 oz SpO2 92% BMI 40.90 kg/m Smoking Status Every Day BSA 2.26 m Physical Exam Vitals and nursing note reviewed. Constitutional: General: She is not in acute distress. Appearance: Normal appearance. She is obese. She is not ill-appearing. HENT: Head: Normocephalic and atraumatic. Right Ear: External ear normal. Left Ear: External ear normal. Nose: Nose normal. Mouth/Throat: Mouth: Mucous membranes are moist. Eyes: Extraocular Movements: Extraocular movements intact. Conjunctiva/sclera: Conjunctivae normal. Neck: Vascular: No carotid bruit. Cardiovascular: Rate and Rhythm: Normal rate and regular rhythm. Pulses: Normal pulses. Heart sounds: Normal heart sounds. Pulmonary: Effort: Pulmonary effort is normal. Breath sounds: Normal breath sounds. No wheezing or rhonchi. Abdominal: General: Bowel sounds are normal. There is no distension. Palpations: Abdomen is soft. There is no mass. Tenderness: There is no abdominal tenderness. Musculoskeletal: General: Normal range of motion. Cervical back: Normal range of motion and neck supple. Right lower leg: Edema present. Left lower leg: Edema present. Comments: Trace-1 + bilat pedal Skin: General: Skin is warm and dry. Capillary Refill: Capillary refill takes 2 to 3 seconds. Findings: No rash. Neurological: General: No focal deficit present. Mental Status: She is alert and oriented to person, place, and time. Psychiatric: Mood and Affect: Mood normal. Behavior: Behavior normal. Thought Content: Thought content normal. Judgment: Judgment normal. ASSESSMENT AND PLAN: Follow up in about 2 months (around 12/26/2024) for Recheck. Problem List Items Addressed This Visit Fibromyalgia Continue with Lyrica OARRS reviewed Relevant Medications amitriptyline (Elavil) 100 MG tablet pregabalin (Lyrica) 100 MG capsule Mixed hyperlipidemia On statin therapy Check labs yearly and prn dose changes Relevant Medications atorvastatin (Lipitor) 20 MG tablet Tobacco dependence The patient has been advised of the risks of continued smoking: stroke, ND, all forms of cancer, lung disease, and . Options for quitting smoking include: cold turkey, hypnosis, acupuncture, nicotine replacement meds(gum, lozenges, and patches), Buproprion, and Varenicline. At this time pt is encouraged to evaluate their goals for wanting to quit smoking, and reach out toprovider when ready to start this process Would like toney, dr wolfe said ok to trial, just needs to monitor for worsening in depression Fu in 8 weeks Relevant Medications Varenicline Tartrate, Starter, (Chantix Starting Month Higinio) 0.5 MG X 11 & 1 MG X 42 tablet therapy pack varenicline (Chantix) 1 MG tablet Other Relevant Orders CT lung screening low dose Bilateral lower extremity edema Current meds: bumex (3 times per week) and spironolactone daily Elevate feet 2-3 times daily Limit sodium Recommend compression stockings Check labs yearly and prn Relevant Medications bumetanide (Bumex) 0.5 MG tablet COPD mixed type (HCC) Current meds: breztri, albuterol HFA and neb prn Was referred to Pulmonology, is supposed to get a PFT prior to seeing pulmonology Relevant Medications Pbahakl-Zrpzekslzua-Cnarhfjptr (Breztri Aerosphere) 160-9-4.8 MCG/ACT aerosol Anxiety and depression Continue with Dr Wolfe GERD (gastroesophageal reflux disease) Recommendations: freq small meals, nothing to eat or drink at least 2 hours prior to bed, limit caffeine, alcohol, as well as spicy foods Meds to limit or avoid if possible: NSAIDS Elevate HOB if possible Current med: omeprazole Insurance correspondance about joint terminal attack controller use of PPI Pt has been counseled on the risks of nursing home use, would like to continue SHIMA (obstructive sleep apnea) You have a diagnosis of obstructive sleep apnea. It is recommended that you wear your PAP device any time while in bed sleeping. Not using the PAP device can increase your risk of elevated/uncontrolled high blood pressure, atrial fibrillation, heart attack, stroke, or sudden . Compliant: no Encounter for subsequent annual wellness visit (AWV) in Medicare patient - Primary Reviewed Ht/Wt/BMI Recommend eye exam yearly Recommend dental exams twice a year Balance work/leisure activities Exercises is recommended most days of the week (appropriate as chronic conditions allow) Follow up yearly and prn Environmental and seasonal allergies Relevant Medications cetirizine (ZyrTEC) 10 MG tablet montelukast (Singulair) 10 MG tablet Chronic kidney disease, stage 3a (CMS-HCC) Check Chem 8 Screening for lung cancer Patient meets requirements for low dose CT scan for lung cancer screening: age 55-80, patient is a current smoker or has quit in the last 15 years. Smoking history is > or equal to 30 pack-year. If needed the patient is able or willing to receive treatment. The patient is not currently exhibiting any s/s of lung cancer. We have discussed the benefits as well as harms of screening, follow up testing if needed, false positive rates. We have also discussed that this type of CT scan has less radiation exposure than a traditional lung CT scan. We have also discussed that it is important to follow with annual screening for this. The patient has also been counseled on the importance of smoking cessation. Other Visit Diagnoses Gastro-esophageal reflux disease without esophagitis Relevant Medications omeprazole (PriLOSEC) [address] singh Personal history of other diseases of the nervous system and sense organs Relevant Medications propranolol (Inderal) 40 MG tablet * Erin Watson NP - 10/26/2024 7:12 AM EDTAssociated Problem(s): Tremor Will refer to neuro for this Differentials: side effects med, PD? * Erin Watson NP - 10/26/2024 7:12 AM EDTAssociated Problem(s): Tobacco dependence The patient has been advised of the risks of continued smoking: stroke, ND, all forms of cancer, lung disease, and . Options for quitting smoking include: cold turkey, hypnosis, acupuncture, nicotine replacement meds(gum, lozenges, and patches), Buproprion, and Varenicline. At this time pt is encouraged to evaluate their goals for wanting to quit smoking, and reach out toprovider when ready to start this process Would like toney, dr wolfe said ok to trial, just needs to monitor for worsening in depression Fu in 8 weeks * Erin Watson NP - 10/26/2024 7:11 AM EDTAssociated Problem(s): Mixed hyperlipidemia On statin therapy Check labs yearly and prn dose changes * Erin Watson NP - 10/26/2024 7:11 AM EDTAssociated Problem(s): Encounter for subsequent annual wellness visit (AWV) in Medicare patient Reviewed Ht/Wt/BMI Recommend eye exam yearly Recommend dental exams twice a year Balance work/leisure activities Exercises is recommended most days of the week (appropriate as chronic conditions allow) Follow up yearly and prn * Erin Watson NP - 10/26/2024 7:11 AM EDTAssociated Problem(s): Anxiety and depression Continue with Dr Wolfe * Erin Watson NP - 10/26/2024 7:08 AM EDTAssociated Problem(s): Bilateral lower extremity edema Current meds: bumex (3 times per week) and spironolactone daily Elevate feet 2-3 times daily Limit sodium Recommend compression stockings Check labs yearly and prn * Erin Watson NP - 10/26/2024 7:06 AM EDTAssociated Problem(s): GERD (gastroesophageal reflux disease) Recommendations: freq small meals, nothing to eat or drink at least 2 hours prior to bed, limit caffeine, alcohol, as well as spicy foods Meds to limit or avoid if possible: NSAIDS Elevate HOB if possible Current med: omeprazole Insurance correspondance about joint terminal attack controller use of PPI Pt has been counseled on the risks of nursing home use, would like to continue * Erin Watson NP - 10/26/2024 7:06 AM EDTAssociated Problem(s): Primary hypertension Please check blood pressure daily and record DASH diet Limit caffeine Take medication as directed Contact office if chest pain, pressure, dizziness, shortness of breath, swelling legs Recommend slow position changes Current meds; * Erin Watson NP - 10/26/2024 7:05 AM EDTAssociated Problem(s): COPD mixed type (HCC) Current meds: breztri, albuterol HFA and neb prn Was referred to Pulmonology, is supposed to get a PFT prior to seeing pulmonology * Erin Watson NP - 10/26/2024 7:05 AM EDTAssociated Problem(s): SHIMA (obstructive sleep apnea) You have a diagnosis of obstructive sleep apnea. It is recommended that you wear your PAP device any time while in bed sleeping. Not using the PAP device can increase your risk of elevated/uncontrolled high blood pressure, atrial fibrillation, heart attack, stroke, or sudden . Compliant: no documented in this encounterMiss[facility] [id number] Instructions* Patient Instructions* Erin Watson NP - 10/26/2024 10:30 AM EDT Get labs completed Chantix: take as directed, contact me if worsening in mental health documented in this [facility]05-21-2025 Hospital Discharge instructions Additional Instructions Follow-up with your primary care provider in the next 3 to 5 days. Return for worsening symptoms.[facility] Work Phone: [phone]) 158-218805-07-2025 Telephone encounter Note* Telephone Encounter - Erin Watson NP - 09/09/2024 8:55 PM EDT She is also due for her AWV, please call to schedule [place] [facility] [id number] Miscellaneous Notes* Telephone Encounter - Erin Watson NP - 09/09/2024 8:55 PM EDT She is also due for her AWV, please call to schedule LA documented in this [facility]05-07-2025 Telephone encounter Note* Telephone Encounter - Carol Thayer - 09/09/2024 4:06 PM EDT 90 day supply [facility] [id number] Miscellaneous Notes* Telephone Encounter - Carol Thayer - 09/09/2024 4:06 PM EDT 90 day supply documented in this [facility]02-04-2025 History of Present illness Narrative* Shalonda White DO - 06/09/2024 3:00 PM EST Images from the original note were not included. Chief Complaint: Tremor Subjective Dawna Velásquez, 58 y.o., female Patient presents today for a neurologic consult at the request of Erin Watson CNP for tremor. Patient is accompanied by her , Shalonda. Patient reports tremor in her head and bilateral hands. She has had this for about 5 years but has progressively gotten worse. Her states the tremor in her head is constant but the hands are intermittent. The right hand is worse. Patient also reports some imbalance. She had a fall last week and has had multiple over the last few months. Her states she is typically falling once a month. She admits dizziness and lightheadedness. She denies any blurred vision or headaches. She reports sleeping well at night about 8 hours. She reports very vivid dreams. Denies any hallucinations. She denies any increase in agitation but he admits that agitation and anxiety are common. Patient has not been on any medication for the tremor. Review of Systems Constitutional: Negative for appetite change, fatigue and fever. Respiratory: Negative for cough, shortness of breath and wheezing. Cardiovascular: Negative for chest pain, palpitations and leg swelling. Gastrointestinal: Negative for abdominal pain, constipation, diarrhea and nausea. Musculoskeletal: Negative for arthralgias, gait problem and myalgias. Neurological: Positive for tremors. Negative for dizziness, numbness and headaches. Past Medical History: Diagnosis Date Anxiety Bilateral lower extremity edema 04/23/2023 stable Class 3 severe obesity due to excess calories without serious comorbidity with body mass index (BMI) of 40.0 to 44.9 in adult ([facility]) 04/23/2023 COPD mixed type ([facility]) 04/23/2023 DENIES HX OF BLOOD BORNE DISEASES Depression ([facility]) Fibromyalgia Open wound of left foot 04/23/2023 Open wound of second toe 04/23/2023 Other acute sinusitis 04/23/2023 Primary hypertension ([facility]) 04/23/2023 Tobacco dependence 04/23/2023 Past Surgical History: Procedure Laterality Date SECTION, LOW TRANSVERSE x2 HYSTERECTOMY 11/2014 Total Laparoscopic KNEE SURGERY Left 11/28/2021 SCOPE - STEPANIC TUBAL LIGATION Laparoscopic Family History Adopted: Yes Social History Tobacco Use Smoking status: Every Day Current packs/day: 1.00 Average packs/day: 1 pack/day for 42.0 years (42.0 ttl pk-yrs) Types: Cigarettes Smokeless tobacco: Never Tobacco comments: 11-20 cigarettes/day Substance Use Topics Alcohol use: Not Currently Comment: socially Allergies: Penicillins and Prednisone Vitals: 06/09/24 1453 BP: 128/82 Pulse: 76 SpO2: 94% Body mass index is 40.7 kg/m . weight: 244 lb 9.6 oz Neurologic exam: Mental status: Awake, alert to person, place and time. Recent and remote memory are intact. Language is fluent without aphasia. Attention and concentration are normal. Fund of knowledge is appropriate for level of education. Cranial nerves: CN II: Visual acuity is normal. Visual ramos full to confrontation. CN III, IV, : pupils equal round and reactive to light. Extraocular movements intact. No ptosis present. CN V: Facial sensation is normal. CN VII: Full and symmetric facial movement. CN VIII: Hearing is normal to finger rub bilaterally: CN IX and X: Palate elevates symmetrically. CN XI: Shoulder shrug is normal bilaterally. CN XII: Tongue is midline without atrophy or fasciculation. Motor: RUE Strength deltoid, , biceps , triceps , wrist extensors , wrist flexor , diesel engineer strength 5/5. LUE Strength deltoid , biceps , triceps , wrist extensors , wrist flexor , diesel engineer strength 5/5. RLE Strength illopsoas, quadriceps, tibialis anterior, and gastrocnemius strength 5/5. LLE Strength illopsoas, quadriceps, tibialis anterior, and gastrocnemius strength 5/5. The patient does have some slowed movement in the upper extremities and subtle tremor with intention of the upper extremities and head. No rigidity noted today. She notes today is a relatively good day for her. Bulk is normal. Sensory: Sensation is intact to light touch throughout Four extremities. Reflexes: RUE biceps reflex 2+ brachioradialis reflex 2+ . LUE biceps reflex 2+ brachioradialis reflex 2+ . RLE knee reflex 1+ . LLE knee reflex 1+ . Riggins's sign negative. Coordination: Gbinak-ud-umgl testing and rapid alternating movements are normal Gait: Normal Review and summary of old records: Assessment/Plan Diagnoses and all orders for this visit: Drug-induced Parkinson's disease (CMS/HCC) It is my impression that the patient has signs and symptoms consistent with slowness of movement, tremor of the upper extremities and head. The patient states these symptoms have been ongoing for greater than 5 years. Certainly based on this timeframe this would be atypical for idiopathic Parkinson's. With review of her medication she is on quite high doses of Seroquel and certainly a medication induced Parkinson's type picture may be possible here. She states she has been on these high doses for quite some time as well. Plan: I have suggested the patient follow up closely with her psychiatrist, Dr. Wolfe, for considerationof reduction or change of Seroquel to see if this makes a change in her movement disorder type symptoms. We did discuss that there is a risk and benefit as certainly changed in such medication may observemental health and the psychiatry team is best position to consider those changes. Additional history was provided from the patient's who accompany her to the visit today. Pt has been fully educated on their diagnosis, lab results, treatment options, follow up plan, and return instructions documented in this [facility]01-02-2025 History of Present illness Narrative* Erin Watson NP - 05/07/2024 5:13 PM ESTAssociated Problem(s): Tremor Will refer to neuro for this Differentials: side effects med, PD? * Erin Watson NP - 05/07/2024 1:20 PM EST Images from the original note were not included. Dawna Velásquez is a 58 y.o. female presents with chief complaint of No chief complaint on file. HPI: HPI SUBJECTIVE: MEDICATIONS: Current Outpatient Medications Medication Instructions albuterol HFA 90 mcg/act inhaler 2 puffs, Every 6 hours PRN albuterol 2.5 mg, Every 6 hours PRN amitriptyline (ELAVIL) 50 mg, Oral, Nightly atorvastatin (LIPITOR) 20 mg, Oral, Nightly Breztri Aerosphere 160-9-4.8 MCG/ACT aerosol 2 puffs, 2 times daily bumetanide (Bumex) 0.5 MG tablet Take only cholecalciferol (Vitamin D-3) 125 MCG (5000 UT) tablet as directed Orally ibuprofen 800 mg, Every 8 hours PRN ipratropium-albuterol (Duo-Neb) 0.5-2.5 mg/3 mL nebulizer solution 3 mL, Every 6 hours PRN lamoTRIgine (LAMICTAL) 200 mg, Nightly lamoTRIgine (LAMICTAL) 100 mg, Daily meloxicam (MOBIC) 15 mg, Daily montelukast (SINGULAIR) 10 mg, Oral, Nightly omeprazole (PRILOSEC) 40 mg, Oral, Daily prazosin (MINIPRESS) 2 mg, Nightly prazosin (MINIPRESS) 1 mg, Daily pregabalin (LYRICA) 100 mg, Oral, 2 times daily propranolol (INDERAL) 40 mg, Oral, 2 times daily QUEtiapine (SEROQUEL) 100 mg, Daily QUEtiapine (SEROQUEL) 400 mg, Nightly spironolactone (ALDACTONE) 50 mg, Oral, Every morning tiZANidine (ZANAFLEX) 4 mg, Oral, Every 12 hours PRN ALLERGIES: Allergies Allergen Reactions Penicillins Hives, Shortness of breath and Swelling Shortness of breath Prednisone Itching Itchy eyes and shortness of breath REVIEW OF SYMPTOMS: Review of Systems PAST MEDICAL HISTORY Past Medical History: Diagnosis Date Anxiety Bilateral lower extremity edema 04/23/2023 stable Class 3 severe obesity due to excess calories without serious comorbidity with body mass index (BMI) of 40.0 to 44.9 in adult ([facility]) 04/23/2023 COPD mixed type ([facility]) 04/23/2023 DENIES HX OF BLOOD BORNE DISEASES Depression ([facility]) Fibromyalgia Open wound of left foot 04/23/2023 Open wound of second toe 04/23/2023 Other acute sinusitis 04/23/2023 Primary hypertension ([facility]) 04/23/2023 Tobacco dependence 04/23/2023 Past Surgical History: Procedure Laterality Date SECTION, LOW TRANSVERSE x2 HYSTERECTOMY 11/2014 Total Laparoscopic KNEE SURGERY Left 11/28/2021 SCOPE - DR LI TUBAL LIGATION Laparoscopic family history is not on file. She was adopted. OBJECTIVE: Visit Vitals BP 110/80 (BP Location: Left arm, Patient Position: Sitting, BP Cuff Size: Adult long) Pulse 87 Temp 98.1 F (Temporal) Resp 18 Ht 5' 5 Wt 246 lb SpO2 94% BMI 40.94 kg/m Smoking Status Every Day BSA 2.27 m Physical Exam ASSESSMENT AND PLAN: No follow-ups on file. * Erin Watson NP - 05/07/2024 7:14 AM ESTAssociated Problem(s): Tobacco dependence The patient has been advised of the risks of continued smoking: stroke, ND, all forms of cancer, lung disease, and . Options for quitting smoking include: cold turkey, hypnosis, acupuncture, nicotine replacement meds(gum, lozenges, and patches), Buproprion, and Varenicline. At this time pt is encouraged to evaluate their goals for wanting to quit smoking, and reach out toprovider when ready to start this process * Erin Watson NP - 05/07/2024 7:14 AM ESTAssociated Problem(s): Morbid (severe) obesity due to excess calories (CMS/HCC) Discussed with patient their BMI (actual, verses recommended). We have also discussed lifestyle modifications: attempts to perform physical activity as chronic conditions allow, also to monitor dietary intake: increasing protein/fruits/veggies and lowering carb intake (unless contraindicated). Limit sodas, juices, and sugary drinks. Chronic pain related issues does limit ability to exercise on regular basis * Erin Watson NP - 05/07/2024 7:13 AM ESTAssociated Problem(s): GERD (gastroesophageal reflux disease) Recommendations: freq small meals, nothing to eat or drink at least 2 hours prior to bed, limit caffeine, alcohol, as well as spicy foods Meds to limit or avoid if possible: NSAIDS Elevate HOB if possible Current med: omeprazole Insurance correspondance about nursing home use of PPI Pt has been counseled on the risks of nursing home use, would like to continue * Erin Waston NP - 05/07/2024 7:12 AM ESTAssociated Problem(s): COPD with acute exacerbation (CMS/HCC) Was referred to pulmonology Continue with albuterol prn, and breztri as directed Urged to quit smoking Stay UTD on immunizations: flu, covid, pneumonia, and RSV * Erin Watson NP - 05/07/2024 7:11 AM ESTAssociated Problem(s): COPD mixed type (CMS/HCC) Current meds: breztri, albuterol HFA and neb prn Was referred to Pulmonology Needs a PFT first * Erin Watson NP - 05/07/2024 7:11 AM ESTAssociated Problem(s): SHIMA (obstructive sleep apnea) You have a diagnosis of obstructive sleep apnea. It is recommended that you wear your PAP device any time while in bed sleeping. Not using the PAP device can increase your risk of elevated/uncontrolled high blood pressure, atrial fibrillation, heart attack, stroke, or sudden . Compliant: no documented in this encounterMiss[facility] [id number] History of Present illness Narrative* Erin Watson NP - 03/30/2024 11:14 AM ESTAssociated Problem(s): COPD with acute exacerbation (CMS/[facility]) Pt reports getting better , feels better than in hospital I.S. 10 times hour every hour awake Recommend quitting smoking Continue nebulizers Refer to pulmonary * JESSICA SANTIAGO - 03/30/2024 10:30 AM EST Pt is on 3l of 02 Had forgotten it Pt has be ranging from 82-92 in her 02 * Erin Watson NP - 03/30/2024 10:30 AM EST Images from the original note were not included. Dawna Veálsquez is a 58 y.o. female presents with chief complaint of No chief complaint on file. HPI: Here for a hospital fu: hospitalization 4 days, wanted to go home COPD exacerbation. Home on O2 3LNC, does not wear oxygen at night. Cough: moist, non productive Dyspnea: minimal at rest, if walking, gets winded , up steps winded. Wears oxgen Inhalers: breztri, and nebulizer Interested in possibly quitting smoking Was having some falls prior to going into hospital. SUBJECTIVE: MEDICATIONS: Current Outpatient Medications Medication Instructions albuterol HFA 90 mcg/act inhaler 2 puffs, Every 6 hours PRN albuterol 2.5 mg, Every 6 hours PRN amitriptyline (ELAVIL) 50 mg, Oral, Nightly atorvastatin (LIPITOR) 20 mg, Oral, Nightly Breztri Aerosphere 160-9-4.8 MCG/ACT aerosol 2 puffs, 2 times daily bumetanide (Bumex) 0.5 MG tablet Take only cholecalciferol (Vitamin D-3) 125 MCG (5000 UT) tablet as directed Orally ibuprofen 800 mg, Every 8 hours PRN ipratropium-albuterol (Duo-Neb) 0.5-2.5 mg/3 mL nebulizer solution 3 mL, Every 6 hours PRN lamoTRIgine (LAMICTAL) 200 mg, Nightly lamoTRIgine (LAMICTAL) 100 mg, Daily meloxicam (MOBIC) 15 mg, Daily montelukast (SINGULAIR) 10 mg, Oral, Nightly omeprazole (PRILOSEC) 40 mg, Oral, Daily prazosin (MINIPRESS) 2 mg, Nightly pregabalin (LYRICA) 100 mg, Oral, 2 times daily propranolol (INDERAL) 40 mg, Oral, 2 times daily QUEtiapine (SEROQUEL) 100 mg, Daily QUEtiapine (SEROQUEL) 400 mg, Nightly spironolactone (ALDACTONE) 50 mg, Oral, Every morning tiZANidine (ZANAFLEX) 4 mg, Oral, Every 12 hours PRN ALLERGIES: Allergies Allergen Reactions Penicillins Hives, Shortness of breath and Swelling Shortness of breath Prednisone Itching Itchy eyes and shortness of breath REVIEW OF SYMPTOMS: Review of Systems Constitutional: Positive for fatigue. Negative for appetite change, chills and fever. HENT: Positive for congestion. Negative for ear pain and sore throat. Eyes: Negative for pain, discharge, redness and visual disturbance. Respiratory: Positive for cough, shortness of breath and wheezing. Cardiovascular: Positive for leg swelling. Negative for chest pain and palpitations. Gastrointestinal: Negative for abdominal pain, blood in stool, constipation, diarrhea, nausea and vomiting. Genitourinary: Negative for difficulty urinating, dysuria and frequency. Musculoskeletal: Negative for arthralgias, back pain, joint swelling and myalgias. Skin: Negative for rash and wound. Neurological: Negative for dizziness, tremors, seizures, syncope and headaches. Psychiatric/Behavioral: Negative for behavioral problems, self-injury and suicidal ideas. The patient is nervous/anxious. Hematological: Does not bruise/bleed easily. Endocrine: Negative for polydipsia, polyphagia and polyuria. Allergic/Immunologic: Negative for environmental allergies and food allergies. PAST MEDICAL HISTORY Past Medical History: Diagnosis Date Anxiety Bilateral lower extremity edema 04/23/2023 stable Class 3 severe obesity due to excess calories without serious comorbidity with body mass index (BMI) of 40.0 to 44.9 in adult ([facility]) 04/23/2023 COPD mixed type ([facility]) 04/23/2023 DENIES HX OF BLOOD BORNE DISEASES Depression ([facility]) Fibromyalgia Open wound of left foot 04/23/2023 Open wound of second toe 04/23/2023 Other acute sinusitis 04/23/2023 Primary hypertension (CMS/HCC) 04/23/2023 Tobacco dependence 04/23/2023 Past Surgical History: Procedure Laterality Date SECTION, LOW TRANSVERSE x2 HYSTERECTOMY 11/2014 Total Laparoscopic KNEE SURGERY Left 11/28/2021 SCOPE - DR LI TUBAL LIGATION Laparoscopic family history is not on file. She was adopted. OBJECTIVE: Visit Vitals BP 106/86 (BP Location: Left arm, Patient Position: Sitting, BP Cuff Size: Adult long) Pulse 89 Temp 98.1 F (Temporal) Resp 19 Ht 5' 5 Wt 244 lb SpO2 91% BMI 40.60 kg/m Smoking Status Every Day BSA 2.26 m Physical Exam Vitals and nursing note reviewed. Constitutional: General: She is in acute distress (resp sl labored). Appearance: Normal appearance. She is obese. She is not ill-appearing. HENT: Head: Normocephalic and atraumatic. Right Ear: Tympanic membrane, ear canal and external ear normal. Left Ear: Tympanic membrane, ear canal and external ear normal. Nose: Rhinorrhea present. No congestion. Mouth/Throat: Mouth: Mucous membranes are moist. Pharynx: No oropharyngeal exudate or posterior oropharyngeal erythema. Eyes: Extraocular Movements: Extraocular movements intact. Conjunctiva/sclera: Conjunctivae normal. Neck: Vascular: No carotid bruit. Cardiovascular: Rate and Rhythm: Normal rate and regular rhythm. Pulses: Normal pulses. Heart sounds: Normal heart sounds. Pulmonary: Effort: Respiratory distress present. Breath sounds: Wheezing present. Comments: Exp wheeze Sl labored breathing Abdominal: General: Bowel sounds are normal. There is no distension. Palpations: Abdomen is soft. There is no mass. Tenderness: There is no abdominal tenderness. Musculoskeletal: General: Normal range of motion. Cervical back: Normal range of motion and neck supple. Right lower leg: Edema present. Left lower leg: Edema present. Skin: General: Skin is warm and dry. Capillary Refill: Capillary refill takes 2 to 3 seconds. Findings: No rash. Neurological: General: No focal deficit present. Mental Status: She is alert and oriented to person, place, and time. Psychiatric: Mood and Affect: Mood normal. Behavior: Behavior normal. Thought Content: Thought content normal. Judgment: Judgment normal. ASSESSMENT AND PLAN: Follow up in about 2 weeks (around 04/13/2024) for Recheck. Problem List Items Addressed This Visit Fibromyalgia Continue with Isabel VINSON reviewed Relevant Medications tiZANidine (Zanaflex) 4 MG tablet Mixed hyperlipidemia (CMS/HCC) On statin therapy, check labs Relevant Medications atorvastatin (Lipitor) 20 MG tablet Other Relevant Orders Lipid panel Tobacco dependence The patient has been advised of the risks of continued smoking: stroke, ND, all forms of cancer, lung disease, and . Options for quitting smoking include: cold turkey, hypnosis, acupuncture, nicotine replacement meds(gum, lozenges, and patches), Buproprion, and Varenicline. At this time pt is encouraged to evaluate their goals for wanting to quit smoking, and reach out toprovider when ready to start this process Relevant Orders Microalbumin / creatinine, urine ratio Urinalysis with reflex microscopic (clean catch) Primary hypertension (CMS/HCC) Please check blood pressure daily and record DASH diet Limit caffeine Take medication as directed Contact office if chest pain, pressure, dizziness, shortness of breath, swelling legs Recommend slow position changes Relevant Orders Microalbumin / creatinine, urine ratio Urinalysis with reflex microscopic (clean catch) Basic metabolic panel COPD mixed type (CMS/HCC) Recent hospitalization for exacerbation with hypoxia as well 2 ER visits, second one admitted d/t hypoxia Has seen Becca in the past for her COPD Relevant Medications montelukast (Singulair) 10 MG tablet Other Relevant Orders Ambulatory referral to Pulmonology Vitamin B12 deficiency Relevant Orders Vitamin B12 Vitamin D deficiency Relevant Orders Vitamin D 25 hydroxy BMI 40.0-44.9, adult (CMS/HCC) SHIMA (obstructive sleep apnea) - Primary Non compliant with use of PAP COPD with acute exacerbation (CMS/HCC) Pt reports getting better , feels better than in hospital I.S. 10 times hour every hour awake Recommend quitting smoking Continue nebulizers Refer to pulmonary * Erin Watson NP - 03/30/2024 6:48 AM ESTAssociated Problem(s): Mixed hyperlipidemia (CMS/HCC) On statin therapy, check labs * Erin Watson NP - 03/30/2024 6:46 AM ESTAssociated Problem(s): Tobacco dependence The patient has been advised of the risks of continued smoking: stroke, ND, all forms of cancer, lung disease, and . Options for quitting smoking include: cold turkey, hypnosis, acupuncture, nicotine replacement meds(gum, lozenges, and patches), Buproprion, and Varenicline. At this time pt is encouraged to evaluate their goals for wanting to quit smoking, and reach out toprovider when ready to start this process * Erin Watson NP - 03/30/2024 6:46 AM ESTAssociated Problem(s): Fibromyalgia Continue with Isabel SANCHEZANDRE reviewed * Erin Watson NP - 03/30/2024 6:45 AM ESTAssociated Problem(s): Primary hypertension (CMS/HCC) Please check blood pressure daily and record DASH diet Limit caffeine Take medication as directed Contact office if chest pain, pressure, dizziness, shortness of breath, swelling legs Recommend slow position changes * Erin Watson NP - 03/30/2024 6:42 AM ESTAssociated Problem(s): COPD mixed type (CMS/HCC) Recent hospitalization for exacerbation with hypoxia as well 2 ER visits, second one admitted d/t hypoxia Has seen Becca in the past for her COPD * Erin Watson NP - 03/30/2024 6:42 AM ESTAssociated Problem(s): SHIMA (obstructive sleep apnea) Non compliant with use of PAP documented in this [facility]11-25-2024 Instructions* Patient Instructions* Erin Watson NP - 03/30/2024 10:30 AM EST Referral to stock room manager Consider patches documented in this [facility]11-17-2024 Evaluation note* Diagnosis Onset Date Resolution Status Admit Date Acute infective exacerbation of chronic obstructive airway disease acute March 21, 2 024 11:38pm Acute respiratory failure wi th hypoxia acute March 21, 024 11:38pm Community acquired pneumonia acute March 21, 2024 11:38pm Tobacco abuse acute March 212023 11:38pm [facility] Work Phone: [phone]) 161-182511-17-2024 Evaluation note* Diagnosis Onset Date Resolution Status Admit Date Acute infective exacerbation of chronic obstructive airway disease acute March 21, 2 024 11:38pm Acute respiratory failure wi th hypoxia acute March 21, 2 024 11:38pm Community acquired pneumonia acute March 21, 2024 11:38pm [facility] Work Phone: 1(982) 334-267402-15-2024 History of Present illness Narrative* Erin Watson NP - 06/20/2023 4:34 PM ESTAssociated Problem(s): Edema of right lower extremity Will order labs: CBC, Chem 14, and d dimer Check stat US RLE, negative for clot * Erin Watson NP - 06/20/2023 4:32 PM ESTAssociated Problem(s): COPD mixed type (CMS/HCC) Does have ext exp wheeze, no resp distress Cannot take prednisone, but can tolerate decadron, will trial that * Erin Watson NP - 06/20/2023 4:32 PM ESTAssociated Problem(s): Shortness of breath Chest xray * JESSICA SANTIAGO - 06/20/2023 1:00 PM EST Swelling in both legs up to the calf- in the last week Elevating legs at night Oxygen was low yesterday during blood flow-they did not tell pt what it was other than it being low She started out at 92% Very SOB and wheezing Sprout is increasing the lamictal to 150 once in the morning. And continuing the 200mg at night * Erin Watson NP - 06/20/2023 1:00 PM EST Images from the original note were not included. Dawna Velásquez is a 57 y.o. female presents with chief complaint of No chief complaint on file. HPI: Here today for recheck of swelling in legs. She has been on aldactone 50mg dose, for a few weeks now Over the last couple days increase in swelling in RLE, +calf tenderness, mild dyspnea, and no hx ofDVT/PE in the past Edema Presents with chronic edema. The current episode started more than 1 year ago. The problem presentsitself constantly. The problem has been rapidly worsening. The edema is present on the right side(s). Risk factors for edema include no known risk factors. Associated agents include NSAID use. Associated symptoms include fatigue. Pertinent negative symptoms include no abdominal pain, no chest pain, no cough, no decreased urine volume, no fever, no nausea, no palpitations, no PND and no vomiting. Treatments tried include diuretics. There has been mild improvement on treatment(s). SUBJECTIVE: MEDICATIONS: Current Outpatient Medications Medication Instructions albuterol HFA 90 mcg/act inhaler 2 puffs, Inhalation, Every 6 hours PRN amitriptyline (ELAVIL) 50 mg, Oral, Nightly atorvastatin (LIPITOR) 20 mg, Oral, Every evening Breztri Aerosphere 160-9-4.8 MCG/ACT aerosol 2 puffs, Inhalation, 2 times daily cholecalciferol (Vitamin D-3) 125 MCG (5000 UT) tablet as directed Orally ibuprofen 800 mg, Oral, Every 8 hours PRN lamoTRIgine (LAMICTAL) 150 mg, Oral, Daily, In the morning lamoTRIgine (LAMICTAL) 200 mg, Oral, Nightly lidocaine (Lidoderm) 5 % patch 1 patch, Apply externally, Daily, Remove & discard patch within 12 hours or as directed by MD. meloxicam (MOBIC) 15 mg, Oral, Daily omeprazole (PRILOSEC) 40 mg, Oral, Daily prazosin (MINIPRESS) 2 mg, Oral, Nightly pregabalin (LYRICA) 100 mg, Oral, 2 times daily propranolol (INDERAL) 40 mg, Oral, 2 times daily QUEtiapine (SEROQUEL) 100 mg, Oral, Daily QUEtiapine (SEROQUEL) 400 mg, Oral, Nightly spironolactone (ALDACTONE) 50 mg, Oral, Daily tiZANidine (ZANAFLEX) 4 mg, Oral, Daily ALLERGIES: Allergies Allergen Reactions Penicillins Hives, Shortness of breath and Swelling Shortness of breath Prednisone Itching Itchy eyes and shortness of breath REVIEW OF SYMPTOMS: Review of Systems Constitutional: Positive for fatigue. Negative for appetite change, chills and fever. HENT: Negative for congestion, ear pain and sore throat. Eyes: Negative for pain, discharge, redness and visual disturbance. Respiratory: Positive for shortness of breath and wheezing. Negative for cough. Cardiovascular: Positive for leg swelling. Negative for chest pain, palpitations and PND. Gastrointestinal: Negative for abdominal pain, blood in stool, constipation, diarrhea, nausea and vomiting. Genitourinary: Negative for decreased urine volume, difficulty urinating, dysuria and frequency. Musculoskeletal: Negative for arthralgias, back pain, joint swelling and myalgias. Skin: Negative for rash and wound. Neurological: Negative for dizziness, tremors, seizures, syncope and headaches. Psychiatric/Behavioral: Negative for behavioral problems, self-injury and suicidal ideas. The patient is not nervous/anxious. Hematological: Does not bruise/bleed easily. Endocrine: Negative for polydipsia, polyphagia and polyuria. Allergic/Immunologic: Negative for environmental allergies and food allergies. PAST MEDICAL HISTORY Past Medical History: Diagnosis Date Anxiety Bilateral lower extremity edema 04/23/2023 stable Class 3 severe obesity due to excess calories without serious comorbidity with body mass index (BMI) of 40.0 to 44.9 in adult ([facility]) 04/23/2023 COPD mixed type ([facility]) 04/23/2023 DENIES HX OF BLOOD BORNE DISEASES Depression ([facility]) Fibromyalgia Open wound of left foot 04/23/2023 Open wound of second toe 04/23/2023 Other acute sinusitis 04/23/2023 Primary hypertension ([facility]) 04/23/2023 Tobacco dependence 04/23/2023 Past Surgical History: Procedure Laterality Date SECTION, LOW TRANSVERSE x2 HYSTERECTOMY 11/2014 Total Laparoscopic KNEE SURGERY Left 11/28/2021 SCOPE - DR LI TUBAL LIGATION Laparoscopic family history is not on file. She was adopted. OBJECTIVE: Visit Vitals BP 108/68 (BP Location: Left arm, Patient Position: Sitting, BP Cuff Size: Large adult) Pulse 71 Temp 97.5 F (Temporal) Resp 20 Ht 5' 5 Wt 257 lb 12.8 oz SpO2 95% BMI 42.90 kg/m Smoking Status Every Day BSA 2.32 m Physical Exam Vitals reviewed. Constitutional: General: She is not in acute distress. Appearance: Normal appearance. HENT: Head: Normocephalic and atraumatic. Right Ear: External ear normal. Left Ear: External ear normal. Nose: Nose normal. Mouth/Throat: Mouth: Mucous membranes are moist. Eyes: Extraocular Movements: Extraocular movements intact. Conjunctiva/sclera: Conjunctivae normal. Cardiovascular: Rate and Rhythm: Normal rate and regular rhythm. Pulses: Normal pulses. Heart sounds: Normal heart sounds. Pulmonary: Effort: Pulmonary effort is normal. Breath sounds: Wheezing (exp) present. Abdominal: General: Bowel sounds are normal. There is no distension. Palpations: Abdomen is soft. There is no mass. Tenderness: There is no abdominal tenderness. Musculoskeletal: General: Normal range of motion. Cervical back: Normal range of motion and neck supple. Right lower leg: Edema (2+ , +homans) present. Left lower leg: Edema (1+) present. Skin: General: Skin is warm and dry. Capillary Refill: Capillary refill takes 2 to 3 seconds. Findings: No rash. Neurological: General: No focal deficit present. Mental Status: She is alert and oriented to person, place, and time. Psychiatric: Mood and Affect: Mood normal. Behavior: Behavior normal. Thought Content: Thought content normal. Judgment: Judgment normal. ASSESSMENT AND PLAN: No follow-ups on file. Problem List Items Addressed This Visit Primary hypertension (CMS/HCC) COPD mixed type (CMS/HCC) Does have ext exp wheeze, no resp distress Cannot take prednisone, but can tolerate decadron, will trial that BMI 40.0-44.9, adult (CMS/HCC) Edema of right lower extremity - Primary Will order labs: CBC, Chem 14, and d dimer Check stat US RLE, negative for clot Relevant Orders Vascular US lower extremity venous duplex right D-dimer, quantitative CBC and differential Comprehensive metabolic panel XR chest 2 views Shortness of breath Chest xray Relevant Orders XR chest 2 views documented in this encounterMissouri Southern [id number] History of Present illness Narrative* Erin Watson NP - 06/11/2023 2:25 PM ESTAssociated Problem(s): Bilateral lower extremity edema Just started on new dose of aldactone, fu in 6 weeks for recheck * Erin Watson NP - 06/11/2023 2:24 PM ESTAssociated Problem(s): COPD mixed type (CMS/HCC) Still w wheeze, continue breztri Needs to quit smoking Allergies to steroids Have her add in albuterol inhaler prn * Erin Watson NP - 06/11/2023 2:23 PM ESTAssociated Problem(s): Primary hypertension (CMS/HCC) At goal, no changes in doses * JESSICA SANTIAGO - 06/11/2023 1:20 PM EST Right ankle swelling even when during elevation * Erin Watson NP - 06/11/2023 1:20 PM EST Images from the original note were not included. Dawna Velásquez is a 57 y.o. female presents with chief complaint of No chief complaint on file. HPI: Following up with the wound center for left foot ulcer, is going to have vascular studies completed Feels as though she is doing well on breztri as well Edema Presents with chronic edema. The current episode started more than 1 year ago. The onset of the episode was gradual. These episodes happen throughout the day. The problem presents itself daily. The problem has been waxing and waning. The edema is present on the both side(s). Risk factors for edema include no known risk factors. Associated agents include calcium channel blockers and NSAID use. Associated symptoms include cough and fatigue. Pertinent negative symptoms include no abdominal pain, no abdominal swelling, no chest pain, no decreased urine volume, no fever, no nausea, no palpitations, no PND, no syncope and no vomiting. Treatments tried include diuretics. There has been mild improvement on treatment(s). SUBJECTIVE: MEDICATIONS: Current Outpatient Medications Medication Instructions albuterol HFA 90 mcg/act inhaler 2 puffs, Inhalation, Every 6 hours PRN amitriptyline (ELAVIL) 50 mg, Oral, Nightly atorvastatin (LIPITOR) 20 mg, Oral, Every evening Breztri Aerosphere 160-9-4.8 MCG/ACT aerosol 2 puffs, Inhalation, 2 times daily cholecalciferol (Vitamin D-3) 125 MCG (5000 UT) tablet as directed Orally ibuprofen 800 mg, Oral, Every 8 hours PRN lamoTRIgine (LAMICTAL) 100 mg, Oral, Daily lamoTRIgine (LAMICTAL) 200 mg, Oral, Nightly lidocaine (Lidoderm) 5 % patch 1 patch, Apply externally, Daily, Remove & discard patch within 12 hours or as directed by MD. meloxicam (MOBIC) 15 mg, Oral, Daily omeprazole (PRILOSEC) 40 mg, Oral, Daily prazosin (MINIPRESS) 2 mg, Oral, Nightly pregabalin (LYRICA) 100 mg, Oral, 2 times daily propranolol (INDERAL) 40 mg, Oral, 2 times daily QUEtiapine (SEROQUEL) 100 mg, Oral, Daily QUEtiapine (SEROQUEL) 400 mg, Oral, Nightly spironolactone (ALDACTONE) 50 mg, Oral, Daily tiZANidine (ZANAFLEX) 4 mg, Oral, Daily ALLERGIES: Allergies Allergen Reactions Penicillins Hives, Shortness of breath and Swelling Shortness of breath Prednisone Itching Itchy eyes and shortness of breath REVIEW OF SYMPTOMS: Review of Systems Constitutional: Positive for fatigue. Negative for appetite change, chills and fever. HENT: Negative for congestion, ear pain and sore throat. Eyes: Negative for pain, discharge, redness and visual disturbance. Respiratory: Positive for cough and wheezing. Negative for choking and shortness of breath. Cardiovascular: Positive for leg swelling. Negative for chest pain, palpitations, syncope and PND. Gastrointestinal: Negative for abdominal pain, blood in stool, constipation, diarrhea, nausea and vomiting. Genitourinary: Negative for decreased urine volume, difficulty urinating, dysuria and frequency. Musculoskeletal: Positive for arthralgias and myalgias. Negative for back pain and joint swelling. Skin: Positive for wound. Negative for rash. Neurological: Negative for dizziness, tremors, seizures, syncope and headaches. Psychiatric/Behavioral: Negative for behavioral problems, self-injury and suicidal ideas. The patient is nervous/anxious. Depression Hematological: Does not bruise/bleed easily. Endocrine: Negative for polydipsia, polyphagia and polyuria. Allergic/Immunologic: Negative for environmental allergies and food allergies. PAST MEDICAL HISTORY Past Medical History: Diagnosis Date Anxiety Bilateral lower extremity edema 04/23/2023 stable Class 3 severe obesity due to excess calories without serious comorbidity with body mass index (BMI) of 40.0 to 44.9 in adult ([facility]) 04/23/2023 COPD mixed type ([facility]) 04/23/2023 DENIES HX OF BLOOD BORNE DISEASES Depression ([facility]) Fibromyalgia Open wound of left foot 04/23/2023 Open wound of second toe 04/23/2023 Other acute sinusitis 04/23/2023 Primary hypertension (CMS/HCC) 04/23/2023 Tobacco dependence 04/23/2023 Past Surgical History: Procedure Laterality Date SECTION, LOW TRANSVERSE x2 HYSTERECTOMY 11/2014 Total Laparoscopic KNEE SURGERY Left 11/28/2021 SCOPE - DR LI TUBAL LIGATION Laparoscopic family history is not on file. She was adopted. OBJECTIVE: Visit Vitals BP 112/72 (BP Location: Left arm, Patient Position: Sitting, BP Cuff Size: Adult) Pulse 77 Temp 98.4 F (Temporal) Resp 18 Ht 5' 5 Wt 250 lb SpO2 95% BMI 41.60 kg/m Smoking Status Every Day BSA 2.28 m Physical Exam Vitals reviewed. Constitutional: General: She is not in acute distress. Appearance: Normal appearance. HENT: Head: Normocephalic and atraumatic. Right Ear: External ear normal. Left Ear: External ear normal. Nose: Nose normal. Mouth/Throat: Mouth: Mucous membranes are moist. Eyes: Extraocular Movements: Extraocular movements intact. Conjunctiva/sclera: Conjunctivae normal. Cardiovascular: Rate and Rhythm: Normal rate and regular rhythm. Pulses: Normal pulses. Heart sounds: Normal heart sounds. Pulmonary: Effort: Pulmonary effort is normal. No respiratory distress. Breath sounds: No rhonchi. Wheezes: exp. Abdominal: General: Bowel sounds are normal. There is no distension. Palpations: Abdomen is soft. There is no mass. Tenderness: There is no abdominal tenderness. Musculoskeletal: General: Normal range of motion. Cervical back: Normal range of motion and neck supple. Right lower leg: Edema (1+) present. Left lower leg: Edema (1+) present. Skin: General: Skin is warm and dry. Capillary Refill: Capillary refill takes 2 to 3 seconds. Findings: No rash. Neurological: General: No focal deficit present. Mental Status: She is alert and oriented to person, place, and time. Psychiatric: Mood and Affect: Mood normal. Behavior: Behavior normal. Thought Content: Thought content normal. Judgment: Judgment normal. ASSESSMENT AND PLAN: No follow-ups on file. Problem List Items Addressed This Visit Tobacco dependence Primary hypertension (CMS/HCC) At goal, no changes in doses Bilateral lower extremity edema - Primary Just started on new dose of aldactone, fu in 6 weeks for recheck COPD mixed type (CMS/HCC) Still w wheeze, continue mason Needs to quit smoking Allergies to steroids Have her add in albuterol inhaler prn BMI 40.0-44.9, adult (CMS/HCC) Other Visit Diagnoses Body mass index [BMI] 40.0-44.9, adult (Z68.41) documented in this encounterMissouri Southern [id number] NoteCONSULTATION CONSULTATION DATE: 07/26/2022 TO: Nurse Walter CHIEF COMPLAINT: 0-5/10 pain in her lower back, worse on the right side, sharp in character, increased with activities such as standing, walking, performing transitioning maneuvers. Denies any change in bowel and bladder habits or new sensorimotor change in the lower extremities. She does have a history of fibromyalgia, and she reports that this is also improved compared to her pre-rhizotomy pain level. EXAM: Notable for patient having no clinical radiculopathy or myelopathy involving the lower extremities. She had no pain with lumbar facet joint loading maneuvers; however, she had significant myofascial spasms of the lumbar paravertebral muscles occurring bilaterally, more severe on the right than the left side. She had a fair amount of tenderness in this area as well. IMPRESSION: Our impression is patient appears to have chronic pain secondary to residual myofascial spasm of the lumbar paravertebral muscles. RECOMMENDATIONS: I recommend she consider increasing her tizanidine, if needed, 1-2 pills daily as tolerated. Her pain from her lumbosacral spondylosis is stable after successful rhizotomy using radiofrequency ablation. She reports the pain in this area is improved 100%. I recommend no further intervention for residual pain symptoms, except to increase the tizanidine. Will have her return to our office on an as needed basis.[facility] [id number] Note OPERATIVE NOTE OPERATION DATE: 05/23/2022 PREOPERATIVE DIAGNOSIS: Positive Cologuard. POSTOPERATIVE DIAGNOSIS: Distal sigmoid polyps, 2-3 mm, four polyps. PROCEDURE: Colonoscopy to cecum with cold forceps polypectomy x4 for distal sigmoid polyps. SURGEON: Yessenia Jameson M.D. ANESTHESIA: Monitored anesthesia care. ESTIMATED BLOOD LOSS: Less than 1 mL. INDICATIONS AND CONSENT: Patient is a 56-year-old female who presents for positive Cologuard. Indications, risks, benefits, alternatives of proceeding with colonoscopy were explained extensively to the patient, including the risks of bleeding, colon perforation or anesthetic complications. All of her questions were answered. Informed consent was obtained. PROCEDURE: Patient brought to the operating room, placed in the left lateral decubitus position. Monitored anesthesia care was provided. Rectal exam was performed which revealed no masses or blood. The scope was inserted into the anal canal. Under direct visualization was advanced. With the aid of abdominal compression, it was able to be advanced to the cecum where cecal markings were clearly identified. There was noted to be a good prep. Upon withdrawal of the scope, mucosal surfaces were carefully examined. There were no mass lesions or inflammatory changes. No significant diverticulosis. In the distal sigmoid, there were multiple 2 mm to 3 mm sessile polyps that were removed with cold biopsy forceps with good hemostasis. The scope was retroflexed in the anal canal. There was no significant hemorrhoidal disease. The scope was then withdrawn. Patient tolerated procedure well, was sent to recovery room in good condition. CC: Patient's family physicianThe [facility] [id number] NoteCONSULTATION CONSULTATION DATE: 05/04/2022 HISTORY OF PRESENT ILLNESS: This is a 56-year-old female who returns to the clinic status post #2 bilateral MBB of L2, L3 and L4, L5 completed on 04/10/2022. Patient received 80% relief for approximately two hours. During that time, she was able to do housework, play with her grandchild with less pain. Today, she feels she is at her baseline, which is 6/10. Housework, standing, washing dishes, stairs and bending greatly aggravate her pain. Lying down and sitting, as well as her medications, decrease her symptoms. Medications include Lyrica 100 mg b.i.d., Mobic 15 mg daily, amitriptyline, tizanidine and Seroquel. She is on a multivitamin regimen. Patient's REVIEW OF SYSTEMS / PAST MEDICAL HISTORY / ALLERGIES and IMAGES have been reviewed and noted in the chart. PHYSICAL EXAM: VITAL SIGNS: Blood pressure 100/67, heart rate is 81. She is 5'5, weighs 112 kg. GENERAL IMPRESSION: Pleasant, appropriate, in no acute distress. FOCUSED EXAM - BACK: Range of motion is guarded in lateral rotation and flexion/extension. Paravertebral muscles are non-spasmodic. Reproduction of spinal axial pain upon direct compression of the lumbar facets of L2, L3 and L4, L5 indicative of facet arthropathy, lumbar spondylosis. Pain does not radiate below the knees bilaterally. MUSCULOSKELETAL: Motor is intact, 5/5 bilaterally. Patient walks unassisted with a steady gait. NEUROLOGICAL: Radicular sensory is intact. Patient is cognitively intact. Bilateral reflexes to the lower extremities are +2. DIAGNOSIS: Spinal axial lower back pain, lumbar spondylosis and lumbar degenerative disc disease. PLAN: We will move forward with bilateral RFA of L2, L3 and L4, L5. I did discuss to continue with heat and stretches were demonstrated for her. She agrees to move forward with the procedure and will be followed up in the clinic thereafter.[facility] [id number] NoteChief Complaint consultation for positive Cologuard HPI Staff 56 year old female presents on consultation from Erin Watson for positive Cologuard. Denies abdominal or rectal pain. No rectal bleeding or change in bowel habits. Denies nausea or vomiting. No unexplained weight loss. Never had colonoscopy in the past. Family history unknown as patient is adopted. History of Present Illness 56 yo female with h/o htn, hyperlipidemia, GERD, fibromyalgia, anxiety/depression, back pain, referred for positive Cologuard; denies change in bms or blood in stools, no abd complaints; no previous colonoscopy; abdominal operations significant for x 2, tubal ligation, and CELINA with bso; no asa or NSAID use, no SBE prophylaxis; fmhx unknown, patient adopted. smokes daily. Review of Systems PHQ Score Initial Depression Screen Score: 0 ROS - Provider Constitutional: no fever, no sweats, no weight loss. Eyes: no glasses, no blurred vision, no visual loss. ENMT: no dentures, no hoarseness, no swallowing difficulties, no hearing loss, no ear infection(s),no nose bleeds. Cardiovascular: normal blood pressure, no chest pain, regular heartbeat, no heart murmur. Respiratory: no shortness of breath, no cough, no asthma, no wheezing. Gastrointestinal: no nausea, no vomiting, no diarrhea, no constipation, no blood in stool, no change in bowel habits, no abdominal pain, no hepatitis. Genitourinary: no kidney stones, no urine infection, no dysuria. Musculoskeletal: no pain, no weakness. Skin: no changing moles, no rash, no skin lumps. Neurologic: no seizures, no epilepsy, no headache. Psychiatric: no emotional or psychiatric problem. Heme/Lymph: no bleeding problems, no anemia, no blood clots, no transfusions. Allergy/Immunologic: no swollen lymph nodes/glands, no IV drug abuse. Other: Additional ROS info: Except as noted in the above Review of Systems and in the History of Present Illness, all other systems have been reviewed and are negative or noncontributory. Physical Exam Vitals & Measurements HR: 72(Peripheral) RR: 16 BP: 126/80 HT: 66 in HT: 167 cm WT: 112.9 kg WT: 248.38 lb BMI: 40.48 HEENT: normal conjunctiva, sclera clear, no scleral icterus, EOM intact, PERRLA, oral mucosa moist without lesions. Neck: trachea midline, no mass, symmetric, no thyromegaly or nodules, no adenopathy Respiratory: lungs CTA, respirations non labored. Cardiovascular: regular rate and rhythm, no murmur, no pedal edema or varicosities. Gastrointestinal: obese soft, non distended, no tenderness, no masses, no palpable hernias, diastasis recti no, no hepatosplenomegaly; normal bs Lymphatic: no cervical adenopathy, Musculoskeletal: normal gait, digits and nails without infection, nodes, cyanosis, clubbing. Skin: no rashes, no lesions, no ulcers, no subcutaneous nodules, induration. Psychiatric/Neuro: oriented to time, place, person, judgement normal, affect appropriate for age, insight intact, no focal deficits. Tests: labs reviewed,, review of old records completed, Discussed surgical options, risks, and possible complications with patient. Assessment/Plan 1. Positive colorectal cancer screening using Cologuard test (R19.5: Other fecal abnormalities) plan colonoscopy under anesthesia for further evaluation, informed consent obtained. Follow-up No qualifying data available Problem List/Past Medical History Ongoing Acute megaloblastic anemia Anxiety and depression BMI 40.0-44.9, adult Chronic lumbar pain Essential hypertension Fibromyalgia Gastroesophageal reflux disease Hearing loss Hyperlipidemia Lower extremity edema Migraines Obesity Osteopenia Positive colorectal cancer screening using Cologuard test Tobacco user Vitamin B12 deficiency Vitamin D deficiency Historical No qualifying data Procedure/Surgical History section, section, Meniscal repair, CELINA BSO - Total abdominal hysterectomy and bilateral salpingo-oophorectomy, Tubal ligation. Medications Aldactone 50 mg Tab, 50 mg= 1 tab(s), Oral, Daily amitriptyline 100 mg oral tablet, 50 mg= 0.5 tab(s), Oral, Once a day (at bedtime) Lamictal 100 mg Tab meloxicam 15 mg Tab, 15 mg= 1 tab(s), Oral, Daily omeprazole 40 mg Cap-DR, 40 mg= 1 cap(s), Oral, Daily prazosin 2 mg oral capsule, 2 mg= 1 cap(s), Oral, Bedtime pregabalin 100 mg Cap, 100 mg= 1 cap(s), Oral, BID propranolol 40 mg Tab, 40 mg= 1 tab(s), Oral, BID SEROquel 100 mg Tab simvastatin 40 mg Tab, 40 mg= 1 tab(s), Oral, Once a day (at bedtime) tiZANidine 4 mg Tab, 4 mg= 1 tab(s), Oral, q8hr, PRN Vitamin D3 5000 intl units (125 mcg) oral tab, 125 mcg= 1 tab(s), Oral, Daily Allergies penicillins (SOB - Shortness of breath, Hives) predniSONE (SOB - Shortness of breath) Social History Alcohol - Denies Alcohol Use, 05/01/2022 Substance Abuse - Denies Substance Abuse, 05/01/2022 Tobacco 10 or more cigarettes (1/2 pack or more)/day in last 30 days Tobacco (more content not included)...[facility]Comment on above:Result Comment: Electronically Signed By: TRINO LEAHY, Yessenia [place]\Date and Time Signed: 05/01/22 13:53 [id number] NoteCONSULTATION CONSULTATION DATE: 04/05/2022 HISTORY OF PRESENT ILLNESS: This is a 56-year-old female returning to the clinic status post #1 bilateral MBB of L2, L3 and L4, L5 completed on 03/20/2022. The patient was afforded 80% relief for a total of 18 hours. During that time, she was able to stand at her kitchen and bake, houseclean with less pain. Her walking endurance was increased as well. She reports her pain a 5-6/10 which is near her baseline. Twisting, pushing, pulling, transitioning from sitting to standing and doing housework increases her pain. She does use ice which temporarily gives her relief. Medications include Lyrica 100 mg b.i.d., Mobic 50 mg daily, tizanidine 4 mg q.h.s. and Lamictal. Patient's REVIEW OF SYSTEMS / PAST MEDICAL HISTORY / ALLERGIES and IMAGES have been reviewed and they are noted on the chart. PHYSICAL EXAM: VITAL SIGNS: Blood pressure 129/81, heart rate is 75. Temperature is 97.8. She is 5'6 and weighs 110 kg. GENERAL APPEARANCE: Pleasant, appropriate, no acute distress. FOCUSED EXAM - BACK: Range of motion is guarded in lateral rotation and flexion/extension. Reproduction of spinal axial pain upon direct compression of the posterior elements of the lumbar facets at L2, L3 and L4, L5 with positive jump response. Paravertebral muscles are non-spasmodic. [place] non-tender with negative FABERs and compression test. MUSCULOSKELETAL: Motor is 4/5 bilaterally. Patient walks steadily without assistance. NEUROLOGICAL: Patient is cognitively intact. Bilateral reflexes are +2 patellar and Achilles. Negative polyneuropathy. DIAGNOSIS: Lumbar degenerative disc disease, lumbar spondylosis, spinal axial lower back pain. PLAN: We will move forward with the #2 bilateral MBB of L2, L3 and L4, L5. I recommended her to stop the ice and to use heat once or twice daily to her back. I encouraged stretches which were shown. Patient would like to move forward with the procedure and she will be followed up in the clinic thereafter.[facility] [id number] NoteCONSULTATION CONSULTATION DATE: 03/06/2022 CHIEF COMPLAINT: Low back pain. HISTORY OF PRESENT ILLNESS: This is a very pleasant, 56-year-old female, who was referred to us by Erin Watson. The patient has had chronic low back pain. Gradually, the pain has been increasing. The patient had a recent MRI which was reviewed in office today which shows early spondylitic changes in the lumbar spine. The patient describes the pain as a 7/10, an aching sensation. The patient also gives a history where she has been diagnosed with fibromyalgia. Activities such as twisting, pushing, walking, housework, lifting, bending, climbing stairs, ADLs aggravate the pain, as does change in weather. Pain is mitigated by laying down, heat and ice. The patient has attended physical therapy for three months. The patient currently takes Lyrica 100 mg, Mobic 15 mg daily, Seroquel 100 mg daily, Lamictal 100 mg in the a.m., 200 mg p.m.; amitriptyline 50 mg h.s., tizanidine 4 mg h.s. She also takes Vitamin D3 5000 units. The patient's PAST MEDICAL HISTORY / SURGICAL HISTORY / REVIEW OF SYSTEMS are noted on the chart, along with the MEDICATION LIST / ALLERGIES and the MRI, which was reviewed in office today. PHYSICAL EXAMINATION: Upon physical examination, this is a pleasant, cooperative female, who does not appear to be in any acute distress. VITAL SIGNS: Her blood pressure is elevated at 137/95 with a heart rate of 81. At a height of 5'5, the patient weighs 109 kg. HEAD: Atraumatic, normocephalic. The patient does have cyanosis of the lips. The patient has been a heavy smoker since age 14. NECK: No crepitus is noted. HEART: No orthopnea. LUNGS: Non-labored breathing; however, the cyanosis is present. ABDOMEN: Protuberant, non-distended. BACK: Significant paravertebral tightening is present and spasm. Extension, compression, direct palpation along the posterior elements, especially at the level of L5, S1, aggravate and reproduce the patient's pain symptomatology, concordant with facet arthropathy, lumbar spondylosis. The MRI shows early degenerative changes throughout her lumbar discs. EXTREMITIES: No pedal edema is noted. MUSCULOSKELETAL: Intact in the lower extremities at 5/5. NEUROLOGICALLY: No radicular symptomatology is present. PSYCHIATRICALLY: Affect is appropriate. IMPRESSION: Hypertension, lumbar degenerative disc disease, lumbar spondylosis, chronic tobacco usage. PLAN: Education was done with regards to this and also nutritional components which may help her improve her status. The patient is attempting to stop smoking. We have suggested adding a multivitamin and magnesium glycinate, especially for her fibromyalgia symptomatology. The patient will be scheduled for a diagnostic lumbar medial branch block under fluoroscopy at the level of L2-3 and L4-5. The patient understands and would like to proceed. CC: Melonie Nugent [facility] HospitalEvaluation + Plan note No data available for this section [facility] [place] Evaluation noteNo assessment information available [facility] Work Phone: Evaluation note* Diagnosis COPD mixed type (CMS/HCC)- Primary Tobacco dependence Tobacco use disorder BMI 40.0-44.9, adult (CMS/HCC) Body mass index [BMI] 40.0-44.9, adult (Z68.41) Primary hypertension (CMS/HCC) Unspecified essential hypertension Bilateral lower extremity edema documented in this encounter [facility] HealthcareEvaluation note* Diagnosis Edema of right lower extremity- Primary BMI 40.0-44.9, adult (CMS/HCC) Shortness of breath COPD mixed type (CMS/HCC) Primary hypertension (CMS/HCC) Unspecified essential hypertension Bilateral lower extremity edema documented in this encounter [facility] HealthcareEvaluation note* Diagnosis Primary hypertension (CMS/HCC)- Primary Unspecified essential hypertension Mixed hyperlipidemia (CMS/HCC) Mixed hyperlipidemia Fibromyalgia Unspecified myalgia and myositis Migraine without aura and without status migrainosus, not intractable (CMS/HCC) Class 3 severe obesity due to excess calories without serious comorbidity with body mass index (BMI) of 40.0 to 44.9 in adult (CMS/HCC) Tobacco dependence Tobacco use disorder Bilateral lower extremity edema Acute non-recurrent sinusitis of other sinus COPD mixed type (CMS/HCC) Open wound of second toe of left foot, initial encounter Open wound of left foot, initial encounter COPD mixed type (CMS/HCC)- Primary Tobacco dependence Tobacco use disorder BMI 40.0-44.9, adult (CMS/HCC) Body mass index [BMI] 40.0-44.9, adult (Z68.41) Primary hypertension (CMS/HCC) Unspecified essential hypertension Bilateral lower extremity edema Edema of right lower extremity- Primary BMI 40.0-44.9, adult (CMS/HCC) Shortness of breath COPD mixed type (CMS/HCC) Primary hypertension (CMS/HCC) Unspecified essential hypertension Bilateral lower extremity edema Bilateral lower extremity edema- Primary Primary hypertension (CMS/HCC) Unspecified essential hypertension COPD mixed type (CMS/HCC) Class 3 severe obesity due to excess calories without serious comorbidity with body mass index (BMI) of 40.0 to 44.9 in adult ([facility]/HCC) Tobacco dependence Tobacco use disorder Bilateral lower extremity edema- Primary Tobacco dependence Tobacco use disorder BMI 40.0-44.9, adult ([facility]) COPD mixed type (CMS/HCC) SHIMA (obstructive sleep apnea) Obstructive sleep apnea (adult) (pediatric) Encounter for subsequent annual wellness visit (AWV) in Medicare patient- Primary Edema of right lower extremity Anxiety and depression ([facility]) Tobacco dependence Tobacco use disorder BMI 40.0-44.9, adult ([facility]) Fibromyalgia Unspecified myalgia and myositis Primary hypertension (CMS/HCC) Unspecified essential hypertension COPD mixed type (CMS/HCC) Mixed hyperlipidemia ([facility]) Mixed hyperlipidemia documented in this encounter [facility] HealthcareEvaluation note* Diagnosis Primary hypertension ([facility])- Primary Unspecified essential hypertension Mixed hyperlipidemia (CMS/[facility]) Mixed hyperlipidemia Fibromyalgia Unspecified myalgia and myositis Migraine without aura and without status migrainosus, not intractable ([facility]) Class 3 severe obesity due to excess calories without serious comorbidity with body mass index (BMI) of 40.0 to 44.9 in adult ([facility]) Tobacco dependence Tobacco use disorder Bilateral lower extremity edema Acute non-recurrent sinusitis of other sinus COPD mixed type (CMS/HCC) Open wound of second toe of left foot, initial encounter Open wound of left foot, initial encounter COPD mixed type (CMS/HCC)- Primary Tobacco dependence Tobacco use disorder BMI 40.0-44.9, adult ([facility]) Body mass index [BMI] 40.0-44.9, adult (Z68.41) Primary hypertension (CMS/HCC) Unspecified essential hypertension Bilateral lower extremity edema Edema of right lower extremity- Primary BMI 40.0-44.9, adult ([facility]) Shortness of breath COPD mixed type (CMS/HCC) Primary hypertension (CMS/HCC) Unspecified essential hypertension Bilateral lower extremity edema Bilateral lower extremity edema- Primary Primary hypertension (CMS/HCC) Unspecified essential hypertension COPD mixed type (CMS/HCC) Class 3 severe obesity due to excess calories without serious comorbidity with body mass index (BMI) of 40.0 to 44.9 in adult ([facility]) Tobacco dependence Tobacco use disorder Bilateral lower extremity edema- Primary Tobacco dependence Tobacco use disorder BMI 40.0-44.9, adult ([facility]) COPD mixed type (CMS/HCC) SHIMA (obstructive sleep apnea) Obstructive sleep apnea (adult) (pediatric) Encounter for subsequent annual wellness visit (AWV) in Medicare patient- Primary Edema of right lower extremity Anxiety and depression ([facility]) Tobacco dependence Tobacco use disorder BMI 40.0-44.9, adult ([facility]) Fibromyalgia Unspecified myalgia and myositis Primary hypertension ([facility]) Unspecified essential hypertension COPD mixed type ([facility]) Fibromyalgia Unspecified myalgia and myositis documented in this encounter [facility] HealthcareEvaluation note* Diagnosis Primary hypertension ([facility])- Primary Unspecified essential hypertension Mixed hyperlipidemia ([facility]) Mixed hyperlipidemia Fibromyalgia Unspecified myalgia and myositis Migraine without aura and without status migrainosus, not intractable ([facility]) Class 3 severe obesity due to excess calories without serious comorbidity with body mass index (BMI) of 40.0 to 44.9 in adult ([facility]) Tobacco dependence Tobacco use disorder Bilateral lower extremity edema Acute non-recurrent sinusitis of other sinus COPD mixed type ([facility]) Open wound of second toe of left foot, initial encounter Open wound of left foot, initial encounter COPD mixed type (CMS/HCC)- Primary Tobacco dependence Tobacco use disorder BMI 40.0-44.9, adult ([facility]) Body mass index [BMI] 40.0-44.9, adult (Z68.41) Primary hypertension (CMS/[facility]) Unspecified essential hypertension Bilateral lower extremity edema Edema of right lower extremity- Primary BMI 40.0-44.9, adult ([facility]) Shortness of breath COPD mixed type (CMS/HCC) Primary hypertension (CMS/HCC) Unspecified essential hypertension Bilateral lower extremity edema Bilateral lower extremity edema- Primary Primary hypertension ([facility]) Unspecified essential hypertension COPD mixed type (CMS/HCC) Class 3 severe obesity due to excess calories without serious comorbidity with body mass index (BMI) of 40.0 to 44.9 in adult ([facility]) Tobacco dependence Tobacco use disorder Bilateral lower extremity edema- Primary Tobacco dependence Tobacco use disorder BMI 40.0-44.9, adult ([facility]) COPD mixed type ([facility]) SHIMA (obstructive sleep apnea) Obstructive sleep apnea (adult) (pediatric) Encounter for subsequent annual wellness visit (AWV) in Medicare patient- Primary Edema of right lower extremity Anxiety and depression (CMS/HCC) Tobacco dependence Tobacco use disorder BMI 40.0-44.9, adult (CMS/HCC) Fibromyalgia Unspecified myalgia and myositis Primary hypertension (CMS/HCC) Unspecified essential hypertension COPD mixed type (CMS/HCC) SHIMA (obstructive sleep apnea)- Primary Obstructive sleep apnea (adult) (pediatric) COPD mixed type (CMS/HCC) Primary hypertension (CMS/HCC) Unspecified essential hypertension Fibromyalgia Unspecified myalgia and myositis BMI 40.0-44.9, adult (CMS/HCC) Tobacco dependence Tobacco use disorder Mixed hyperlipidemia (CMS/HCC) Mixed hyperlipidemia Vitamin D deficiency Vitamin B12 deficiency Other B-complex deficiencies COPD with acute exacerbation (CMS/[facility]) documented in this encounter [facility] HealthcareEvaluation note* Diagnosis Fibromyalgia Unspecified myalgia and myositis Gastro-esophageal reflux disease without esophagitis documented in this encounter [facility] HealthcareEvaluation note* Diagnosis Onset Date Resolution Status Admit Date Community acquired pneumonia acute March 21, 2024 11:38pm [facility] Work Phone: Evaluation note* Diagnosis Primary hypertension (CMS/HCC)- Primary Unspecified essential hypertension Mixed hyperlipidemia (CMS/HCC) Mixed hyperlipidemia Fibromyalgia Unspecified myalgia and myositis Migraine without aura and without status migrainosus, not intractable (CMS/HCC) Class 3 severe obesity due to excess calories without serious comorbidity with body mass index (BMI) of 40.0 to 44.9 in adult (CMS/HCC) Tobacco dependence Tobacco use disorder Bilateral lower extremity edema Acute non-recurrent sinusitis of other sinus COPD mixed type (CMS/HCC) Open wound of second toe of left foot, initial encounter Open wound of left foot, initial encounter COPD mixed type (CMS/HCC)- Primary Tobacco dependence Tobacco use disorder BMI 40.0-44.9, adult (CMS/HCC) Body mass index [BMI] 40.0-44.9, adult (Z68.41) Primary hypertension (CMS/HCC) Unspecified essential hypertension Bilateral lower extremity edema Edema of right lower extremity- Primary BMI 40.0-44.9, adult (CMS/[facility]) Shortness of breath COPD mixed type (CMS/HCC) Primary hypertension (CMS/HCC) Unspecified essential hypertension Bilateral lower extremity edema Bilateral lower extremity edema- Primary Primary hypertension (CMS/HCC) Unspecified essential hypertension COPD mixed type ([facility]) Class 3 severe obesity due to excess calories without serious comorbidity with body mass index (BMI) of 40.0 to 44.9 in adult ([facility]) Tobacco dependence Tobacco use disorder Bilateral lower extremity edema- Primary Tobacco dependence Tobacco use disorder BMI 40.0-44.9, adult ([facility]) COPD mixed type ([facility]) SHIMA (obstructive sleep apnea) Obstructive sleep apnea (adult) (pediatric) Encounter for subsequent annual wellness visit (AWV) in Medicare patient- Primary Edema of right lower extremity Anxiety and depression ([facility]) Tobacco dependence Tobacco use disorder BMI 40.0-44.9, adult ([facility]) Fibromyalgia Unspecified myalgia and myositis Primary hypertension ([facility]) Unspecified essential hypertension COPD mixed type ([facility]) SHIMA (obstructive sleep apnea)- Primary Obstructive sleep apnea (adult) (pediatric) COPD mixed type ([facility]) Primary hypertension ([facility]) Unspecified essential hypertension Fibromyalgia Unspecified myalgia and myositis BMI 40.0-44.9, adult ([facility]) Tobacco dependence Tobacco use disorder Mixed hyperlipidemia ([facility] [facility] Mixed hyperlipidemia Vitamin D deficiency Vitamin B12 deficiency Other B-complex deficiencies COPD with acute exacerbation ([facility]) Fibromyalgia Unspecified myalgia and myositis documented in this encounter [facility] HealthcareEvaluation note* Diagnosis Primary hypertension ([facility])- Primary Unspecified essential hypertension Mixed hyperlipidemia ([facility]) Mixed hyperlipidemia Fibromyalgia Unspecified myalgia and myositis Migraine without aura and without status migrainosus, not intractable ([facility]) Class 3 severe obesity due to excess calories without serious comorbidity with body mass index (BMI) of 40.0 to 44.9 in adult ([facility]) Tobacco dependence Tobacco use disorder Bilateral lower extremity edema Acute non-recurrent sinusitis of other sinus COPD mixed type ([facility]) Open wound of second toe of left foot, initial encounter Open wound of left foot, initial encounter COPD mixed type ([facility]/HCC)- Primary Tobacco dependence Tobacco use disorder BMI 40.0-44.9, adult ([facility]) Body mass index [BMI] 40.0-44.9, adult (Z68.41) Primary hypertension ([facility]) Unspecified essential hypertension Bilateral lower extremity edema Edema of right lower extremity- Primary BMI 40.0-44.9, adult ([facility]) Shortness of breath COPD mixed type ([facility]) Primary hypertension ([facility]) Unspecified essential hypertension Bilateral lower extremity edema Bilateral lower extremity edema- Primary Primary hypertension ([facility]) Unspecified essential hypertension COPD mixed type ([facility]/HCC) Class 3 severe obesity due to excess calories without serious comorbidity with body mass index (BMI) of 40.0 to 44.9 in adult ([facility]) Tobacco dependence Tobacco use disorder Bilateral lower extremity edema- Primary Tobacco dependence Tobacco use disorder BMI 40.0-44.9, adult ([facility]) COPD mixed type ([facility]) SHIMA (obstructive sleep apnea) Obstructive sleep apnea (adult) (pediatric) Encounter for subsequent annual wellness visit (AWV) in Medicare patient- Primary Edema of right lower extremity Anxiety and depression ([facility]) Tobacco dependence Tobacco use disorder BMI 40.0-44.9, adult ([facility]) Fibromyalgia Unspecified myalgia and myositis Primary hypertension ([facility]) Unspecified essential hypertension COPD mixed type ([facility]) SHIMA (obstructive sleep apnea)- Primary Obstructive sleep apnea (adult) (pediatric) COPD mixed type ([facility]/HCC) Primary hypertension ([facility]) Unspecified essential hypertension Fibromyalgia Unspecified myalgia and myositis BMI 40.0-44.9, adult ([facility]) Tobacco dependence Tobacco use disorder Mixed hyperlipidemia ([facility]) Mixed hyperlipidemia Vitamin D deficiency Vitamin B12 deficiency Other B-complex deficiencies COPD with acute exacerbation ([facility]) COPD with acute exacerbation ([facility])- Primary Morbid (severe) obesity due to excess calories ([facility]) Body mass index (BMI) 40.0-44.9, adult ([facility]) SHIMA (obstructive sleep apnea) Obstructive sleep apnea (adult) (pediatric) COPD mixed type ([facility]) Gastroesophageal reflux disease, unspecified whether esophagitis present Tobacco dependence Tobacco use disorder Gastro-esophageal reflux disease without esophagitis Tremor Abnormal involuntary movements documented in this encounter [facility] HealthcareEvaluation note* Diagnosis Primary hypertension ([facility])- Primary Unspecified essential hypertension Mixed hyperlipidemia ([facility]) Mixed hyperlipidemia Fibromyalgia Unspecified myalgia and myositis Migraine without aura and without status migrainosus, not intractable ([facility]) Class 3 severe obesity due to excess calories without serious comorbidity with body mass index (BMI) of 40.0 to 44.9 in adult ([facility]) Tobacco dependence Tobacco use disorder Bilateral lower extremity edema Acute non-recurrent sinusitis of other sinus COPD mixed type ([facility]) Open wound of second toe of left foot, initial encounter Open wound of left foot, initial encounter COPD mixed type (CMS/HCC)- Primary Tobacco dependence Tobacco use disorder BMI 40.0-44.9, adult ([facility]) Body mass index [BMI] 40.0-44.9, adult (Z68.41) Primary hypertension ([facility]) Unspecified essential hypertension Bilateral lower extremity edema Edema of right lower extremity- Primary BMI 40.0-44.9, adult ([facility]) Shortness of breath COPD mixed type ([facility]) Primary hypertension ([facility]) Unspecified essential hypertension Bilateral lower extremity edema Bilateral lower extremity edema- Primary Primary hypertension ([facility]) Unspecified essential hypertension COPD mixed type ([facility]) Class 3 severe obesity due to excess calories without serious comorbidity with body mass index (BMI) of 40.0 to 44.9 in adult ([facility]) Tobacco dependence Tobacco use disorder Bilateral lower extremity edema- Primary Tobacco dependence Tobacco use disorder BMI 40.0-44.9, adult ([facility]) COPD mixed type ([facility]) SHIMA (obstructive sleep apnea) Obstructive sleep apnea (adult) (pediatric) Encounter for subsequent annual wellness visit (AWV) in Medicare patient- Primary Edema of right lower extremity Anxiety and depression ([facility]) Tobacco dependence Tobacco use disorder BMI 40.0-44.9, adult ([facility]) Fibromyalgia Unspecified myalgia and myositis Primary hypertension ([facility]) Unspecified essential hypertension COPD mixed type ([facility]) SHIMA (obstructive sleep apnea)- Primary Obstructive sleep apnea (adult) (pediatric) COPD mixed type ([facility]) Primary hypertension ([facility]) Unspecified essential hypertension Fibromyalgia Unspecified myalgia and myositis BMI 40.0-44.9, adult ([facility]) Tobacco dependence Tobacco use disorder Mixed hyperlipidemia ([facility]) Mixed hyperlipidemia Vitamin D deficiency Vitamin B12 deficiency Other B-complex deficiencies COPD with acute exacerbation ([facility]) COPD with acute exacerbation ([facility])- Primary Morbid (severe) obesity due to excess calories ([facility]) Body mass index (BMI) 40.0-44.9, adult ([facility]) SHIMA (obstructive sleep apnea) Obstructive sleep apnea (adult) (pediatric) COPD mixed type ([facility]/HCC) Gastroesophageal reflux disease, unspecified whether esophagitis present Tobacco dependence Tobacco use disorder Gastro-esophageal reflux disease without esophagitis Tremor Abnormal involuntary movements 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 Secondary Parkinsonism Tremor Abnormal involuntary movements documented in this encounter [facility] HealthcareEvaluation note* Diagnosis Primary hypertension ([facility])- Primary Unspecified essential hypertension Mixed hyperlipidemia ([facility]) Mixed hyperlipidemia Fibromyalgia Unspecified myalgia and myositis Migraine without aura and without status migrainosus, not intractable ([facility]) Class 3 severe obesity due to excess calories without serious comorbidity with body mass index (BMI) of 40.0 to 44.9 in adult ([facility]) Tobacco dependence Tobacco use disorder Bilateral lower extremity edema Acute non-recurrent sinusitis of other sinus COPD mixed type ([facility]) Open wound of second toe of left foot, initial encounter Open wound of left foot, initial encounter COPD mixed type ([facility])- Primary Tobacco dependence Tobacco use disorder BMI 40.0-44.9, adult ([facility]) Body mass index [BMI] 40.0-44.9, adult (Z68.41) Primary hypertension ([facility]) Unspecified essential hypertension Bilateral lower extremity edema Edema of right lower extremity- Primary BMI 40.0-44.9, adult ([facility]) Shortness of breath COPD mixed type ([facility]) Primary hypertension ([facility]) Unspecified essential hypertension Bilateral lower extremity edema Bilateral lower extremity edema- Primary Primary hypertension ([facility]) Unspecified essential hypertension COPD mixed type ([facility]) Class 3 severe obesity due to excess calories without serious comorbidity with body mass index (BMI) of 40.0 to 44.9 in adult ([facility]) Tobacco dependence Tobacco use disorder Bilateral lower extremity edema- Primary Tobacco dependence Tobacco use disorder BMI 40.0-44.9, adult ([facility]) COPD mixed type ([facility]) SHIMA (obstructive sleep apnea) Obstructive sleep apnea (adult) (pediatric) Encounter for subsequent annual wellness visit (AWV) in Medicare patient- Primary Edema of right lower extremity Anxiety and depression ([facility]) Tobacco dependence Tobacco use disorder BMI 40.0-44.9, adult ([facility]) Fibromyalgia Unspecified myalgia and myositis Primary hypertension ([facility]) Unspecified essential hypertension COPD mixed type (CMS/HCC) SHIMA (obstructive sleep apnea)- Primary Obstructive sleep apnea (adult) (pediatric) COPD mixed type (CMS/HCC) Primary hypertension (CMS/HCC) Unspecified essential hypertension Fibromyalgia Unspecified myalgia and myositis BMI 40.0-44.9, adult ([facility]) Tobacco dependence Tobacco use disorder Mixed hyperlipidemia (CMS/HCC) Mixed hyperlipidemia Vitamin D deficiency Vitamin B12 deficiency Other B-complex deficiencies COPD with acute exacerbation ([facility]) COPD with acute exacerbation ([facility])- Primary Morbid (severe) obesity due to excess calories ([facility]) Body mass index (BMI) 40.0-44.9, adult ([facility]) SHIMA (obstructive sleep apnea) Obstructive sleep apnea (adult) (pediatric) COPD mixed type ([facility]) Gastroesophageal reflux disease, unspecified whether esophagitis present Tobacco dependence Tobacco use disorder Gastro-esophageal reflux disease without esophagitis Tremor Abnormal involuntary movements Fibromyalgia Unspecified myalgia and myositis Localized edema Edema Mixed hyperlipidemia ([facility]) Mixed hyperlipidemia documented in this encounter [facility] HealthcareEvaluation note* Diagnosis Primary hypertension ([facility])- Primary Unspecified essential hypertension Mixed hyperlipidemia ([facility]) Mixed hyperlipidemia Fibromyalgia Unspecified myalgia and myositis Migraine without aura and without status migrainosus, not intractable ([facility]) Class 3 severe obesity due to excess calories without serious comorbidity with body mass index (BMI) of 40.0 to 44.9 in adult ([facility]) Tobacco dependence Tobacco use disorder Bilateral lower extremity edema Acute non-recurrent sinusitis of other sinus COPD mixed type ([facility]) Open wound of second toe of left foot, initial encounter Open wound of left foot, initial encounter COPD mixed type ([facility]/HCC)- Primary Tobacco dependence Tobacco use disorder BMI 40.0-44.9, adult ([facility]) Body mass index [BMI] 40.0-44.9, adult (Z68.41) Primary hypertension ([facility]) Unspecified essential hypertension Bilateral lower extremity edema Edema of right lower extremity- Primary BMI 40.0-44.9, adult ([facility]) Shortness of breath COPD mixed type ([facility]) Primary hypertension (CMS/HCC) Unspecified essential hypertension Bilateral lower extremity edema Bilateral lower extremity edema- Primary Primary hypertension ([facility]) Unspecified essential hypertension COPD mixed type ([facility]) Class 3 severe obesity due to excess calories without serious comorbidity with body mass index (BMI) of 40.0 to 44.9 in adult ([facility]) Tobacco dependence Tobacco use disorder Bilateral lower extremity edema- Primary Tobacco dependence Tobacco use disorder BMI 40.0-44.9, adult ([facility]) COPD mixed type (CMS/HCC) SHIMA (obstructive sleep apnea) Obstructive sleep apnea (adult) (pediatric) Encounter for subsequent annual wellness visit (AWV) in Medicare patient- Primary Edema of right lower extremity Anxiety and depression ([facility]) Tobacco dependence Tobacco use disorder BMI 40.0-44.9, adult ([facility]) Fibromyalgia Unspecified myalgia and myositis Primary hypertension ([facility]) Unspecified essential hypertension COPD mixed type ([facility]/HCC) SHIMA (obstructive sleep apnea)- Primary Obstructive sleep apnea (adult) (pediatric) COPD mixed type (CMS/HCC) Primary hypertension (CMS/HCC) Unspecified essential hypertension Fibromyalgia Unspecified myalgia and myositis BMI 40.0-44.9, adult ([facility]) Tobacco dependence Tobacco use disorder Mixed hyperlipidemia ([facility]/HCC) Mixed hyperlipidemia Vitamin D deficiency Vitamin B12 deficiency Other B-complex deficiencies COPD with acute exacerbation ([facility]) COPD with acute exacerbation ([facility])- Primary Morbid (severe) obesity due to excess calories ([facility]) Body mass index (BMI) 40.0-44.9, adult ([facility]) SHIMA (obstructive sleep apnea) Obstructive sleep apnea (adult) (pediatric) COPD mixed type ([facility]) Gastroesophageal reflux disease, unspecified whether esophagitis present Tobacco dependence Tobacco use disorder Gastro-esophageal reflux disease without esophagitis Tremor Abnormal involuntary movements Environmental and seasonal allergies- Primary COPD mixed type ([facility]/HCC) documented in this encounter [facility] HealthcareEvaluation note* Diagnosis Primary hypertension ([facility])- Primary Unspecified essential hypertension Mixed hyperlipidemia ([facility]) Mixed hyperlipidemia Fibromyalgia Unspecified myalgia and myositis Migraine without aura and without status migrainosus, not intractable ([facility]) Class 3 severe obesity due to excess calories without serious comorbidity with body mass index (BMI) of 40.0 to 44.9 in adult Tobacco dependence Tobacco use disorder Bilateral lower extremity edema Acute non-recurrent sinusitis of other sinus COPD mixed type ([facility]) Open wound of second toe of left foot, initial encounter Open wound of left foot, initial encounter COPD mixed type ([facility]/HCC)- Primary Tobacco dependence Tobacco use disorder BMI 40.0-44.9, adult ([facility]) Body mass index [BMI] 40.0-44.9, adult (Z68.41) Primary hypertension ([facility]) Unspecified essential hypertension Bilateral lower extremity edema Edema of right lower extremity- Primary BMI 40.0-44.9, adult ([facility]) Shortness of breath COPD mixed type ([facility]/HCC) Primary hypertension (CMS/HCC) Unspecified essential hypertension Bilateral lower extremity edema Bilateral lower extremity edema- Primary Primary hypertension ([facility]) Unspecified essential hypertension COPD mixed type ([facility]) Class 3 severe obesity due to excess calories without serious comorbidity with body mass index (BMI) of 40.0 to 44.9 in adult Tobacco dependence Tobacco use disorder Bilateral lower extremity edema- Primary Tobacco dependence Tobacco use disorder BMI 40.0-44.9, adult ([facility]) COPD mixed type ([facility]) SHIMA (obstructive sleep apnea) Obstructive sleep apnea (adult) (pediatric) Encounter for subsequent annual wellness visit (AWV) in Medicare patient- Primary Edema of right lower extremity Anxiety and depression ([facility]) Tobacco dependence Tobacco use disorder BMI 40.0-44.9, adult ([facility]) Fibromyalgia Unspecified myalgia and myositis Primary hypertension ([facility]) Unspecified essential hypertension COPD mixed type ([facility]) SHIMA (obstructive sleep apnea)- Primary Obstructive sleep apnea (adult) (pediatric) COPD mixed type ([facility]) Primary hypertension ([facility]) Unspecified essential hypertension Fibromyalgia Unspecified myalgia and myositis BMI 40.0-44.9, adult ([facility]) Tobacco dependence Tobacco use disorder Mixed hyperlipidemia ([facility]) Mixed hyperlipidemia Vitamin D deficiency Vitamin B12 deficiency Other B-complex deficiencies COPD with acute exacerbation ([facility]) COPD with acute exacerbation ([facility])- Primary Morbid (severe) obesity due to excess calories ([facility]) Body mass index (BMI) 40.0-44.9, adult ([facility]) SHIMA (obstructive sleep apnea) Obstructive sleep apnea (adult) (pediatric) COPD mixed type ([facility]) Gastroesophageal reflux disease, unspecified whether esophagitis present Tobacco dependence Tobacco use disorder Gastro-esophageal reflux disease without esophagitis Tremor Abnormal involuntary movements Fibromyalgia Unspecified myalgia and myositis documented in this encounter [facility] HealthcareEvaluation note* Diagnosis Primary hypertension (CMS/HCC)- Primary Unspecified essential hypertension Mixed hyperlipidemia (CMS/HCC) Mixed hyperlipidemia Fibromyalgia Unspecified myalgia and myositis Migraine without aura and without status migrainosus, not intractable (CMS/HCC) Class 3 severe obesity due to excess calories without serious comorbidity with body mass index (BMI) of 40.0 to 44.9 in adult Tobacco dependence Tobacco use disorder Bilateral lower extremity edema Acute non-recurrent sinusitis of other sinus COPD mixed type (CMS/HCC) Open wound of second toe of left foot, initial encounter Open wound of left foot, initial encounter COPD mixed type (CMS/HCC)- Primary Tobacco dependence Tobacco use disorder BMI 40.0-44.9, adult ([facility]) Body mass index [BMI] 40.0-44.9, adult (Z68.41) Primary hypertension (CMS/HCC) Unspecified essential hypertension Bilateral lower extremity edema Edema of right lower extremity- Primary BMI 40.0-44.9, adult ([facility]) Shortness of breath COPD mixed type (CMS/HCC) Primary hypertension (CMS/HCC) Unspecified essential hypertension Bilateral lower extremity edema Bilateral lower extremity edema- Primary Primary hypertension (CMS/HCC) Unspecified essential hypertension COPD mixed type (CMS/HCC) Class 3 severe obesity due to excess calories without serious comorbidity with body mass index (BMI) of 40.0 to 44.9 in adult Tobacco dependence Tobacco use disorder Bilateral lower extremity edema- Primary Tobacco dependence Tobacco use disorder BMI 40.0-44.9, adult ([facility]) COPD mixed type (CMS/HCC) SHIMA (obstructive sleep apnea) Obstructive sleep apnea (adult) (pediatric) Encounter for subsequent annual wellness visit (AWV) in Medicare patient- Primary Edema of right lower extremity Anxiety and depression ([facility]) Tobacco dependence Tobacco use disorder BMI 40.0-44.9, adult ([facility]) Fibromyalgia Unspecified myalgia and myositis Primary hypertension (CMS/HCC) Unspecified essential hypertension COPD mixed type (CMS/HCC) SHIMA (obstructive sleep apnea)- Primary Obstructive sleep apnea (adult) (pediatric) COPD mixed type (CMS/HCC) Primary hypertension (CMS/HCC) Unspecified essential hypertension Fibromyalgia Unspecified myalgia and myositis BMI 40.0-44.9, adult ([facility]) Tobacco dependence Tobacco use disorder Mixed hyperlipidemia ([facility]/HCC) Mixed hyperlipidemia Vitamin D deficiency Vitamin B12 deficiency Other B-complex deficiencies COPD with acute exacerbation ([facility]/HCC) COPD with acute exacerbation ([facility])- Primary Morbid (severe) obesity due to excess calories ([facility]) Body mass index (BMI) 40.0-44.9, adult ([facility]) SHIMA (obstructive sleep apnea) Obstructive sleep apnea (adult) (pediatric) COPD mixed type ([facility]) Gastroesophageal reflux disease, unspecified whether esophagitis present Tobacco dependence Tobacco use disorder Gastro-esophageal reflux disease without esophagitis Tremor Abnormal involuntary movements Mixed hyperlipidemia ([facility]) Mixed hyperlipidemia documented in this encounter [facility] HealthcareEvaluation note* Diagnosis Primary hypertension ([facility])- Primary Unspecified essential hypertension Mixed hyperlipidemia ([facility]) Mixed hyperlipidemia Fibromyalgia Unspecified myalgia and myositis Migraine without aura and without status migrainosus, not intractable ([facility] [facility] Class 3 severe obesity due to excess calories without serious comorbidity with body mass index (BMI) of 40.0 to 44.9 in adult Tobacco dependence Tobacco use disorder Bilateral lower extremity edema Acute non-recurrent sinusitis of other sinus COPD mixed type ([facility]) Open wound of second toe of left foot, initial encounter Open wound of left foot, initial encounter COPD mixed type ([facility])- Primary Tobacco dependence Tobacco use disorder BMI 40.0-44.9, adult ([facility]) Body mass index [BMI] 40.0-44.9, adult (Z68.41) Primary hypertension ([facility]) Unspecified essential hypertension Bilateral lower extremity edema Edema of right lower extremity- Primary BMI 40.0-44.9, adult ([facility]) Shortness of breath COPD mixed type ([facility]) Primary hypertension ([facility]) Unspecified essential hypertension Bilateral lower extremity edema Bilateral lower extremity edema- Primary Primary hypertension ([facility]) Unspecified essential hypertension COPD mixed type ([facility]) Class 3 severe obesity due to excess calories without serious comorbidity with body mass index (BMI) of 40.0 to 44.9 in adult Tobacco dependence Tobacco use disorder Bilateral lower extremity edema- Primary Tobacco dependence Tobacco use disorder BMI 40.0-44.9, adult ([facility]) COPD mixed type ([facility]) SHIMA (obstructive sleep apnea) Obstructive sleep apnea (adult) (pediatric) Encounter for subsequent annual wellness visit (AWV) in Medicare patient- Primary Edema of right lower extremity Anxiety and depression ([facility]) Tobacco dependence Tobacco use disorder BMI 40.0-44.9, adult ([facility]) Fibromyalgia Unspecified myalgia and myositis Primary hypertension ([facility]) Unspecified essential hypertension COPD mixed type ([facility]) SHIMA (obstructive sleep apnea)- Primary Obstructive sleep apnea (adult) (pediatric) COPD mixed type ([facility]) Primary hypertension ([facility]) Unspecified essential hypertension Fibromyalgia Unspecified myalgia and myositis BMI 40.0-44.9, adult ([facility]) Tobacco dependence Tobacco use disorder Mixed hyperlipidemia ([facility]) Mixed hyperlipidemia Vitamin D deficiency Vitamin B12 deficiency Other B-complex deficiencies COPD with acute exacerbation ([facility]) COPD with acute exacerbation ([facility])- Primary Morbid (severe) obesity due to excess calories ([facility]) Body mass index (BMI) 40.0-44.9, adult ([facility]) SHIMA (obstructive sleep apnea) Obstructive sleep apnea (adult) (pediatric) COPD mixed type ([facility]) Gastroesophageal reflux disease, unspecified whether esophagitis present Tobacco dependence Tobacco use disorder Gastro-esophageal reflux disease without esophagitis Tremor Abnormal involuntary movements Tobacco dependence- Primary Tobacco use disorder documented in this encounter [facility] HealthcareEvaluation note* Diagnosis Primary hypertension ([facility])- Primary Unspecified essential hypertension Mixed hyperlipidemia ([facility]) Mixed hyperlipidemia Fibromyalgia Unspecified myalgia and myositis Migraine without aura and without status migrainosus, not intractable ([facility]) Class 3 severe obesity due to excess calories without serious comorbidity with body mass index (BMI) of 40.0 to 44.9 in adult Tobacco dependence Tobacco use disorder Bilateral lower extremity edema Acute non-recurrent sinusitis of other sinus COPD mixed type ([facility]) Open wound of second toe of left foot, initial encounter Open wound of left foot, initial encounter COPD mixed type ([facility])- Primary Tobacco dependence Tobacco use disorder BMI 40.0-44.9, adult ([facility]) Body mass index [BMI] 40.0-44.9, adult (Z68.41) Primary hypertension ([facility]) Unspecified essential hypertension Bilateral lower extremity edema Edema of right lower extremity- Primary BMI 40.0-44.9, adult ([facility]) Shortness of breath COPD mixed type ([facility]) Primary hypertension ([facility]) Unspecified essential hypertension Bilateral lower extremity edema Bilateral lower extremity edema- Primary Primary hypertension ([facility]) Unspecified essential hypertension COPD mixed type ([facility]) Class 3 severe obesity due to excess calories without serious comorbidity with body mass index (BMI) of 40.0 to 44.9 in adult Tobacco dependence Tobacco use disorder Bilateral lower extremity edema- Primary Tobacco dependence Tobacco use disorder BMI 40.0-44.9, adult ([facility]) COPD mixed type ([facility]) SHIMA (obstructive sleep apnea) Obstructive sleep apnea (adult) (pediatric) Encounter for subsequent annual wellness visit (AWV) in Medicare patient- Primary Edema of right lower extremity Anxiety and depression ([facility]) Tobacco dependence Tobacco use disorder BMI 40.0-44.9, adult ([facility]) Fibromyalgia Unspecified myalgia and myositis Primary hypertension ([facility]) Unspecified essential hypertension COPD mixed type ([facility]) SHIMA (obstructive sleep apnea)- Primary Obstructive sleep apnea (adult) (pediatric) COPD mixed type ([facility]) Primary hypertension ([facility]) Unspecified essential hypertension Fibromyalgia Unspecified myalgia and myositis BMI 40.0-44.9, adult ([facility]) Tobacco dependence Tobacco use disorder Mixed hyperlipidemia ([facility]) Mixed hyperlipidemia Vitamin D deficiency Vitamin B12 deficiency Other B-complex deficiencies COPD with acute exacerbation ([facility]) COPD with acute exacerbation ([facility])- Primary Morbid (severe) obesity due to excess calories ([facility]) Body mass index (BMI) 40.0-44.9, adult ([facility]) SHIMA (obstructive sleep apnea) Obstructive sleep apnea (adult) (pediatric) COPD mixed type ([facility]) Gastroesophageal reflux disease, unspecified whether esophagitis present Tobacco dependence Tobacco use disorder Gastro-esophageal reflux disease without esophagitis Tremor Abnormal involuntary movements Fibromyalgia Unspecified myalgia and myositis documented in this encounter [facility]* Diagnosis Primary hypertension- Primary Unspecified essential hypertension Mixed hyperlipidemia Mixed hyperlipidemia Fibromyalgia Unspecified myalgia and myositis Migraine without aura and without status migrainosus, not intractable Class 3 severe obesity due to excess calories without serious comorbidity with body mass index (BMI) of 40.0 to 44.9 in adult ([facility]) Tobacco dependence Tobacco use disorder Bilateral lower extremity edema Acute non-recurrent sinusitis of other sinus COPD mixed type ([facility]) Open wound of second toe of left foot, initial encounter Open wound of left foot, initial encounter COPD mixed type ([facility])- Primary Tobacco dependence Tobacco use disorder BMI 40.0-44.9, adult ([facility]) Body mass index [BMI] 40.0-44.9, adult (Z68.41) Primary hypertension Unspecified essential hypertension Bilateral lower extremity edema Edema of right lower extremity- Primary BMI 40.0-44.9, adult ([facility]) Shortness of breath COPD mixed type ([facility]) Primary hypertension Unspecified essential hypertension Bilateral lower extremity edema Bilateral lower extremity edema- Primary Primary hypertension Unspecified essential hypertension COPD mixed type ([facility]) Class 3 severe obesity due to excess calories without serious comorbidity with body mass index (BMI) of 40.0 to 44.9 in adult ([facility]) Tobacco dependence Tobacco use disorder Bilateral lower extremity edema- Primary Tobacco dependence Tobacco use disorder BMI 40.0-44.9, adult ([facility]) COPD mixed type ([facility]) SHIMA (obstructive sleep apnea) Obstructive sleep apnea (adult) (pediatric) Encounter for subsequent annual wellness visit (AWV) in Medicare patient- Primary Edema of right lower extremity Anxiety and depression Tobacco dependence Tobacco use disorder BMI 40.0-44.9, adult ([facility]) Fibromyalgia Unspecified myalgia and myositis Primary hypertension Unspecified essential hypertension COPD mixed type ([facility]) SHIMA (obstructive sleep apnea)- Primary Obstructive sleep apnea (adult) (pediatric) COPD mixed type ([facility]) Primary hypertension Unspecified essential hypertension Fibromyalgia Unspecified myalgia and myositis BMI 40.0-44.9, adult ([facility]) Tobacco dependence Tobacco use disorder Mixed hyperlipidemia Mixed hyperlipidemia Vitamin D deficiency Vitamin B12 deficiency Other B-complex deficiencies COPD with acute exacerbation (HCC) COPD with acute exacerbation (HCC)- Primary Morbid (severe) obesity due to excess calories ([facility]) Body mass index (BMI) 40.0-44.9, adult ([facility]) SHIMA (obstructive sleep apnea) Obstructive sleep apnea (adult) (pediatric) COPD mixed type (HCC) Gastroesophageal reflux disease, unspecified whether esophagitis present Tobacco dependence Tobacco use disorder Gastro-esophageal reflux disease without esophagitis Tremor Abnormal involuntary movements Encounter for subsequent annual wellness visit (AWV) in Medicare patient- Primary Chronic kidney disease, stage 3a ([facility]) SHIMA (obstructive sleep apnea) Obstructive sleep apnea (adult) (pediatric) COPD mixed type (HCC) Gastroesophageal reflux disease, unspecified whether esophagitis present Bilateral lower extremity edema Anxiety and depression Tobacco dependence Tobacco use disorder Mixed hyperlipidemia Mixed hyperlipidemia Fibromyalgia Unspecified myalgia and myositis Environmental and seasonal allergies Gastro-esophageal reflux disease without esophagitis Personal history of other diseases of the nervous system and sense organs Screening for lung cancer documented in this encounter [facility] HealthcareEvaluation note* Diagnosis Primary hypertension- Primary Unspecified essential hypertension Mixed hyperlipidemia Mixed hyperlipidemia Fibromyalgia Unspecified myalgia and myositis Migraine without aura and without status migrainosus, not intractable Class 3 severe obesity due to excess calories without serious comorbidity with body mass index (BMI) of 40.0 to 44.9 in adult ([facility]) Tobacco dependence Tobacco use disorder Bilateral lower extremity edema Acute non-recurrent sinusitis of other sinus COPD mixed type ([facility]) Open wound of second toe of left foot, initial encounter Open wound of left foot, initial encounter COPD mixed type (HCC)- Primary Tobacco dependence Tobacco use disorder BMI 40.0-44.9, adult ([facility]) Body mass index [BMI] 40.0-44.9, adult (Z68.41) Primary hypertension Unspecified essential hypertension Bilateral lower extremity edema Edema of right lower extremity- Primary BMI 40.0-44.9, adult ([facility]) Shortness of breath COPD mixed type (HCC) Primary hypertension Unspecified essential hypertension Bilateral lower extremity edema Bilateral lower extremity edema- Primary Primary hypertension Unspecified essential hypertension COPD mixed type (HCC) Class 3 severe obesity due to excess calories without serious comorbidity with body mass index (BMI) of 40.0 to 44.9 in adult ([facility]) Tobacco dependence Tobacco use disorder Bilateral lower extremity edema- Primary Tobacco dependence Tobacco use disorder BMI 40.0-44.9, adult ([facility]) COPD mixed type (HCC) SHIMA (obstructive sleep apnea) Obstructive sleep apnea (adult) (pediatric) Encounter for subsequent annual wellness visit (AWV) in Medicare patient- Primary Edema of right lower extremity Anxiety and depression Tobacco dependence Tobacco use disorder BMI 40.0-44.9, adult ([facility]) Fibromyalgia Unspecified myalgia and myositis Primary hypertension Unspecified essential hypertension COPD mixed type (HCC) SHIMA (obstructive sleep apnea)- Primary Obstructive sleep apnea (adult) (pediatric) COPD mixed type (HCC) Primary hypertension Unspecified essential hypertension Fibromyalgia Unspecified myalgia and myositis BMI 40.0-44.9, adult ([facility]) Tobacco dependence Tobacco use disorder Mixed hyperlipidemia Mixed hyperlipidemia Vitamin D deficiency Vitamin B12 deficiency Other B-complex deficiencies COPD with acute exacerbation (HCC) COPD with acute exacerbation (HCC)- Primary Morbid (severe) obesity due to excess calories ([facility]) Body mass index (BMI) 40.0-44.9, adult ([facility]) SHIMA (obstructive sleep apnea) Obstructive sleep apnea (adult) (pediatric) COPD mixed type (HCC) Gastroesophageal reflux disease, unspecified whether esophagitis present Tobacco dependence Tobacco use disorder Gastro-esophageal reflux disease without esophagitis Tremor Abnormal involuntary movements Encounter for subsequent annual wellness visit (AWV) in Medicare patient- Primary Chronic kidney disease, stage 3a ([facility]) SHIMA (obstructive sleep apnea) Obstructive sleep apnea (adult) (pediatric) COPD mixed type ([facility]) Gastroesophageal reflux disease, unspecified whether esophagitis present Bilateral lower extremity edema Anxiety and depression Tobacco dependence Tobacco use disorder Mixed hyperlipidemia Mixed hyperlipidemia Fibromyalgia Unspecified myalgia and myositis Environmental and seasonal allergies Gastro-esophageal reflux disease without esophagitis Personal history of other diseases of the nervous system and sense organs Screening for lung cancer Tobacco dependence Tobacco use disorder documented in this encounter [facility]* Diagnosis Primary hypertension- Primary Unspecified essential hypertension Mixed hyperlipidemia Mixed hyperlipidemia Fibromyalgia Unspecified myalgia and myositis Migraine without aura and without status migrainosus, not intractable Class 3 severe obesity due to excess calories without serious comorbidity with body mass index (BMI) of 40.0 to 44.9 in adult ([facility]) Tobacco dependence Tobacco use disorder Bilateral lower extremity edema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
== END 2025-04-18 20:03 | disposition home or self-care (01) ==
LOC: ED 20:02
PROVIDERS: Emergency Provider Emergency Medicine; Visit Provider Emergency Medicine
DX: S81.811A Laceration without foreign body, right lower leg, initial encounter (principal); F17.210 Nicotine dependence, cigarettes, uncomplicated; W25.XXXA Contact with sharp glass, initial encounter
CPT/HCPCS: 12002; 99284